=== PATIENT | male | born 1970 | race Caucasian/White ===

== ENCOUNTER → 2018-03-04 13:09 | Outpatient (CLI) | payer OTHER, SELFPAY ==
[2018-03-04 14:43] LABS: Add Manual Diff / Slide Review NO; Basophils Percent Auto 0.8 % (0-2); Hematocrit 41.4 % (41-53); Lymphocytes Percent Auto 27.1 % (25-40); Mean Corpuscular HGB Conc 33.9 % (30-36); Mean Corpuscular Hemoglobin 28.6 PG (26-34); Mean Corpuscular Volume 84.4 fL (80-100); Monocytes Percent Auto 8.4 % (3-14); Neutrophils Absolute Auto 2900 /uL (3000-5900); Neutrophils Percent Auto 60.7 % (50-75); Platelet Count 238 X10^3/uL (150-400); Red Cell Distribution Width 13.3 % (11.6-14.8); White Blood Cell Count 4.8 X10^3/uL (4.5-11.0)
[2018-03-04 15:41] LABS: Alanine Aminotransferase 42 IU/L (21-72); Albumin 4.4 g/dL (3.5-5.0); Albumin Globulin Ratio 1.5 (1.0-2.8); Alkaline Phosphatase 90 U/L (38-126); Aspartate Aminotransferase 34 IU/L (17-59); BUN Creatinine Ratio 15.6 (6-22); Bilirubin Total 0.7 mg/dL (0.2-1.3); Blood Urea Nitrogen 14 mg/dL (9-20); Calcium 9.1 mg/dL (8.4-10.2); Carbon Dioxide 25 mmol/L (22-32); Chloride 103 mmol/L (98-107); Cholesterol 178 mg/dL (140-199); Estimated Glomerular Filt Rate > 60.0 mL/min (>60); Glucose 93 mg/dL (70-100); HDL Cholesterol 31 mg/dL (40-60); HEMOLYSIS < 15 (0-50); LDL Cholesterol Calculated 112 mg/dL (<100); Potassium 4.1 mmol/L (3.4-5.1); Sodium 140 mmol/L (137-145); Total Protein 7.4 g/dL (6.3-8.2); Triglycerides 177 mg/dL (35-150)
== END ==
PROVIDERS: PCP Family Medicine; Visit Provider Family Medicine
DX: E78.5 Hyperlipidemia, unspecified (principal)
CPT/HCPCS: 80053; 80061; 85025

== ENCOUNTER → 2019-04-27 11:49 | Outpatient (CLI) | payer OTHER, SELFPAY ==
[2019-04-27 12:18] LABS: Appearance Urine UA CLEAR; Bilirubin Urine UA NEGATIVE (NEGATIVE); Color Urine UA YELLOW; Glucose Urine UA NEGATIVE (Negative); Ketones Urine UA NEGATIVE (NEGATIVE); Leukocyte Esterase Urine UA NEGATIVE (NEGATIVE); Nitrite Urine UA NEGATIVE (Negative); Occult Blood Urine UA NEGATIVE (Negative); Protein Urine UA NEGATIVE (Negative); Specific Gravity Urine UA 1.015 (1.000-1.035); Urobilinogen Urine UA 0.2 E.U./dL (0.2); pH Urine UA 6.5 (4.5-8.0)
[2019-04-27 12:19] LABS: Hematocrit 42.2 % (41-53); Hemoglobin 14.2 g/dL (13.5-17.5); Mean Corpuscular HGB Conc 33.6 % (30-36); Mean Corpuscular Hemoglobin 27.8 PG (26-34); Mean Corpuscular Volume 82.8 fL (80-100); Platelet Count 231 X10^3/uL (150-400); Red Blood Cell Count 5.09 X10^6/uL (4.5-5.9); Red Cell Distribution Width 13.6 % (11.6-14.8); White Blood Cell Count 4.7 X10^3/uL (4.5-11.0)
[2019-04-27 12:45] LABS: Erythrocyte Sedimentation Rate 18 MM/HR (0-15)
[2019-04-27 13:34] LABS: Alanine Aminotransferase 63 IU/L (21-72); Albumin 4.4 g/dL (3.5-5.0); Albumin Globulin Ratio 1.7 (1.0-2.8); Alkaline Phosphatase 108 U/L (38-126); Aspartate Aminotransferase 47 IU/L (17-59); BUN Creatinine Ratio 23.8 (6-22); Bilirubin Total 0.9 mg/dL (0.2-1.3); Blood Urea Nitrogen 19 mg/dL (9-20); Calcium 9.5 mg/dL (8.4-10.2); Carbon Dioxide 24 mmol/L (22-32); Chloride 103 mmol/L (98-107); Cholesterol 204 mg/dL (140-199); Estimated Glomerular Filt Rate > 60.0 mL/min (>60); Globulin 2.6 g/dL (1.7-4.1); Glucose 100 mg/dL (70-100); HDL Cholesterol 39 mg/dL (40-60); HEMOLYSIS 19 (0-50); LDL Cholesterol Calculated 116 mg/dL (<100); Potassium 4.8 mmol/L (3.4-5.1); Sodium 138 mmol/L (137-145); Triglycerides 243 mg/dL (35-150); Uric Acid 6.8 mg/dL (3.5-8.5)
[2019-04-27 13:35] LABS: Neutrophils Absolute Manual 3008 /uL (3000-5900); RBC Morphology Normal Morphology; Total Cells Counted 100
[2019-04-27 13:41] LABS: Rheumatoid Factor < 8.6 IU/mL (<12.0)
[2019-04-27 14:03] LABS: Prostate Specific Antigen Scrn 0.574 ng/mL (0.1-4.0)
[2019-04-27 14:05] LABS: Thyroid Stimulating Hormone 1.18 uIU/mL (0.47-4.68)
[2019-04-29 19:31] LABS: ANA Screen, IFA Negative (Negative)
== END ==
PROVIDERS: PCP Family Medicine; Visit Provider Family Medicine
DX: I10 Essential (primary) hypertension (principal); M19.90 Unspecified osteoarthritis, unspecified site; Z12.5 Encounter for screening for malignant neoplasm of prostate; Z13.220 Encounter for screening for lipoid disorders; Z51.81 Encounter for therapeutic drug level monitoring
CPT/HCPCS: 36415; 80053; 80061; 81003; 84443; 84550; 85025; 85651; 86038; 86430; G0103

== ENCOUNTER 2019-11-11 08:06 | Day surgery (SDC) | payer OTHER, SELFPAY ==
[2019-11-11] VITALS (7 sets, daily range): BP systolic 104–130; BP diastolic 62–79; PULSE 62–90; RESP 13–16; TEMP 36.1–36.8; O2SAT 92–95; BMI 36.6
--- NOTE | 2019-11-11 08:23 | P.HP_ITS ---
History of Present Illness History of Present Illness Date Patient Seen: 11/11/19 Time Patient Seen: 08:23 Chief complaint: [id number] SCREENING COLONOSCOPY Narrative: This is a 49-year-old man with history of obesity, BMI 37, high cholesterol, arthritis, constipation, psoriasis multiple orthopedic procedures is here for his 1st screening colonoscopy. He denies any history of melena, hematochezia, unexplained abdominal pain, unexplained weight loss. Is no high risk family history. He is otherwise in his normal state of health. Denies any recent concerning health problems, no history of heart attack or stroke. ROS Thirteen system review is otherwise negative other than as mentioned below and in HPI. PE: GENERAL: Well groomed and cooperative. Obese. Appears stated age. Answers questions promptly and appropriately. Vital signs noted. HENT: Normocephalic, atraumatic. Hearing intact. Oral mucosa is pink and moist. EYES: Conjunctiva pink, sclera white, no periorbital swelling. CARDIOVASCULAR: Regular rate. No pedal edema. RESPIRATORY: Non-tachypneic, breathing comfortably on room air. GASTROINTESTINAL: Abdomen soft and non-distended GENITALURINARY: No flank tenderness. MUSCULOSKELETAL: Equal tone and mass bilaterally. SKIN: Warm, dry, soft, appropriate color for ethnicity. No other lesions, rashes, or wounds. NEURO: Alert and Oriented X 3. No gross sensory deficits, or cognitive issues. PSYCH: Appropriate affect and mood. 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 Heart disease Essential hypertension Tobacco & Substance use: Smoking Status Never smoker alcohol intake current Meds Home Medications and Allergies Home Medications Medication Instructions Recorded Confirmed Type ibuprofen 200 mg PO #0 07/07/16 10/04/19 History mupirocin calcium 2 % topical cream 1 applictn TOP BID PRN #15 gram 04/13/19 10/04/19 Rx atorvastatin 10 mg tablet 20 mg PO HS #90 tab 05/18/19 10/04/19 Rx coenzyme Q10 75 mg capsule 150 mg PO DAILY 05/25/19 10/04/19 History docusate sodium 100 mg capsule 100 mg PO DAILY 05/25/19 10/04/19 History flaxseed oil 1,000 mg capsule 1,000 mg PO DAILY 05/25/19 10/04/19 History clotrimazole-betamethasone 1 1 applictn TOP BID PRN gram 10/04/19 History %-0.05 % topical cream triamcinolone acetonide 0.1 % 1 applictn TOP DAILY PRN gram 10/04/19 History topical cream Allergies Allergy/AdvReac Type Severity Reaction Status Date / Time amoxicillin [AMOXICILLIN] Allergy Severe Hives Verified 11/11/19 08:35 Sulfa (Sulfonamide Allergy Severe hives Verified 11/11/19 08:35 Antibiotics) [SULFA (SULFONAMIDE ANTIBIOTICS)] Assessment & Plan Assessment and plan (1) At average risk for colon cancer: Current visit: Yes Status: Acute Assessment & Plan narrative: Risks and benefits of screening colonoscopy and possible polypectomy were discussed with the patient including risk of bleeding, perforation, need for additional procedures, risks of anesthesia. The patient desires to proceed with the colonoscopy procedure. Time Spent With Patient Time with patient: 15-24 minutes Quality VTE Deep Vein Thrombosis/Pulmonary Embolism Present on Admission: No
[2019-11-11] MEDS: SODIUM CHLORIDE 0.9% 1,000 ML 200 ML IV (08:28)
--- NOTE | 2019-11-11 08:58 | PM.OP.ENDO ---
Operative Date/Time/Diagnoses Date of procedure: 11/11/19 Time of procedure: 08:58 Pre-op diagnosis: Average risk for colon cancer Post-op diagnosis: other (Normal colon, average risk for colon cancer) Procedure & Clinicians Study performed: Screening colonoscopy Same procedure as scheduled: Yes Indications: Average risk for colon cancer, never had a screening colonoscopy Surgeon: Rosa Maldonado Procedure Notes SCOAP/Timeout: Performed Procedure in detail: The patient was brought to the room and placed in left lateral decubitus position with all bony prominences padded. A time-out was performed and then the patient was given procedural sedation starting with 4 mg of Versed and 100 mcg of fentanyl. He received a total of 7 mg of Versed and 250 micro g of fentanyl for the entire procedure. Vitals were monitored throughout the procedure and remained stable. Once adequately sedated the procedure was begun. A rectal exam was performed revealing no abnormalities. The colonoscope was then introduced to the rectum and advanced to the cecum in the usual fashion. The cecum was identified by the appendiceal orifice, the mucosal tri-fold, and the ileocecal valve. The scope was then retracted while rotating side to side and examining each mucosal fold. At the conclusion of the procedure retroflexion was performed and small grade 1-2 internal hemorrhoids without stigmata of bleeding were seen. The scope was then withdrawn from the rectum the procedure was concluded. The patient tolerated the procedure well and was transferred to the PACU in stable condition. Scope withdrawal time: 11 Sedation minutes: 23 Specimen(s): none sent Complications: none Impression: Normal colon, no polyps or masses seen Post-procedure Recommendations: Colonscopy in 10 years Follow up: as needed Disposition: PACU
[2019-11-11] MEDS: fentaNYL 250 MCG/5 ML INJ IV (09:01)
[2019-11-11] MEDS: MIDAZOLAM 5 MG/5 ML VIAL IV ×2 (09:02→09:16)
== END 2019-11-11 10:20 | disposition home or self-care (01) ==
PROVIDERS: PCP Family Medicine; Referring Provider Family Medicine; Visit Provider Surgery
PROC: 0DJD8ZZ Inspection of Lower Intestinal Tract, Via Natural or Artificial Opening Endoscopic (ICD-10-PCS; CPT 45378; principal; 2019-11-11 09:15)
DX: Z12.11 Encounter for screening for malignant neoplasm of colon (principal); K64.0 First degree hemorrhoids
CPT/HCPCS: 45378; 99152; J2250; J3010

== ENCOUNTER → 2020-06-05 11:29 | Outpatient (CLI) | payer OTHER, SELFPAY ==
[2020-06-05 12:49] LABS: Alanine Aminotransferase 30 IU/L (<50); Albumin 4.4 g/dL (3.5-5.0); Albumin Globulin Ratio 1.5 (1.0-2.8); Alkaline Phosphatase 99 U/L (38-126); Aspartate Aminotransferase 37 IU/L (17-59); BUN Creatinine Ratio 17.4 (6-22); Bilirubin Total 0.7 mg/dL (0.2-1.3); Blood Urea Nitrogen 15 mg/dL (9-20); Calcium 9.2 mg/dL (8.4-10.2); Carbon Dioxide 27 mmol/L (22-32); Chloride 102 mmol/L (98-107); Cholesterol 196 mg/dL (140-199); Estimated Glomerular Filt Rate > 60.0 mL/min (>60); Globulin 2.9 g/dL (1.7-4.1); Glucose 112 mg/dL (70-100); HDL Cholesterol 33 mg/dL (40-60); HEMOLYSIS < 15 (0-50); LDL Cholesterol Calculated 100 mg/dL (<100); Potassium 4.2 mmol/L (3.4-5.1); Sodium 136 mmol/L (137-145); Total Protein 7.3 g/dL (6.3-8.2); Triglycerides 316 mg/dL (35-150)
== END ==
PROVIDERS: PCP Family Medicine; Referring Provider Family Medicine; Visit Provider Family Medicine
DX: Z00.01 Encounter for general adult medical examination with abnormal findings (principal); D22.9 Melanocytic nevi, unspecified; E78.00 Pure hypercholesterolemia, unspecified; R03.0 Elevated blood-pressure reading, without diagnosis of hypertension
CPT/HCPCS: 36415; 80053; 80061

== ENCOUNTER → 2020-08-13 12:51 | Outpatient (CLI) | payer OTHER, SELFPAY ==
--- NOTE | 2020-08-13 12:56 | DIET.PN ---
Dietary Progress Note Assessment: 50y M pt attending telehealth visit c RD to work on weight loss (BMI 38) and to address dietary management of psoriasis. Pt has been fairly weight stable for past 2y but is feeling pressure on joints and has high TGs. Works for [employer], currently in [place], usually walks cabin q15min. Psoriasis usually along hairline and in underarms, sometimes other places and for past 5y. Usual Day: wakes 10-11am breakfast 11-12: usually granola bar ([employer], pressed nuts) or breadfarm bread c butter c black coffee drives down to work (1hr commute-gets soy latte 8oz double- works 2pm to 10pm packs lunch: ham sandwich, dried fruits, chips, little snacks, string cheese sometimes stops for snacks on way home 11pm eats dinner (frozen pizza, quesadilla, nachos) goes to bed 3am usually has a beer or two or a couple shots of tequila not avoiding any particular foods does most of the shopping pretty much similar pattern during non-work days, sometimes will get take out, has stationary bike and sometimes will bike [place], [place] which hinders exercise. Pt not supplementing c Vit D, has never had levels checked. RD Impression: Pt has sedentary baseline activity level, this paired with reliance on convenience foods which are high in carbs and low in soluble fiber/F/V along with some emotional eating are contributing to BMI 38. Pts daily etoh consumption along with possible food triggers and stress are likely contributing to increased psoriatic flares. Plan is to reduce reliance on convenience foods, finding 2-4 alternates for emotional eating, initiate healthy meal planning 3d/w using balanced plate model, starting to count steps to decrease sedentary time, and intentional regular physical activity should be initiated to manage weight. HT: 5'10 WT: 200# (280# now, large body frame) BMI: 38 Labs: TG 316 H, HDL 33 L, ESR 18 H Nutrition Diagnosis: class 2 obesity r/t physical inactivity and nutrition related knowledge deficit aeb pt BMI 38, pt reports no intentional physical activity, pt reports regularly consuming frozen pizza, nachos, quesadillas for dinner and packing convenience foods for lunches. Interventions: 1. Discussed plate balance using handout. Pt instructed to problem solve all meals and snacks to fit formula of 1/4 pro, 1/4 cho, 1/2 f/non-starchy veggies. Pt will use this model to pack lunches for work. 2. Discussed meal planning. Pt will use plate balance to plan 3 healthy dinners per week with leftovers. 3. To investigate food triggers to psoriasis, pt will intentionally consume more and less dairy and eggs, and less etoh to test if these may be aggravating sx. Pt will do the same for other possible food triggers. Provided pt anti-inflammatory diet handout. 4. To address physical inactivity, pt will download step counter to identify current steps in a day. Pt will intentionally move his body more by doing more frequent cabin checks and sanitize stairwell handrails on each voyage. 5. To further address physical inactivity, pt will intentionally ride his stationary bike, regular bike, or walk for 30-60 minutes on non-work days. Monitoring/Evaluations: telehealth f/u in 6w to assess progress and problem solve barriers
== END ==
PROVIDERS: PCP Family Medicine; Referring Provider Family Medicine; Visit Provider Family Medicine
DX: E66.9 Obesity, unspecified (principal); L40.9 Psoriasis, unspecified; Z68.38 Body mass index [BMI] 38.0-38.9, adult; Z71.3 Dietary counseling and surveillance
CPT/HCPCS: 97802

== ENCOUNTER → 2020-09-27 13:27 | Outpatient (CLI) | payer OTHER, SELFPAY ==
--- NOTE | 2020-09-27 13:32 | DIET.PN ---
Dietary Progress Note 50y M attending telehealth f/u for help with weight loss and managing psoriasis. Pt works for the [employer] and has been doing car deck for a month, downloaded a step counter on his phone and step count was up to 15,000, average steps in normal position 8,000 steps. Pt will be going back to his normal schedule (which coincides c his wifes) and feels he will just need to actively try to get more steps. Pt has not been weighing himself but is noticing pants are fitting looser. Pt has been doing better with packing lunches, adding more fruits and veggies, still having difficulties c dinners,feels like he is having issues c portion control. While he does still do pizzas, nachos, etc, his has started making a few meals per week that are pro, starch, and veggies. Pt noticed a big outbreak of his psoriasis after eating eggs. He has been eating fewer eggs with good results since then. He might try just yolk or just whites to see if there is a difference. Interventions: 1. Pt will work with his to meal plan 3 dinners per week with a focus on easier to prepare and easy to heat items such as: one pot meals, crock pot meals, and sheet oliver meals while still focusing on plate balance. 2. Pt will continue to use step counter on phone to intentionally add steps to his day trying to get to 10k steps whenever possible. 3. Pt will start working on physical activity outside of work days which won't aggravate his knee. Consider a strength routine such as 7-minute workout on [employer] in addition to some walks on dirt paths ([employer] [place]). Walking to [facility] (not around) and back is about 1.5 miles and a nice, smooth, dirt path. f/u in 6w to assess progress and problem solve barriers.
== END ==
PROVIDERS: PCP Family Medicine; Referring Provider Family Medicine; Visit Provider Family Medicine
DX: L40.9 Psoriasis, unspecified (principal)
CPT/HCPCS: 97803

== ENCOUNTER → 2020-11-16 09:32 | Outpatient (CLI) | payer OTHER, SELFPAY ==
[2020-11-16] MEDS: COVID-19 VACC #1, MRNA(MOD) 100 MCG/0.5 ML VIAL IM (09:39)
== END ==
PROVIDERS: PCP Internal Medicine; Visit Provider Internal Medicine
DX: Z23 Encounter for immunization (principal)
CPT/HCPCS: 0011A; 91301

== ENCOUNTER → 2020-12-14 09:38 | Outpatient (CLI) | payer OTHER, SELFPAY ==
[2020-12-14] MEDS: COVID-19 VACC #2, MRNA(MOD) 100 MCG/0.5 ML VIAL IM (09:45)
== END ==
PROVIDERS: PCP Internal Medicine; Visit Provider Internal Medicine
DX: Z23 Encounter for immunization (principal)
CPT/HCPCS: 0012A; 91301

== ENCOUNTER → 2021-01-25 14:12 | Outpatient (CLI) | payer OTHER, SELFPAY ==
[2021-01-25 15:19] LABS: HEMOLYSIS < 15 (0-50); Potassium 4.6 mmol/L (3.4-5.1)
[2021-01-25 15:20] LABS: Alanine Aminotransferase 29 IU/L (<50); Albumin 4.4 g/dL (3.5-5.0); Albumin Globulin Ratio 1.6 (1.0-2.8); Alkaline Phosphatase 84 U/L (38-126); Aspartate Aminotransferase 43 IU/L (17-59); BUN Creatinine Ratio 18.7 (6-22); Bilirubin Total 0.5 mg/dL (0.2-1.3); Blood Urea Nitrogen 17 mg/dL (9-20); Calcium 9.5 mg/dL (8.4-10.2); Carbon Dioxide 26 mmol/L (22-32); Chloride 104 mmol/L (98-107); Estimated Glomerular Filt Rate > 60.0 mL/min (>60); Globulin 2.7 g/dL (1.7-4.1); Glucose 102 mg/dL (70-100); Sodium 138 mmol/L (137-145); Total Protein 7.1 g/dL (6.3-8.2)
[2021-01-25 15:31] LABS: Free T4, Direct Thyroxine 1.22 ng/dL (0.78-2.19)
[2021-01-25 15:45] LABS: Thyroid Stimulating Hormone 1.46 uIU/mL (0.47-4.68)
== END ==
PROVIDERS: PCP Internal Medicine; Referring Provider Internal Medicine; Visit Provider Internal Medicine
DX: R60.9 Edema, unspecified (principal)
CPT/HCPCS: 36415; 80053; 84439; 84443

== ENCOUNTER → 2021-02-19 15:52 | Outpatient (CLI) | payer OTHER, SELFPAY ==
--- NOTE | 2021-02-19 15:53 | DI.ECHO.S_ITS ---
[place] +---------+ [facility] +---------+ : : [address] : : : : [id number] : : : : Phone: [phone]---------+ Echocardiogram Report + + :Name: RODRICK DUFFY Study Date: 02/19/2021 Height: 70 in : :[facility] ReadingLocation: Weight: 275 lb : : Gender: Male BSA: 2.4 m2 : :: 1970 Age: 51 yrs BP: 148/84 mmHg: :Reason For Study: PERIPHERAL EDEMA : :Ordering Physician: HERMINIA MARTINEZ : :Lauren CAVAZOS Performed By: Lyndsey Davis : :Referring: HERMINIA MARTINEZ MD : + + Interpretation Summary The ejection fraction is estimated to be 60-65%. The left atrium is moderately dilated. There is no significant valvular heart disease. Procedure: A two-dimensional transthoracic echocardiogram with color flow and Doppler was performed. The study quality was technically adequate. There is no prior echocardiogram noted for this patient. The patient was in sinus rhythm with heart rates between 80-87 bpm during the exam. Left Ventricle: The left ventricle is normal in size and wall thickness. The ejection fraction is estimated to be 60-65%. Left ventricular wall motion is normal. Right Ventricle: The right ventricle is mildly dilated. The right ventricular systolic function is normal. Atria: The left atrium is moderately dilated. Right atrial size is normal. There is no Doppler evidence for an interatrial shunt. Mitral Valve: The mitral valve is normal in structure and function. There is mild mitral annular calcification. There is trace mitral regurgitation. Aortic Valve: The aortic valve is trileaflet. The aortic valve opens well. There is no aortic valve stenosis. No aortic regurgitation is present. Tricuspid Valve: The tricuspid valve is normal in structure and function. There is trace tricuspid regurgitation. Pulmonary artery pressures cannot be estimated because of the lack of a measurable TR jet velocity but the IVC suggests a CVP of around 3 mmHg. Pulmonic Valve: The pulmonic valve leaflets are thin and pliable; valve motion is normal. There is no pulmonic valvular regurgitation. Great Vessels: The aortic root is normal size. The dimensions of the ascending aorta are normal. The IVC is of normal diameter and collapses greater than 50% with a sniff. This suggests a low right atrial pressure of 3 mm Hg. Pericardium/ Pleura There is no pericardial effusion. There is no pleural effusion. MMode/2D Measurements & Calculations LVIDd: 5.1 cm LVOT diam: 2.4 cm LVIDs: 3.0 cm Ao root diam: 3.5 cm FS: 40.7 % asc Aorta Diam: 3.1 cm EPSS: 0.29 cm Ao Arch Diam (Prox Trans): 2.5 cm IVSd: 0.94 cm LVPWd: 0.99 cm LV rosales. diameter/BSA (cm/m^2): 2.1 LV sys. diameter/BSA (cm/m^2): 1.3 LA A2 area: 27.4 cm2 RA long axis: 5.5 cm LA A4 area: 27.0 cm2 RA area: 18.5 cm2 LA length (vol): 5.8 cm RA vol: 52.5 ml LA vol: 109.0 ml RA : 22.0 ml/m2 LA vol index: 45.6 ml/m2 IVC diam: 0.89 cm RVD1 (basal): 4.3 cm TAPSE: 2.6 cm Doppler Measurements & Calculations Ao V2 max: 154.7 cm/sec LVOT Max Philip: 133.1 cm/sec Ao V2 mean: 104.1 cm/sec LV V1 max P.1 mmHg Ao max P.6 mmHg LV V1 VTI: 25.4 cm Ao mean P.0 mmHg HERNANDO(I,D): 3.8 cm2 Ao V2 VTI: 29.7 cm HERNANDO(V,D): 3.8 cm2 sev ratio: 0.85 HERNANDO indexed to BSA (cm^2/m^2): 1.6 MV E max philip: 79.4 cm/sec PA pr(Accel): 20.8 mmHg MV A max philip: 72.2 cm/sec MV E/A: 1.1 Med Peak E' Philip: 8.1 cm/sec E/E' med: 9.8 Lat Peak E' Philip: 10.6 cm/sec E/E' lat: 7.5 E/e' average: 8.7 MV dec time: 0.24 sec SV(LVOT): 112.1 ml Reading Physician:10:03 AM
== END ==
PROVIDERS: PCP Internal Medicine; Referring Provider Internal Medicine; Visit Provider Internal Medicine
DX: R60.9 Edema, unspecified (principal)
CPT/HCPCS: 93306

== ENCOUNTER 2021-09-11 14:55 | Emergency (ER) | payer OTHER, SELFPAY ==
[2021-09-11] VITALS (23 sets, daily range): BP systolic 150–182; BP diastolic 71–94; PULSE 70–94; RESP 20; TEMP 36.5; O2SAT 92–98; BMI 38.0
[2021-09-11 15:48] LABS: Bacteria Urine None Seen; RBC Urine 30-100/HPF (0-5/HPF); WBC Urine 5-10/HPF (0-5/HPF)
--- NOTE | 2021-09-11 17:42 | DI.CT.S_ITS ---
PROCEDURE: CT KIDNEY URETER BLADDER (KUB) INDICATIONS: flank pain TECHNIQUE: Axial sections were acquired from the lung bases to the pubic symphysis. Coronal and sagittal reformats were performed. For radiation dose reduction, the following was used: automated exposure control, adjustment of mA and/or kV according to patient size. COMPARISON: None. FINDINGS: Image quality: Excellent. Lung bases: Small to moderate right pleural effusion with atelectasis. Heart: No cardiomegaly. Trace pericardial effusion/thickening. URINARY: Right Kidney: No nephrolithiasis. Moderate hydronephrosis. Right Ureter: Proximal hydroureter. The mid to distal portions of the ureter are obscured. Left Kidney: No nephrolithiasis. Mild to moderate hydronephrosis. Left Ureter: Proximal hydroureter. The mid to distal portions of the ureter are obscured. Bladder: Wall thickening, partially due to underdistention. ABDOMEN: Liver: Unremarkable. 1 cm hypoattenuating lesion in the right hepatic lobe, which may reflect a cyst. Gallbladder: Unremarkable. Biliary ducts: Unremarkable. Pancreas: Unremarkable. Spleen: Unremarkable. Adrenal Glands: Unremarkable. Stomach and Bowel: No evidence of intestinal obstruction or inflammatory change. The appendix appears normal. Peritoneum: No abnormal intraperitoneal fluid. No free air. Ventral Wall: Small fat containing periumbilical hernia with small amount of free fluid. Abdominal Nodes: A 12.1 x 11.5 x 6.2 cm mass is seen in the periaortic region, concerning for lymphoma. Vessels: The aorta and IVC are obscured by the aforementioned mass. PELVIS: Pelvic Organs: Unremarkable. Pelvic Nodes: Unremarkable. Miscellaneous: No inguinal hernias are seen. Asymmetric enlargement of the right psoas muscle, likely representing infiltration by the aforementioned retroperitoneal mass. Bones: Multifocal degenerative change. Heterogeneous attenuation of the spine, which is nonspecific. IMPRESSION: 1. Small to moderate right pleural effusion with atelectasis. 2. Bilateral hydronephrosis. 3. Retroperitoneal mass, measuring up to 12.1 cm, concerning for lymphoma. 4. Heterogeneous attenuation of the spine, which is nonspecific but concerning for metastatic disease. Dictated by: Galen Maloney M.D. on 09/11/2021 at 18:13 Approved by: Galen Maloney M.D. on 09/11/2021 at 18:29
--- NOTE | 2021-09-11 17:49 | ED.MALEGU ---
HPI - Male Genitourinary <Gabbie Cary [facility] - Last Filed: 09/12/21 19:19> General Chief complaint: Urogenital-Male Stated complaint: urinary issues Time Seen by Provider: 09/11/21 17:41 Source: patient Mode of arrival: Ambulatory History of Present Illness HPI Narrative: 51-year-old presents emergency department complaining of left flank pain which started this morning when he woke up with dysuria. He endorses that he took 1 of his hydrochlorothiazide it is which did not improve his dysuria symptoms. He went for a walk and his left flank pain became worse, he has been pacing most of the day try to tolerate the pain. He denies taking any medication for this. He denies any history of kidney stones, or bladder infections. Patient endorses that he is otherwise healthy, has a history of PENNIE and has a new CPAP machine which he reports makes his throat feel con a dry and scratchy. Patient denies any recent illness, fever. He recently had a low back injury at work and is currently off work for this injury. He endorses shortness of breath with exertion, he is COVID vaccinated x2, he also endorses an umbilical hernia which has been present for at least 2 months he says. He denies any changes to his stool, reports that it is painful doubt bowel movement sometimes. Related Data Home Medications Medication Instructions Recorded Confirmed coenzyme Q10 75 mg capsule (Ultra 150 mg PO DAILY 05/25/19 08/26/21 CoQ10) flaxseed oil 1,000 mg capsule 1,000 mg PO DAILY 05/25/19 08/26/21 acetaminophen 500 mg tablet 500 mg PO DAILY tab 06/08/20 08/26/21 (Tylenol Extra Strength) ibuprofen 200 mg tablet 600 mg PO DAILY #0 tab 06/08/20 08/26/21 Previous Rx's Medication Instructions Recorded clotrimazole-betamethasone 1 1 applic TOP BID PRN #45 g 10/10/20 %-0.05 % topical cream triamcinolone acetonide 0.1 % 1 applic TOP DAILY PRN #30 g 10/10/20 topical cream triamterene 37.5 1 tab PO DAILY #90 tab 01/25/21 mg-hydrochlorothiazide 25 mg tablet atorvastatin 10 mg tablet (Lipitor) 10 mg PO HS #90 tab 06/25/21 methocarbamol 500 mg tablet See Rx Instructions PO Q6-8H PRN 08/26/21 #20 tab Allergies Allergy/AdvReac Type Severity Reaction Status Date / Time amoxicillin [AMOXICILLIN] Allergy Severe Hives Verified 09/11/21 15:04 Sulfa (Sulfonamide Allergy Severe hives Verified 09/11/21 15:04 Antibiotics) [SULFA (SULFONAMIDE ANTIBIOTICS)] Review of Systems <EDWAR Vasquez - Last Filed: 09/12/21 19:19> Review of Systems Narrative: General: denies fever, chills Head/Neck: denies headache, neck pain Eyes: denies visual changes, eye pain Cardio: denies chest pain, palpitations Respiratory: Endorses shortness of breath with exertion, denies cough or wheezing GI: denies abdominal pain, nausea, vomiting, or diarrhea, endorses flank pain which started this morning : Endorses dysuria which started this morning denies any urinary retention MSK: denies joint pain, muscle weakness Skin: denies rash, itching Neuro: denies numbness, tingling Patient History <EDWAR Vasquez - Last Filed: 09/12/21 19:19> Medical History Arthritis Carpal tunnel syndrome of left wrist (06/23/16) Constipation Impaired vision Mixed hyperlipidemia Obesity (BMI 30-39.9) Obstructive sleep apnea of adult Peripheral edema Psoriasis (10/29/17) Venous stasis Surgical History H/O right wrist surgery History of carpal tunnel release Family History Father Age: 75 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 without complication, unspecified mcfp insulin use status Heart disease Essential hypertension Social History household members: spouse Smoking Status: Never smoker alcohol intake: current Smoking Status: Never smoker alcohol intake frequency: 0-2 drinks per day Substance Use Type: does not use Exam <EDWAR Vasquez - Last Filed: 09/12/21 19:19> Narrative Exam Narrative: Independently reviewed vitals signs and nursing notes. General: Awake, alert, nontoxic, no cardiorespiratory distress Head/Neck: Atraumatic, neck full range of motion Eyes: EOMI, conjunctiva normal Nose: nares patent, no rhinorrhea Mouth/Throat: moist mucus membranes, no oral lesions Cardio: Regular rate and rhythm, no peripheral edema Respiratory: respirations unlabored without wheezing, stridor, or rales. No retractions. Diminished breath sounds on the right GI: Abdomen soft, nontender MSK: Moves all extremities, neurovascularly intact Skin: Normal capillary refill, no rash Neuro: Normal speech and cognition, normal gait Initial Vital Signs Initial Vital Signs: Vital Signs Temperature 97.7 F 09/11/21 15:00 Pulse Rate 90 09/11/21 15:00 Respiratory Rate 20 09/11/21 15:00 Blood Pressure 169/87 H 09/11/21 15:00 Pulse Oximetry 98 09/11/21 15:00 <Steve Canales DO - Last Filed: 09/12/21 22:37> Initial Vital Signs Initial Vital Signs: Vital Signs Temperature 97.7 F 09/11/21 15:00 Pulse Rate 90 09/11/21 15:00 Respiratory Rate 20 09/11/21 15:00 Blood Pressure 169/87 H 09/11/21 15:00 Pulse Oximetry 98 09/11/21 15:00 <Oriana Chan DO - Last Filed: 09/13/21 07:26> Initial Vital Signs Initial Vital Signs: Vital Signs Temperature 97.7 F 09/11/21 15:00 Pulse Rate 90 09/11/21 15:00 Respiratory Rate 20 09/11/21 15:00 Blood Pressure 169/87 H 09/11/21 15:00 Pulse Oximetry 98 09/11/21 15:00 Course <EDWAR Vasquez - Last Filed: 09/12/21 19:19> Orders Ordered: Discontinued Medications Hydromorphone HCl (Hydromorphone 0.5 Mg Inj) 0.5 mg IV NOW ONE Stop: 09/11/21 20:41 Last Admin: 09/11/21 23:13 Dose: 0.5 mg Documented by: KAYLAH Hydromorphone HCl (Hydromorphone 0.5 Mg Inj) 0.5 mg IV Q1H PRN PRN Reason: pain Hydromorphone HCl (Hydromorphone 0.5 Mg Inj) 0.5 mg IV Q1HR PRN PRN Reason: Pain, Severe (7-10) Last Admin: 09/12/21 04:51 Dose: 0.5 mg Documented by: Admin: 09/12/21 02:52 Dose: 0.5 mg Documented by: KAYLAH Hydromorphone HCl (Hydromorphone 0.5 Mg Inj) 0.5 mg IV NOW ONE Stop: 09/12/21 07:28 Last Admin: 09/12/21 08:13 Dose: 0.5 mg Documented by: NAVA Sodium Chloride (Normal Saline 0.9%) 1,000 mls @ 84 mls/hr IV CONT TRAY Last Infusion: 09/12/21 19:00 Dose: 84 mls/hr Documented by: Admin: 09/12/21 08:53 Dose: 84 mls/hr Documented by: NAVA Ketorolac Tromethamine (Ketorolac 30 Mg/Ml Vial) 15 mg IV NOW ONE Stop: 09/11/21 17:49 Last Admin: 09/11/21 17:59 Dose: 15 mg Documented by: NAVA Ondansetron HCl (Ondansetron 4 Mg/2 Ml Inj) 4 mg IV NOW ONE Stop: 09/11/21 23:10 Last Admin: 09/11/21 23:13 Dose: 4 mg Documented by: KAYLAH Ondansetron HCl (Ondansetron 4 Mg/2 Ml Inj) 4 mg IV Q4H PRN PRN Reason: Nausea Ondansetron HCl (Ondansetron 4 Mg/2 Ml Inj) 4 mg IV Q2HR PRN PRN Reason: Nausea And Vomiting Oxycodone/Acetaminophen (Oxycodone/Acetaminophen 5/325 Tablet) 1 tab PO NOW ONE Stop: 09/11/21 17:50 Last Admin: 09/11/21 18:00 Dose: 1 tab Documented by: NAVA Phenazopyridine HCl (Phenazopyridine 100 Mg Tablet) 100 mg PO NOW ONE Stop: 09/11/21 17:49 Last Admin: 09/11/21 18:00 Dose: 100 mg Documented by: NAVA Tamsulosin HCl (Tamsulosin 0.4 Mg Capsule) 0.4 mg PO NOW ONE Stop: 09/11/21 17:49 Last Admin: 09/11/21 18:12 Dose: 0.4 mg Documented by: NAOMI Consultations Consultation #1: Consulted Dr. Vaz who is on for patient's provider Dr. Ferguson and discussed the results of patient's imaging. I have been unable to get a hold of Urology at this point button attempting to admit the patient for acute kidney injury with obstructive uropathy. Consultation #2: Consult with Dr. Britt from Urology to discuss patient's case, Dr. Britt recommends transferring patient to a center with Interventional Radiology as patient's mass is concerning for simple stent placement and he recommends interventional radiology as the best option for patient's outcome. Consultation #3: Called patient's to discuss the results of his scan and brought her back to patient's room so she can be with him. Additional Consultation(s): Health community support worker is phoning all facilities nearby with Interventional Radiology looking for beds for patient Vital Signs Vital signs: Vital Signs - 8 hr 09/12/21 15:00 09/12/21 15:30 09/12/21 16:00 Pulse Rate 59 L 60 58 L Blood Pressure 123/66 Pulse Oximetry 95 94 96 09/12/21 16:30 09/12/21 17:00 09/12/21 17:30 Pulse Rate 61 60 61 Blood Pressure Pulse Oximetry 94 94 95 09/12/21 18:00 09/12/21 18:30 09/12/21 19:00 Pulse Rate 61 61 64 Blood Pressure 127/65 Pulse Oximetry 96 95 96 09/12/21 19:30 09/12/21 19:44 Pulse Rate 65 65 Blood Pressure 126/59 L Pulse Oximetry 96 96 <Steve Canales, DO - Last Filed: 09/12/21 22:37> Orders Ordered: Discontinued Medications Hydromorphone HCl (Hydromorphone 0.5 Mg Inj) 0.5 mg IV NOW ONE Stop: 09/11/21 20:41 Last Admin: 09/11/21 23:13 Dose: 0.5 mg Documented by: KAYLAH Hydromorphone HCl (Hydromorphone 0.5 Mg Inj) 0.5 mg IV Q1H PRN PRN Reason: pain Hydromorphone HCl (Hydromorphone 0.5 Mg Inj) 0.5 mg IV Q1HR PRN PRN Reason: Pain, Severe (7-10) Last Admin: 09/12/21 04:51 Dose: 0.5 mg Documented by: Admin: 09/12/21 02:52 Dose: 0.5 mg Documented by: KAYLAH Hydromorphone HCl (Hydromorphone 0.5 Mg Inj) 0.5 mg IV NOW ONE Stop: 09/12/21 07:28 Last Admin: 09/12/21 08:13 Dose: 0.5 mg Documented by: NAVA Sodium Chloride (Normal Saline 0.9%) 1,000 mls @ 84 mls/hr IV CONT TRAY Last Infusion: 09/12/21 19:00 Dose: 84 mls/hr Documented by: Admin: 09/12/21 08:53 Dose: 84 mls/hr Documented by: NAVA Ketorolac Tromethamine (Ketorolac 30 Mg/Ml Vial) 15 mg IV NOW ONE Stop: 09/11/21 17:49 Last Admin: 09/11/21 17:59 Dose: 15 mg Documented by: NAVA Ondansetron HCl (Ondansetron 4 Mg/2 Ml Inj) 4 mg IV NOW ONE Stop: 09/11/21 23:10 Last Admin: 09/11/21 23:13 Dose: 4 mg Documented by: KAYLAH Ondansetron HCl (Ondansetron 4 Mg/2 Ml Inj) 4 mg IV Q4H PRN PRN Reason: Nausea Ondansetron HCl (Ondansetron 4 Mg/2 Ml Inj) 4 mg IV Q2HR PRN PRN Reason: Nausea And Vomiting Oxycodone/Acetaminophen (Oxycodone/Acetaminophen 5/325 Tablet) 1 tab PO NOW ONE Stop: 09/11/21 17:50 Last Admin: 09/11/21 18:00 Dose: 1 tab Documented by: NAVA Phenazopyridine HCl (Phenazopyridine 100 Mg Tablet) 100 mg PO NOW ONE Stop: 09/11/21 17:49 Last Admin: 09/11/21 18:00 Dose: 100 mg Documented by: NAVA Tamsulosin HCl (Tamsulosin 0.4 Mg Capsule) 0.4 mg PO NOW ONE Stop: 09/11/21 17:49 Last Admin: 09/11/21 18:12 Dose: 0.4 mg Documented by: NAOMI Vital Signs Vital signs: Vital Signs - 8 hr 09/12/21 15:00 09/12/21 15:30 09/12/21 16:00 Pulse Rate 59 L 60 58 L Blood Pressure 123/66 Pulse Oximetry 95 94 96 09/12/21 16:30 09/12/21 17:00 09/12/21 17:30 Pulse Rate 61 60 61 Blood Pressure Pulse Oximetry 94 94 95 09/12/21 18:00 09/12/21 18:30 09/12/21 19:00 Pulse Rate 61 61 64 Blood Pressure 127/65 Pulse Oximetry 96 95 96 09/12/21 19:30 09/12/21 19:44 Pulse Rate 65 65 Blood Pressure 126/59 L Pulse Oximetry 96 96 <Oriana Chan DO - Last Filed: 09/13/21 07:26> Orders Ordered: Discontinued Medications Hydromorphone HCl (Hydromorphone 0.5 Mg Inj) 0.5 mg IV NOW ONE Stop: 09/11/21 20:41 Last Admin: 09/11/21 23:13 Dose: 0.5 mg Documented by: KAYLAH Hydromorphone HCl (Hydromorphone 0.5 Mg Inj) 0.5 mg IV Q1H PRN PRN Reason: pain Hydromorphone HCl (Hydromorphone 0.5 Mg Inj) 0.5 mg IV Q1HR PRN PRN Reason: Pain, Severe (7-10) Last Admin: 09/12/21 04:51 Dose: 0.5 mg Documented by: Admin: 09/12/21 02:52 Dose: 0.5 mg Documented by: KAYLAH Hydromorphone HCl (Hydromorphone 0.5 Mg Inj) 0.5 mg IV NOW ONE Stop: 09/12/21 07:28 Last Admin: 09/12/21 08:13 Dose: 0.5 mg Documented by: NAVA Sodium Chloride (Normal Saline 0.9%) 1,000 mls @ 84 mls/hr IV CONT TRAY Last Infusion: 09/12/21 19:00 Dose: 84 mls/hr Documented by: Admin: 09/12/21 08:53 Dose: 84 mls/hr Documented by: NAVA Ketorolac Tromethamine (Ketorolac 30 Mg/Ml Vial) 15 mg IV NOW ONE Stop: 09/11/21 17:49 Last Admin: 09/11/21 17:59 Dose: 15 mg Documented by: NAVA Ondansetron HCl (Ondansetron 4 Mg/2 Ml Inj) 4 mg IV NOW ONE Stop: 09/11/21 23:10 Last Admin: 09/11/21 23:13 Dose: 4 mg Documented by: KAYLAH Ondansetron HCl (Ondansetron 4 Mg/2 Ml Inj) 4 mg IV Q4H PRN PRN Reason: Nausea Ondansetron HCl (Ondansetron 4 Mg/2 Ml Inj) 4 mg IV Q2HR PRN PRN Reason: Nausea And Vomiting Oxycodone/Acetaminophen (Oxycodone/Acetaminophen 5/325 Tablet) 1 tab PO NOW ONE Stop: 09/11/21 17:50 Last Admin: 09/11/21 18:00 Dose: 1 tab Documented by: NAVA Phenazopyridine HCl (Phenazopyridine 100 Mg Tablet) 100 mg PO NOW ONE Stop: 09/11/21 17:49 Last Admin: 09/11/21 18:00 Dose: 100 mg Documented by: ANVA Tamsulosin HCl (Tamsulosin 0.4 Mg Capsule) 0.4 mg PO NOW ONE Stop: 09/11/21 17:49 Last Admin: 09/11/21 18:12 Dose: 0.4 mg Documented by: NAOMI Reevaluation(s) Reevaluation #1: Patient signed out to myself by Dr. Canales. 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 Patient's creatinine is 3.09 from normal and did upwards overnight to 4.25 but potassium overnight. No signs of infection with hematuria but no nitrates and leuks. 5s and WBCs and 30-100 RBCs but no bacteria. Hemoglobin has been stable. Urology was consulted her patient likely needs bilateral nephrostomies which we do not have the ability here. We are currently seeking a bed there is no regional availability. Very judicious use of fluids secondary to lack of ability to dialysis and difficulty obtaining transfer if patient needed it. Patient is having pain particular on the left side but no other symptoms currently. Time: 07:50 Consultations Additional Consultation(s): Health community support worker is phoning all facilities nearby with Interventional Radiology looking for beds for patient Spoke with Dr. Sanchez, urology at [facility] ([place], [place]). Aspirin testicular exam but otherwise is happy to see the patient. Patient case and labs were all reviewed. She asked that we keep him NPO. And speak with the hospitalist service. SPoke with Dr. Murry, hospitalist at [facility] ([place], [place]). Reviewed patient's labs, findings today. At this time would likely be appropriate for [facility] bed and does not require tele. Plan to repeat BMP this afternoon as will likely not have a bed until later in the day or possibly tomorrow. But patient is accepted at [facility] ([place], [place]). Repeat BMP shows elevating creatinine. Potassium is 4.7. Vital Signs Vital signs: Vital Signs - 8 hr 09/12/21 15:00 09/12/21 15:30 09/12/21 16:00 Pulse Rate 59 L 60 58 L Blood Pressure 123/66 Pulse Oximetry 95 94 96 09/12/21 16:30 09/12/21 17:00 09/12/21 17:30 Pulse Rate 61 60 61 Blood Pressure Pulse Oximetry 94 94 95 09/12/21 18:00 09/12/21 18:30 09/12/21 19:00 Pulse Rate 61 61 64 Blood Pressure 127/65 Pulse Oximetry 96 95 96 09/12/21 19:30 09/12/21 19:44 Pulse Rate 65 65 Blood Pressure 126/59 L Pulse Oximetry 96 96 MDM - Male Genitourinary <EDWAR Vasquez - Last Filed: 09/12/21 19:19> Lab Data Result diagrams: 09/12/21 04:42 09/12/21 15:59 Labs: Lab Results 09/11/21 09/11/21 09/11/21 Range/Units 15:14 15:14 17:46 WBC 10.3 (4.5-11.0) X10^3/uL RBC 4.59 (4.5-5.9) X10^6/uL Hgb 12.0 L (13.5-17.5) g/dL Hct 35.8 L (41-53) % MCV 78.0 L (80-100) fL MCH 26.0 (26-34) PG MCHC 33.4 (30-36) % RDW 14.9 H (11.6-14.8) % Plt Count 283 (150-400) X10^3/uL Neut % (Auto) 88.6 H (50-75) % Lymph % (Auto) 4.9 L (25-40) % [place] % (Auto) 5.1 (3-14) % Eos % (Auto) 1.1 L (2-4) % Baso % (Auto) 0.3 (0-2) % Neut # (Auto) 9100 H (1651-7934) /uL Lymph # (Auto) 500 L (0507-3228) /uL [place] # (Auto) 500 (0-900) /uL Eos # (Auto) 100 (0-450) /uL Baso # (Auto) 0 (0-100) /uL Sodium (137-145) mmol/L Potassium (3.4-5.1) mmol/L Chloride (98-107) mmol/L Carbon Dioxide (22-32) mmol/L BUN (9-20) mg/dL Creatinine (0.66-1.25) mg/dL Estimated GFR (>60) mL/min BUN/Creatinine Ratio (6-22) Glucose (70-100) mg/dL Calcium (8.4-10.2) mg/dL Total Bilirubin (0.2-1.3) mg/dL AST (17-59) IU/L ALT (<50) IU/L Alkaline Phosphatase (38-126) U/L Total Protein (6.3-8.2) g/dL Albumin (3.5-5.0) g/dL Globulin (1.7-4.1) g/dL Albumin/Globulin Ratio (1.0-2.8) Urine RBC 30-100/hpf H (0-5/HPF) Urine WBC 5-10/hpf H (0-5/HPF) Urine Bacteria None seen (None) Ur Culture Indicated? Culture not indicate Ur Random Sodium 55 (30-90) mmol/L Urine Creatinine 22.7 mg/dL SARS-CoV-2 (PCR) (Negative) 09/11/21 09/11/21 09/12/21 Range/Units 17:46 20:30 04:42 WBC 8.4 (4.5-11.0) X10^3/uL RBC 4.28 L (4.5-5.9) X10^6/uL Hgb 11.1 L (13.5-17.5) g/dL Hct 33.3 L (41-53) % MCV 77.8 L (80-100) fL MCH 26.0 (26-34) PG MCHC 33.4 (30-36) % RDW 14.9 H (11.6-14.8) % Plt Count 254 (150-400) X10^3/uL Neut % (Auto) 80.7 H (50-75) % Lymph % (Auto) 5.7 L (25-40) % [place] % (Auto) 11.0 (3-14) % Eos % (Auto) 2.1 (2-4) % Baso % (Auto) 0.5 (0-2) % Neut # (Auto) 6700 (0825-0887) /uL Lymph # (Auto) 500 L (9147-7645) /uL [place] # (Auto) 900 (0-900) /uL Eos # (Auto) 200 (0-450) /uL Baso # (Auto) 0 (0-100) /uL Sodium 137 (137-145) mmol/L Potassium 4.1 (3.4-5.1) mmol/L Chloride 99 (98-107) mmol/L Carbon Dioxide 25 (22-32) mmol/L BUN 31 H (9-20) mg/dL Creatinine 3.09 H (0.66-1.25) mg/dL Estimated GFR 21.3 L (>60) mL/min BUN/Creatinine Ratio 10.0 (6-22) Glucose 119 H (70-100) mg/dL Calcium 12.0 H (8.4-10.2) mg/dL Total Bilirubin 0.6 (0.2-1.3) mg/dL AST 45 (17-59) IU/L ALT 38 (<50) IU/L Alkaline Phosphatase 105 (38-126) U/L Total Protein 7.6 (6.3-8.2) g/dL Albumin 4.7 (3.5-5.0) g/dL Globulin 2.9 (1.7-4.1) g/dL Albumin/Globulin Ratio 1.6 (1.0-2.8) Urine RBC (0-5/HPF) Urine WBC (0-5/HPF) Urine Bacteria (None) Ur Culture Indicated? Ur Random Sodium (30-90) mmol/L Urine Creatinine mg/dL SARS-CoV-2 (PCR) Negative (Negative) 09/12/21 09/12/21 Range/Units 04:42 15:59 WBC (4.5-11.0) X10^3/uL RBC (4.5-5.9) X10^6/uL Hgb (13.5-17.5) g/dL Hct (41-53) % MCV (80-100) fL MCH (26-34) PG MCHC (30-36) % RDW (11.6-14.8) % Plt Count (150-400) X10^3/uL Neut % (Auto) (50-75) % Lymph % (Auto) (25-40) % [place] % (Auto) (3-14) % Eos % (Auto) (2-4) % Baso % (Auto) (0-2) % Neut # (Auto) (8286-9941) /uL Lymph # (Auto) (9696-1303) /uL [place] # (Auto) (0-900) /uL Eos # (Auto) (0-450) /uL Baso # (Auto) (0-100) /uL Sodium 135 L 136 L (137-145) mmol/L Potassium 4.1 4.7 (3.4-5.1) mmol/L Chloride 101 101 (98-107) mmol/L Carbon Dioxide 24 25 (22-32) mmol/L BUN 39 H 46 H (9-20) mg/dL Creatinine 4.25 H 4.86 H (0.66-1.25) mg/dL Estimated GFR 14.8 L 12.7 L (>60) mL/min BUN/Creatinine Ratio 9.2 9.5 (6-22) Glucose 100 99 (70-100) mg/dL Calcium 11.5 H 11.4 H (8.4-10.2) mg/dL Total Bilirubin (0.2-1.3) mg/dL AST (17-59) IU/L ALT (<50) IU/L Alkaline Phosphatase (38-126) U/L Total Protein (6.3-8.2) g/dL Albumin (3.5-5.0) g/dL Globulin (1.7-4.1) g/dL Albumin/Globulin Ratio (1.0-2.8) Urine RBC (0-5/HPF) Urine WBC (0-5/HPF) Urine Bacteria (None) Ur Culture Indicated? Ur Random Sodium (30-90) mmol/L Urine Creatinine mg/dL SARS-CoV-2 (PCR) (Negative) Urine Dip Bedside Urine Glucose Negative Bedside Urine Bilirubin - Negative Bedside Urine Ketone - Negative Urine Specific [place] 1.010 Bedside Urine Occult Blood +++ Bedside Urine pH 7.5 Bedside Urine Protein +/- 15 Bedside Urine Urobilinogen - Negative Bedside Urine Nitrite - Negative Bedside Urine Leukocytes - Negative Esterase Imaging Data CT scan - abdomen/pelvis: Radiologist's Impression: PROCEDURE:? CT KIDNEY URETER BLADDER (KUB) ? INDICATIONS:? flank pain ? TECHNIQUE:? Axial sections were acquired from the lung bases to the pubic symphysis.? Coronal and sagittal reformats were performed.? For radiation dose reduction, the following was used: ?automated exposure control, adjustment of mA and/or kV according to patient size.? ? COMPARISON:? None. ? FINDINGS:? Image quality:? Excellent.? ? Lung bases:? Small to moderate right pleural effusion with atelectasis.? ? Heart:? No cardiomegaly.? Trace pericardial effusion/thickening. ? URINARY: Right Kidney:? No nephrolithiasis.? Moderate? hydronephrosis. Right Ureter:? Proximal hydroureter.? The mid to distal portions of the ureter are obscured. ? Left Kidney:? No nephrolithiasis.? Mild to moderate hydronephrosis. Left Ureter:? Proximal hydroureter.? The mid to distal portions of the ureter are obscured.? ? Bladder:? Wall thickening, partially due to underdistention. ? ? ? ABDOMEN: Liver:? Unremarkable.? 1 cm hypoattenuating lesion in the right hepatic lobe, which may reflect a cyst. ? Gallbladder:? Unremarkable.? ? Biliary ducts:? Unremarkable.? ? Pancreas:? Unremarkable.? ? Spleen:? Unremarkable.? ? Adrenal Glands:? Unremarkable.? ? ? Stomach and Bowel:? No evidence of intestinal obstruction or inflammatory change.? The appendix appears normal. Peritoneum:? No abnormal intraperitoneal fluid.? No free air.? ? Ventral Wall:? Small fat containing periumbilical hernia with small amount of free fluid. Abdominal Nodes:? A 12.1 x 11.5 x 6.2 cm mass is seen in the periaortic region, concerning for lymphoma. Vessels:? The aorta and IVC are obscured by the aforementioned mass. ? PELVIS: Pelvic Organs:? Unremarkable.? ? Pelvic Nodes: Unremarkable. Miscellaneous: No inguinal hernias are seen. ? ? Asymmetric enlargement of the right psoas muscle, likely representing infiltration by the aforementioned retroperitoneal mass. ? Bones:? Multifocal degenerative change.? Heterogeneous attenuation of the spine, which is nonspecific. ? IMPRESSION:? ? 1. Small to moderate right pleural effusion with atelectasis. 2. Bilateral hydronephrosis. 3. Retroperitoneal mass, measuring up to 12.1 cm, concerning for lymphoma.? 4. Heterogeneous attenuation of the spine, which is nonspecific but concerning for metastatic disease. ? Dictated by: Galen Maloney M.D. on 09/11/2021 at 18:13 ? ? Approved by: Galen Maloney M.D. on 09/11/2021 at 18:29 ? MDM Narrative Medical decision making narrative: 51-year-old male presents to the emergency department with complaint of left flank pain concerning for renal calculi. CT KUB indicated a large retroperitoneal mass measuring up to 12.1 cm is by 11.5 x 6.2 cm in the periaortic region concerning for lymphoma. Patient also has bilateral hydronephrosis with a creatinine bump from baseline of 0.91-3.09 today with a GFR of 21.3. Patient's last lab work was 01/25/2021. Patient is currently off work for low back injury which is pertinent as his CT showed a heterogeneous attenuation of the spine, it was nonspecific but concerning for metastatic disease. Patient also has a moderate right-sided pleural effusion with atelectasis. Consult with Dr. Britt from Urology who recommends interventional radiology for patient's obstructive uropathy. This facility does not have Interventional Radiology or the capacity to do that procedure. Phone calls are currently being made for other facilities. A noncontrast chest CT was obtained and results are pending. Patient's FENa score is 5.5% indicating ATN and most likely post renal obstruction. <Steve Canales, DO - Last Filed: 09/12/21 22:37> Lab Data Labs: Lab Results 09/11/21 09/11/21 09/11/21 Range/Units 15:14 15:14 17:46 WBC 10.3 (4.5-11.0) X10^3/uL RBC 4.59 (4.5-5.9) X10^6/uL Hgb 12.0 L (13.5-17.5) g/dL Hct 35.8 L (41-53) % MCV 78.0 L (80-100) fL MCH 26.0 (26-34) PG MCHC 33.4 (30-36) % RDW 14.9 H (11.6-14.8) % Plt Count 283 (150-400) X10^3/uL Neut % (Auto) 88.6 H (50-75) % Lymph % (Auto) 4.9 L (25-40) % [place] % (Auto) 5.1 (3-14) % Eos % (Auto) 1.1 L (2-4) % Baso % (Auto) 0.3 (0-2) % Neut # (Auto) 9100 H (3625-5692) /uL Lymph # (Auto) 500 L (0161-4761) /uL [place] # (Auto) 500 (0-900) /uL Eos # (Auto) 100 (0-450) /uL Baso # (Auto) 0 (0-100) /uL Sodium (137-145) mmol/L Potassium (3.4-5.1) mmol/L Chloride (98-107) mmol/L Carbon Dioxide (22-32) mmol/L BUN (9-20) mg/dL Creatinine (0.66-1.25) mg/dL Estimated GFR (>60) mL/min BUN/Creatinine Ratio (6-22) Glucose (70-100) mg/dL Calcium (8.4-10.2) mg/dL Total Bilirubin (0.2-1.3) mg/dL AST (17-59) IU/L ALT (<50) IU/L Alkaline Phosphatase (38-126) U/L Total Protein (6.3-8.2) g/dL Albumin (3.5-5.0) g/dL Globulin (1.7-4.1) g/dL Albumin/Globulin Ratio (1.0-2.8) Urine RBC 30-100/hpf H (0-5/HPF) Urine WBC 5-10/hpf H (0-5/HPF) Urine Bacteria None seen (None) Ur Culture Indicated? Culture not indicate Ur Random Sodium 55 (30-90) mmol/L Urine Creatinine 22.7 mg/dL SARS-CoV-2 (PCR) (Negative) 09/11/21 09/11/21 09/12/21 Range/Units 17:46 20:30 04:42 WBC 8.4 (4.5-11.0) X10^3/uL RBC 4.28 L (4.5-5.9) X10^6/uL Hgb 11.1 L (13.5-17.5) g/dL Hct 33.3 L (41-53) % MCV 77.8 L (80-100) fL MCH 26.0 (26-34) PG MCHC 33.4 (30-36) % RDW 14.9 H (11.6-14.8) % Plt Count 254 (150-400) X10^3/uL Neut % (Auto) 80.7 H (50-75) % Lymph % (Auto) 5.7 L (25-40) % [place] % (Auto) 11.0 (3-14) % Eos % (Auto) 2.1 (2-4) % Baso % (Auto) 0.5 (0-2) % Neut # (Auto) 6700 (9109-8342) /uL Lymph # (Auto) 500 L (5355-6668) /uL [place] # (Auto) 900 (0-900) /uL Eos # (Auto) 200 (0-450) /uL Baso # (Auto) 0 (0-100) /uL Sodium 137 (137-145) mmol/L Potassium 4.1 (3.4-5.1) mmol/L Chloride 99 (98-107) mmol/L Carbon Dioxide 25 (22-32) mmol/L BUN 31 H (9-20) mg/dL Creatinine 3.09 H (0.66-1.25) mg/dL Estimated GFR 21.3 L (>60) mL/min BUN/Creatinine Ratio 10.0 (6-22) Glucose 119 H (70-100) mg/dL Calcium 12.0 H (8.4-10.2) mg/dL Total Bilirubin 0.6 (0.2-1.3) mg/dL AST 45 (17-59) IU/L ALT 38 (<50) IU/L Alkaline Phosphatase 105 (38-126) U/L Total Protein 7.6 (6.3-8.2) g/dL Albumin 4.7 (3.5-5.0) g/dL Globulin 2.9 (1.7-4.1) g/dL Albumin/Globulin Ratio 1.6 (1.0-2.8) Urine RBC (0-5/HPF) Urine WBC (0-5/HPF) Urine Bacteria (None) Ur Culture Indicated? Ur Random Sodium (30-90) mmol/L Urine Creatinine mg/dL SARS-CoV-2 (PCR) Negative (Negative) 09/12/21 09/12/21 Range/Units 04:42 15:59 WBC (4.5-11.0) X10^3/uL RBC (4.5-5.9) X10^6/uL Hgb (13.5-17.5) g/dL Hct (41-53) % MCV (80-100) fL MCH (26-34) PG MCHC (30-36) % RDW (11.6-14.8) % Plt Count (150-400) X10^3/uL Neut % (Auto) (50-75) % Lymph % (Auto) (25-40) % [place] % (Auto) (3-14) % Eos % (Auto) (2-4) % Baso % (Auto) (0-2) % Neut # (Auto) (2767-6503) /uL Lymph # (Auto) (0022-4351) /uL [place] # (Auto) (0-900) /uL Eos # (Auto) (0-450) /uL Baso # (Auto) (0-100) /uL Sodium 135 L 136 L (137-145) mmol/L Potassium 4.1 4.7 (3.4-5.1) mmol/L Chloride 101 101 (98-107) mmol/L Carbon Dioxide 24 25 (22-32) mmol/L BUN 39 H 46 H (9-20) mg/dL Creatinine 4.25 H 4.86 H (0.66-1.25) mg/dL Estimated GFR 14.8 L 12.7 L (>60) mL/min BUN/Creatinine Ratio 9.2 9.5 (6-22) Glucose 100 99 (70-100) mg/dL Calcium 11.5 H 11.4 H (8.4-10.2) mg/dL Total Bilirubin (0.2-1.3) mg/dL AST (17-59) IU/L ALT (<50) IU/L Alkaline Phosphatase (38-126) U/L Total Protein (6.3-8.2) g/dL Albumin (3.5-5.0) g/dL Globulin (1.7-4.1) g/dL Albumin/Globulin Ratio (1.0-2.8) Urine RBC (0-5/HPF) Urine WBC (0-5/HPF) Urine Bacteria (None) Ur Culture Indicated? Ur Random Sodium (30-90) mmol/L Urine Creatinine mg/dL SARS-CoV-2 (PCR) (Negative) Urine Dip Bedside Urine Glucose Negative Bedside Urine Bilirubin - Negative Bedside Urine Ketone - Negative Urine Specific [place] 1.010 Bedside Urine Occult Blood +++ Bedside Urine pH 7.5 Bedside Urine Protein +/- 15 Bedside Urine Urobilinogen - Negative Bedside Urine Nitrite - Negative Bedside Urine Leukocytes - Negative Esterase <Oriana Chan, DO - Last Filed: 09/13/21 07:26> Lab Data Labs: Lab Results 09/11/21 09/11/21 09/11/21 Range/Units 15:14 15:14 17:46 WBC 10.3 (4.5-11.0) X10^3/uL RBC 4.59 (4.5-5.9) X10^6/uL Hgb 12.0 L (13.5-17.5) g/dL Hct 35.8 L (41-53) % MCV 78.0 L (80-100) fL MCH 26.0 (26-34) PG MCHC 33.4 (30-36) % RDW 14.9 H (11.6-14.8) % Plt Count 283 (150-400) X10^3/uL Neut % (Auto) 88.6 H (50-75) % Lymph % (Auto) 4.9 L (25-40) % [place] % (Auto) 5.1 (3-14) % Eos % (Auto) 1.1 L (2-4) % Baso % (Auto) 0.3 (0-2) % Neut # (Auto) 9100 H (1173-5969) /uL Lymph # (Auto) 500 L (5821-7745) /uL [place] # (Auto) 500 (0-900) /uL Eos # (Auto) 100 (0-450) /uL Baso # (Auto) 0 (0-100) /uL Sodium (137-145) mmol/L Potassium (3.4-5.1) mmol/L Chloride (98-107) mmol/L Carbon Dioxide (22-32) mmol/L BUN (9-20) mg/dL Creatinine (0.66-1.25) mg/dL Estimated GFR (>60) mL/min BUN/Creatinine Ratio (6-22) Glucose (70-100) mg/dL Calcium (8.4-10.2) mg/dL Total Bilirubin (0.2-1.3) mg/dL AST (17-59) IU/L ALT (<50) IU/L Alkaline Phosphatase (38-126) U/L Total Protein (6.3-8.2) g/dL Albumin (3.5-5.0) g/dL Globulin (1.7-4.1) g/dL Albumin/Globulin Ratio (1.0-2.8) Urine RBC 30-100/hpf H (0-5/HPF) Urine WBC 5-10/hpf H (0-5/HPF) Urine Bacteria None seen (None) Ur Culture Indicated? Culture not indicate Ur Random Sodium 55 (30-90) mmol/L Urine Creatinine 22.7 mg/dL SARS-CoV-2 (PCR) (Negative) 09/11/21 09/11/21 09/12/21 Range/Units 17:46 20:30 04:42 WBC 8.4 (4.5-11.0) X10^3/uL RBC 4.28 L (4.5-5.9) X10^6/uL Hgb 11.1 L (13.5-17.5) g/dL Hct 33.3 L (41-53) % MCV 77.8 L (80-100) fL MCH 26.0 (26-34) PG MCHC 33.4 (30-36) % RDW 14.9 H (11.6-14.8) % Plt Count 254 (150-400) X10^3/uL Neut % (Auto) 80.7 H (50-75) % Lymph % (Auto) 5.7 L (25-40) % [place] % (Auto) 11.0 (3-14) % Eos % (Auto) 2.1 (2-4) % Baso % (Auto) 0.5 (0-2) % Neut # (Auto) 6700 (6161-8216) /uL Lymph # (Auto) 500 L (9830-8225) /uL [place] # (Auto) 900 (0-900) /uL Eos # (Auto) 200 (0-450) /uL Baso # (Auto) 0 (0-100) /uL Sodium 137 (137-145) mmol/L Potassium 4.1 (3.4-5.1) mmol/L Chloride 99 (98-107) mmol/L Carbon Dioxide 25 (22-32) mmol/L BUN 31 H (9-20) mg/dL Creatinine 3.09 H (0.66-1.25) mg/dL Estimated GFR 21.3 L (>60) mL/min BUN/Creatinine Ratio 10.0 (6-22) Glucose 119 H (70-100) mg/dL Calcium 12.0 H (8.4-10.2) mg/dL Total Bilirubin 0.6 (0.2-1.3) mg/dL AST 45 (17-59) IU/L ALT 38 (<50) IU/L Alkaline Phosphatase 105 (38-126) U/L Total Protein 7.6 (6.3-8.2) g/dL Albumin 4.7 (3.5-5.0) g/dL Globulin 2.9 (1.7-4.1) g/dL Albumin/Globulin Ratio 1.6 (1.0-2.8) Urine RBC (0-5/HPF) Urine WBC (0-5/HPF) Urine Bacteria (None) Ur Culture Indicated? Ur Random Sodium (30-90) mmol/L Urine Creatinine mg/dL SARS-CoV-2 (PCR) Negative (Negative) 01/13/22 01/13/22 Range/Units 04:42 15:59 WBC (4.5-11.0) X10^3/uL RBC (4.5-5.9) X10^6/uL Hgb (13.5-17.5) g/dL Hct (41-53) % MCV (80-100) fL MCH (26-34) PG MCHC (30-36) % RDW (11.6-14.8) % Plt Count (150-400) X10^3/uL Neut % (Auto) (50-75) % Lymph % (Auto) (25-40) % [place] % (Auto) (3-14) % Eos % (Auto) (2-4) % Baso % (Auto) (0-2) % Neut # (Auto) (8164-3020) /uL Lymph # (Auto) (2209-9396) /uL [place] # (Auto) (0-900) /uL Eos # (Auto) (0-450) /uL Baso # (Auto) (0-100) /uL Sodium 135 L 136 L (137-145) mmol/L Potassium 4.1 4.7 (3.4-5.1) mmol/L Chloride 101 101 (98-107) mmol/L Carbon Dioxide 24 25 (22-32) mmol/L BUN 39 H 46 H (9-20) mg/dL Creatinine 4.25 H 4.86 H (0.66-1.25) mg/dL Estimated GFR 14.8 L 12.7 L (>60) mL/min BUN/Creatinine Ratio 9.2 9.5 (6-22) Glucose 100 99 (70-100) mg/dL Calcium 11.5 H 11.4 H (8.4-10.2) mg/dL Total Bilirubin (0.2-1.3) mg/dL AST (17-59) IU/L ALT (<50) IU/L Alkaline Phosphatase (38-126) U/L Total Protein (6.3-8.2) g/dL Albumin (3.5-5.0) g/dL Globulin (1.7-4.1) g/dL Albumin/Globulin Ratio (1.0-2.8) Urine RBC (0-5/HPF) Urine WBC (0-5/HPF) Urine Bacteria (None) Ur Culture Indicated? Ur Random Sodium (30-90) mmol/L Urine Creatinine mg/dL SARS-CoV-2 (PCR) (Negative) Urine Dip Bedside Urine Glucose Negative Bedside Urine Bilirubin - Negative Bedside Urine Ketone - Negative Urine Specific [place] 1.010 Bedside Urine Occult Blood +++ Bedside Urine pH 7.5 Bedside Urine Protein +/- 15 Bedside Urine Urobilinogen - Negative Bedside Urine Nitrite - Negative Bedside Urine Leukocytes - Negative Esterase MDM Narrative Medical decision making narrative: 51-year-old male presents to the emergency department with complaint of left flank pain concerning for renal calculi. CT KUB indicated a large retroperitoneal mass measuring up to 12.1 cm is by 11.5 x 6.2 cm in the periaortic region concerning for lymphoma. Patient also has bilateral hydronephrosis with a creatinine bump from baseline of 0.91-3.09 today with a GFR of 21.3. Patient's last lab work was 01/25/2021. Patient is currently off work for low back injury which is pertinent as his CT showed a heterogeneous attenuation of the spine, it was nonspecific but concerning for metastatic disease. Patient also has a moderate right-sided pleural effusion with atelectasis. Consult with Dr. Britt from Urology who recommends interventional radiology for patient's obstructive uropathy. This facility does not have Interventional Radiology or the capacity to do that procedure. Phone calls are currently being made for other facilities. A noncontrast chest CT was obtained and results are pending. Patient's FENa score is 5.5% indicating ATN and most likely post renal obstruction. Patient signed out to myself by Dr. Canales: Patient seen independently evaluated by myself. I spoke with urology as well as the hospitalist at [facility] ([place], [place]) who accepts. Repeat renal function was repeated is worsen but potassium is 4.7. Patient accepted for transfer there is a bed available now and plan for transport at 7:00 p.m. today. Patient is aware of the current plan. He has received pain medications. Some very very gentle hydration and has had continued urine output today. <Steve Canales, DO - Last Filed: 09/12/21 22:37> Critical Care Time Critical Care Time: Yes Total Critical Care Time: 60 Attestation: The high probability of a clinically significant, sudden or life threatening deterioration of the [CV] system(s) required my full and direct attention, intervention and personal management. The aggregate critical care time was [60] minutes. This time is in addition to time spent performing reported procedures but includes the following: [x] Data Review and interpretation [x] Patient assessment and monitoring of vital signs [x] Documentation [x] Medication orders and management Discharge Plan Departure Patient Disposition: [facility] Clinical Impression: Acute flank pain, Pleural effusion, Bilateral hydronephrosis, Retroperitoneal mass Hematuria Qualifiers: Hematuria type: unspecified type Qualified Code(s): R31.9 - Hematuria, unspecified Prescriptions: No Action methocarbamol 500 mg tablet See Rx Instructions PO Q6-8H PRN (Reason: muscle spasm) Qty: 20 0RF Rx Instructions: 1-2 tablets PO every 6-8 hours PRN; ibuprofen 200 mg tablet 600 mg PO DAILY Qty: 0 0RF Rx Instructions: Shoulder Pain clotrimazole-betamethasone 1-0.05 % cream 1 applic TOP BID PRN (Reason: yeast) Qty: 45 0RF Rx Instructions: Apply topically twice daily to affected areas on arms triamcinolone acetonide 0.1 % cream 1 applic TOP DAILY PRN (Reason: Rash) Qty: 30 0RF atorvastatin [Lipitor] 10 mg tablet 10 mg PO HS Qty: 90 2RF acetaminophen [Tylenol Extra Strength] 500 mg tablet 500 mg PO DAILY 0RF Rx Instructions: For shoulder pain flaxseed oil 1,000 mg capsule 1,000 mg PO DAILY 0RF Ultra CoQ10 75 mg capsule 150 mg PO DAILY 0RF triamterene-hydrochlorothiazid 37.5-25 mg tablet 1 tab PO DAILY Qty: 90 3RF Referrals: Calixto Ferguson MD [Primary Care Provider] -
[2021-09-11] MEDS: KETOROLAC 30 MG/ML VIAL 15 MG IV (17:59)
[2021-09-11] MEDS: PHENAZOPYRIDINE 100 MG TABLET PO (18:00)
[2021-09-11] MEDS: OXYCODONE/ACETAMINOPHEN 5/325 TABLET 1 TAB PO (18:00)
[2021-09-11] MEDS: TAMSULOSIN 0.4 MG CAPSULE PO (18:12)
[2021-09-11 19:25] LABS: Add Manual Diff / Slide Review NO; Basophils Absolute Auto 0 /uL (0-100); Basophils Percent Auto 0.3 % (0-2); Eosinophils Absolute Auto 100 /uL (0-450); Eosinophils Percent Auto 1.1 % (2-4); Hematocrit 35.8 % (41-53); Lymphocytes Absolute Auto 500 /uL (1100-4500); Lymphocytes Percent Auto 4.9 % (25-40); Mean Corpuscular HGB Conc 33.4 % (30-36); Monocytes Absolute Auto 500 /uL (0-900); Monocytes Percent Auto 5.1 % (3-14); Neutrophils Absolute Auto 9100 /uL (1500-7000); Neutrophils Percent Auto 88.6 % (50-75); Platelet Count 283 X10^3/uL (150-400); Red Blood Cell Count 4.59 X10^6/uL (4.5-5.9); Red Cell Distribution Width 14.9 % (11.6-14.8); White Blood Cell Count 10.3 X10^3/uL (4.5-11.0)
[2021-09-11 19:30] LABS: Alanine Aminotransferase 38 IU/L (<50); Albumin 4.7 g/dL (3.5-5.0); Albumin Globulin Ratio 1.6 (1.0-2.8); Alkaline Phosphatase 105 U/L (38-126); Aspartate Aminotransferase 45 IU/L (17-59); Bilirubin Total 0.6 mg/dL (0.2-1.3); Blood Urea Nitrogen 31 mg/dL (9-20); Carbon Dioxide 25 mmol/L (22-32); Chloride 99 mmol/L (98-107); Estimated Glomerular Filt Rate 21.3 mL/min (>60); Globulin 2.9 g/dL (1.7-4.1); Glucose 119 mg/dL (70-100); HEMOLYSIS < 15 (0-50); Potassium 4.1 mmol/L (3.4-5.1); Sodium 137 mmol/L (137-145); Total Protein 7.6 g/dL (6.3-8.2)
[2021-09-11 20:34] LABS: Creatinine Urine Random 22.7 mg/dL; Sodium Urine Random 55 mmol/L (30-90)
--- NOTE | 2021-09-11 20:40 | DI.CT.S_ITS ---
PROCEDURE: CT CHEST WO CON INDICATIONS: mass, rt pleural effusion TECHNIQUE: Noncontrast 5 mm thick sections acquired from the pulmonary apices to the posterior costophrenic angles. 1 mm lung window, 5 mm thick coronal and sagittal and 7 mm axial MIP reformats were then acquired. For radiation dose reduction, the following was used: automated exposure control, adjustment of mA and/or kV according to patient size. COMPARISON: Merged With [facility], CT, CT KIDNEY URETER BLADDER (KUB), 09/11/2021, 17:53. FINDINGS: Image quality: Excellent. Lungs and pleura: 2 mm subpleural right upper lobe nodule (image 89/series 2). No acute airspace opacities. Moderate sized right pleural effusion with associated compressive atelectasis. Remainder of the visualized lungs are otherwise clear. Central and peripheral airways are patent and normal in caliber. Mediastinum: Heart size is normal. No pericardial effusion. Mild scattered atherosclerotic calcifications of the coronary arteries. No hilar adenopathy by size criteria. A few scattered prominent mediastinal lymph nodes with mildly enlarged AP window lymph node measuring 1.5 cm in short axis dimension (image 12/series 3). Thoracic aorta and central pulmonary arteries are normal in size. Esophagus is normal in caliber. No hiatal hernia. Bones and chest wall: No suspicious bony lesions. No vertebral body compression fractures. No axillary or supraclavicular adenopathy by size criteria. Thyroid gland is unremarkable . Abdomen: Partially imaged bilateral hydronephrosis and superior margins of previously described retroperitoneal mass. Abdominal structures are better evaluated on dedicated CT of the abdomen and pelvis from earlier same day. Please see separate report for details. IMPRESSION: 1. Moderate right pleural effusion with associated compressive atelectasis. Otherwise, no suspicious pulmonary mass lesions. 2. A few prominent mediastinal lymph nodes with 1 enlarged AP window lymph node measuring up to 1.5 cm in short axis dimension. No confluent adenopathy identified in the chest. 3. Incidental note of subpleural 2 mm right upper lobe nodule. 4. Abdominal findings better evaluated on dedicated CT of the abdomen and pelvis from earlier same day. Please see separate report for details. Dictated by: Chuy Sheffield M.D. on 09/11/2021 at 21:36 Approved by: Chuy Sheffield M.D. on 09/11/2021 at 21:44
[2021-09-11 20:57] LABS: COVID19 -Nasal RAPID Negative (Negative)
[2021-09-11] MEDS: ONDANSETRON 4 MG/2 ML INJ IV (23:13)
[2021-09-11] MEDS: HYDROMORPHONE 0.5 MG INJ IV (23:13)
[2021-09-12] VITALS (44 sets, daily range): BP systolic 114–159; BP diastolic 59–87; PULSE 56–83; O2SAT 91–98
[2021-09-12] MEDS: HYDROMORPHONE 0.5 MG INJ IV ×3 (02:52→08:13)
[2021-09-12 05:21] LABS: Add Manual Diff / Slide Review NO; Basophils Absolute Auto 0 /uL (0-100); Basophils Percent Auto 0.5 % (0-2); Eosinophils Absolute Auto 200 /uL (0-450); Eosinophils Percent Auto 2.1 % (2-4); Hematocrit 33.3 % (41-53); Hemoglobin 11.1 g/dL (13.5-17.5); Lymphocytes Absolute Auto 500 /uL (1100-4500); Lymphocytes Percent Auto 5.7 % (25-40); Mean Corpuscular HGB Conc 33.4 % (30-36); Mean Corpuscular Volume 77.8 fL (80-100); Monocytes Absolute Auto 900 /uL (0-900); Neutrophils Absolute Auto 6700 /uL (1500-7000); Neutrophils Percent Auto 80.7 % (50-75); Platelet Count 254 X10^3/uL (150-400); Red Blood Cell Count 4.28 X10^6/uL (4.5-5.9); Red Cell Distribution Width 14.9 % (11.6-14.8); White Blood Cell Count 8.4 X10^3/uL (4.5-11.0)
[2021-09-12 05:26] LABS: BUN Creatinine Ratio 9.2 (6-22); Blood Urea Nitrogen 39 mg/dL (9-20); Calcium 11.5 mg/dL (8.4-10.2); Carbon Dioxide 24 mmol/L (22-32); Chloride 101 mmol/L (98-107); Estimated Glomerular Filt Rate 14.8 mL/min (>60); Glucose 100 mg/dL (70-100); HEMOLYSIS < 15 (0-50); Potassium 4.1 mmol/L (3.4-5.1); Sodium 135 mmol/L (137-145)
[2021-09-12] MEDS: SODIUM CHLORIDE 0.9% 1,000 ML 84 ML IV (08:53)
[2021-09-12 16:15] LABS: BUN Creatinine Ratio 9.5 (6-22); Blood Urea Nitrogen 46 mg/dL (9-20); Calcium 11.4 mg/dL (8.4-10.2); Carbon Dioxide 25 mmol/L (22-32); Chloride 101 mmol/L (98-107); Estimated Glomerular Filt Rate 12.7 mL/min (>60); Glucose 99 mg/dL (70-100); HEMOLYSIS 20 (0-50); Potassium 4.7 mmol/L (3.4-5.1); Sodium 136 mmol/L (137-145)
== END 2021-09-12 20:00 | disposition short-term general hospital (02) ==
PROVIDERS: Emergency Medicine; Nurse Practitioner Critical Care Medicine; Emergency Provider Emergency Medicine; PCP Internal Medicine
DX: R10.9 Unspecified abdominal pain (principal); J90 Pleural effusion, not elsewhere classified; N13.30 Unspecified hydronephrosis; R19.00 Intra-abdominal and pelvic swelling, mass and lump, unspecified site; R31.9 Hematuria, unspecified; Z88.0 Allergy status to penicillin; Z88.2 Allergy status to sulfonamides; Z20.822 Contact with and (suspected) exposure to COVID-19
CPT/HCPCS: 36415; 71250; 74176; 80048; 80053; 81003; 81015; 82570; 84300; 85025; 87086; 87635; 96361; 96374; 96375; 96376; 99284; 99291; C9803; J1170; J1885; J2405

== ENCOUNTER → 2021-10-08 14:55 | Outpatient (CLI) | payer OTHER, SELFPAY ==
--- NOTE | 2021-10-08 14:57 | DI.RAD.S_ITS ---
PROCEDURE: XR KUB INDICATIONS: nephrostomy tube placement TECHNIQUE: One view of the abdomen acquired. COMPARISON: None. FINDINGS: Surgical changes and devices: Double-J ureteral stents noted in good position. Bowel: Bowel gas pattern is normal. Moderate fecal debris present throughout the colon. Soft tissues: No suspicious abdominal calcifications. Visualized solid organ contours appear normal in size. Several phleboliths present in the pelvis Bones: No suspicious bony lesions. IMPRESSION: 1. Bilateral ureteral double-J stents in good position. 2. Moderate fecal debris throughout the colon without obstruction. Approved by: Newton Benton M.D. on 10/08/2021 at 17:39
== END ==
PROVIDERS: PCP Internal Medicine; Referring Provider Specialist; Visit Provider Specialist
DX: T83.9XXA Unspecified complication of genitourinary prosthetic device, implant and graft, initial encounter (principal)
CPT/HCPCS: 74018

== ENCOUNTER → 2021-12-03 09:34 | Outpatient (CLI) | payer OTHER, SELFPAY ==
--- NOTE | 2021-12-03 10:41 | DI.CT.S_ITS ---
PROCEDURE: CT CHEST ABD PEL WO CON INDICATIONS: staging Lymphoma TECHNIQUE: After the administration of oral contrast, 5 mm thick sections acquired from the lung apices to the symphysis pubis. 5 mm thick coronal and sagittal reformats acquired, with additional 7 mm coronal MIP reformats through the lungs. For radiation dose reduction, the following was used: automated exposure control, adjustment of mA and/or kV according to patient size. COMPARISON: Outside Facility, RG, CT ABDOMEN/PELVIS WITHOUT CONTRAST, 09/22/2021, 12:38. Outside Facility, RG, CT ANGIO ABDOMEN / PELVIS W, 09/23/2021, 7:25. FINDINGS: Image quality: Excellent. CHEST: Lungs and pleura: No acute pulmonary opacities. No pleural effusions or pneumothorax. Central and peripheral airways are patent are normal in caliber. Mediastinum: Heart size is normal. No pericardial effusion. Coronary artery calcification is seen. No mediastinal adenopathy by CT size criteria. Thoracic aorta and central pulmonary arteries are normal in size. A right kishore catheter is seen with tip in the SVC. Esophagus is normal in caliber. No hiatal hernia. Chest wall: No axillary or supraclavicular adenopathy by size criteria. Thyroid gland appears homogeneous. ABDOMEN: Solid organs: Liver is normal in size. 1 cm hypoattenuating lesion in the right hepatic lobe, which may reflect a cyst. Gallbladder is within normal limits. Pancreas is normal in contours. Spleen is normal in size. No adrenal nodules. Both kidneys are normal in size. No hydronephrosis, status post bilateral ureteral stent placement. Peritoneum and bowel: Small and large bowel loops are normal in caliber and wall thickness. No free fluid or air. Nodes and vessels: Redemonstrated right retroperitoneal lymphadenopathy (2-84), spanning approximately 14 x 13.4 x 6.2 cm; decreased compared to the prior study. Aorta and inferior vena cava are normal in size. An IVC filter is noted. Miscellaneous: Fat containing periumbilical hernia is again seen, measuring 2.1 x 2.6 cm. PELVIS: Genitourinary: Bladder wall thickness is normal. Miscellaneous: Small bilateral fat containing inguinal hernias. Bones: Faint sclerotic lesions throughout the spine, concerning for metastatic disease. No vertebral body compression fractures. IMPRESSION: 1. Decreased bulk of the patient's right retroperitoneal lymphadenopathy as detailed above. 2. Faint sclerotic foci throughout the spine, concerning for metastatic disease. Dictated by: Galen Maloney M.D. on 12/03/2021 at 12:12 Approved by: Galen Maloney M.D. on 12/03/2021 at 12:27
[2022-02-13 15:07] LABS: Add Manual Diff / Slide Review NO; Basophils Absolute Auto 0 /uL (0-100); Eosinophils Absolute Auto 100 /uL (0-450); Eosinophils Percent Auto 3.3 % (2-4); Hematocrit 34.8 % (41-53); Lymphocytes Absolute Auto 400 /uL (1100-4500); Lymphocytes Percent Auto 8.9 % (25-40); Mean Corpuscular HGB Conc 34.6 % (30-36); Mean Corpuscular Hemoglobin 28.9 PG (26-34); Mean Corpuscular Volume 83.5 fL (80-100); Monocytes Absolute Auto 700 /uL (0-900); Monocytes Percent Auto 16.4 % (3-14); Neutrophils Absolute Auto 2800 /uL (1500-7000); Neutrophils Percent Auto 70.4 % (50-75); Platelet Count 166 X10^3/uL (150-400); Red Blood Cell Count 4.17 X10^6/uL (4.5-5.9); Red Cell Distribution Width 16.7 % (11.6-14.8)
[2022-02-13 15:23] LABS: Alanine Aminotransferase 21 IU/L (<50); Albumin 4.7 g/dL (3.5-5.0); Albumin Globulin Ratio 1.7 (1.0-2.8); Alkaline Phosphatase 73 U/L (38-126); Aspartate Aminotransferase 36 IU/L (17-59); BUN Creatinine Ratio 14.8 (6-22); Bilirubin Total 0.5 mg/dL (0.2-1.3); Blood Urea Nitrogen 18 mg/dL (9-20); Calcium 9.1 mg/dL (8.4-10.2); Carbon Dioxide 26 mmol/L (22-32); Chloride 103 mmol/L (98-107); Estimated Glomerular Filt Rate > 60 mL/min (>60); Globulin 2.7 g/dL (1.7-4.1); Glucose 127 mg/dL (70-100); HEMOLYSIS < 15 (0-50); Potassium 4.1 mmol/L (3.4-5.1); Sodium 137 mmol/L (137-145); Total Protein 7.4 g/dL (6.3-8.2)
== END ==
PROVIDERS: PCP Internal Medicine; Referring Provider Internal Medicine Hematology & Oncology; Visit Provider Internal Medicine Hematology & Oncology
DX: C83.30 Diffuse large B-cell lymphoma, unspecified site (principal); M89.9 Disorder of bone, unspecified; K40.20 Bilateral inguinal hernia, without obstruction or gangrene, not specified as recurrent
CPT/HCPCS: 71250; 74176; 80053; 85025

== ENCOUNTER → 2022-01-20 12:19 | Outpatient (CLI) | payer OTHER, SELFPAY ==
--- NOTE | 2022-01-20 12:20 | DI.NM.S_ITS ---
PROCEDURE: NM RENAL FUNCTION W LASIX RADIOPHARMACEUTICAL: 9.7 mCi Tc-99m MAG3 IV and 40 mg furosemide IV. INDICATIONS: POssible metastatic CA TECHNIQUE: The patient was hydrated orally before the examination was begun. After intravenous administration of Tc-99m MAG3, posterior abdominal radionuclide angiogram and sequential (1 minute each frame) renal images were obtained. A time-activity curve for each kidney was generated and analyzed. To evaluate for obstruction, the patient was given 40 mg furosemide via slow intravenous injection after the start of the examination. Sequential images were obtained for up to an additional 20 minutes. COMPARISON: None. FINDINGS: Perfusion: There is normal vascular flow to both kidneys. Morphology: Both kidneys are normal in size and shape. No dilated collecting systems are seen. The ureters and bladder fill with tracer, and appear normal. Function: There is normal uptake of radiotracer activity for the left kidney with time to peak activity of 4 minutes. There is delayed cortical uptake of the right kidney, with time to peak activity of 6 minutes. The right kidney contributes 16 % of total renal function. The left kidney contributes 84 % of total renal function. Lasix stimulation: After diuretic administration, there is delayed clearance of tracer activity from the renal collecting systems from the le bilateral kidneys. The half-time of emptying of tracer activity from the right pelvicaliceal system is 17 minutes. The half-time of emptying from the left pelvicaliceal system is 13 minutes. Normal emptying half-times are less than 10 minutes; borderline ranges are from 10 to 20 minutes. IMPRESSION: 1. Delayed bilateral renal uptake and excretion as described above. 2. Significantly decreased function of right kidney. Dictated by: Jaxson Ortiz M.D. on 01/20/2022 at 14:34 Approved by: Jaxson Ortiz M.D. on 01/20/2022 at 16:53
== END ==
PROVIDERS: PCP Internal Medicine; Referring Provider Specialist; Visit Provider Specialist
DX: N13.5 Crossing vessel and stricture of ureter without hydronephrosis (principal); N13.9 Obstructive and reflux uropathy, unspecified
CPT/HCPCS: 78708; A9562

== ENCOUNTER → 2022-02-17 12:35 | Outpatient (CLI) | payer OTHER, SELFPAY | PROVIDERS: PCP Internal Medicine; Referring Provider Specialist; Visit Provider Specialist | DX: N13.5 Crossing vessel and stricture of ureter without hydronephrosis (principal); Z53.8 Procedure and treatment not carried out for other reasons ==

== ENCOUNTER → 2022-03-06 12:10 | Outpatient (CLI) | payer OTHER, SELFPAY ==
--- NOTE | 2022-03-06 | DI.CT.S_ITS ---
PROCEDURE: CT ABDOMEN PELVIS W CON INDICATIONS: Diffuse large B-cell lymphoma, intra-abdominal lymph nodes TECHNIQUE: After the administration of oral and intravenous contrast, axial sections were acquired from the lung bases to the pubic symphysis. Coronal and sagittal reformats were performed. For radiation dose reduction, the following was used: automated exposure control, adjustment of mA and/or kV according to patient size. COMPARISON:[facility], CT, CT CHEST ABD PEL WO CON, 12/03/2021, 10:28. FINDINGS: Image quality: Excellent. Images are denoted as (series #/image #). Lung bases: No pleural effusion. ABDOMEN: Liver: A few small hypodensities are present, too small to characterize, for example a 1 cm hypodensity in segment 4A (18). These are not significantly changed in the interval. No new liver lesion identified. Gallbladder: Unremarkable. Biliary ducts: Unremarkable. Pancreas: Unremarkable. Spleen: Unremarkable. Adrenal Glands: Unremarkable. Kidneys and Ureters: Ureteral stents are present bilaterally, proximal ends of the stents within the renal pelves, distal end within the urinary bladder. No hydroureteronephrosis. Stomach and Bowel: No evidence of mechanical bowel obstruction. Peritoneum: No substantial intraperitoneal fluid. No free air. Ventral Wall: Redemonstrated Fat containing periumbilical hernia. Abdominal Nodes: Redemonstrated confluent retroperitoneal soft tissue density, possible ramone conglomerate as described previously. Approximate dimensions of 7.9 x 2.9 cm (245), not substantially changed in the interval when remeasured on the prior study at a similar level at 7.7 x 3.1 cm. Vessels: No abdominal aortic aneurysm. IVC filter at the intrahepatic IVC as before. PELVIS: Pelvic Organs: Unremarkable. Bladder: Unremarkable. Pelvic Nodes: Another shared services representative lymph node at the right external iliac chain medial group: 3.5 x 1.8 cm () previously 3.4 x 1.9 cm. Bones: Multilevel degenerative change of the visualized spine. Similar subtle ill-defined faint sclerotic foci within the imaged skeleton. IMPRESSION: No significant interval change in abdominal and pelvic lymphadenopathy. Dictated by: Seun Garnica M.D. on 03/06/2022 at 17:42 Approved by: Seun Garnica M.D. on 03/06/2022 at 18:07
== END ==
PROVIDERS: PCP Internal Medicine; Referring Provider Internal Medicine Hematology & Oncology; Visit Provider Internal Medicine Hematology & Oncology
DX: C83.33 Diffuse large B-cell lymphoma, intra-abdominal lymph nodes (principal)
CPT/HCPCS: 74177; Q9967

== ENCOUNTER → 2022-03-20 13:44 | Outpatient (CLI) | payer OTHER, SELFPAY ==
--- NOTE | 2022-03-20 13:45 | DI.NM.S_ITS ---
PROCEDURE: NM RENAL FUNCTION W LASIX RADIOPHARMACEUTICAL: 10.5 mCi Tc-99m MAG3 IV and 40 mg furosemide IV. INDICATIONS: urteral obstruction TECHNIQUE: The patient was hydrated orally before the examination was begun. After intravenous administration of Tc-99m MAG3, posterior abdominal radionuclide angiogram and sequential (1 minute each frame) renal images were obtained. A time-activity curve for each kidney was generated and analyzed. To evaluate for obstruction, the patient was given 40 mg furosemide via slow intravenous injection after the start of the examination. Sequential images were obtained for up to an additional 20 minutes. COMPARISON: [facility], CT, CT CHEST ABD PEL WO CON, 12/03/2021, 10:28. Outside Facility, RG, US RENAL, 09/26/2021, 11:21. [facility], CT, CT ABDOMEN PELVIS W CON, 03/06/2022, 14:05. [facility], AR, AR RENAL FUNCTION W LASIX, 01/20/2022, 12:50. [facility], CR, XR KUB, 10/08/2021, 16:09. FINDINGS: Perfusion: There is normal vascular flow to both kidneys. Morphology: Right kidney has decreased in size compared to the left kidney. No dilated renal collecting systems are seen. The ureters and bladder fill with tracer, and appear normal. Function: Left kidney demonstrates normal cortical tracer uptake, with [id number] activity ranging from 3 to 5 minutes. Right kidney demonstrates significantly delayed and decreased cortical uptake and excretion. The right kidney contributes 18.0% of total renal function. The left kidney contributes 82.0% of total renal function. Previously, right kidney contributes 15.5% and left kidney 84.5% of total renal function on 01/20/2022. Lasix stimulation: After diuretic administration, there is prompt clearance of tracer activity from the left renal collecting system. The half-time of emptying of tracer activity from the left pelvicaliceal system is 11.7 minutes. The half-time of emptying from the right pelvicaliceal system is 18.4 minutes. Normal emptying half-times are less than 10 minutes; borderline ranges are from 10 to 20 minutes. IMPRESSION: 1. Right kidney is small and demonstrates significantly decreased renal function. 2. Split renal function: Right Kidney 18% and left kidney 82%. 3. The measured T1/2 for right Kidney is not accurate because of poor right renal function. 4. Normal left renal function. No left renal obstruction. Dictated by: Darren Akins M.D. on 03/20/2022 at 16:48 Approved by: Darren Akins M.D. on 03/21/2022 at 8:43
== END ==
PROVIDERS: PCP Internal Medicine; Referring Provider Specialist; Visit Provider Specialist
DX: N13.5 Crossing vessel and stricture of ureter without hydronephrosis (principal)
CPT/HCPCS: 78708; A9562

== ENCOUNTER → 2022-04-16 13:19 | Outpatient (CLI) | payer OTHER, SELFPAY ==
[2022-04-16 13:50] LABS: COVID19 -Nasal RAPID Negative (Negative)
== END ==
PROVIDERS: PCP Internal Medicine; Visit Provider Specialist
DX: Z20.822 Contact with and (suspected) exposure to COVID-19 (principal)
CPT/HCPCS: 87635; C9803

== ENCOUNTER 2022-04-18 08:12 | Day surgery (SDC) | payer OTHER, SELFPAY ==
[2022-04-10 14:35] VITALS: BMI 35.6
[2022-04-18] VITALS (9 sets, daily range): BP systolic 116–134; BP diastolic 68–80; PULSE 53–70; RESP 11–17; TEMP 36.1–36.8; O2SAT 94–100; BMI 35.6
--- NOTE | 2022-04-18 | DI.RAD.S_ITS ---
PROCEDURE: XR ABDOMEN 1V INDICATIONS: BILATERAL STENT PLACEMENT TECHNIQUE: 2 intraoperative fluoroscopic images obtained. COMPARISON: None. FINDINGS: Two intraoperative fluoroscopic images obtained demonstrating the upper portions of 2 stents. An IVC filter is present. IMPRESSION: Intraprocedural fluoroscopy was provided for guidance and anatomical localization. Please see the procedure report for further details. Dictated by: Seun Garnica M.D. on 04/18/2022 at 21:30 Approved by: Seun Garnica M.D. on 04/18/2022 at 21:34
[2022-04-18] MEDS: LACTATED RINGERS 1,000 ML 42 ML IV (09:16)
--- NOTE | 2022-04-18 09:21 | SUR.OPER ---
Lithotomy on padded OR bed, head on pillow, arms secured on padded arm boards at <90 degrees abduction. Legs secured in padded yellow fins stirrups.
--- NOTE | 2022-04-18 09:55 | PM.PREOP ---
Pre-operative Note COVID-19 Criteria for continued procedure: Expected advancement of disease process, Increased loss of function, Deterioration of the patient's condition or overall health, Delay expected to result in less-positive ultimate med/surg outcome and Non-surgical alternatives not available or appropriate per current SOC Interval Note History & Physical reviewed/Exam performed by Physician: Yes Changes to H&P: No
[2022-04-18] MEDS: CEFAZOLIN 2 GM/100 ML PREMIX 100 ML IV (10:30)
--- NOTE | 2022-04-18 11:20 | P.OP_ITS ---
Operative Date/Time/Diagnoses Date of procedure: 04/18/22 Time of procedure: 11:20 Pre-op diagnosis: 1. Bilateral ureteral obstruction Post-op diagnosis: same Procedure & Clinicians Procedure: 1. Cystoscopy/removal bilateral ureteral stents. 2. Cystoscopy/replacement bilateral ureteral stents (8 Guinean by 22-32 cm multi- length). Same procedure as scheduled: Yes Indications: 1. Bilateral ureteral obstruction. Surgeon: Daria Del Cid Click Yes if Unassisted: Yes Anesthesia Type: General Operative Notes Findings: 1. Urethra-normal caliber without annular stricture or lesion. 2. External sphincter-coapted with normal overlying urothelium. 3. Prostate-3.5 cm length with mild hyperplasia. 4. Bladder-trace trabeculation, and bilateral ureteral stents emanating from normally positioned in appearing ureteral orifices. Closure Type: not applicable Specimen(s): none sent Applied: other (Bilateral 8 Guinean by 22-32 cm multi-length.) Estimated Blood Loss (mL): 0 Blood products transfused: none Procedure in detail: Patient was positioned supine and was administered general anesthesia. He was then repositioned in semi lithotomy and the lower abdomen, genitalia, and groin were then prepped and draped in sterile fashion. Twenty-two Guinean panendoscope was then passed the lower urinary track with the findings as described above. Foreign body grasper was then used to engage the right ureteral stent near its distal extent and was then gently withdrawn to bring the distal tip of the stent just beyond the urethral meatus. A 0.35 hybrid guidewire was then passed and lumen of the stent and attempts to pass it proximally were unsuccessful due to intraluminal debris. The scope was then reintroduced into the urethra and advanced lower urinary track. Now the 0.35 hybrid guidewire was advanced adjacent to the indwelling, retained right ureteral stent was advanced proximally under direct and fluoroscopic guidance. With the wire in adequate position the existing stent was then manually removed the remainder way out of the urinary tract. Next, an 8 Guinean by 22-32 cm multi-length stent was selected this was then advanced over the 0.35 hybrid guidewire under direct and fluoroscopic guidance. NO RETRIEVAL LINE WAS LEFT ATTACHED. Foreign body grasper was was again advanced into the panendoscope and the left retained ureteral stent was engaged at its distal aspect and was withdrawn distally. As had been the case on the right side, the lumen of the stent was obstructed and encrusted preventing passage of the guidewire. Again, as on the right side same steps and maneuvers were performed to position a 8 Guinean by 22- 32 cm multi-length stent satisfactorily in the left collecting system. NO RETRIEVAL LINE WAS LEFT ATTACHED. The bladder was then drained completely and all instrumentation was removed. Th e patient was then repositioned in supine, was awakened, then was transferred to a [facility] awake stable condition for transfer to PACU. Complications: none Post-operative Condition: stable Disposition: PACU Plan for aftercare: Discharge home.
[2022-04-18] MEDS: HYDROCODONE/ACET 5/325 TABLET 1 TAB PO (11:38)
--- NOTE | 2022-04-18 11:48 | SUR.PHASEI ---
assumed care for pt from Janeth Kuhn RN.
[2022-04-18] MEDS: ONDANSETRON 4 MG/2 ML INJ IV (11:54)
== END 2022-04-18 12:44 | disposition home or self-care (01) ==
PROVIDERS: PCP Internal Medicine; Referring Provider Specialist; Visit Provider Specialist
PROC: (CPT 52332; principal; 2022-04-18 09:45)
DX: N40.1 Benign prostatic hyperplasia with lower urinary tract symptoms (principal); N13.8 Other obstructive and reflux uropathy; Z96.0 Presence of urogenital implants; C91.50 Adult T-cell lymphoma/leukemia (HTLV-1-associated) not having achieved remission
CPT/HCPCS: 52332; 74018; 76000; J0690; J2250; J2405; J3010

== ENCOUNTER → 2022-07-30 13:47 | Outpatient (CLI) | payer OTHER, SELFPAY ==
--- NOTE | 2022-07-30 13:50 | DI.RAD.S_ITS ---
PROCEDURE: XR KUB INDICATIONS: replacement bilateral ureteral stents TECHNIQUE: One view of the abdomen acquired. COMPARISON: [facility], CR, XR KUB, 10/08/2021, 16:09. FINDINGS: Surgical changes and devices: Bilateral double-J nephroureteral stents are in place, taking a similar course compared to the prior study. Partially imaged IVC filter is seen. Bowel: Bowel gas pattern is normal. Soft tissues: No suspicious abdominal calcifications. Pelvic phleboliths are present. Visualized solid organ contours appear normal in size. Bones: No suspicious bony lesions. IMPRESSION: 1. Bilateral nephroureteral stents are in expected location. Dictated by: Shaye Cintron M.D. on 07/30/2022 at 17:00 Approved by: Shaye Cintron M.D. on 07/30/2022 at 17:01
== END ==
PROVIDERS: Family Provider Internal Medicine; PCP Internal Medicine; Referring Provider Specialist; Visit Provider Specialist
DX: N13.5 Crossing vessel and stricture of ureter without hydronephrosis (principal); Z96.0 Presence of urogenital implants
CPT/HCPCS: 74018

== ENCOUNTER 2022-08-22 13:22 | Emergency (ER) | payer OTHER, SELFPAY ==
[2022-08-22 13:28] VITALS: BP 157/92; PULSE 85; RESP 16; TEMP 36.2; O2SAT 99; BMI 35.9
[2022-08-22] MEDS: ONDANSETRON 4 MG/2 ML INJ IV ×2 (14:14→21:53)
[2022-08-22 14:40] LABS: Add Manual Diff / Slide Review NO; Basophils Absolute Auto 0 /uL (0-100); Basophils Percent Auto 0.4 % (0-2); Eosinophils Absolute Auto 0 /uL (0-450); Eosinophils Percent Auto 0.5 % (2-4); Hematocrit 35.7 % (41-53); Hemoglobin 11.8 g/dL (13.5-17.5); Lymphocytes Absolute Auto 200 /uL (1100-4500); Lymphocytes Percent Auto 4.5 % (25-40); Mean Corpuscular HGB Conc 33.1 % (30-36); Mean Corpuscular Hemoglobin 27.4 PG (26-34); Mean Corpuscular Volume 82.8 fL (80-100); Monocytes Absolute Auto 400 /uL (0-900); Monocytes Percent Auto 8.8 % (3-14); Neutrophils Absolute Auto 4000 /uL (1500-7000); Neutrophils Percent Auto 85.8 % (50-75); Platelet Count 236 X10^3/uL (150-400); Red Blood Cell Count 4.31 X10^6/uL (4.5-5.9); Red Cell Distribution Width 19.8 % (11.6-14.8); White Blood Cell Count 4.7 X10^3/uL (4.5-11.0)
[2022-08-22 14:44] LABS: Alanine Aminotransferase 22 IU/L (<50); Albumin 4.4 g/dL (3.5-5.0); Albumin Globulin Ratio 1.5 (1.0-2.8); Alkaline Phosphatase 85 U/L (38-126); Aspartate Aminotransferase 31 IU/L (17-59); BUN Creatinine Ratio 11.5 (6-22); Bilirubin Total 0.6 mg/dL (0.2-1.3); Blood Urea Nitrogen 11 mg/dL (9-20); Calcium 8.7 mg/dL (8.4-10.2); Carbon Dioxide 27 mmol/L (22-32); Chloride 97 mmol/L (98-107); Estimated Glomerular Filt Rate > 60 mL/min (>60); Glucose 136 mg/dL (70-100); HEMOLYSIS < 15 (0-50); Lipase 1104 U/L (23-300); Potassium 3.7 mmol/L (3.4-5.1); Sodium 133 mmol/L (137-145); Total Protein 7.4 g/dL (6.3-8.2)
[2022-08-22 14:47] LABS: INR 1.4 (0.9-1.3); Prothrombin Time 16.1 SECONDS (10.1-12.7)
[2022-08-22 17:10] VITALS: BP 145/90; PULSE 71; O2SAT 99
[2022-08-22 18:01] VITALS: O2SAT 97
[2022-08-22 18:02] VITALS: BP 163/88; PULSE 75; O2SAT 99
--- NOTE | 2022-08-22 18:11 | ED_ITS ---
HPI - General Adult General Chief complaint: Recheck/Abnormal Lab/Rx Stated complaint: symptoms of pancreatitis Time Seen by Provider: 08/22/22 18:10 Source: patient Mode of arrival: Ambulatory History of Present Illness HPI narrative: 52-year-old gentleman with history of diffuse B-cell lymphoma followed by Dr. Salvador at [facility], currently receiving immune check point inhibitor therapy last infusion was on August 14. He has had an episode of colitis related to this infusion and recently was on large doses of prednisone, 110 mg for 3 weeks was weaned off and discontinued approximately [address] scan on the did not show significant pancreatic abnormalities. Since the he has been having upper abdominal pain. Two days ago he had lipase that was checked that was 1281. Continuing to have abdominal pain and his oncologist recommended coming to the emergency department to have blood work repeated. He denies fever, cough, palpitations, headaches, chest pain. He does have issues with chronic constipation and has a bowel program that seems to be moderately effective. No dysuria or flank pain symptoms at this time. Related Data Home Medications Medication Instructions Recorded Confirmed docusate sodium 250 mg capsule 250 mg PO BID 03/24/22 08/06/22 pembrolizumab 50 mg intravenous 200 mg IV Q3W 04/18/22 08/06/22 solution prednisone 50 mg tablet 50 mg PO DAILY 08/06/22 08/06/22 Previous Rx's Medication Instructions Recorded acyclovir 400 mg tablet 400 mg PO BID 30 days #60 tabs 02/24/22 lorazepam 0.5 mg tablet 0.5 mg PO TID PRN Nausea #30 tabs 03/13/22 tramadol 50 mg tablet 50 mg PO Q12H PRN cancer pain #60 03/13/22 tabs oxybutynin chloride 5 mg 10 mg PO DAILY #60 tabs 04/01/22 tablet,extended release 24 hr atorvastatin 10 mg tablet (Lipitor) 10 mg PO HS #90 tabs 04/21/22 apixaban 5 mg tablet (Eliquis) 5 mg PO BID 30 days #60 tabs 06/23/22 ondansetron 4 mg disintegrating 4 mg PO Q6H #30 tabs 06/23/22 tablet prochlorperazine maleate 10 mg 10 mg PO Q6H PRN Nausea #30 tabs 06/25/22 tablet ondansetron 4 mg disintegrating 4 mg PO Q8H PRN nausea and 08/22/22 tablet vomiting #30 tabs oxycodone-acetaminophen 5 mg-325 1 tab PO Q6H PRN pain #30 tabs 08/22/22 mg tablet Allergies Allergy/AdvReac Type Severity Reaction Status Date / Time amoxicillin [AMOXICILLIN] Allergy Severe Swelling Verified 08/22/22 13:27 of Lip/Tongue/Throat Sulfa (Sulfonamide Allergy Severe Swelling Verified 08/22/22 13:27 Antibiotics) of [SULFA (SULFONAMIDE Lip/Tongue/Throat ANTIBIOTICS)] Review of Systems Review of Systems Narrative: Remainder of complete review of systems is otherwise unremarkable except for that included in the HPI. Patient History Medical History (Updated 08/22/22 @ 21:48 by Jeannie Curry MD) Arthritis Bilateral ureteral obstruction Bilateral ureteral obstruction Carpal tunnel syndrome of left wrist (06/23/16) Constipation DVT (deep venous thrombosis) Impaired vision Lower urinary tract symptoms (LUTS) Mixed hyperlipidemia Obesity (BMI 30-39.9) Obstructive sleep apnea of adult Obstructive uropathy Peripheral edema Psoriasis (10/29/17) Retained ureteral stent Venous stasis Surgical History H/O right wrist surgery History of carpal tunnel release Family History Father Age: 76 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 without complication, 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 term care insulin use status Heart disease Essential hypertension Social History number of children: 0 household members: spouse Smoking Status: Never smoker alcohol intake: current Type(s) of exercise: walking frequency: 3-4 times per week Smoking Status: Never smoker alcohol intake frequency: holidays/special occasions only Substance Use Type: does not use Exam Initial Vital Signs Initial Vital Signs: Vital Signs Temperature 97.1 F L 08/22/22 13:28 Pulse Rate 85 08/22/22 13:28 Respiratory Rate 16 08/22/22 13:28 Blood Pressure 157/92 H 08/22/22 13:28 Pulse Oximetry 99 08/22/22 13:28 Oxygen Delivery Method 08/22/22 13:28 General: Healthy appearing, in no acute distress. Able to give a complete and coherent history. Well-nourished well-developed HEENT: Moist mucous membranes, normal sclera with reactive pupils, Neck: No JVD, supple Respiratory: Lungs are clear to auscultation, no wheezing no rales no rhonchi. Full and symmetrical air movement Cardiac: Regular rate and rhythm no murmurs no bruits Abdomen: Soft, mild upper abdominal tenderness with no rebound or guarding. good bowel tones, no flank pain Skin: Warm and dry, no rashes Neurologic: Grossly neurologically intact with no obvious asymmetries or abnormalities Extremities: No trauma, well perfused Psych: Cooperative, appropriate insight and affect Course Orders Ordered: ED Orders 08/22/22 18:24 Urinalysis and Microscopic Stat 08/22/22 18:30 Covid-19 + FLU A/B + RSV - PCR Stat Discontinued Medications Hydromorphone HCl (Hydromorphone 0.5 Mg Inj) 0.5 mg IV Q15MIN PRN PRN Reason: Pain, Sodium Chloride (Normal Saline 0.9%) 1,000 mls @ 1,000 mls/hr IV BOLUS ONE Stop: 08/22/22 22:21 Last Infusion: 08/22/22 22:44 Dose: 0 mls/hr Documented By: Admin: 08/22/22 21:43 Dose: 1,000 mls/hr Documented By: JANETTE Methylprednisolone (Methylprednisolone 125 Mg/2 Ml Vial) 125 mg IV NOW ONE Stop: 08/22/22 21:32 Last Admin: 08/22/22 21:44 Dose: 125 mg Documented By: JANETTE Ondansetron HCl (Ondansetron 4 Mg/2 Ml Inj) 4 mg IV NOW ONE Stop: 08/22/22 14:13 Last Admin: 08/22/22 14:14 Dose: 4 mg Documented By: JERRY Ondansetron HCl (Ondansetron 4 Mg/2 Ml Inj) 4 mg IV NOW ONE Stop: 08/22/22 21:49 Last Admin: 08/22/22 21:53 Dose: 4 mg Documented By: JANETTE Vital Signs Vital signs: Vital Signs - 8 hr 08/22/22 18:01 08/22/22 18:02 08/22/22 18:02 Pulse Rate 75 Respiratory Rate Blood Pressure 163/88 H Pulse Oximetry 97 99 Oxygen Delivery Method 08/22/22 22:50 Pulse Rate 86 Respiratory Rate 18 Blood Pressure 169/90 H Pulse Oximetry 98 Oxygen Delivery Method Room Air Medical Decision Making Lab Data Result diagrams: 08/22/22 14:10 08/22/22 13:30 Labs: Lab Results 08/22/22 08/22/22 08/22/22 Range/Units 13:30 14:10 14:10 WBC 4.7 (4.5-11.0) X10^3/uL RBC 4.31 L (4.5-5.9) X10^6/uL Hgb 11.8 L (13.5-17.5) g/dL Hct 35.7 L (41-53) % MCV 82.8 (80-100) fL MCH 27.4 (26-34) PG MCHC 33.1 (30-36) % RDW 19.8 H (11.6-14.8) % Plt Count 236 (150-400) X10^3/uL Neut % (Auto) 85.8 H (50-75) % Lymph % (Auto) 4.5 L (25-40) % [place] % (Auto) 8.8 (3-14) % Eos % (Auto) 0.5 L (2-4) % Baso % (Auto) 0.4 (0-2) % Neut # (Auto) 4000 (1058-3748) /uL Lymph # (Auto) 200 L (4093-2239) /uL [place] # (Auto) 400 (0-900) /uL Eos # (Auto) 0 (0-450) /uL Baso # (Auto) 0 (0-100) /uL PT 16.1 H (10.1-12.7) SECONDS INR 1.4 H (0.9-1.3) Sodium 133 L (137-145) mmol/L Potassium 3.7 (3.4-5.1) mmol/L Chloride 97 L (98-107) mmol/L Carbon Dioxide 27 (22-32) mmol/L BUN 11 (9-20) mg/dL Creatinine 0.96 (0.66-1.25) mg/dL Estimated GFR > 60 (>60) mL/min BUN/Creatinine Ratio 11.5 (6-22) Glucose 136 H (70-100) mg/dL Calcium 8.7 (8.4-10.2) mg/dL Total Bilirubin 0.6 (0.2-1.3) mg/dL AST 31 (17-59) IU/L ALT 22 (<50) IU/L Alkaline Phosphatase 85 (38-126) U/L Total Protein 7.4 (6.3-8.2) g/dL Albumin 4.4 (3.5-5.0) g/dL Globulin 3.0 (1.7-4.1) g/dL Albumin/Globulin Ratio 1.5 (1.0-2.8) Lipase 1104 H (23-300) U/L Urine Color Urine Appearance Urine pH (4.5-8.0) Ur Specific [place] (1.000-1.035) Urine Protein (Negative) Urine Glucose (UA) (Negative) g/dL Urine Ketones (NEGATIVE) Urine Occult Blood (Negative) Urine Nitrate (Negative) Urine Bilirubin (NEGATIVE) Urine Urobilinogen (0.2) E.U./dL Ur Leukocyte Esterase (NEGATIVE) Urine RBC (0-5/HPF) Urine WBC (0-5/HPF) Ur Squamous Epith Cells (0-5/HPF) Urine Bacteria (None) Ur Culture Indicated? SARS-CoV-2 (PCR) (Negative) Influenza A (RT-PCR) (NEGATIVE) Influenza B (RT-PCR) (NEGATIVE) RSV (PCR) (Negative) 08/22/22 08/22/22 Range/Units 18:24 18:30 WBC (4.5-11.0) X10^3/uL RBC (4.5-5.9) X10^6/uL Hgb (13.5-17.5) g/dL Hct (41-53) % MCV (80-100) fL MCH (26-34) PG MCHC (30-36) % RDW (11.6-14.8) % Plt Count (150-400) X10^3/uL Neut % (Auto) (50-75) % Lymph % (Auto) (25-40) % [place] % (Auto) (3-14) % Eos % (Auto) (2-4) % Baso % (Auto) (0-2) % Neut # (Auto) (3429-0941) /uL Lymph # (Auto) (0860-7125) /uL [place] # (Auto) (0-900) /uL Eos # (Auto) (0-450) /uL Baso # (Auto) (0-100) /uL PT (10.1-12.7) SECONDS INR (0.9-1.3) Sodium (137-145) mmol/L Potassium (3.4-5.1) mmol/L Chloride (98-107) mmol/L Carbon Dioxide (22-32) mmol/L BUN (9-20) mg/dL Creatinine (0.66-1.25) mg/dL Estimated GFR (>60) mL/min BUN/Creatinine Ratio (6-22) Glucose (70-100) mg/dL Calcium (8.4-10.2) mg/dL Total Bilirubin (0.2-1.3) mg/dL AST (17-59) IU/L ALT (<50) IU/L Alkaline Phosphatase (38-126) U/L Total Protein (6.3-8.2) g/dL Albumin (3.5-5.0) g/dL Globulin (1.7-4.1) g/dL Albumin/Globulin Ratio (1.0-2.8) Lipase (23-300) U/L Urine Color Yellow Urine Appearance Clear Urine pH 6.5 (4.5-8.0) Ur Specific [place] 1.010 (1.000-1.035) Urine Protein Trace H (Negative) Urine Glucose (UA) Negative (Negative) g/dL Urine Ketones Trace H (NEGATIVE) Urine Occult Blood 3+ H (Negative) Urine Nitrate Negative (Negative) Urine Bilirubin Negative (NEGATIVE) Urine Urobilinogen 0.2 (0.2) E.U./dL Ur Leukocyte Esterase Negative (NEGATIVE) Urine RBC 30-100/hpf H (0-5/HPF) Urine WBC 0-1/hpf (0-5/HPF) Ur Squamous Epith Cells 0-1 /hpf (0-5/HPF) Urine Bacteria None seen (None) Ur Culture Indicated? Cult not indicated SARS-CoV-2 (PCR) Negative (Negative) Influenza A (RT-PCR) Flu a negative (NEGATIVE) Influenza B (RT-PCR) Flu b negative (NEGATIVE) RSV (PCR) Negative (Negative) Urine Dip Bedside Urine Glucose Negative Bedside Urine Bilirubin - Negative Bedside Urine Ketone +/- 5 Urine Specific [place] 1.015 Bedside Urine Occult Blood +++ Bedside Urine pH 6.0 Bedside Urine Protein - Negative Bedside Urine Urobilinogen - Negative Bedside Urine Nitrite - Negative Bedside Urine Leukocytes + 70 Esterase Point of care testing: Urine Dip Bedside Urine Glucose Negative Bedside Urine Bilirubin - Negative Bedside Urine Ketone +/- 5 Urine Specific Loda 1.015 Bedside Urine Occult Blood +++ Bedside Urine pH 6.0 Bedside Urine Protein - Negative Bedside Urine Urobilinogen - Negative Bedside Urine Nitrite - Negative Bedside Urine Leukocytes + 70 Esterase MDM Narrative Medical decision making narrative: 52-year-old gentleman with B-cell lymphoma currently on Keytruda, immune check point inhibitor has had difficulties with autoimmune reactions in the form of colitis and just recently finished an extended dose of high-dose steroids. He is now complaining of upper abdominal pain with minimally elevated lipase. CT scan was done on August 11 with no obvious progression of disease or other significant abnormalities. Pain is in the upper abdomen it is mild to moderate and is worse with eating. Lipase is similarly elevated today. Two days ago was 1281 and today is 1104. Care is reviewed with the oncologist on-call, Dr. Navarro. Her recommendation was to restart low-dose steroid, 40 mg of prednisone daily for the next 5 days. Their office will recontact him in 4 days to see how he is doing. In the meantime will also give him an extra prescription for Percocet to help with pain control, Zofran to help with nausea. Has plenty of prednisone still available at home to complete the 5 day course is recommended. In the emergency department he is given 125 mg of IV Solu-Medrol and a L of fluid with moderate relief of the mild discomfort he is currently having. Findings are reviewed with patient who is amenable to recommendations. No evidence of obstruction, severe infection, dramatic pancreatitis that would require hospitalization. Safe for discharge home and will follow-up with his oncology team. 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 No other dramatic abnormalities were appreciated. Your care was reviewed with , oncologist on-call for Dr Salvador. Her recommendation was to restart steroids at 40 mg daily for the next 5 days. Their office will contact you on the . In the meantime, you did get a L of fluid as well as a 1st dose of IV steroids in the emergency department. You said you have plenty of prednisone available at home to do 40 mg daily for the next 5 days. I have also given you a small prescription for Percocet to use for severe pain. You are aware of the constip ation that can result and I would encourage you to use extra MiraLax if you do need to use the Percocet. I have also refilled your Zofran prescription to help with nausea. [facility] [place] If you find that you are getting worse or develop any new symptoms, please feel free to return to the emergency department for further evaluation. Prescriptions: New oxycodone-acetaminophen 5-325 mg tablet 1 tab PO Q6H PRN (Reason: pain) Qty: 30 0RF ondansetron 4 mg tablet,disintegrating 4 mg PO Q8H PRN (Reason: nausea and vomiting) Qty: 30 0RF No Action oxybutynin chloride 5 mg tablet extended release 24hr 10 mg PO DAILY Qty: 60 11RF Rx Instructions: Start with 1 tablet daily, if symptoms are not controlled, may increase to 2 tablets daily. atorvastatin [Lipitor] 10 mg tablet 10 mg PO HS Qty: 90 3RF docusate sodium 250 mg capsule 250 mg PO BID acyclovir 400 mg Tablet 400 mg PO BID 30 Days Qty: 60 5RF tramadol 50 mg Tablet 50 mg PO Q12H PRN (Reason: cancer pain) Qty: 60 0RF lorazepam 0.5 mg Tablet 0.5 mg PO TID PRN (Reason: Nausea) Qty: 30 0RF Eliquis 5 mg Tablet 5 mg PO BID 30 Days Qty: 60 0RF ondansetron 4 mg Tablet,Disintegrating 4 mg PO Q6H Qty: 30 3RF prochlorperazine maleate 10 mg tablet 10 mg PO Q6H PRN (Reason: Nausea) Qty: 30 1RF pembrolizumab 50 mg Recon Soln 200 mg IV Q3W Label Comments: first dose Sunday 04/15 Rx Instructions: administer over 30 mins prednisone 50 mg tablet 50 mg PO DAILY Referrals: Calixto Ferguson MD [Primary Care Provider] - Visit Report Forms: Patient Portal/API
[2022-08-22 18:49] LABS: Appearance Urine UA CLEAR; Bilirubin Urine UA NEGATIVE (NEGATIVE); Color Urine UA YELLOW; Glucose Urine UA NEGATIVE (Negative); Ketones Urine UA TRACE (NEGATIVE); Leukocyte Esterase Urine UA NEGATIVE (NEGATIVE); Nitrite Urine UA NEGATIVE (Negative); Occult Blood Urine UA 3+ (Negative); Protein Urine UA TRACE (Negative); Urobilinogen Urine UA 0.2 E.U./dL (0.2); pH Urine UA 6.5 (4.5-8.0)
[2022-08-22 18:57] LABS: RBC Urine 30-100/HPF (0-5/HPF)
[2022-08-22 18:58] LABS: Bacteria Urine None Seen; Culture Indicated Urine Cult Not Indicated; Squamous Epithelial Cell Urine 0-1 /HPF (0-5/HPF); WBC Urine 0-1/HPF (0-5/HPF)
[2022-08-22 19:16] LABS: Influenza A - CEPHEID Flu A NEGATIVE (NEGATIVE); Influenza B - CEPHEID Flu B NEGATIVE (NEGATIVE); Respiratory Syncytial Virus Negative (Negative)
[2022-08-22 19:18] LABS: COVID-19 CEPHEID 4-PLEX PCR Negative (Negative)
[2022-08-22] MEDS: SODIUM CHLORIDE 0.9% 1,000 ML 1000 ML IV (21:43)
[2022-08-22] MEDS: methylPREDNISolone 125 MG/2 ML VIAL IV (21:44)
[2022-08-22 22:50] VITALS: BP 169/90; PULSE 86; RESP 18; O2SAT 98
== END 2022-08-22 22:50 | disposition home or self-care (01) ==
PROVIDERS: Emergency Medicine; Emergency Provider Emergency Medicine; Family Provider Internal Medicine; PCP Internal Medicine
DX: K86.1 Other chronic pancreatitis (principal); C83.30 Diffuse large B-cell lymphoma, unspecified site; T50.905D Adverse effect of unspecified drugs, medicaments and biological substances, subsequent encounter; R11.0 Nausea; R10.10 Upper abdominal pain, unspecified; Z20.822 Contact with and (suspected) exposure to COVID-19
CPT/HCPCS: 0241U; 80053; 81001; 81003; 83690; 85025; 85610; 93005; 96361; 96374; 96375; 96376; 99283; 99284; J2405; J2930

== ENCOUNTER → 2022-09-25 13:58 | Outpatient (CLI) | payer OTHER, SELFPAY ==
[2022-09-25 14:59] LABS: COVID19 -Nasal RAPID Negative (Negative)
== END ==
PROVIDERS: Family Provider Internal Medicine; PCP Internal Medicine; Visit Provider Specialist
DX: Z20.822 Contact with and (suspected) exposure to COVID-19 (principal)
CPT/HCPCS: 87635; C9803

== ENCOUNTER 2022-09-26 09:50 | Day surgery (SDC) | payer OTHER, SELFPAY ==
--- NOTE | 2022-09-26 09:24 | PM.PREOP ---
Pre-operative Note COVID-19 Criteria for continued procedure: Continuing or worsening of significant or severe pain, Deterioration of the patient's condition or overall health, Delay expected to result in less-positive ultimate med/surg outcome and Non-surgical alternatives not available or appropriate per current SOC Interval Note History & Physical reviewed/Exam performed by Physician: Yes Changes to H&P: No
--- NOTE | 2022-09-26 09:52 | SUR.OPER ---
Lithotomy on padded OR bed, head on pillow, arms secured on padded arm boards at <90 degrees abduction. Legs secured in padded yellow fins stirrups.
[2022-09-26 10:16] VITALS: BP 145/90; PULSE 85; RESP 16; TEMP 36.2; O2SAT 97; BMI 37.3
[2022-09-26] MEDS: LACTATED RINGERS 1,000 ML 21 ML IV (10:16)
[2022-09-26] MEDS: VANCOMYCIN 1,000 MG/200 ML PIGGYBACK 200 MG IV (10:31)
[2022-09-26] MEDS: GENTAMICIN 450 MG in SODIUM CHLORIDE 0.9% 100 ML 111.25 MG IV (10:51)
--- NOTE | 2022-09-26 11:06 | P.OP_ITS ---
Operative Date/Time/Diagnoses Date of procedure: 09/26/22 Time of procedure: 11:06 Pre-op diagnosis: 1. History of bilateral ureteral obstruction. 2. Bilateral retained ureteral stents. Post-op diagnosis: same Procedure & Clinicians Procedure: 1. Cystoscopy/right ureteral stent exchange (8 [place] by 22-32 cm multi-length). 2. Cystoscopy/left ureteral stent removal. Same procedure as scheduled: Yes Indications: 1. History of bilateral ureteral obstruction. 2. Persistent/recurrent right hydronephrosis. 3. Bilateral retained ureteral stents. Surgeon: Daria Del Cid Click Yes if Unassisted: Yes Anesthesia Type: General Operative Notes Findings: 1. Urethra-normal caliber without annular stricture or lesion. 2. External sphincter coapted with normal overlying urothelium. 3. Prostate 3.5 cm length with mild lateral lobe hyperplasia. 4. Bladder-trace trabeculation. Normal position of ureteral orifices bilaterally with intact distal ureteral stent coil. Closure Type: not applicable Specimen(s): none sent Applied: other (Eight [place] by 22-32 cm right ureteral stent.) Estimated Blood Loss (mL): 0 Blood products transfused: none Procedure in detail: The patient was positioned supine has administered general anesthesia. He was then repositioned in semi lithotomy and the lower abdomen, genitalia, and groin were then prepped and draped in sterile fashion. The 22 [place] panendoscope was then passed the lower urinary tract with the findings as described above. A handheld grasper was then used to engage the distal end of the right ureteral stent and the scope the then with cream the distal end of the right ureteral stent just beyond the urethral meatus. A 0.35 hybrid guidewire was then passed through the lumen of the retained right ureteral stent advanced proximally under fluoroscopic guidance. The stent was then withdrawn off the hybrid guidewire and discarded. The hybrid guidewire was then front loaded into the 22 [place] panendoscope and the panendoscope was then advanced proximally to the level of the bladder and right ureteral orifice. Next, an 8 [place] by 22-32 cm double-J ureteral stent was selected and advanced over the hybrid guidewire under direct and fluoroscopic guidance. Positioning was satisfactory radiographically. NO RETRIEVAL LINE WAS LEFT ATTACHED. The bladder was then drained completely. The handheld grasper was then advanced through the working channel of the panendoscope and the distal end of the left ureteral stent was then engaged. The scope and engaged left ureteral stent or then withdrawn and the stent was removed without incident. The patient was then repositioned in supine, was awakened, [place] [facility] to recovery in stable condition. Complications: none Post-operative Condition: stable Disposition: PACU Plan for aftercare: Discharge home.
[2022-09-26 11:17] VITALS: BP 144/99; PULSE 99; RESP 17; TEMP 36.6; O2SAT 97
[2022-09-26 11:23] VITALS: BP 123/85; PULSE 71; PULSE 77; RESP 12; RESP 14; O2SAT 96; O2SAT 98
[2022-09-26] MEDS: CODEINE/ACETAMINOPHEN 30/300 TABLET 1 TAB PO (11:26)
[2022-09-26 11:29] VITALS: BP 126/69; PULSE 70; RESP 12; O2SAT 96
[2022-09-26 11:33] VITALS: BP 145/93; PULSE 74; RESP 12; TEMP 36.2; O2SAT 96
--- NOTE | 2022-09-30 | DI.RAD.S_ITS ---
PROCEDURE: XR ABDOMEN 1V INDICATIONS: RT STENT EXCHANGE TECHNIQUE: One view of the abdomen acquired. COMPARISON: [facility], CR, XR ABDOMEN 1V, 04/18/2022, 11:18. FINDINGS: Surgical changes and devices: None. Bowel: Bowel gas pattern is normal. Soft tissues: No suspicious abdominal calcifications. Visualized solid organ contours appear normal in size. Proximal course of right ureteral stent is in expected position. Bones: No suspicious bony lesions. IMPRESSION: Visualized right ureteral stent in expected position. Dictated by: Juhi Alaniz MD, PhD on 09/30/2022 at 15:57 Approved by: Juhi Alaniz MD, PhD on 09/30/2022 at 15:58
== END 2022-09-26 12:06 | disposition home or self-care (01) ==
PROVIDERS: Family Provider Internal Medicine; PCP Internal Medicine; Referring Provider Specialist; Visit Provider Specialist
PROC: (CPT 52332; principal; 2022-09-26 11:00)
DX: Z46.6 Encounter for fitting and adjustment of urinary device (principal); Z96.0 Presence of urogenital implants; N13.39 Other hydronephrosis; N40.0 Benign prostatic hyperplasia without lower urinary tract symptoms
CPT/HCPCS: 52332; 52310; 74018; 76000; J1100; J1885; J2405; J2704; J3010

== ENCOUNTER → 2022-10-28 09:57 | Outpatient (CLI) | payer OTHER, SELFPAY ==
[2022-10-28 10:58] LABS: Hematocrit 35.1 % (41-53); Hemoglobin 11.8 g/dL (13.5-17.5)
[2022-10-28 11:07] LABS: BUN Creatinine Ratio 14.1 (6-22); Blood Urea Nitrogen 19 mg/dL (9-20); Calcium 8.1 mg/dL (8.4-10.2); Carbon Dioxide 24 mmol/L (22-32); Chloride 103 mmol/L (98-107); Estimated Glomerular Filt Rate > 60 mL/min (>60); Glucose 114 mg/dL (70-100); HEMOLYSIS < 15 (0-50); Potassium 3.7 mmol/L (3.4-5.1); Sodium 136 mmol/L (137-145)
== END ==
PROVIDERS: Family Provider Internal Medicine; PCP Internal Medicine; Referring Provider Internal Medicine Nephrology; Visit Provider Internal Medicine Nephrology
DX: N17.9 Acute kidney failure, unspecified (principal)
CPT/HCPCS: 36415; 80048; 85014; 85018

== ENCOUNTER → 2022-10-30 12:21 | Outpatient (CLI) | payer OTHER, SELFPAY ==
--- NOTE | 2022-10-30 12:22 | DI.NM.S_ITS ---
PROCEDURE: NM RENAL FUNCTION W LASIX RADIOPHARMACEUTICAL: 10.7 mCi Tc-99m MAG3 IV and 40 mg furosemide IV. INDICATIONS: p/o left ureteral stent removal/right ureteral stent exchange TECHNIQUE: The patient was hydrated orally before the examination was begun. After intravenous administration of Tc-99m MAG3, posterior abdominal radionuclide angiogram and sequential (1 minute each frame) renal images were obtained. A time-activity curve for each kidney was generated and analyzed. To evaluate for obstruction, the patient was given 40 mg furosemide via slow intravenous injection after the start of the examination. Sequential images were obtained for up to an additional 20 minutes. COMPARISON: Outside Facility, , CT ABDOMEN/PELVIS WITH CONTRAST, 08/14/2022, 13:59. [facility], [place], [place] RENAL FUNCTION W LASIX, 03/20/2022, 13:58. FINDINGS: Perfusion: There is normal vascular flow to both kidneys. Morphology: Both kidneys are normal in size and shape. No dilated collecting systems are seen. The ureters and bladder fill with tracer, and appear normal. Function: Both kidneys demonstrate normal cortical tracer uptake, with [id number] activity ranging from 3 to 5 minutes. The right kidney contributes 17.4% of total renal function. The left kidney contributes 82.6% of total renal function. Lasix stimulation: After diuretic administration, there is prompt clearance of tracer activity from the renal collecting systems in both kidneys. The half-time of emptying of tracer activity from the right pelvicaliceal system is 21.8 minutes. The half-time of emptying from the left pelvicaliceal system is 10.4 minutes. Normal emptying half-times are less than 10 minutes; borderline ranges are from 10 to 20 minutes. IMPRESSION: Abnormal right kidney, with delayed excretion from the right kidney. Dictated by: Naseem Candelario M.D. on 10/30/2022 at 15:54 Approved by: Naseem Candelario M.D. on 10/30/2022 at 15:57
== END ==
PROVIDERS: Family Provider Internal Medicine; PCP Internal Medicine; Referring Provider Specialist; Visit Provider Specialist
DX: N13.5 Crossing vessel and stricture of ureter without hydronephrosis (principal); R94.4 Abnormal results of kidney function studies; Z96.0 Presence of urogenital implants
CPT/HCPCS: 78708; A9562

== ENCOUNTER 2022-12-24 10:30 | Outpatient (RCR) | payer OTHER, SELFPAY ==
--- NOTE | 2022-08-18 17:43 | PT.OIE ---
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) Pain in right knee (08/18/22) Pain in left knee (08/18/22) Other abnormalities of gait and mobility (08/18/22) Neoplastic (malignant) related fatigue (08/18/22) Other malaise (08/18/22) Adverse effect of antineoplastic and immunosuppressive drugs, initial encounter (08/18/22) Lack of physical exercise (08/18/22) Other reduced mobility (08/18/22) Past Medical History (Last Updated 08/06/22 @ 08:38 by Daria Del Cid MD) Arthritis Bilateral ureteral obstruction Bilateral ureteral obstruction Carpal tunnel syndrome of left wrist (06/23/16) Constipation DVT (deep venous thrombosis) Impaired vision Lower urinary tract symptoms (LUTS) Mixed hyperlipidemia Obesity (BMI 30-39.9) Obstructive sleep apnea of adult Obstructive uropathy Peripheral edema Psoriasis (10/29/17) Retained ureteral stent Venous stasis Past Surgical History (Last Reviewed 08/06/22 @ 08:37 by Daria Del Cid MD) H/O right wrist surgery History of carpal tunnel release Visit Care Team Role Provider Type Other Providers Specialty: Address: Phone: Fax: Email: Calixto Ferguson MD Family Provider Physician Primary Care Provider Specialty: Internal Medicine Address: [address] [place] [address], [address], [place], [facility] Email: [email or web address] Tavon Samuel MD Attending Provider Non-Staff Referring Provider Specialty: Physical Medicine and Rehab Address: [address] [place] [address] [address], [place], [place], [facility] Email: Physical Therapy Initial Evaluation PT-OP-A Visit Information Start: 08/14/22 17:59 Freq: Status: Active Protocol: Document 08/18/22 15:03 [facility] (Rec: 08/18/22 17:43 [facility] [id number]) Out-Patient Physical Therapy Visit Information Visit Information Visit Type Initial Evaluation Visit Start Time 15:05 Visit Stop Time 16:00 Total Visit Minutes 55 Visit Number 1 Number of SALVAGE INSPECTOR Visits 0 PT-OP-B Current Condition Start: 08/14/22 17:59 Freq: Status: Active Protocol: Document 08/18/22 15:03 [facility] (Rec: 08/18/22 17:43 [facility] [id number]) Current Condition History of Current Condition Current Complaints dec balance, B knee pain History of Current Condition Pt reports he is a cancer paitient. He works for [employer]. He has been experiencing back pain and made a [employer] claim after missing the first step and fell and landed on his feet. He went to hospital d/t not being able to pee d/t mass in abdomen. Evenutally got admitted to [facility] and had nephrology tubes place. Has done chemo therapy whcih did not resolve the lymphoma. He has started immunotherapy. He was on prednisone for a long time and is off the last dose. He has been dealing w/ neuropathy on the bottom of feet (numbness) that inc his dec balacne and pain and swelling in knees. Also, has ureter stents now. He does too vigoreous activity, he gets blood in his urine. Pt has been off work for about 1 year ago. He is hopeful to go back soon. 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 Pt had swollen calves and was told he has venous insufficiency and went on a diaretic. He ended up in the hospital d/t DVTs B. He has an IVC filter in vena cava and on eloquist. the heavy dose of steroids he was on, really improved his knee pain. Its coming back again. He has seen a it help desk associate and Xrays were done and they saw deterioration so he is being followed for this. Pt reports he walks daily about a couple miles at the most mostly on roads w/some minor hills. Knee pain started on first round of chemo and neuropathy started after first dose of chemo. Back pain is now resolved. he may have felt a twinge during yard work but that is it. Pt has history of pain in R knee [place] got better w/ice and rest. Treatment Goals Patient/Caregiver Goals Get back to work, inc stamina (can only do activity for a couple hours) PT-OP-C Subjective Start: 08/14/22 17:59 Freq: Status: Active Protocol: Document 08/18/22 15:03 [facility] (Rec: 08/18/22 17:43 [facility] [id number]) Patient Questionnaires ABC- Activity Specific Balance Confidence Scale ABC Score 89.9 Lower Extremity Functional Scale LEFS Score 50/80 OP-PT Pain Assessment Location knee pain Pain Location Details lat B deep in joint Description Aching,Sharp Frequency Intermittent Pain Duration subsides when rests Pain Aggravating Factors Stair Climbing,Bending,Lifting Other Pain Aggravating Factors too long walks; stairs w/load, squatting down Pain Alleviating Factors Inactivity PT-OP-D Balance Start: 08/14/22 17:59 Freq: Status: Active Protocol: Document 08/18/22 15:03 [facility] (Rec: 08/18/22 17:43 [facility] [id number]) Balance Tests Single Limb Standing Single Limb- Right 13 sec heavy arm use waving to keep balacne; lat shear over LE Single Limb- Left 15 sec heavy arm use waving to keep balacne; lat shear over LE PT-OP-E Functional Tests Start: 08/14/22 17:59 Freq: Status: Active Protocol: Document 08/18/22 15:03 [facility] (Rec: 08/18/22 17:43 [facility] [id number]) Functional Tests Functional Gait Assessment Score 24 PT-OP-F Manual Assessment Start: 08/14/22 17:59 Freq: Status: Active Protocol: Document 08/18/22 15:03 [facility] (Rec: 08/18/22 17:43 [facility] [id number]) Manual Assessments Soft Tissue Assessment Soft Tissue Mobility Assessment tightness B ITB and lat quad Joint Mobility Assessment Joint Mobility Assessment IR of tib and femur R w/knee bends and L ER; in standing tends to stand w/R Foto eR PT-OP-G Mobility & Gait Start: 08/14/22 17:59 Freq: Status: Active Protocol: Document 08/18/22 15:03 [facility] (Rec: 08/18/22 17:43 [facility] [id number]) OP Gait Assessment Comments Gait Comments dec overall push off B PT-OP-J Posture/Palpation/Skin Start: 08/14/22 17:59 Freq: Status: Active Protocol: Document 08/18/22 15:03 [facility] (Rec: 08/18/22 17:43 [facility] [id number]) Posture Evaluation [facility] Postural Classification System Lumbar Protective Mechanism Left AP 2 Lumbar Protective Mechanism Right AP 0 Lumbar Protective Mechanism Left PA 1 Lumbar Protective Mechanism Right PA 1 PT-OP-K Range of Motion Start: 08/14/22 17:59 Freq: Status: Active Protocol: Document 08/18/22 15:03 [facility] (Rec: 08/18/22 17:43 [facility] [id number]) Knee Goniometric Range of Motion Knee Right Flexion Active (degrees) 124 Extension Active (degrees) 4 Comments tight into flex Left Flexion Active (degrees) 127 Extension Active (degrees) 3 Comments tight w/flex PT-OP-L Special Tests Start: 08/14/22 17:59 Freq: Status: Active Protocol: Document 08/18/22 15:03 [facility] (Rec: 08/18/22 17:43 [facility] [id number]) Special Tests Knee Special Tests Fischer's Compression Test Results neg B Latosha's Test Test Results R> L tightness Straight Leg Raise Comments 68 deg L; 74 R HS stretch Sumanth Test Results mild TFL tightness B ligamentous testing Comments neg B Thessaly Test 5 Degrees Test Results neg B Apley's Compression Test Results neg PT-OP-M Strength Start: 08/14/22 17:59 Freq: Status: Active Protocol: Document 08/18/22 15:03 [facility] (Rec: 08/18/22 17:43 [facility] [id number]) Hip Strength Hip Manual Muscle Testing Right Flexion (L2) 3+ Fair+ Extension (S1) 3+ Fair+ Abduction 3+ Fair+ Adduction 3+ Fair+ External Rotation 3+ Fair+ Internal Rotation 4- Good- Left Flexion (L2) 3+ Fair+ Extension (S1) 3+ Fair+ Abduction 3+ Fair+ Adduction 3+ Fair+ External Rotation 4- Good- Internal Rotation 3+ Fair+ Knee Strength Knee Manual Muscle Testing Right Flexion (S2) 4+ Good+ Extension (L3) 4- Good- Left Flexion (S2) 4+ Good+ Extension (L3) 4- Good- Ankle/Foot Strength Ankle and Foot Manual Muscle Testing Right Dorsiflexion (L4) 4 Good Inversion 4+ Good+ Eversion (S1) 4- Good- Comments 20 heel raises (ankle pain) Left Dorsiflexion (L4) 4 Good Plantarflexion (S1) 5 Normal Inversion 4+ Good+ Eversion (S1) 4- Good- Comments 20 heel raises B (pain in foot )- very difficult PT-OP-Q Treatments Start: 08/14/22 17:59 Freq: Status: Active Protocol: Document 08/18/22 15:03 [facility] (Rec: 08/18/22 17:43 [facility] [id number]) Therapeutic Exercises Supine Exercises bridge Side bilateral Reps/Minutes 5 sec x8 Standing Exercises mini squat Standing Exercise Name hands on counter Side bilateral Reps/Minutes 12 Comments cues for sidestep Side bilateral Equipment Used L1 Reps/Minutes 2x12ft ea PT-OP-T Assessment and Plan Start: 08/14/22 17:59 Freq: Status: Active Protocol: Document 08/18/22 15:03 [facility] (Rec: 08/18/22 17:43 [facility] [id number]) Physical Therapy Assessment Rehab Potential Rehabilitation Potential Good Evaluation Complexity Number of Personal Factors/Comorbidities 3 or More Number of Body Systems Impaired 4 or More Clinical Presentation at Evaluation Unstable Impairments Impairments Activity Tolerance,Balance, Functional Activities, Functional Mobility,Gait,Pain, Posture,ROM,Soft Tissue Mobility,Strength Goals work Detention Goal (LTG) Pt will be able to return to full work job tasks w/o inc B knee pain or B foot pain LTG Duration 11/10 activities Short Term Goal (STG) Pt will be able to go up/down stairs w/o rail w/carrying objects w/o feeling of LOB or knee pain. STG Duration 10/01/22 Detention Goal (LTG) Pt will be able to squat low and lift objects w/o inc pain in B knees or LOB LTG Duration 11/10/22 balance Short Term Goal (STG) Pt will be able to do SLS for 10 sec B w/o use of UEs for balance STG Duration 10/01/22 Senior Architect/Design Manager Goal (LTG) Pt will be able to do SLS B 20 sec w/o lat shear or use of UEs for balance. LTG Duration 11/10 strength Short Term Goal (STG) Pt will be indep w/HEP STG Duration 2 Detention Goal (LTG) Pt will score at least 4+/5 on all MMT and at least 3/5 LPM to show improved stability in order for pt to be able to perform his job. LTG Duration 11/10 LEFS Impairment 50/80 Short Term Goal (STG) Pt iwll imrpove score to at least 60/80 to show improved functional ability. STG Duration 2/ Senior Architect/Design Manager Goal (LTG) Pt iwll imrpove score to at least 70/80 to show improved functional ability. LTG Duration 11/10 Assessment Summary Assessment Pt presents w/B knee pain that started during lymphoma treatment and B foot neuropathy along w/dec balance and activity tolerance that is since pt's treatment. he has been out of work for 1 year d/t this and would like to return to work soon as full duty. He has poor stamina at this time and works a job that requires himt o be on his feet and active throughout the day. His B knee pain has been better d/t long dose of prednisone treatment and now that is has tapered, he has started to feel more deep lat knee pain B. He is limited in abilityt o go up/down stairs especially while holding things and w/squatting. he would benefit from skilled PT to work on pt's activity tolerance, balance, gait, LE & core strength, dec pain and improve pt's ability to return to work. Physical Therapy Plan Frequency and Duration Frequency of Treatment 1-2x/wk Duration of treatment (weeks) 12 Plan of Care Start Date 08/18/22 Plan of Care End Date 11/10/22 Therapeutic Interventions Therapeutic Interventions Aquatic Therapy,Balance Training,Canalithic Repositioning,Gait Training, Home Exercise Program,Joint Mobilizations,Manual Therapy, Neuromuscular Re-education, Orthotic/Prosthetic Management ,Patient/Caregiver Education, Self-Care/Home Management,Soft Tissue Mobilization,Taping, Therapeutic Activities, Therapeutic Exercises Modalities Cold Pack/Ice Massage,Hot Packs Other Therapeutic Interventions no modalities d/t cancer diagnosis Next Visit Focus/Plan Next Note Type Treatment Note Next Visit Plan start at bike, review exercises, manual to ITB/quad, clam and reverse clamshells, balance board
--- NOTE | 2022-08-18 17:43 | PT.OPPOC ---
Physical, Occupational & Speech Therapy At [facility] 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) Pain in right knee (08/18/22) Pain in left knee (08/18/22) Other abnormalities of gait and mobility (08/18/22) Neoplastic (malignant) related fatigue (08/18/22) Other malaise (08/18/22) Adverse effect of antineoplastic and immunosuppressive drugs, initial encounter (08/18/22) Lack of physical exercise (08/18/22) Other reduced mobility (08/18/22) Visit Care Team Role Provider Type Other Providers Specialty: Address: Phone: Fax: Email: Calixto Ferguson MD Family Provider Physician Primary Care Provider Specialty: Internal Medicine Address: [address] [place] [address], [address], [facility] Email: [email or web address] Tavon Samuel MD Attending Provider Non-Staff Referring Provider Specialty: Physical Medicine and Rehab Address: [address] [place] [address] [address], [place], [address] Email: Plan Of Care PT-OP-T Assessment and Plan Start: 08/14/22 17:59 Freq: Status: Active Protocol: Document 08/18/22 15:03 [facility] (Rec: 08/18/22 17:43 [facility] [id number]) Physical Therapy Assessment Rehab Potential Rehabilitation Potential Good Evaluation Complexity Number of Personal Factors/Comorbidities 3 or More Number of Body Systems Impaired 4 or More Clinical Presentation at Evaluation Unstable Impairments Impairments Activity Tolerance,Balance, Functional Activities, Functional Mobility,Gait,Pain, Posture,ROM,Soft Tissue Mobility,Strength Goals work Usp Goal (LTG) Pt will be able to return to full work job tasks w/o inc B knee pain or B foot pain LTG Duration 11/10 activities Short Term Goal (STG) Pt will be able to go up/down stairs w/o rail w/carrying objects w/o feeling of LOB or knee pain. STG Duration 21/23 Contact Center Rep Goal (LTG) Pt will be able to squat low and lift objects w/o inc pain in B knees or LOB LTG Duration 11/10/22 balance Short Term Goal (STG) Pt will be able to do SLS for 10 sec B w/o use of UEs for balance STG Duration 10/01/22 Usp Goal (LTG) Pt will be able to do SLS B 20 sec w/o lat shear or use of UEs for balance. LTG Duration 11/10 strength Short Term Goal (STG) Pt will be indep w/HEP STG Duration 10/01 Usp Goal (LTG) Pt will score at least 4+/5 on all MMT and at least 3/5 LPM to show improved stability in order for pt to be able to perform his job. LTG Duration 11/10 LEFS Impairment 50/80 Short Term Goal (STG) Pt iwll imrpove score to at least 60/80 to show improved functional ability. STG Duration 10/01 Contact Center Rep Goal (LTG) Pt iwll imrpove score to at least 70/80 to show improved functional ability. LTG Duration 11/10 Assessment Summary Assessment Pt presents w/B knee pain that started during lymphoma treatment and B foot neuropathy along w/dec balance and activity tolerance that is since pt's treatment. he has been out of work for 1 year d/t this and would like to return to work soon as full duty. He has poor stamina at this time and works a job that requires himt o be on his feet and active throughout the day. His B knee pain has been better d/t long dose of prednisone treatment and now that is has tapered, he has started to feel more deep lat knee pain B. He is limited in abilityt o go up/down stairs especially while holding things and w/squatting. he would benefit from skilled PT to work on pt's activity tolerance, balance, gait, LE & core strength, dec pain and improve pt's ability to return to work. Physical Therapy Plan Frequency and Duration Frequency of Treatment 1-2x/wk Duration of treatment (weeks) 12 Plan of Care Start Date 08/18/22 Plan of Care End Date 11/10/22 Therapeutic Interventions Therapeutic Interventions Aquatic Therapy,Balance Training,Canalithic Repositioning,Gait Training, Home Exercise Program,Joint Mobilizations,Manual Therapy, Neuromuscular Re-education, Orthotic/Prosthetic Management ,Patient/Caregiver Education, Self-Care/Home Management,Soft Tissue Mobilization,Taping, Therapeutic Activities, Therapeutic Exercises Modalities Cold Pack/Ice Massage,Hot Packs Other Therapeutic Interventions no modalities d/t cancer diagnosis Next Visit Focus/Plan Next Note Type Treatment Note Next Visit Plan start at bike, review exercises, manual to ITB/quad, clam and reverse clamshells, balance board Plan of Care Dates Plan of Care Start Date 08/18/22 Plan of Care End Date 11/10/22 Electronically Signed by: Vianey Felix, PT 08/18/22 [id number] If you are in agreement with this Plan of Care, please return a signed and dated copy. I have reviewed this Plan of Care and certify that the skilled therapy services above are required to meet the patient?s needs. Physician Signature Date Printed Name and Credentials Clinical Instructor Signature Printed Name and Credentials
--- NOTE | 2022-08-26 16:01 | PT.OTN ---
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 (Rec: 08/26/22 16:01 [facility] [id number]) Out-Patient Physical Therapy Visit Information Visit Information Visit Type Treatment Note Visit Start Time 15:20 Visit Stop Time 16:00 Total Visit Minutes 40 Visit Number 2 Number of RIVET BUCKER Visits 0 PT-OP-B Current Condition Start: 08/14/22 17:59 Freq: Status: Active Protocol: Document 08/18/22 15:03 [facility] (Rec: 08/18/22 17:43 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 He works for [employer]. He has been experiencing back pain and made a Jasmeet's Act claim after missing the first step and fell and landed on his feet. He went to hospital d/t not being able to pee d/t mass in abdomen. Evenutally got admitted to [facility] and had nephrology tubes place. Has done chemo therapy whcih did not resolve the lymphoma. He has started immunotherapy. He was on prednisone for a long time and is off the last dose. He has been dealing w/ neuropathy on the bottom of feet (numbness) that inc his dec balacne and pain and swelling in knees. Also, has ureter stents now. He does too vigoreous activity, he gets blood in his urine. Pt has been off work for about 1 year ago. He is hopeful to go back soon. 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 Pt had swollen calves and was told he has venous insufficiency and went on a diaretic. He ended up in the hospital d/t DVTs B. He has an IVC filter in vena cava and on eloquist. the heavy dose of steroids he was on, really improved his knee pain. Its coming back again. He has seen a chemistry laboratory technician and Xrays were done and they saw deterioration so he is being followed for this. Pt reports he walks daily about a couple miles at the most mostly on roads w/some minor hills. Knee pain started on first round of chemo and neuropathy started after first dose of chemo. Back pain is now resolved. he may have felt a twinge during yard work but that is it. Pt has history of pain in R knee [place] got better w/ice and rest. Treatment Goals Patient/Caregiver Goals Get back to work, inc stamina (can only do activity for a couple hours) PT-OP-C Subjective Start: 08/14/22 17:59 Freq: Status: Active Protocol: Document 08/26/22 15:21 [facility] (Rec: 08/26/22 16:01 [facility] [id number]) OP-PT Subjective Patient Comments Patient Comments Pt went to the ER d/t abdomenal pain which they contributed to pancreatitis. He is restarted on steroids. Has only gotten exercises in 2x d/t this PT-OP-D Balance Start: 08/14/22 17:59 Freq: Status: Active Protocol: Document 08/18/22 15:03 [facility] (Rec: 08/18/22 17:43 [facility] [id number]) Balance Tests Single Limb Standing Single Limb- Right 13 sec heavy arm use waving to keep balacne; lat shear over LE Single Limb- Left 15 sec heavy arm use waving to keep balacne; lat shear over LE PT-OP-E Functional Tests Start: 08/14/22 17:59 Freq: Status: Active Protocol: Document 08/18/22 15:03 [facility] (Rec: 08/18/22 17:43 [facility] [id number]) Functional Tests Functional Gait Assessment Score 24 PT-OP-F Manual Assessment Start: 08/14/22 17:59 Freq: Status: Active Protocol: Document 08/18/22 15:03 [facility] (Rec: 08/18/22 17:43 [facility] [id number]) Manual Assessments Soft Tissue Assessment Soft Tissue Mobility Assessment tightness B ITB and lat quad Joint Mobility Assessment Joint Mobility Assessment IR of tib and femur R w/knee bends and L ER; in standing tends to stand w/R Foto eR PT-OP-G Mobility & Gait Start: 08/14/22 17:59 Freq: Status: Active Protocol: Document 08/18/22 15:03 [facility] (Rec: 08/18/22 17:43 [facility] [id number]) OP Gait Assessment Comments Gait Comments dec overall push off B PT-OP-J Posture/Palpation/Skin Start: 08/14/22 17:59 Freq: Status: Active Protocol: Document 08/18/22 15:03 [facility] (Rec: 08/18/22 17:43 [facility] [id number]) Posture Evaluation [facility] Postural Classification System Lumbar Protective Mechanism Left AP 2 Lumbar Protective Mechanism Right AP 0 Lumbar Protective Mechanism Left PA 1 Lumbar Protective Mechanism Right PA 1 PT-OP-K Range of Motion Start: 08/14/22 17:59 Freq: Status: Active Protocol: Document 08/18/22 15:03 [facility] (Rec: 08/18/22 17:43 [facility] [id number]) Knee Goniometric Range of Motion Knee Right Flexion Active (degrees) 124 Extension Active (degrees) 4 Comments tight into flex Left Flexion Active (degrees) 127 Extension Active (degrees) 3 Comments tight w/flex PT-OP-L Special Tests Start: 08/14/22 17:59 Freq: Status: Active Protocol: Document 08/18/22 15:03 [facility] (Rec: 08/18/22 17:43 [facility] [id number]) Special Tests Knee Special Tests Fischer's Compression Test Results neg B Latosha's Test Test Results R> L tightness Straight Leg Raise Comments 68 deg L; 74 R HS stretch Sumanth Test Results mild TFL tightness B ligamentous testing Comments neg B Thessaly Test 5 Degrees Test Results neg B Apley's Compression Test Results neg PT-OP-M Strength Start: 08/14/22 17:59 Freq: Status: Active Protocol: Document 08/18/22 15:03 [facility] (Rec: 08/18/22 17:43 [facility] [id number]) Hip Strength Hip Manual Muscle Testing Right Flexion (L2) 3+ Fair+ Extension (S1) 3+ Fair+ Abduction 3+ Fair+ Adduction 3+ Fair+ External Rotation 3+ Fair+ Internal Rotation 4- Good- Left Flexion (L2) 3+ Fair+ Extension (S1) 3+ Fair+ Abduction 3+ Fair+ Adduction 3+ Fair+ External Rotation 4- Good- Internal Rotation 3+ Fair+ Knee Strength Knee Manual Muscle Testing Right Flexion (S2) 4+ Good+ Extension (L3) 4- Good- Left Flexion (S2) 4+ Good+ Extension (L3) 4- Good- Ankle/Foot Strength Ankle and Foot Manual Muscle Testing Right Dorsiflexion (L4) 4 Good Inversion 4+ Good+ Eversion (S1) 4- Good- Comments 20 heel raises (ankle pain) Left Dorsiflexion (L4) 4 Good Plantarflexion (S1) 5 Normal Inversion 4+ Good+ Eversion (S1) 4- Good- Comments 20 heel raises B (pain in foot )- very difficult PT-OP-Q Treatments Start: 08/14/22 17:59 Freq: Status: Active Protocol: Document 08/26/22 15:21 [facility] (Rec: 08/26/22 16:01 [facility] [id number]) Cardio Equipment Bicycle (Upright) Duration (Minutes) 5 Resistance 6 Seat Position 8 Gym Equipment Shuttle Balance red clips Comments FWD & side: WBOS & NBOS fwd: staggered stance Therapeutic Exercises Supine Exercises bridge Side bilateral Reps/Minutes 5 sec x10 Sidelying Exercises reverse clamshells Side bilateral Reps/Minutes 15 clamshells Side bilateral Reps/Minutes 15 Standing Exercises mini squat Standing Exercise Name hands on counter Side bilateral Reps/Minutes 12 Comments cues for knees sidestep Side bilateral Equipment Used L1 Reps/Minutes 2x15ft ea Manual Therapy Treatment Soft Tissue Mobilization ITB Body Location B Mobilization Type Rolling,Strumming Intensity/Depth Moderate Body Position Hooklying Comments w/rotation Neuro Re-Education Treatment Balance Activities bosu Details step ups Reps/Duration 10 B PT-OP-T Assessment and Plan Start: 08/14/22 17:59 Freq: Status: Active Protocol: Document 08/26/22 15:21 [facility] (Rec: 08/26/22 16:01 [facility] [id number]) Physical Therapy Assessment Goals work Fdc Goal (LTG) Pt will be able to return to full work job tasks w/o inc B knee pain or B foot pain LTG Duration 11/10 activities Short Term Goal (STG) Pt will be able to go up/down stairs w/o rail w/carrying objects w/o feeling of LOB or knee pain. STG Duration 10/01/22 Fdc Goal (LTG) Pt will be able to squat low and lift objects w/o inc pain in B knees or LOB LTG Duration 11/10/22 balance Short Term Goal (STG) Pt will be able to do SLS for 10 sec B w/o use of UEs for balance STG Duration 10/01/22 Guard Lieutenant Goal (LTG) Pt will be able to do SLS B 20 sec w/o lat shear or use of UEs for balance. LTG Duration 11/10 strength Short Term Goal (STG) Pt will be indep w/HEP STG Duration 10/01 Fdc Goal (LTG) Pt will score at least 4+/5 on all MMT and at least 3/5 LPM to show improved stability in order for pt to be able to perform his job. LTG Duration 11/10 LEFS Impairment 50/80 Short Term Goal (STG) Pt iwll imrpove score to at least 60/80 to show improved functional ability. STG Duration 10/01 Guard Lieutenant Goal (LTG) Pt iwll imrpove score to at least 70/80 to show improved functional ability. LTG Duration 11/10 Assessment Summary Assessment Pt did well with exercsies with still some cueing needed. Balance exercises were a good challenge for pt overall. Pt did fatigue with exercises. Physical Therapy Plan Frequency and Duration Frequency of Treatment 1-2x/wk Duration of treatment (weeks) 12 Plan of Care Start Date 08/18/22 Plan of Care End Date 11/10/22 Next Visit Focus/Plan Next Note Type Treatment Note Next Visit Plan cont to wokr on LE strength/ endurance, work on balance & manual to help w/pain
--- NOTE | 2022-08-28 15:16 | PT.OTN ---
Current Diagnoses Diffuse large B-cell lymphoma, unspecified site (08/28/22) Other specified anxiety disorders (08/28/22) Drug-induced polyneuropathy (08/28/22) Pain in right knee (08/28/22) Pain in left knee (08/28/22) Other abnormalities of gait and mobility (08/28/22) Neoplastic (malignant) related fatigue (08/28/22) Other malaise (08/28/22) Adverse effect of antineoplastic and immunosuppressive drugs, initial encounter (08/28/22) Lack of physical exercise (08/28/22) Other reduced mobility (08/28/22) Physical Therapy Treatment Note PT-OP-A Visit Information Start: 08/14/22 17:59 Freq: Status: Active Protocol: Document 08/28/22 14:36 [facility] (Rec: 08/28/22 15:16 [facility] [id number]) Out-Patient Physical Therapy Visit Information Visit Information Visit Type Treatment Note Visit Start Time 14:36 Visit Stop Time 15:15 Total Visit Minutes 39 Visit Number 3 Number of FINANCIAL MANAGEMENT CONSULTANT Visits 0 PT-OP-B Current Condition Start: 08/14/22 17:59 Freq: Status: Active Protocol: Document 08/18/22 15:03 [facility] (Rec: 08/18/22 17:43 [facility] [id number]) Current Condition History of Current Condition Current Complaints dec balance, B knee pain History of Current Condition Pt reports he is a cancer paitient. He works for [employer]. He has been experiencing back pain and made a Jasmeet's Act claim after missing the first step and fell and landed on his feet. He went to hospital d/t not being able to pee d/t mass in abdomen. Evenutally got admitted to [facility] and had nephrology tubes place. Has done chemo therapy whcih did not resolve the lymphoma. He has started immunotherapy. He was on prednisone for a long time and is off the last dose. He has been dealing w/ neuropathy on the bottom of feet (numbness) that inc his dec balacne and pain and swelling in knees. Also, has ureter stents now. He does too vigoreous activity, he gets blood in his urine. Pt has been off work for about 1 year ago. He is hopeful to go back soon. 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 Pt had swollen calves and was told he has venous insufficiency and went on a diaretic. He ended up in the hospital d/t DVTs B. He has an IVC filter in vena cava and on eloquist. the heavy dose of steroids he was on, really improved his knee pain. Its coming back again. He has seen a tetryl blender operator and Xrays were done and they saw deterioration so he is being followed for this. Pt reports he walks daily about a couple miles at the most mostly on roads w/some minor hills. Knee pain started on first round of chemo and neuropathy started after first dose of chemo. Back pain is now resolved. he may have felt a twinge during yard work but that is it. Pt has history of pain in R knee after a fast squat for block on [place] but got better w/ice and rest. Treatment Goals Patient/Caregiver Goals Get back to work, inc stamina (can only do activity for a couple hours) PT-OP-C Subjective Start: 08/14/22 17:59 Freq: Status: Active Protocol: Document 08/28/22 14:36 [facility] (Rec: 08/28/22 15:16 [facility] [id number]) OP-PT Subjective Patient Comments Patient Comments Pt reports he irritated L ankle stepping off step ladder last week and it seems more irritated. He was walking around on [facility] yesterday and thinks that made it worse. PT-OP-D Balance Start: 08/14/22 17:59 Freq: Status: Active Protocol: Document 08/18/22 15:03 [facility] (Rec: 08/18/22 17:43 [facility] [id number]) Balance Tests Single Limb Standing Single Limb- Right 13 sec heavy arm use waving to keep balacne; lat shear over LE Single Limb- Left 15 sec heavy arm use waving to keep balacne; lat shear over LE PT-OP-E Functional Tests Start: 08/14/22 17:59 Freq: Status: Active Protocol: Document 08/18/22 15:03 [facility] (Rec: 08/18/22 17:43 [facility] [id number]) Functional Tests Functional Gait Assessment Score 24 PT-OP-F Manual Assessment Start: 08/14/22 17:59 Freq: Status: Active Protocol: Document 08/18/22 15:03 [facility] (Rec: 08/18/22 17:43 [facility] [id number]) Manual Assessments Soft Tissue Assessment Soft Tissue Mobility Assessment tightness B ITB and lat quad Joint Mobility Assessment Joint Mobility Assessment IR of tib and femur R w/knee bends and L ER; in standing tends to stand w/R Foto eR PT-OP-G Mobility & Gait Start: 08/14/22 17:59 Freq: Status: Active Protocol: Document 08/18/22 15:03 [facility] (Rec: 08/18/22 17:43 [facility] [id number]) OP Gait Assessment Comments Gait Comments dec overall push off B PT-OP-J Posture/Palpation/Skin Start: 08/14/22 17:59 Freq: Status: Active Protocol: Document 08/18/22 15:03 [facility] (Rec: 08/18/22 17:43 [facility] [id number]) Posture Evaluation [facility] Postural Classification System Lumbar Protective Mechanism Left AP 2 Lumbar Protective Mechanism Right AP 0 Lumbar Protective Mechanism Left PA 1 Lumbar Protective Mechanism Right PA 1 PT-OP-K Range of Motion Start: 08/14/22 17:59 Freq: Status: Active Protocol: Document 08/18/22 15:03 [facility] (Rec: 08/18/22 17:43 [facility] [id number]) Knee Goniometric Range of Motion Knee Right Flexion Active (degrees) 124 Extension Active (degrees) 4 Comments tight into flex Left Flexion Active (degrees) 127 Extension Active (degrees) 3 Comments tight w/flex PT-OP-L Special Tests Start: 08/14/22 17:59 Freq: Status: Active Protocol: Document 08/18/22 15:03 [facility] (Rec: 08/18/22 17:43 [facility] [id number]) Special Tests Knee Special Tests Fischer's Compression Test Results neg B Latosha's Test Test Results R> L tightness Straight Leg Raise Comments 68 deg L; 74 R HS stretch Sumanth Test Results mild TFL tightness B ligamentous testing Comments neg B Thessaly Test 5 Degrees Test Results neg B Apley's Compression Test Results neg PT-OP-M Strength Start: 12/15/22 17:59 Freq: Status: Active Protocol: Document 08/18/22 15:03 [facility] (Rec: 08/18/22 17:43 [facility] [id number]) Hip Strength Hip Manual Muscle Testing Right Flexion (L2) 3+ Fair+ Extension (S1) 3+ Fair+ Abduction 3+ Fair+ Adduction 3+ Fair+ External Rotation 3+ Fair+ Internal Rotation 4- Good- Left Flexion (L2) 3+ Fair+ Extension (S1) 3+ Fair+ Abduction 3+ Fair+ Adduction 3+ Fair+ External Rotation 4- Good- Internal Rotation 3+ Fair+ Knee Strength Knee Manual Muscle Testing Right Flexion (S2) 4+ Good+ Extension (L3) 4- Good- Left Flexion (S2) 4+ Good+ Extension (L3) 4- Good- Ankle/Foot Strength Ankle and Foot Manual Muscle Testing Right Dorsiflexion (L4) 4 Good Inversion 4+ Good+ Eversion (S1) 4- Good- Comments 20 heel raises (ankle pain) Left Dorsiflexion (L4) 4 Good Plantarflexion (S1) 5 Normal Inversion 4+ Good+ Eversion (S1) 4- Good- Comments 20 heel raises B (pain in foot )- very difficult PT-OP-Q Treatments Start: 08/14/22 17:59 Freq: Status: Active Protocol: Document 08/28/22 14:36 [facility] (Rec: 08/28/22 15:16 [facility] [id number]) Cardio Equipment Bicycle (Upright) Duration (Minutes) 5 Resistance 8 Seat Position 8 Gym Equipment Shuttle Balance red clips Comments FWD & side: WBOS & NBOS fwd: staggered stance Therapeutic Exercises Sidelying Exercises reverse clamshells Side bilateral Equipment Used lvl 2 Reps/Minutes 15 clamshells Side bilateral Equipment Used lvl 2 Reps/Minutes 15 Standing Exercises stretch Standing Exercise Name 1. calf B 2. HS Side bilateral Equipment Used on step Reps/Minutes 30 sec ea mini squat Standing Exercise Name chair behind Side bilateral Reps/Minutes 15 Comments cues for knees sidestep Side bilateral Equipment Used L1 Reps/Minutes 2x20ft ea Manual Therapy Treatment Joint Mobilizations tibfem Comments R IR FM B AP femur FM B PA femur FM Neuro Re-Education Treatment Balance Activities bosu Comments 1. step ups B x10 B 2. mini squat x10 blue side PT-OP-T Assessment and Plan Start: 08/14/22 17:59 Freq: Status: Active Protocol: Document 08/28/22 14:36 [facility] (Rec: 08/28/22 15:16 [facility] [id number]) Physical Therapy Assessment Goals work Detention Goal (LTG) Pt will be able to return to full work job tasks w/o inc B knee pain or B foot pain LTG Duration 11/10 activities Short Term Goal (STG) Pt will be able to go up/down stairs w/o rail w/carrying objects w/o feeling of LOB or knee pain. STG Duration 10/01/22 Detention Goal (LTG) Pt will be able to squat low and lift objects w/o inc pain in B knees or LOB LTG Duration 11/10/22 balance Short Term Goal (STG) Pt will be able to do SLS for 10 sec B w/o use of UEs for balance STG Duration 10/01/22 Reproduction Production Manager Goal (LTG) Pt will be able to do SLS B 20 sec w/o lat shear or use of UEs for balance. LTG Duration 11/10 strength Short Term Goal (STG) Pt will be indep w/HEP STG Duration 10/01 Reproduction Production Manager Goal (LTG) Pt will score at least 4+/5 on all MMT and at least 3/5 LPM to show improved stability in order for pt to be able to perform his job. LTG Duration 11/10 LEFS Impairment 50/80 Short Term Goal (STG) Pt iwll imrpove score to at least 60/80 to show improved functional ability. STG Duration 2 Detention Goal (LTG) Pt iwll imrpove score to at least 70/80 to show improved functional ability. LTG Duration 11/10 Assessment Summary Assessment Pt did better with balance activities today w/less difficulty on unstable surfaces. Less cues w/ exercises needed today. Physical Therapy Plan Frequency and Duration Frequency of Treatment 1-2x/wk Duration of treatment (weeks) 12 Plan of Care Start Date 08/18/22 Plan of Care End Date 11/10/22 Next Visit Focus/Plan Next Note Type Treatment Note Next Visit Plan cont to wokr on LE strength/ endurance, work on balance & manual to help w/pain
--- NOTE | 2022-09-02 16:05 | PT.OTN ---
Current Diagnoses Diffuse large B-cell lymphoma, unspecified site (09/02/22) Other specified anxiety disorders (09/02/22) Drug-induced polyneuropathy (09/02/22) Pain in right knee (09/02/22) Pain in left knee (09/02/22) Other abnormalities of gait and mobility (09/02/22) Neoplastic (malignant) related fatigue (09/02/22) Other malaise (09/02/22) Adverse effect of antineoplastic and immunosuppressive drugs, initial encounter (09/02/22) Lack of physical exercise (09/02/22) Other reduced mobility (09/02/22) Physical Therapy Treatment Note PT-OP-A Visit Information Start: 08/14/22 17:59 Freq: Status: Active Protocol: Document 09/02/22 15:24 [facility] (Rec: 09/02/22 16:05 [facility] [id number]) Out-Patient Physical Therapy Visit Information Visit Information Visit Type Treatment Note Visit Start Time 15:21 Visit Stop Time 16:00 Total Visit Minutes 39 Visit Number 4 Number of PHOTOGRAPHY PROFESSOR Visits 0 PT-OP-B Current Condition Start: 08/14/22 17:59 Freq: Status: Active Protocol: Document 08/18/22 15:03 [facility] (Rec: 08/18/22 17:43 [facility] [id number]) Current Condition History of Current Condition Current Complaints dec balance, B knee pain History of Current Condition Pt reports he is a cancer paitient. He works for [employer]. He has been experiencing back pain and made a Jasmeet's Act claim after missing the first step and fell and landed on his feet. He went to hospital d/t not being able to pee d/t mass in abdomen. Evenutally got admitted to [facility] and had nephrology tubes place. Has done chemo therapy whcih did not resolve the lymphoma. He has started immunotherapy. He was on prednisone for a long time and is off the last dose. He has been dealing w/ neuropathy on the bottom of feet (numbness) that inc his dec balacne and pain and swelling in knees. Also, has ureter stents now. He does too vigoreous activity, he gets blood in his urine. Pt has been off work for about 1 year ago. He is hopeful to go back soon. 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 Pt had swollen calves and was told he has venous insufficiency and went on a diaretic. He ended up in the hospital d/t DVTs B. He has an IVC filter in vena cava and on eloquist. the heavy dose of steroids he was on, really improved his knee pain. Its coming back again. He has seen a manager primary care and Xrays were done and they saw deterioration so he is being followed for this. Pt reports he walks daily about a couple miles at the most mostly on roads w/some minor hills. Knee pain started on first round of chemo and neuropathy started after first dose of chemo. Back pain is now resolved. he may have felt a twinge during yard work but that is it. Pt has history of pain in R knee [place] got better w/[place] and rest. Treatment Goals Patient/Caregiver Goals Get back to work, inc stamina (can only do activity for a couple hours) PT-OP-C Subjective Start: 08/14/22 17:59 Freq: Status: Active Protocol: Document 09/02/22 15:24 [facility] (Rec: 09/02/22 16:05 [facility] [id number]) OP-PT Subjective Patient Comments Patient Comments Pt reprots L ankle still bothering him some. PT-OP-D Balance Start: 08/14/22 17:59 Freq: Status: Active Protocol: Document 08/18/22 15:03 [facility] (Rec: 08/18/22 17:43 [facility] [id number]) Balance Tests Single Limb Standing Single Limb- Right 13 sec heavy arm use waving to keep balacne; lat shear over LE Single Limb- Left 15 sec heavy arm use waving to keep balacne; lat shear over LE PT-OP-E Functional Tests Start: 08/14/22 17:59 Freq: Status: Active Protocol: Document 08/18/22 15:03 [facility] (Rec: 08/18/22 17:43 [facility] [id number]) Functional Tests Functional Gait Assessment Score 24 PT-OP-F Manual Assessment Start: 08/14/22 17:59 Freq: Status: Active Protocol: Document 08/18/22 15:03 [facility] (Rec: 08/18/22 17:43 [facility] [id number]) Manual Assessments Soft Tissue Assessment Soft Tissue Mobility Assessment tightness B ITB and lat quad Joint Mobility Assessment Joint Mobility Assessment IR of tib and femur R w/knee bends and L ER; in standing tends to stand w/R Foto eR PT-OP-G Mobility & Gait Start: 08/14/22 17:59 Freq: Status: Active Protocol: Document 08/18/22 15:03 [facility] (Rec: 08/18/22 17:43 [facility] [id number]) OP Gait Assessment Comments Gait Comments dec overall push off B PT-OP-J Posture/Palpation/Skin Start: 08/14/22 17:59 Freq: Status: Active Protocol: Document 08/18/22 15:03 [facility] (Rec: 08/18/22 17:43 [facility] [id number]) Posture Evaluation [facility] Postural Classification System Lumbar Protective Mechanism Left AP 2 Lumbar Protective Mechanism Right AP 0 Lumbar Protective Mechanism Left PA 1 Lumbar Protective Mechanism Right PA 1 PT-OP-K Range of Motion Start: 08/14/22 17:59 Freq: Status: Active Protocol: Document 08/18/22 15:03 [facility] (Rec: 08/18/22 17:43 [facility] [id number]) Knee Goniometric Range of Motion Knee Right Flexion Active (degrees) 124 Extension Active (degrees) 4 Comments tight into flex Left Flexion Active (degrees) 127 Extension Active (degrees) 3 Comments tight w/flex PT-OP-L Special Tests Start: 08/14/22 17:59 Freq: Status: Active Protocol: Document 08/18/22 15:03 [facility] (Rec: 08/18/22 17:43 [facility] [id number]) Special Tests Knee Special Tests Fischer's Compression Test Results neg B Latosha's Test Test Results R> L tightness Straight Leg Raise Comments 68 deg L; 74 R HS stretch Sumanth Test Results mild TFL tightness B ligamentous testing Comments neg B Thessaly Test 5 Degrees Test Results neg B Apley's Compression Test Results neg PT-OP-M Strength Start: 08/14/22 17:59 Freq: Status: Active Protocol: Document 08/18/22 15:03 [facility] (Rec: 08/18/22 17:43 [facility] [id number]) Hip Strength Hip Manual Muscle Testing Right Flexion (L2) 3+ Fair+ Extension (S1) 3+ Fair+ Abduction 3+ Fair+ Adduction 3+ Fair+ External Rotation 3+ Fair+ Internal Rotation 4- Good- Left Flexion (L2) 3+ Fair+ Extension (S1) 3+ Fair+ Abduction 3+ Fair+ Adduction 3+ Fair+ External Rotation 4- Good- Internal Rotation 3+ Fair+ Knee Strength Knee Manual Muscle Testing Right Flexion (S2) 4+ Good+ Extension (L3) 4- Good- Left Flexion (S2) 4+ Good+ Extension (L3) 4- Good- Ankle/Foot Strength Ankle and Foot Manual Muscle Testing Right Dorsiflexion (L4) 4 Good Inversion 4+ Good+ Eversion (S1) 4- Good- Comments 20 heel raises (ankle pain) Left Dorsiflexion (L4) 4 Good Plantarflexion (S1) 5 Normal Inversion 4+ Good+ Eversion (S1) 4- Good- Comments 20 heel raises B (pain in foot )- very difficult PT-OP-Q Treatments Start: 08/14/22 17:59 Freq: Status: Active Protocol: Document 09/02/22 15:24 [facility] (Rec: 09/02/22 16:05 [facility] [id number]) Cardio Equipment Bicycle (Upright) Duration (Minutes) 6 Resistance 10 Seat Position 8 Gym Equipment Shuttle Balance red clips Comments FWD & side: WBOS & NBOS fwd: staggered stance Therapeutic Exercises Supine Exercises bridge Supine Exercise Name w/alt october Side bilateral Reps/Minutes 8 Standing Exercises heel raises Standing Exercise Name step DL Side bilateral Reps/Minutes 15 step ups Standing Exercise Name 8 in w/alt march Side bilateral Reps/Minutes 10 stretch Standing Exercise Name 1. calf B 2. HS Side bilateral Equipment Used on step Reps/Minutes 30 sec ea Manual Therapy Treatment Joint Mobilizations ankle Joint L Comments distraction & lat glide calcaneus AP talus & med glide FM tib fib Joint L Comments proximal AP FM distal AP tib FM PA fib FM tibfem Comments L IR FM Neuro Re-Education Treatment Balance Activities bosu Comments 1. step ups B x10 B 2. mini squat x10 blue side 3. SLS blue side B 4. mini lunge x8 B PT-OP-T Assessment and Plan Start: 08/14/22 17:59 Freq: Status: Active Protocol: Document 09/02/22 15:24 [facility] (Rec: 09/02/22 16:05 [facility] [id number]) Physical Therapy Assessment Goals work Nail Mill Worker Goal (LTG) Pt will be able to return to full work job tasks w/o inc B knee pain or B foot pain LTG Duration 11/10 activities Short Term Goal (STG) Pt will be able to go up/down stairs w/o rail w/carrying objects w/o feeling of LOB or knee pain. STG Duration 10/01/22 Half-Way Goal (LTG) Pt will be able to squat low and lift objects w/o inc pain in B knees or LOB LTG Duration 11/10/22 balance Short Term Goal (STG) Pt will be able to do SLS for 10 sec B w/o use of UEs for balance STG Duration 10/01/22 Half-Way Goal (LTG) Pt will be able to do SLS B 20 sec w/o lat shear or use of UEs for balance. LTG Duration 11/10 strength Short Term Goal (STG) Pt will be indep w/HEP STG Duration 10/01 Half-Way Goal (LTG) Pt will score at least 4+/5 on all MMT and at least 3/5 LPM to show improved stability in order for pt to be able to perform his job. LTG Duration 11/10 LEFS Impairment 50/80 Short Term Goal (STG) Pt iwll imrpove score to at least 60/80 to show improved functional ability. STG Duration 2 Nail Mill Worker Goal (LTG) Pt iwll imrpove score to at least 70/80 to show improved functional ability. LTG Duration 11/10 Assessment Summary Assessment Pt cont to improve w/balance and able to tolerate more strengthening activities well. No c/o knee pain w/activity. Physical Therapy Plan Frequency and Duration Frequency of Treatment 1-2x/wk Duration of treatment (weeks) 12 Plan of Care Start Date 08/18/22 Plan of Care End Date 11/10/22 Next Visit Focus/Plan Next Note Type Treatment Note Next Visit Plan cont to wokr on LE strength/ endurance, work on balance & manual to help w/pain
--- NOTE | 2022-09-04 16:01 | PT.OTN ---
Current Diagnoses Diffuse large B-cell lymphoma, unspecified site (09/04/22) Other specified anxiety disorders (09/04/22) Drug-induced polyneuropathy (09/04/22) Pain in right knee (09/04/22) Pain in left knee (09/04/22) Other abnormalities of gait and mobility (09/04/22) Neoplastic (malignant) related fatigue (09/04/22) Other malaise (09/04/22) Adverse effect of antineoplastic and immunosuppressive drugs, initial encounter (09/04/22) Lack of physical exercise (09/04/22) Other reduced mobility (09/04/22) Physical Therapy Treatment Note PT-OP-A Visit Information Start: 08/14/22 17:59 Freq: Status: Active Protocol: Document 09/04/22 15:23 [facility] (Rec: 09/04/22 16:01 [facility] [id number]) Out-Patient Physical Therapy Visit Information Visit Information Visit Type Treatment Note Visit Start Time 15:18 Visit Stop Time 15:59 Total Visit Minutes 41 Visit Number 5 Number of GEOTHERMAL POWERPLANT SUPERVISOR Visits 0 PT-OP-B Current Condition Start: 08/14/22 17:59 Freq: Status: Active Protocol: Document 08/18/22 15:03 [facility] (Rec: 08/18/22 17:43 [facility] [id number]) Current Condition History of Current Condition Current Complaints dec balance, B knee pain History of Current Condition Pt reports he is a cancer paitient. He works for [employer]. He has been experiencing back pain and made a Jasmeet's Act claim after missing the first step and fell and landed on his feet. He went to hospital d/t not being able to pee d/t mass in abdomen. Evenutally got admitted to [facility] and had nephrology tubes place. Has done chemo therapy whcih did not resolve the lymphoma. He has started immunotherapy. He was on prednisone for a long time and is off the last dose. He has been dealing w/ neuropathy on the bottom of feet (numbness) that inc his dec balacne and pain and swelling in knees. Also, has ureter stents now. He does too vigoreous activity, he gets blood in his urine. Pt has been off work for about 1 year ago. He is hopeful to go back soon. 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 Pt had swollen calves and was told he has venous insufficiency and went on a diaretic. He ended up in the hospital d/t DVTs B. He has an IVC filter in vena cava and on eloquist. the heavy dose of steroids he was on, really improved his knee pain. Its coming back again. He has seen a four slide machine operator and Xrays were done and they saw deterioration so he is being followed for this. Pt reports he walks daily about a couple miles at the most mostly on roads w/some minor hills. Knee pain started on first round of chemo and neuropathy started after first dose of chemo. Back pain is now resolved. he may have felt a twinge during yard work but that is it. Pt has history of pain in R [place] better w/[place] and rest. Treatment Goals Patient/Caregiver Goals Get back to work, inc stamina (can only do activity for a couple hours) PT-OP-C Subjective Start: 08/14/22 17:59 Freq: Status: Active Protocol: Document 09/04/22 15:23 [facility] (Rec: 09/04/22 16:01 [facility] [id number]) OP-PT Subjective Patient Comments Patient Comments Pt reports L ankle is doing a little better. Notes has done a lot on his feet today PT-OP-D Balance Start: 08/14/22 17:59 Freq: Status: Active Protocol: Document 08/18/22 15:03 [facility] (Rec: 08/18/22 17:43 [facility] [id number]) Balance Tests Single Limb Standing Single Limb- Right 13 sec heavy arm use waving to keep balacne; lat shear over LE Single Limb- Left 15 sec heavy arm use waving to keep balacne; lat shear over LE PT-OP-E Functional Tests Start: 08/14/22 17:59 Freq: Status: Active Protocol: Document 08/18/22 15:03 [facility] (Rec: 08/18/22 17:43 [facility] [id number]) Functional Tests Functional Gait Assessment Score 24 PT-OP-F Manual Assessment Start: 08/14/22 17:59 Freq: Status: Active Protocol: Document 08/18/22 15:03 [facility] (Rec: 08/18/22 17:43 [facility] [id number]) Manual Assessments Soft Tissue Assessment Soft Tissue Mobility Assessment tightness B ITB and lat quad Joint Mobility Assessment Joint Mobility Assessment IR of tib and femur R w/knee bends and L ER; in standing tends to stand w/R Foto eR PT-OP-G Mobility & Gait Start: 08/14/22 17:59 Freq: Status: Active Protocol: Document 08/18/22 15:03 [facility] (Rec: 08/18/22 17:43 [facility] [id number]) OP Gait Assessment Comments Gait Comments dec overall push off B PT-OP-J Posture/Palpation/Skin Start: 08/14/22 17:59 Freq: Status: Active Protocol: Document 08/18/22 15:03 [facility] (Rec: 08/18/22 17:43 [facility] [id number]) Posture Evaluation [facility] Postural Classification System Lumbar Protective Mechanism Left AP 2 Lumbar Protective Mechanism Right AP 0 Lumbar Protective Mechanism Left PA 1 Lumbar Protective Mechanism Right PA 1 PT-OP-K Range of Motion Start: 08/14/22 17:59 Freq: Status: Active Protocol: Document 08/18/22 15:03 [facility] (Rec: 08/18/22 17:43 [facility] [id number]) Knee Goniometric Range of Motion Knee Right Flexion Active (degrees) 124 Extension Active (degrees) 4 Comments tight into flex Left Flexion Active (degrees) 127 Extension Active (degrees) 3 Comments tight w/flex PT-OP-L Special Tests Start: 08/14/22 17:59 Freq: Status: Active Protocol: Document 08/18/22 15:03 [facility] (Rec: 08/18/22 17:43 [facility] [id number]) Special Tests Knee Special Tests Fischer's Compression Test Results neg B Latosha's Test Test Results R> L tightness Straight Leg Raise Comments 68 deg L; 74 R HS stretch Sumanth Test Results mild TFL tightness B ligamentous testing Comments neg B Thessaly Test 5 Degrees Test Results neg B Apley's Compression Test Results neg PT-OP-M Strength Start: 08/14/22 17:59 Freq: Status: Active Protocol: Document 08/18/22 15:03 [facility] (Rec: 08/18/22 17:43 [facility] [id number]) Hip Strength Hip Manual Muscle Testing Right Flexion (L2) 3+ Fair+ Extension (S1) 3+ Fair+ Abduction 3+ Fair+ Adduction 3+ Fair+ External Rotation 3+ Fair+ Internal Rotation 4- Good- Left Flexion (L2) 3+ Fair+ Extension (S1) 3+ Fair+ Abduction 3+ Fair+ Adduction 3+ Fair+ External Rotation 4- Good- Internal Rotation 3+ Fair+ Knee Strength Knee Manual Muscle Testing Right Flexion (S2) 4+ Good+ Extension (L3) 4- Good- Left Flexion (S2) 4+ Good+ Extension (L3) 4- Good- Ankle/Foot Strength Ankle and Foot Manual Muscle Testing Right Dorsiflexion (L4) 4 Good Inversion 4+ Good+ Eversion (S1) 4- Good- Comments 20 heel raises (ankle pain) Left Dorsiflexion (L4) 4 Good Plantarflexion (S1) 5 Normal Inversion 4+ Good+ Eversion (S1) 4- Good- Comments 20 heel raises B (pain in foot )- very difficult PT-OP-Q Treatments Start: 08/14/22 17:59 Freq: Status: Active Protocol: Document 09/04/22 15:23 [facility] (Rec: 09/04/22 16:01 [facility] [id number]) Cardio Equipment Bicycle (Upright) Duration (Minutes) 6 Resistance 10 Seat Position 8 Gym Equipment Shuttle Balance red clips Details w/head turns Comments FWD & side: WBOS & NBOS fwd: staggered stance Therapeutic Exercises Supine Exercises bridge Supine Exercise Name w/alt march Side bilateral Reps/Minutes 8 Standing Exercises heel raises Standing Exercise Name step DL Side bilateral Reps/Minutes 20 step ups Standing Exercise Name 8 in w/alt march Side bilateral Reps/Minutes 10 stretch Standing Exercise Name 1. calf B 2. HS Side bilateral Equipment Used on step Reps/Minutes 30 sec ea Manual Therapy Treatment Soft Tissue Mobilization ITB Body Location L Mobilization Type Rolling,Strumming Intensity/Depth Moderate Body Position Hooklying Comments w/rotation Joint Mobilizations ankle Comments AP talus FM L tib fib Joint L Comments distal AP tib FM Neuro Re-Education Treatment Balance Activities bosu Comments 1. step ups B x10 B 2. mini squat x10 blue side 3. SLS blue side B 4. mini lunge x10 B 5. lat step ups x10 B PT-OP-T Assessment and Plan Start: 08/14/22 17:59 Freq: Status: Active Protocol: Document 09/04/22 15:23 [facility] (Rec: 09/04/22 16:01 [facility] [id number]) Physical Therapy Assessment Goals work Shelter Goal (LTG) Pt will be able to return to full work job tasks w/o inc B knee pain or B foot pain LTG Duration 11/10 activities Short Term Goal (STG) Pt will be able to go up/down stairs w/o rail w/carrying objects w/o feeling of LOB or knee pain. STG Duration 10/01/22 Scorer Single Goal (LTG) Pt will be able to squat low and lift objects w/o inc pain in B knees or LOB LTG Duration 11/10/22 balance Short Term Goal (STG) Pt will be able to do SLS for 10 sec B w/o use of UEs for balance STG Duration 10/01/22 Scorer Single Goal (LTG) Pt will be able to do SLS B 20 sec w/o lat shear or use of UEs for balance. LTG Duration 11/10 strength Short Term Goal (STG) Pt will be indep w/HEP STG Duration 10/01 Shelter Goal (LTG) Pt will score at least 4+/5 on all MMT and at least 3/5 LPM to show improved stability in order for pt to be able to perform his job. LTG Duration 11/10 LEFS Impairment 50/80 Short Term Goal (STG) Pt iwll imrpove score to at least 60/80 to show improved functional ability. STG Duration 2 Scorer Single Goal (LTG) Pt iwll imrpove score to at least 70/80 to show improved functional ability. LTG Duration 11/10 Assessment Summary Assessment Pt did well with exercises today and is showing inc balance and stability on uneven surfaces. He shows more strength on RLE vs LLE Physical Therapy Plan Frequency and Duration Frequency of Treatment 1-2x/wk Duration of treatment (weeks) 12 Plan of Care Start Date 08/18/22 Plan of Care End Date 11/10/22 Next Visit Focus/Plan Next Note Type Treatment Note Next Visit Plan cont to wokr on LE strength/ endurance, work on balance & manual to help w/pain
--- NOTE | 2022-09-08 16:03 | PT.OTN ---
Current Diagnoses Diffuse large B-cell lymphoma, unspecified site (09/08/22) Other specified anxiety disorders (09/08/22) Drug-induced polyneuropathy (09/08/22) Pain in right knee (09/08/22) Pain in left knee (09/08/22) Other abnormalities of gait and mobility (09/08/22) Neoplastic (malignant) related fatigue (09/08/22) Other malaise (09/08/22) Adverse effect of antineoplastic and immunosuppressive drugs, initial encounter (09/08/22) Lack of physical exercise (09/08/22) Other reduced mobility (09/08/22) Physical Therapy Treatment Note PT-OP-A Visit Information Start: 08/14/22 17:59 Freq: Status: Active Protocol: Document 09/08/22 15:26 [facility] (Rec: 09/08/22 16:02 [facility] [id number]) Out-Patient Physical Therapy Visit Information Visit Information Visit Type Treatment Note Visit Start Time 15:19 Visit Stop Time 15:59 Total Visit Minutes 40 Visit Number 6 Number of CAGE MAKER Visits 0 PT-OP-B Current Condition Start: 08/14/22 17:59 Freq: Status: Active Protocol: Document 08/18/22 15:03 [facility] (Rec: 08/18/22 17:43 [facility] [id number]) Current Condition History of Current Condition Current Complaints dec balance, B knee pain History of Current Condition Pt reports he is a cancer paitient. He works for [employer]. He has been experiencing back pain and made a Jasmeet's Act claim after missing the first step and fell and landed on his feet. He went to hospital d/t not being able to pee d/t mass in abdomen. Evenutally got admitted to [facility] and had nephrology tubes place. Has done chemo therapy whcih did not resolve the lymphoma. He has started immunotherapy. He was on prednisone for a long time and is off the last dose. He has been dealing w/ neuropathy on the bottom of feet (numbness) that inc his dec balacne and pain and swelling in knees. Also, has ureter stents now. He does too vigoreous activity, he gets blood in his urine. Pt has been off work for about 1 year ago. He is hopeful to go back soon. 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 Pt had swollen calves and was told he has venous insufficiency and went on a diaretic. He ended up in the hospital d/t DVTs B. He has an IVC filter in vena cava and on eloquist. the heavy dose of steroids he was on, really improved his knee pain. Its coming back again. He has seen a dry mill operator and Xrays were done and they saw deterioration so he is being followed for this. Pt reports he walks daily about a couple miles at the most mostly on roads w/some minor hills. Knee pain started on first round of chemo and neuropathy started after first dose of chemo. Back pain is now resolved. he may have felt a twinge during yard work but that is it. Pt has history of pain in R knee [place] got better w/ice and rest. Treatment Goals Patient/Caregiver Goals Get back to work, inc stamina (can only do activity for a couple hours) PT-OP-C Subjective Start: 08/14/22 17:59 Freq: Status: Active Protocol: Document 09/08/22 15:26 [facility] (Rec: 09/08/22 16:02 [facility] [id number]) OP-PT Subjective Patient Comments Patient Comments Pt reports still on steroids and knees feeling okay. ANkle is still bothering him. PT-OP-D Balance Start: 08/14/22 17:59 Freq: Status: Active Protocol: Document 08/18/22 15:03 [facility] (Rec: 08/18/22 17:43 [facility] [id number]) Balance Tests Single Limb Standing Single Limb- Right 13 sec heavy arm use waving to keep balacne; lat shear over LE Single Limb- Left 15 sec heavy arm use waving to keep balacne; lat shear over LE PT-OP-E Functional Tests Start: 08/14/22 17:59 Freq: Status: Active Protocol: Document 08/18/22 15:03 [facility] (Rec: 08/18/22 17:43 [facility] [id number]) Functional Tests Functional Gait Assessment Score 24 PT-OP-F Manual Assessment Start: 08/14/22 17:59 Freq: Status: Active Protocol: Document 08/18/22 15:03 [facility] (Rec: 08/18/22 17:43 [facility] [id number]) Manual Assessments Soft Tissue Assessment Soft Tissue Mobility Assessment tightness B ITB and lat quad Joint Mobility Assessment Joint Mobility Assessment IR of tib and femur R w/knee bends and L ER; in standing tends to stand w/R Foto eR PT-OP-G Mobility & Gait Start: 08/14/22 17:59 Freq: Status: Active Protocol: Document 08/18/22 15:03 [facility] (Rec: 08/18/22 17:43 [facility] [id number]) OP Gait Assessment Comments Gait Comments dec overall push off B PT-OP-J Posture/Palpation/Skin Start: 08/14/22 17:59 Freq: Status: Active Protocol: Document 08/18/22 15:03 [facility] (Rec: 08/18/22 17:43 [facility] [id number]) Posture Evaluation [facility] Postural Classification System Lumbar Protective Mechanism Left AP 2 Lumbar Protective Mechanism Right AP 0 Lumbar Protective Mechanism Left PA 1 Lumbar Protective Mechanism Right PA 1 PT-OP-K Range of Motion Start: 08/14/22 17:59 Freq: Status: Active Protocol: Document 08/18/22 15:03 [facility] (Rec: 08/18/22 17:43 [facility] [id number]) Knee Goniometric Range of Motion Knee Right Flexion Active (degrees) 124 Extension Active (degrees) 4 Comments tight into flex Left Flexion Active (degrees) 127 Extension Active (degrees) 3 Comments tight w/flex PT-OP-L Special Tests Start: 08/14/22 17:59 Freq: Status: Active Protocol: Document 08/18/22 15:03 [facility] (Rec: 08/18/22 17:43 [facility] [id number]) Special Tests Knee Special Tests Fischer's Compression Test Results neg B Latosha's Test Test Results R> L tightness Straight Leg Raise Comments 68 deg L; 74 R HS stretch Sumanth Test Results mild TFL tightness B ligamentous testing Comments neg B Thessaly Test 5 Degrees Test Results neg B Apley's Compression Test Results neg PT-OP-M Strength Start: 08/14/22 17:59 Freq: Status: Active Protocol: Document 08/18/22 15:03 [facility] (Rec: 08/18/22 17:43 [facility] [id number]) Hip Strength Hip Manual Muscle Testing Right Flexion (L2) 3+ Fair+ Extension (S1) 3+ Fair+ Abduction 3+ Fair+ Adduction 3+ Fair+ External Rotation 3+ Fair+ Internal Rotation 4- Good- Left Flexion (L2) 3+ Fair+ Extension (S1) 3+ Fair+ Abduction 3+ Fair+ Adduction 3+ Fair+ External Rotation 4- Good- Internal Rotation 3+ Fair+ Knee Strength Knee Manual Muscle Testing Right Flexion (S2) 4+ Good+ Extension (L3) 4- Good- Left Flexion (S2) 4+ Good+ Extension (L3) 4- Good- Ankle/Foot Strength Ankle and Foot Manual Muscle Testing Right Dorsiflexion (L4) 4 Good Inversion 4+ Good+ Eversion (S1) 4- Good- Comments 20 heel raises (ankle pain) Left Dorsiflexion (L4) 4 Good Plantarflexion (S1) 5 Normal Inversion 4+ Good+ Eversion (S1) 4- Good- Comments 20 heel raises B (pain in foot )- very difficult PT-OP-Q Treatments Start: 08/14/22 17:59 Freq: Status: Active Protocol: Document 09/08/22 15:26 [facility] (Rec: 09/08/22 16:02 [facility] [id number]) Cardio Equipment Elliptical Duration (Minutes) 5 Resistance 4 Gym Equipment Shuttle Recovery Unilateral Squats Details B Resistance 62# Reps/Time 15 Shuttle Balance red clips Details w/head turns Comments FWD & side: WBOS & NBOS fwd: staggered stance Therapeutic Exercises Standing Exercises heel raises Standing Exercise Name step SL Side bilateral Reps/Minutes 10 Manual Therapy Treatment Joint Mobilizations ankle Comments distraction & lat glide calcaneus AP talus & med glide& distraction FM Neuro Re-Education Treatment Balance Activities bosu Comments 1. step ups B x10 B 2. mini squat x10 black side 3. SLS blue side B 4. mini lunge x10 B 5. lat step ups x15 B PT-OP-T Assessment and Plan Start: 08/14/22 17:59 Freq: Status: Active Protocol: Document 09/08/22 15:26 [facility] (Rec: 09/08/22 16:02 [facility] [id number]) Physical Therapy Assessment Goals work Residential Goal (LTG) Pt will be able to return to full work job tasks w/o inc B knee pain or B foot pain LTG Duration 11/10 activities Short Term Goal (STG) Pt will be able to go up/down stairs w/o rail w/carrying objects w/o feeling of LOB or knee pain. STG Duration 10/01/22 Residential Goal (LTG) Pt will be able to squat low and lift objects w/o inc pain in B knees or LOB LTG Duration 11/10/22 balance Short Term Goal (STG) Pt will be able to do SLS for 10 sec B w/o use of UEs for balance STG Duration 10/01/22 Residential Goal (LTG) Pt will be able to do SLS B 20 sec w/o lat shear or use of UEs for balance. LTG Duration 11/10 strength Short Term Goal (STG) Pt will be indep w/HEP STG Duration 10/01 Residential Goal (LTG) Pt will score at least 4+/5 on all MMT and at least 3/5 LPM to show improved stability in order for pt to be able to perform his job. LTG Duration 11/10 LEFS Impairment 50/80 Short Term Goal (STG) Pt iwll imrpove score to at least 60/80 to show improved functional ability. STG Duration 10/01 Residential Goal (LTG) Pt iwll imrpove score to at least 70/80 to show improved functional ability. LTG Duration 11/10 Assessment Summary Assessment Pt cont to do well with exercises and inc challenge w/ stability and strength. Some ankle pain noted in L ankle w/ activity. Physical Therapy Plan Frequency and Duration Frequency of Treatment 1-2x/wk Duration of treatment (weeks) 12 Plan of Care Start Date 08/18/22 Plan of Care End Date 11/10/22 Next Visit Focus/Plan Next Note Type Treatment Note Next Visit Plan cont to wokr on LE strength/ endurance, work on balance & manual to help w/pain
--- NOTE | 2022-09-15 15:57 | PT.OTN ---
Current Diagnoses Diffuse large B-cell lymphoma, unspecified site (09/15/22) Other specified anxiety disorders (09/15/22) Drug-induced polyneuropathy (09/15/22) Pain in right knee (09/15/22) Pain in left knee (09/15/22) Other abnormalities of gait and mobility (09/15/22) Neoplastic (malignant) related fatigue (09/15/22) Other malaise (09/15/22) Adverse effect of antineoplastic and immunosuppressive drugs, initial encounter (09/15/22) Lack of physical exercise (09/15/22) Other reduced mobility (09/15/22) Physical Therapy Treatment Note PT-OP-A Visit Information Start: 08/14/22 17:59 Freq: Status: Active Protocol: Document 09/15/22 15:09 [facility] (Rec: 09/15/22 15:57 [facility] [id number]) Out-Patient Physical Therapy Visit Information Visit Information Visit Type Treatment Note Visit Start Time 15:10 Visit Stop Time 15:55 Total Visit Minutes 45 Visit Number 7 Number of TRAFFIC CONTROL FLAGGER Visits 0 PT-OP-B Current Condition Start: 08/14/22 17:59 Freq: Status: Active Protocol: Document 08/18/22 15:03 [facility] (Rec: 08/18/22 17:43 [facility] [id number]) Current Condition History of Current Condition Current Complaints dec balance, B knee pain History of Current Condition Pt reports he is a cancer paitient. He works for [employer]. He has been experiencing back pain and made a Jasmeet's Act claim after missing the first step and fell and landed on his feet. He went to hospital d/t not being able to pee d/t mass in abdomen. Evenutally got admitted to [facility] and had nephrology tubes place. Has done chemo therapy whcih did not resolve the lymphoma. He has started immunotherapy. He was on prednisone for a long time and is off the last dose. He has been dealing w/ neuropathy on the bottom of feet (numbness) that inc his dec balacne and pain and swelling in knees. Also, has ureter stents now. He does too vigoreous activity, he gets blood in his urine. Pt has been off work for about 1 year ago. He is hopeful to go back soon. 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 Pt had swollen calves and was told he has venous insufficiency and went on a diaretic. He ended up in the hospital d/t DVTs B. He has an IVC filter in vena cava and on eloquist. the heavy dose of steroids he was on, really improved his knee pain. Its coming back again. He has seen a gill box tender and Xrays were done and they saw deterioration so he is being followed for this. Pt reports he walks daily about a couple miles at the most mostly on roads w/some minor hills. Knee pain started on first round of chemo and neuropathy started after first dose of chemo. Back pain is now resolved. he may have felt a twinge during yard work but that is it. Pt has history of pain in R knee [place] got better w/ice and rest. Treatment Goals Patient/Caregiver Goals Get back to work, inc stamina (can only do activity for a couple hours) PT-OP-C Subjective Start: 08/14/22 17:59 Freq: Status: Active Protocol: Document 09/15/22 15:09 [facility] (Rec: 09/15/22 15:57 [facility] [id number]) OP-PT Subjective Patient Comments Patient Comments Pt notes he was kicked out of his immunotherapy trial. He is awaiting a PET scan to look for tumor activity to figure out next plan. His knees and ankle have been doing okay. PT-OP-D Balance Start: 08/14/22 17:59 Freq: Status: Active Protocol: Document 08/18/22 15:03 [facility] (Rec: 08/18/22 17:43 [facility] [id number]) Balance Tests Single Limb Standing Single Limb- Right 13 sec heavy arm use waving to keep balacne; lat shear over LE Single Limb- Left 15 sec heavy arm use waving to keep balacne; lat shear over LE PT-OP-E Functional Tests Start: 08/14/22 17:59 Freq: Status: Active Protocol: Document 08/18/22 15:03 [facility] (Rec: 08/18/22 17:43 [facility] [id number]) Functional Tests Functional Gait Assessment Score 24 PT-OP-F Manual Assessment Start: 08/14/22 17:59 Freq: Status: Active Protocol: Document 08/18/22 15:03 [facility] (Rec: 08/18/22 17:43 [facility] [id number]) Manual Assessments Soft Tissue Assessment Soft Tissue Mobility Assessment tightness B ITB and lat quad Joint Mobility Assessment Joint Mobility Assessment IR of tib and femur R w/knee bends and L ER; in standing tends to stand w/R Foto eR PT-OP-G Mobility & Gait Start: 08/14/22 17:59 Freq: Status: Active Protocol: Document 08/18/22 15:03 [facility] (Rec: 08/18/22 17:43 [facility] [id number]) OP Gait Assessment Comments Gait Comments dec overall push off B PT-OP-J Posture/Palpation/Skin Start: 08/14/22 17:59 Freq: Status: Active Protocol: Document 08/18/22 15:03 [facility] (Rec: 08/18/22 17:43 [facility] [id number]) Posture Evaluation [facility] Postural Classification System Lumbar Protective Mechanism Left AP 2 Lumbar Protective Mechanism Right AP 0 Lumbar Protective Mechanism Left PA 1 Lumbar Protective Mechanism Right PA 1 PT-OP-K Range of Motion Start: 08/14/22 17:59 Freq: Status: Active Protocol: Document 08/18/22 15:03 [facility] (Rec: 08/18/22 17:43 [facility] [id number]) Knee Goniometric Range of Motion Knee Right Flexion Active (degrees) 124 Extension Active (degrees) 4 Comments tight into flex Left Flexion Active (degrees) 127 Extension Active (degrees) 3 Comments tight w/flex PT-OP-L Special Tests Start: 08/14/22 17:59 Freq: Status: Active Protocol: Document 08/18/22 15:03 [facility] (Rec: 08/18/22 17:43 [facility] [id number]) Special Tests Knee Special Tests Fischer's Compression Test Results neg B Latosha's Test Test Results R> L tightness Straight Leg Raise Comments 68 deg L; 74 R HS stretch Sumanth Test Results mild TFL tightness B ligamentous testing Comments neg B Thessaly Test 5 Degrees Test Results neg B Apley's Compression Test Results neg PT-OP-M Strength Start: 08/14/22 17:59 Freq: Status: Active Protocol: Document 08/18/22 15:03 [facility] (Rec: 08/18/22 17:43 [facility] [id number]) Hip Strength Hip Manual Muscle Testing Right Flexion (L2) 3+ Fair+ Extension (S1) 3+ Fair+ Abduction 3+ Fair+ Adduction 3+ Fair+ External Rotation 3+ Fair+ Internal Rotation 4- Good- Left Flexion (L2) 3+ Fair+ Extension (S1) 3+ Fair+ Abduction 3+ Fair+ Adduction 3+ Fair+ External Rotation 4- Good- Internal Rotation 3+ Fair+ Knee Strength Knee Manual Muscle Testing Right Flexion (S2) 4+ Good+ Extension (L3) 4- Good- Left Flexion (S2) 4+ Good+ Extension (L3) 4- Good- Ankle/Foot Strength Ankle and Foot Manual Muscle Testing Right Dorsiflexion (L4) 4 Good Inversion 4+ Good+ Eversion (S1) 4- Good- Comments 20 heel raises (ankle pain) Left Dorsiflexion (L4) 4 Good Plantarflexion (S1) 5 Normal Inversion 4+ Good+ Eversion (S1) 4- Good- Comments 20 heel raises B (pain in foot )- very difficult PT-OP-Q Treatments Start: 08/14/22 17:59 Freq: Status: Active Protocol: Document 09/15/22 15:09 [facility] (Rec: 09/15/22 15:57 [facility] [id number]) Cardio Equipment Elliptical Duration (Minutes) 5 Resistance 5 Gym Equipment Shuttle Balance red clips Details w/hitting balloon Comments FWD & side: WBOS & NBOS fwd: staggered stance Therapeutic Ball supine Ball Size/Color 75cm Body Position Supine Reps/Duration 10 ea Comments 1. bridge w/knees ext 2 bridge w/HS curl seated Ball Size/Color 75 cm Body Position Sitting Reps/Duration 12 ea Comments 1. seated marches 2. seated knee ext 3. seated sit backs w/cues for back position Therapeutic Exercises Standing Exercises heel raises Standing Exercise Name step SL Side bilateral Reps/Minutes 10 Manual Therapy Treatment Joint Mobilizations tib fib Comments R AP tib distal R PA fib proximal FM tibfem Joint PA FM B Neuro Re-Education Treatment Balance Activities bosu Comments 1. step ups w/alt march B x10 B 2. mini squat x10 black & blue side 3. SLS blue side B 4. fwd lunge x10 B 5. lat step ups x10 B 6. lat lunge x10 B PT-OP-T Assessment and Plan Start: 08/14/22 17:59 Freq: Status: Active Protocol: Document 09/15/22 15:09 [facility] (Rec: 09/15/22 15:57 [facility] [id number]) Physical Therapy Assessment Goals work Skilled Nursing Goal (LTG) Pt will be able to return to full work job tasks w/o inc B knee pain or B foot pain LTG Duration 11/10 activities Short Term Goal (STG) Pt will be able to go up/down stairs w/o rail w/carrying objects w/o feeling of LOB or knee pain. STG Duration 10/01/22 Facility Maintenance Supervisor Goal (LTG) Pt will be able to squat low and lift objects w/o inc pain in B knees or LOB LTG Duration 11/10/22 balance Short Term Goal (STG) Pt will be able to do SLS for 10 sec B w/o use of UEs for balance STG Duration 10/01/22 Skilled Nursing Goal (LTG) Pt will be able to do SLS B 20 sec w/o lat shear or use of UEs for balance. LTG Duration 11/10 strength Short Term Goal (STG) Pt will be indep w/HEP STG Duration 10/01 Skilled Nursing Goal (LTG) Pt will score at least 4+/5 on all MMT and at least 3/5 LPM to show improved stability in order for pt to be able to perform his job. LTG Duration 11/10 LEFS Impairment 50/80 Short Term Goal (STG) Pt iwll imrpove score to at least 60/80 to show improved functional ability. STG Duration 10/01 Facility Maintenance Supervisor Goal (LTG) Pt iwll imrpove score to at least 70/80 to show improved functional ability. LTG Duration 11/10 Assessment Summary Assessment Pt did well with exercises today showing more stability on uneven surfaces and deeper squats and lunges. Physical Therapy Plan Frequency and Duration Frequency of Treatment 1-2x/wk Duration of treatment (weeks) 12 Plan of Care Start Date 08/18/22 Plan of Care End Date 11/10/22 Next Visit Focus/Plan Next Note Type Treatment Note Next Visit Plan cont to wokr on LE strength/ endurance, work on balance & manual to help w/pain
--- NOTE | 2022-09-18 10:38 | PT.OTN ---
Current Diagnoses Diffuse large B-cell lymphoma, unspecified site (09/18/22) Other specified anxiety disorders (09/18/22) Drug-induced polyneuropathy (09/18/22) Pain in right knee (09/18/22) Pain in left knee (09/18/22) Other abnormalities of gait and mobility (09/18/22) Neoplastic (malignant) related fatigue (09/18/22) Other malaise (09/18/22) Adverse effect of antineoplastic and immunosuppressive drugs, initial encounter (09/18/22) Lack of physical exercise (09/18/22) Other reduced mobility (09/18/22) Physical Therapy Treatment Note PT-OP-A Visit Information Start: 08/14/22 17:59 Freq: Status: Active Protocol: Document 09/18/22 09:50 [facility] (Rec: 09/18/22 10:38 [facility] [id number]) Out-Patient Physical Therapy Visit Information Visit Information Visit Type Treatment Note Visit Start Time 09:48 Visit Stop Time 10:28 Total Visit Minutes 40 Visit Number 8 Number of DIGITAL CONTENT SPECIALIST Visits 0 PT-OP-B Current Condition Start: 08/14/22 17:59 Freq: Status: Active Protocol: Document 08/18/22 15:03 [facility] (Rec: 08/18/22 17:43 [facility] [id number]) Current Condition History of Current Condition Current Complaints dec balance, B knee pain History of Current Condition Pt reports he is a cancer paitient. He works for [employer]. He has been experiencing back pain and made a Jasmeet's Act claim after missing the first step and fell and landed on his feet. He went to hospital d/t not being able to pee d/t mass in abdomen. Evenutally got admitted to [facility] and had nephrology tubes place. Has done chemo therapy whcih did not resolve the lymphoma. He has started immunotherapy. He was on prednisone for a long time and is off the last dose. He has been dealing w/ neuropathy on the bottom of feet (numbness) that inc his dec balacne and pain and swelling in knees. Also, has ureter stents now. He does too vigoreous activity, he gets blood in his urine. Pt has been off work for about 1 year ago. He is hopeful to go back soon. 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 Pt had swollen calves and was told he has venous insufficiency and went on a diaretic. He ended up in the hospital d/t DVTs B. He has an IVC filter in vena cava and on eloquist. the heavy dose of steroids he was on, really improved his knee pain. Its coming back again. He has seen a rail engineer and Xrays were done and they saw deterioration so he is being followed for this. Pt reports he walks daily about a couple miles at the most mostly on roads w/some minor hills. Knee pain started on first round of chemo and neuropathy started after first dose of chemo. Back pain is now resolved. he may have felt a twinge during yard work but that is it. Pt has history of pain in R knee [place] got better w/[place] and rest. Treatment Goals Patient/Caregiver Goals Get back to work, inc stamina (can only do activity for a couple hours) PT-OP-C Subjective Start: 08/14/22 17:59 Freq: Status: Active Protocol: Document 09/18/22 09:50 [facility] (Rec: 09/18/22 10:38 [facility] [id number]) OP-PT Subjective Patient Comments Patient Comments Pt reports he spent some time on his exercise bike yesterday and did notice some discomfort then in ant knees R >L. Some L ankle stiffness PT-OP-D Balance Start: 08/14/22 17:59 Freq: Status: Active Protocol: Document 08/18/22 15:03 [facility] (Rec: 08/18/22 17:43 [facility] [id number]) Balance Tests Single Limb Standing Single Limb- Right 13 sec heavy arm use waving to keep balacne; lat shear over LE Single Limb- Left 15 sec heavy arm use waving to keep balacne; lat shear over LE PT-OP-E Functional Tests Start: 08/14/22 17:59 Freq: Status: Active Protocol: Document 08/18/22 15:03 [facility] (Rec: 08/18/22 17:43 [facility] [id number]) Functional Tests Functional Gait Assessment Score 24 PT-OP-F Manual Assessment Start: 08/14/22 17:59 Freq: Status: Active Protocol: Document 08/18/22 15:03 [facility] (Rec: 08/18/22 17:43 [facility] [id number]) Manual Assessments Soft Tissue Assessment Soft Tissue Mobility Assessment tightness B ITB and lat quad Joint Mobility Assessment Joint Mobility Assessment IR of tib and femur R w/knee bends and L ER; in standing tends to stand w/R Foto eR PT-OP-G Mobility & Gait Start: 08/14/22 17:59 Freq: Status: Active Protocol: Document 08/18/22 15:03 [facility] (Rec: 08/18/22 17:43 [facility] [id number]) OP Gait Assessment Comments Gait Comments dec overall push off B PT-OP-J Posture/Palpation/Skin Start: 08/14/22 17:59 Freq: Status: Active Protocol: Document 08/18/22 15:03 [facility] (Rec: 08/18/22 17:43 [facility] [id number]) Posture Evaluation [facility] Postural Classification System Lumbar Protective Mechanism Left AP 2 Lumbar Protective Mechanism Right AP 0 Lumbar Protective Mechanism Left PA 1 Lumbar Protective Mechanism Right PA 1 PT-OP-K Range of Motion Start: 08/14/22 17:59 Freq: Status: Active Protocol: Document 08/18/22 15:03 [facility] (Rec: 08/18/22 17:43 [facility] [id number]) Knee Goniometric Range of Motion Knee Right Flexion Active (degrees) 124 Extension Active (degrees) 4 Comments tight into flex Left Flexion Active (degrees) 127 Extension Active (degrees) 3 Comments tight w/flex PT-OP-L Special Tests Start: 08/14/22 17:59 Freq: Status: Active Protocol: Document 08/18/22 15:03 [facility] (Rec: 08/18/22 17:43 [facility] [id number]) Special Tests Knee Special Tests Fischer's Compression Test Results neg B Latosha's Test Test Results R> L tightness Straight Leg Raise Comments 68 deg L; 74 R HS stretch Sumanth Test Results mild TFL tightness B ligamentous testing Comments neg B Thessaly Test 5 Degrees Test Results neg B Apley's Compression Test Results neg PT-OP-M Strength Start: 08/14/22 17:59 Freq: Status: Active Protocol: Document 08/18/22 15:03 [facility] (Rec: 08/18/22 17:43 [facility] [id number]) Hip Strength Hip Manual Muscle Testing Right Flexion (L2) 3+ Fair+ Extension (S1) 3+ Fair+ Abduction 3+ Fair+ Adduction 3+ Fair+ External Rotation 3+ Fair+ Internal Rotation 4- Good- Left Flexion (L2) 3+ Fair+ Extension (S1) 3+ Fair+ Abduction 3+ Fair+ Adduction 3+ Fair+ External Rotation 4- Good- Internal Rotation 3+ Fair+ Knee Strength Knee Manual Muscle Testing Right Flexion (S2) 4+ Good+ Extension (L3) 4- Good- Left Flexion (S2) 4+ Good+ Extension (L3) 4- Good- Ankle/Foot Strength Ankle and Foot Manual Muscle Testing Right Dorsiflexion (L4) 4 Good Inversion 4+ Good+ Eversion (S1) 4- Good- Comments 20 heel raises (ankle pain) Left Dorsiflexion (L4) 4 Good Plantarflexion (S1) 5 Normal Inversion 4+ Good+ Eversion (S1) 4- Good- Comments 20 heel raises B (pain in foot )- very difficult PT-OP-Q Treatments Start: 08/14/22 17:59 Freq: Status: Active Protocol: Document 09/18/22 09:50 [facility] (Rec: 09/18/22 10:38 [facility] [id number]) Cardio Equipment Elliptical Duration (Minutes) 5 Resistance 5 Gym Equipment Shuttle Balance red clips Details w/head turns Comments FWD & side: WBOS & NBOS fwd: staggered stance Therapeutic Ball seated Ball Size/Color 75 cm Body Position Sitting Reps/Duration 12 ea Comments 1. seated marches 2# ankle wts 2. seated knee ext 2# ankle wts 3. seated sit backs w/cues for back position Manual Therapy Treatment Soft Tissue Mobilization patellar tendon Body Location B lat borders Mobilization Type Strumming Intensity/Depth Moderate Body Position Supine add Body Location B Mobilization Type Rolling,Strumming Intensity/Depth Moderate Body Position Supine ITB Body Location B Mobilization Type Rolling,Strumming Intensity/Depth Moderate Body Position Hooklying Comments w/rotation Joint Mobilizations Patellofemoral Joint B Direction sup Body Position Supine Neuro Re-Education Treatment Balance Activities bosu Comments 1. step ups fwd B x10 B 2. mini squat x10 black 3. SLS blue side B 4. fwd lunge x10 B 5. lat step ups w/alt october x10 B PT-OP-T Assessment and Plan Start: 08/14/22 17:59 Freq: Status: Active Protocol: Document 09/18/22 09:50 [facility] (Rec: 09/18/22 10:38 [facility] [id number]) Physical Therapy Assessment Goals work Surg Rn Goal (LTG) Pt will be able to return to full work job tasks w/o inc B knee pain or B foot pain LTG Duration 11/10 activities Short Term Goal (STG) Pt will be able to go up/down stairs w/o rail w/carrying objects w/o feeling of LOB or knee pain. STG Duration 10/01/22 Surg Rn Goal (LTG) Pt will be able to squat low and lift objects w/o inc pain in B knees or LOB LTG Duration 11/10/22 balance Short Term Goal (STG) Pt will be able to do SLS for 10 sec B w/o use of UEs for balance STG Duration 10/01/22 Skilled Nursing Goal (LTG) Pt will be able to do SLS B 20 sec w/o lat shear or use of UEs for balance. LTG Duration 11/10 strength Short Term Goal (STG) Pt will be indep w/HEP STG Duration 10/01 Skilled Nursing Goal (LTG) Pt will score at least 4+/5 on all MMT and at least 3/5 LPM to show improved stability in order for pt to be able to perform his job. LTG Duration 11/10 LEFS Impairment 50/80 Short Term Goal (STG) Pt iwll imrpove score to at least 60/80 to show improved functional ability. STG Duration 10/01 Skilled Nursing Goal (LTG) Pt iwll imrpove score to at least 70/80 to show improved functional ability. LTG Duration 11/10 Assessment Summary Assessment Pt had improved balance on bosu and required less cues when doing squat/lunge activities. He reported knee pain at 2-3/10 on elliptical but subsided by end of time on elliptical Physical Therapy Plan Frequency and Duration Frequency of Treatment 1-2x/wk Duration of treatment (weeks) 12 Plan of Care Start Date 08/18/22 Plan of Care End Date 11/10/22 Next Visit Focus/Plan Next Note Type Treatment Note Next Visit Plan cont to wokr on LE strength/ endurance, work on balance & manual to help w/pain
--- NOTE | 2022-09-22 15:58 | PT.OTN ---
Current Diagnoses Diffuse large B-cell lymphoma, unspecified site (09/22/22) Other specified anxiety disorders (09/22/22) Drug-induced polyneuropathy (09/22/22) Pain in right knee (09/22/22) Pain in left knee (09/22/22) Other abnormalities of gait and mobility (09/22/22) Neoplastic (malignant) related fatigue (09/22/22) Other malaise (09/22/22) Adverse effect of antineoplastic and immunosuppressive drugs, initial encounter (09/22/22) Lack of physical exercise (09/22/22) Other reduced mobility (09/22/22) Physical Therapy Treatment Note PT-OP-A Visit Information Start: 08/14/22 17:59 Freq: Status: Active Protocol: Document 09/22/22 15:13 [facility] (Rec: 09/22/22 15:58 [facility] [id number]) Out-Patient Physical Therapy Visit Information Visit Information Visit Type Treatment Note Visit Start Time 15:16 Visit Stop Time 15:57 Total Visit Minutes 41 Visit Number 9 Number of INSEMINATION WORKER Visits 0 PT-OP-B Current Condition Start: 08/14/22 17:59 Freq: Status: Active Protocol: Document 08/18/22 15:03 [facility] (Rec: 08/18/22 17:43 [facility] [id number]) Current Condition History of Current Condition Current Complaints dec balance, B knee pain History of Current Condition Pt reports he is a cancer paitient. He works for [employer]. He has been experiencing back pain and made a Jasmeet's Act claim after missing the first step and fell and landed on his feet. He went to hospital d/t not being able to pee d/t mass in abdomen. Evenutally got admitted to [facility] and had nephrology tubes place. Has done chemo therapy whcih did not resolve the lymphoma. He has started immunotherapy. He was on prednisone for a long time and is off the last dose. He has been dealing w/ neuropathy on the bottom of feet (numbness) that inc his dec balacne and pain and swelling in knees. Also, has ureter stents now. He does too vigoreous activity, he gets blood in his urine. Pt has been off work for about 1 year ago. He is hopeful to go back soon. 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 Pt had swollen calves and was told he has venous insufficiency and went on a diaretic. He ended up in the hospital d/t DVTs B. He has an IVC filter in vena cava and on eloquist. the heavy dose of steroids he was on, really improved his knee pain. Its coming back again. He has seen a tax lawyer and Xrays were done and they saw deterioration so he is being followed for this. Pt reports he walks daily about a couple miles at the most mostly on roads w/some minor hills. Knee pain started on first round of chemo and neuropathy started after first dose of chemo. Back pain is now resolved. he may have felt a twinge during yard work but that is it. Pt has history of pain in R knee [place] got better w/ice and rest. Treatment Goals Patient/Caregiver Goals Get back to work, inc stamina (can only do activity for a couple hours) PT-OP-C Subjective Start: 08/14/22 17:59 Freq: Status: Active Protocol: Document 09/22/22 15:13 [facility] (Rec: 09/22/22 15:58 [facility] [id number]) OP-PT Subjective Patient Comments Patient Comments Pt reports B knees are doing good, but L ankle is still stiff. PT-OP-D Balance Start: 08/14/22 17:59 Freq: Status: Active Protocol: Document 08/18/22 15:03 [facility] (Rec: 08/18/22 17:43 [facility] [id number]) Balance Tests Single Limb Standing Single Limb- Right 13 sec heavy arm use waving to keep balacne; lat shear over LE Single Limb- Left 15 sec heavy arm use waving to keep balacne; lat shear over LE PT-OP-E Functional Tests Start: 08/14/22 17:59 Freq: Status: Active Protocol: Document 08/18/22 15:03 [facility] (Rec: 08/18/22 17:43 [facility] [id number]) Functional Tests Functional Gait Assessment Score 24 PT-OP-F Manual Assessment Start: 08/14/22 17:59 Freq: Status: Active Protocol: Document 08/18/22 15:03 [facility] (Rec: 08/18/22 17:43 [facility] [id number]) Manual Assessments Soft Tissue Assessment Soft Tissue Mobility Assessment tightness B ITB and lat quad Joint Mobility Assessment Joint Mobility Assessment IR of tib and femur R w/knee bends and L ER; in standing tends to stand w/R Foto eR PT-OP-G Mobility & Gait Start: 08/14/22 17:59 Freq: Status: Active Protocol: Document 08/18/22 15:03 [facility] (Rec: 08/18/22 17:43 [facility] [id number]) OP Gait Assessment Comments Gait Comments dec overall push off B PT-OP-J Posture/Palpation/Skin Start: 08/14/22 17:59 Freq: Status: Active Protocol: Document 08/18/22 15:03 [facility] (Rec: 08/18/22 17:43 [facility] [id number]) Posture Evaluation [facility] Postural Classification System Lumbar Protective Mechanism Left AP 2 Lumbar Protective Mechanism Right AP 0 Lumbar Protective Mechanism Left PA 1 Lumbar Protective Mechanism Right PA 1 PT-OP-K Range of Motion Start: 08/14/22 17:59 Freq: Status: Active Protocol: Document 08/18/22 15:03 [facility] (Rec: 08/18/22 17:43 [facility] [id number]) Knee Goniometric Range of Motion Knee Right Flexion Active (degrees) 124 Extension Active (degrees) 4 Comments tight into flex Left Flexion Active (degrees) 127 Extension Active (degrees) 3 Comments tight w/flex PT-OP-L Special Tests Start: 08/14/22 17:59 Freq: Status: Active Protocol: Document 08/18/22 15:03 [facility] (Rec: 08/18/22 17:43 [facility] [id number]) Special Tests Knee Special Tests Fischer's Compression Test Results neg B Latosha's Test Test Results R> L tightness Straight Leg Raise Comments 68 deg L; 74 R HS stretch Sumanth Test Results mild TFL tightness B ligamentous testing Comments neg B Thessaly Test 5 Degrees Test Results neg B Apley's Compression Test Results neg PT-OP-M Strength Start: 08/14/22 17:59 Freq: Status: Active Protocol: Document 08/18/22 15:03 [facility] (Rec: 08/18/22 17:43 [facility] [id number]) Hip Strength Hip Manual Muscle Testing Right Flexion (L2) 3+ Fair+ Extension (S1) 3+ Fair+ Abduction 3+ Fair+ Adduction 3+ Fair+ External Rotation 3+ Fair+ Internal Rotation 4- Good- Left Flexion (L2) 3+ Fair+ Extension (S1) 3+ Fair+ Abduction 3+ Fair+ Adduction 3+ Fair+ External Rotation 4- Good- Internal Rotation 3+ Fair+ Knee Strength Knee Manual Muscle Testing Right Flexion (S2) 4+ Good+ Extension (L3) 4- Good- Left Flexion (S2) 4+ Good+ Extension (L3) 4- Good- Ankle/Foot Strength Ankle and Foot Manual Muscle Testing Right Dorsiflexion (L4) 4 Good Inversion 4+ Good+ Eversion (S1) 4- Good- Comments 20 heel raises (ankle pain) Left Dorsiflexion (L4) 4 Good Plantarflexion (S1) 5 Normal Inversion 4+ Good+ Eversion (S1) 4- Good- Comments 20 heel raises B (pain in foot )- very difficult PT-OP-Q Treatments Start: 08/14/22 17:59 Freq: Status: Active Protocol: Document 09/22/22 15:13 [facility] (Rec: 09/22/22 15:58 [facility] [id number]) Cardio Equipment Elliptical Duration (Minutes) 5 Resistance 5 Gym Equipment Shuttle Recovery Unilateral Squats Details B Resistance 62# Reps/Time 15 Shuttle Balance red clips Details w/hitting balloon Comments FWD & side: WBOS & NBOS fwd: staggered stance Therapeutic Ball supine Ball Size/Color 75cm Body Position Supine Reps/Duration 10 ea Comments 1. bridge w/knees ext 3 sec holds 2 bridge w/HS curl seated Ball Size/Color 75 cm Body Position Sitting Reps/Duration 10 ea Comments 1. seated marches 2# ankle wts 2. seated knee ext 2# ankle wts 3. seated sit backs w/cues for back position Sport Cord step up Exercise Details fwd & side Cord/Resistance red Reps/Duration 10 B Comments 8 in step Neuro Re-Education Treatment Balance Activities bosu Comments 1. step ups fwd w/alt march B x10 B 2. mini squat x10 black 3. SLS blue side B 4. fwd lunge x10 B 5. lat step ups w/alt october x10 B 6. lat lunge x10 B PT-OP-T Assessment and Plan Start: 08/14/22 17:59 Freq: Status: Active Protocol: Document 09/22/22 15:13 [facility] (Rec: 09/22/22 15:58 [facility] [id number]) Physical Therapy Assessment Goals work Fpc Goal (LTG) Pt will be able to return to full work job tasks w/o inc B knee pain or B foot pain LTG Duration 11/10 activities Short Term Goal (STG) Pt will be able to go up/down stairs w/o rail w/carrying objects w/o feeling of LOB or knee pain. STG Duration 10/01/22 Fpc Goal (LTG) Pt will be able to squat low and lift objects w/o inc pain in B knees or LOB LTG Duration 11/10/22 balance Short Term Goal (STG) Pt will be able to do SLS for 10 sec B w/o use of UEs for balance STG Duration 10/01/22 [employer]elgu[employer] Regenerator Operator Goal (LTG) Pt will be able to do SLS B 20 sec w/o lat shear or use of UEs for balance. LTG Duration 11/10 strength Short Term Goal (STG) Pt will be indep w/HEP STG Duration 10/01 Fpc Goal (LTG) Pt will score at least 4+/5 on all MMT and at least 3/5 LPM to show improved stability in order for pt to be able to perform his job. LTG Duration 11/10 LEFS Impairment 50/80 Short Term Goal (STG) Pt iwll imrpove score to at least 60/80 to show improved functional ability. STG Duration 2 Fpc Goal (LTG) Pt iwll imrpove score to at least 70/80 to show improved functional ability. LTG Duration 11/10 Assessment Summary Assessment Pt tolerated todays acitvity w /o c/o inc knee pain and was able do more resistance w/ exercises and required less cues. Physical Therapy Plan Frequency and Duration Frequency of Treatment 1-2x/wk Duration of treatment (weeks) 12 Plan of Care Start Date 08/18/22 Plan of Care End Date 11/10/22 Next Visit Focus/Plan Next Note Type Treatment Note Next Visit Plan cont to wokr on LE strength/ endurance, work on balance & manual to help w/pain
--- NOTE | 2022-09-25 15:12 | PT.OTN ---
Current Diagnoses Diffuse large B-cell lymphoma, unspecified site (09/25/22) Other specified anxiety disorders (09/25/22) Drug-induced polyneuropathy (09/25/22) Pain in right knee (09/25/22) Pain in left knee (09/25/22) Other abnormalities of gait and mobility (09/25/22) Neoplastic (malignant) related fatigue (09/25/22) Other malaise (09/25/22) Adverse effect of antineoplastic and immunosuppressive drugs, initial encounter (09/25/22) Lack of physical exercise (09/25/22) Other reduced mobility (09/25/22) Physical Therapy Treatment Note PT-OP-A Visit Information Start: 08/14/22 17:59 Freq: Status: Active Protocol: Document 09/25/22 14:17 [facility] (Rec: 09/25/22 15:12 [facility] [id number]) Out-Patient Physical Therapy Visit Information Visit Information Visit Type Treatment Note Visit Start Time 14:20 Visit Stop Time 15:05 Total Visit Minutes 45 Visit Number 10 Number of ROOM SERVICE ASSOCIATE Visits 0 PT-OP-B Current Condition Start: 08/14/22 17:59 Freq: Status: Active Protocol: Document 08/18/22 15:03 [facility] (Rec: 08/18/22 17:43 [facility] [id number]) Current Condition History of Current Condition Current Complaints dec balance, B knee pain History of Current Condition Pt reports he is a cancer paitient. He works for [employer]. He has been experiencing back pain and made a Jasmeet's Act claim after missing the first step and fell and landed on his feet. He went to hospital d/t not being able to pee d/t mass in abdomen. Evenutally got admitted to [facility] and had nephrology tubes place. Has done chemo therapy whcih did not resolve the lymphoma. He has started immunotherapy. He was on prednisone for a long time and is off the last dose. He has been dealing w/ neuropathy on the bottom of feet (numbness) that inc his dec balacne and pain and swelling in knees. Also, has ureter stents now. He does too vigoreous activity, he gets blood in his urine. Pt has been off work for about 1 year ago. He is hopeful to go back soon. 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 Pt had swollen calves and was told he has venous insufficiency and went on a diaretic. He ended up in the hospital d/t DVTs B. He has an IVC filter in vena cava and on eloquist. the heavy dose of steroids he was on, really improved his knee pain. Its coming back again. He has seen a flame gouger and Xrays were done and they saw deterioration so he is being followed for this. Pt reports he walks daily about a couple miles at the most mostly on roads w/some minor hills. Knee pain started on first round of chemo and neuropathy started after first dose of chemo. Back pain is now resolved. he may have felt a twinge during yard work but that is it. Pt has history of pain in R knee [place] got better w/ice and rest. Treatment Goals Patient/Caregiver Goals Get back to work, inc stamina (can only do activity for a couple hours) PT-OP-C Subjective Start: 08/14/22 17:59 Freq: Status: Active Protocol: Document 09/25/22 14:17 [facility] (Rec: 09/25/22 15:12 [facility] [id number]) OP-PT Subjective Patient Comments Patient Comments Pt reports he is doing a lot of kneeling in the bathroom and knees get a little stiff. PT-OP-D Balance Start: 08/14/22 17:59 Freq: Status: Active Protocol: Document 08/18/22 15:03 [facility] (Rec: 08/18/22 17:43 [facility] [id number]) Balance Tests Single Limb Standing Single Limb- Right 13 sec heavy arm use waving to keep balacne; lat shear over LE Single Limb- Left 15 sec heavy arm use waving to keep balacne; lat shear over LE PT-OP-E Functional Tests Start: 08/14/22 17:59 Freq: Status: Active Protocol: Document 08/18/22 15:03 [facility] (Rec: 08/18/22 17:43 [facility] [id number]) Functional Tests Functional Gait Assessment Score 24 PT-OP-F Manual Assessment Start: 08/14/22 17:59 Freq: Status: Active Protocol: Document 08/18/22 15:03 [facility] (Rec: 08/18/22 17:43 [facility] [id number]) Manual Assessments Soft Tissue Assessment Soft Tissue Mobility Assessment tightness B ITB and lat quad Joint Mobility Assessment Joint Mobility Assessment IR of tib and femur R w/knee bends and L ER; in standing tends to stand w/R Foto eR PT-OP-G Mobility & Gait Start: 08/14/22 17:59 Freq: Status: Active Protocol: Document 08/18/22 15:03 [facility] (Rec: 08/18/22 17:43 [facility] [id number]) OP Gait Assessment Comments Gait Comments dec overall push off B PT-OP-J Posture/Palpation/Skin Start: 08/14/22 17:59 Freq: Status: Active Protocol: Document 08/18/22 15:03 [facility] (Rec: 08/18/22 17:43 [facility] [id number]) Posture Evaluation [facility] Postural Classification System Lumbar Protective Mechanism Left AP 2 Lumbar Protective Mechanism Right AP 0 Lumbar Protective Mechanism Left PA 1 Lumbar Protective Mechanism Right PA 1 PT-OP-K Range of Motion Start: 08/14/22 17:59 Freq: Status: Active Protocol: Document 08/18/22 15:03 [facility] (Rec: 08/18/22 17:43 [facility] [id number]) Knee Goniometric Range of Motion Knee Right Flexion Active (degrees) 124 Extension Active (degrees) 4 Comments tight into flex Left Flexion Active (degrees) 127 Extension Active (degrees) 3 Comments tight w/flex PT-OP-L Special Tests Start: 08/14/22 17:59 Freq: Status: Active Protocol: Document 08/18/22 15:03 [facility] (Rec: 08/18/22 17:43 [facility] [id number]) Special Tests Knee Special Tests Fischer's Compression Test Results neg B Latosha's Test Test Results R> L tightness Straight Leg Raise Comments 68 deg L; 74 R HS stretch Sumanth Test Results mild TFL tightness B ligamentous testing Comments neg B Thessaly Test 5 Degrees Test Results neg B Apley's Compression Test Results neg PT-OP-M Strength Start: 08/14/22 17:59 Freq: Status: Active Protocol: Document 08/18/22 15:03 [facility] (Rec: 08/18/22 17:43 [facility] [id number]) Hip Strength Hip Manual Muscle Testing Right Flexion (L2) 3+ Fair+ Extension (S1) 3+ Fair+ Abduction 3+ Fair+ Adduction 3+ Fair+ External Rotation 3+ Fair+ Internal Rotation 4- Good- Left Flexion (L2) 3+ Fair+ Extension (S1) 3+ Fair+ Abduction 3+ Fair+ Adduction 3+ Fair+ External Rotation 4- Good- Internal Rotation 3+ Fair+ Knee Strength Knee Manual Muscle Testing Right Flexion (S2) 4+ Good+ Extension (L3) 4- Good- Left Flexion (S2) 4+ Good+ Extension (L3) 4- Good- Ankle/Foot Strength Ankle and Foot Manual Muscle Testing Right Dorsiflexion (L4) 4 Good Inversion 4+ Good+ Eversion (S1) 4- Good- Comments 20 heel raises (ankle pain) Left Dorsiflexion (L4) 4 Good Plantarflexion (S1) 5 Normal Inversion 4+ Good+ Eversion (S1) 4- Good- Comments 20 heel raises B (pain in foot )- very difficult PT-OP-Q Treatments Start: 08/14/22 17:59 Freq: Status: Active Protocol: Document 09/25/22 14:17 [facility] (Rec: 09/25/22 15:12 [facility] [id number]) Cardio Equipment Elliptical Duration (Minutes) 6 Resistance 5 Gym Equipment Shuttle Recovery Unilateral Squats Details B Resistance 75# Reps/Time 15 Shuttle Balance red clips Details w/hitting balloon Comments FWD & side: WBOS & NBOS fwd: staggered stance Sport Cord step up Exercise Details fwd & side w/alt october Cord/Resistance red Reps/Duration 10 B Comments 8 in step Therapeutic Exercises Standing Exercises sidestep Standing Exercise Name in mini squat Side bilateral Equipment Used L3 around knees Reps/Minutes 2x20ft ea Manual Therapy Treatment Joint Mobilizations tibfem Comments AP on femur B FM tibia IR FM B Neuro Re-Education Treatment Balance Activities bosu Comments 1. step ups fwd w/alt october B x10 B 2. mini squat x10 black 3. SLS blue side B 4. fwd lunge x10 B 5. lat step ups w/alt october x10 B 6. lat lunge x10 B PT-OP-T Assessment and Plan Start: 08/14/22 17:59 Freq: Status: Active Protocol: Document 09/25/22 14:17 [facility] (Rec: 09/25/22 15:12 [facility] [id number]) Physical Therapy Assessment Goals work Fpc Goal (LTG) Pt will be able to return to full work job tasks w/o inc B knee pain or B foot pain LTG Duration 11/10 activities Short Term Goal (STG) Pt will be able to go up/down stairs w/o rail w/carrying objects w/o feeling of LOB or knee pain. STG Duration 10/01/22 Torque Tester Goal (LTG) Pt will be able to squat low and lift objects w/o inc pain in B knees or LOB LTG Duration 11/10/22 balance Short Term Goal (STG) Pt will be able to do SLS for 10 sec B w/o use of UEs for balance STG Duration 10/01/22 Fpc Goal (LTG) Pt will be able to do SLS B 20 sec w/o lat shear or use of UEs for balance. LTG Duration 11/10 strength Short Term Goal (STG) Pt will be indep w/HEP STG Duration 10/01 Torque Tester Goal (LTG) Pt will score at least 4+/5 on all MMT and at least 3/5 LPM to show improved stability in order for pt to be able to perform his job. LTG Duration 11/10 LEFS Impairment 50/80 Short Term Goal (STG) Pt iwll imrpove score to at least 60/80 to show improved functional ability. STG Duration 10/01 Torque Tester Goal (LTG) Pt iwll imrpove score to at least 70/80 to show improved functional ability. LTG Duration 11/10 Assessment Summary Assessment Pt did well with exercises today showing cont improved stability w/balance activities . He can get deeper on squat on bosu now and was able to do october w/sport cord today. Physical Therapy Plan Frequency and Duration Frequency of Treatment 1-2x/wk Duration of treatment (weeks) 12 Plan of Care Start Date 08/18/22 Plan of Care End Date 11/10/22 Next Visit Focus/Plan Next Note Type Treatment Note Next Visit Plan cont to wokr on LE strength/ endurance, work on balance & manual to help w/pain
--- NOTE | 2022-10-30 11:20 | PT.OTN ---
Current Diagnoses Diffuse large B-cell lymphoma, unspecified site (10/30/22) Other specified anxiety disorders (10/30/22) Drug-induced polyneuropathy (10/30/22) Pain in right knee (10/30/22) Pain in left knee (10/30/22) Other abnormalities of gait and mobility (10/30/22) Neoplastic (malignant) related fatigue (10/30/22) Other malaise (10/30/22) Adverse effect of antineoplastic and immunosuppressive drugs, initial encounter (10/30/22) Lack of physical exercise (10/30/22) Other reduced mobility (10/30/22) Physical Therapy Treatment Note PT-OP-A Visit Information Start: 08/14/22 17:59 Freq: Status: Active Protocol: Document 10/30/22 10:36 [facility] (Rec: 10/30/22 11:20 [facility] [id number]) Out-Patient Physical Therapy Visit Information Visit Information Visit Type Progress Note Visit Start Time 10:35 Visit Stop Time 11:15 Total Visit Minutes 40 Visit Number 11 Number of SOFTWARE TECHNICIAN Visits 0 PT-OP-B Current Condition Start: 08/14/22 17:59 Freq: Status: Active Protocol: Document 08/18/22 15:03 [facility] (Rec: 08/18/22 17:43 [facility] [id number]) Current Condition History of Current Condition Current Complaints dec balance, B knee pain History of Current Condition Pt reports he is a cancer paitient. He works for [employer]. He has been experiencing back pain and made a Jasmeet's Act claim after missing the first step and fell and landed on his feet. He went to hospital d/t not being able to pee d/t mass in abdomen. Evenutally got admitted to [facility] and had nephrology tubes place. Has done chemo therapy whcih did not resolve the lymphoma. He has started immunotherapy. He was on prednisone for a long time and is off the last dose. He has been dealing w/ neuropathy on the bottom of feet (numbness) that inc his dec balacne and pain and swelling in knees. Also, has ureter stents now. He does too vigoreous activity, he gets blood in his urine. Pt has been off work for about 1 year ago. He is hopeful to go back soon. 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 Pt had swollen calves and was told he has venous insufficiency and went on a diaretic. He ended up in the hospital d/t DVTs B. He has an IVC filter in vena cava and on eloquist. the heavy dose of steroids he was on, really improved his knee pain. Its coming back again. He has seen a buffet attendant and Xrays were done and they saw deterioration so he is being followed for this. Pt reports he walks daily about a couple miles at the most mostly on roads w/some minor hills. Knee pain started on first round of chemo and neuropathy started after first dose of chemo. Back pain is now resolved. he may have felt a twinge during yard work but that is it. Pt has history of pain in R knee [place] got better w/ice and rest. Treatment Goals Patient/Caregiver Goals Get back to work, inc stamina (can only do activity for a couple hours) PT-OP-C Subjective Start: 08/14/22 17:59 Freq: Status: Active Protocol: Document 10/30/22 10:36 [facility] (Rec: 10/30/22 11:20 [facility] [id number]) OP-PT Subjective Patient Comments Patient Comments Pt had stents exchanged then had tapering of steroids had a bout of collitis. He has now gone up on steroids again and is getting injections for colon. He has another PET scan coming up soon. He in unsure what the next plan fro lymphoma is. Pt reports knees have been good especially with prednisone but does notice his walks, his legs feel heavy . He is also having issues w/ recent w/blood in urine w/ walks Patient Questionnaires Lower Extremity Functional Scale LEFS Score 58 PT-OP-D Balance Start: 08/14/22 17:59 Freq: Status: Active Protocol: Document 08/18/22 15:03 [facility] (Rec: 08/18/22 17:43 [facility] [id number]) Balance Tests Single Limb Standing Single Limb- Right 13 sec heavy arm use waving to keep balacne; lat shear over LE Single Limb- Left 15 sec heavy arm use waving to keep balacne; lat shear over LE PT-OP-E Functional Tests Start: 08/14/22 17:59 Freq: Status: Active Protocol: Document 08/18/22 15:03 [facility] (Rec: 08/18/22 17:43 [facility] [id number]) Functional Tests Functional Gait Assessment Score 24 PT-OP-F Manual Assessment Start: 08/14/22 17:59 Freq: Status: Active Protocol: Document 08/18/22 15:03 [facility] (Rec: 08/18/22 17:43 [facility] [id number]) Manual Assessments Soft Tissue Assessment Soft Tissue Mobility Assessment tightness B ITB and lat quad Joint Mobility Assessment Joint Mobility Assessment IR of tib and femur R w/knee bends and L ER; in standing tends to stand w/R Foto eR PT-OP-G Mobility & Gait Start: 08/14/22 17:59 Freq: Status: Active Protocol: Document 08/18/22 15:03 [facility] (Rec: 08/18/22 17:43 [facility] [id number]) OP Gait Assessment Comments Gait Comments dec overall push off B PT-OP-J Posture/Palpation/Skin Start: 08/14/22 17:59 Freq: Status: Active Protocol: Document 10/30/22 10:36 [facility] (Rec: 10/30/22 11:20 [facility] [id number]) Posture Evaluation [facility] Postural Classification System Lumbar Protective Mechanism Left AP 2 Lumbar Protective Mechanism Right AP 1 Lumbar Protective Mechanism Left PA 3 Lumbar Protective Mechanism Right PA 2 PT-OP-K Range of Motion Start: 08/14/22 17:59 Freq: Status: Active Protocol: Document 08/18/22 15:03 [facility] (Rec: 08/18/22 17:43 [facility] [id number]) Knee Goniometric Range of Motion Knee Right Flexion Active (degrees) 124 Extension Active (degrees) 4 Comments tight into flex Left Flexion Active (degrees) 127 Extension Active (degrees) 3 Comments tight w/flex PT-OP-L Special Tests Start: 08/14/22 17:59 Freq: Status: Active Protocol: Document 08/18/22 15:03 [facility] (Rec: 08/18/22 17:43 [facility] [id number]) Special Tests Knee Special Tests Fischer's Compression Test Results neg B Latosha's Test Test Results R> L tightness Straight Leg Raise Comments 68 deg L; 74 R HS stretch Sumanth Test Results mild TFL tightness B ligamentous testing Comments neg B Thessaly Test 5 Degrees Test Results neg B Apley's Compression Test Results neg PT-OP-M Strength Start: 08/14/22 17:59 Freq: Status: Active Protocol: Document 10/30/22 10:36 [facility] (Rec: 10/30/22 11:20 [facility] [id number]) Hip Strength Hip Manual Muscle Testing Right Flexion (L2) 5 Normal Extension (S1) 4- Good- Abduction 4 Good Adduction 4 Good External Rotation 5 Normal Internal Rotation 5 Normal Left Flexion (L2) 5 Normal Extension (S1) 4- Good- Abduction 4 Good Adduction 4 Good External Rotation 5 Normal Internal Rotation 5 Normal Knee Strength Knee Manual Muscle Testing Right Flexion (S2) 5 Normal Extension (L3) 5 Normal Left Flexion (S2) 5 Normal Extension (L3) 5 Normal Ankle/Foot Strength Ankle and Foot Manual Muscle Testing Right Dorsiflexion (L4) 5 Normal Plantarflexion (S1) 5 Normal Inversion 5 Normal Eversion (S1) 4- Good- Comments 20 heel raises Left Dorsiflexion (L4) 5 Normal Plantarflexion (S1) 5 Normal Inversion 5 Normal Eversion (S1) 4+ Good+ Comments 20 heel raises B very difficult B PT-OP-Q Treatments Start: 08/14/22 17:59 Freq: Status: Active Protocol: Document 10/30/22 10:36 [facility] (Rec: 10/30/22 11:20 [facility] [id number]) Gym Equipment Shuttle Recovery Unilateral Squats Details B Resistance 67# Reps/Time 15 ea Therapeutic Exercises Standing Exercises carry Standing Exercise Name carry 30lb wt in hand around clinic and up/down training and lobby stairs Reps/Minutes 5 min mini squat Standing Exercise Name full squat for crate Equipment Used crate w/20-30 lbs in it Reps/Minutes 3 ea Neuro Re-Education Treatment Balance Activities SLS Comments Y reach x3 B bosu Comments 1. step ups fwd w/alt october B x10 B 2. mini squat x15 ea black & blue side 3. SLS blue side B 4. fwd lunge x10 B 5. lat step ups w/alt october0 B 6. lat lunge x10 B PT-OP-T Assessment and Plan Start: 08/14/22 17:59 Freq: Status: Active Protocol: Document 10/30/22 10:36 [facility] (Rec: 10/30/22 11:20 [facility] [id number]) Physical Therapy Assessment Goals squat Halfway Goal (LTG) Pt will be able to repetitively squat as would be typically required of work LTG Duration 01/07 work Halfway Goal (LTG) Pt will be able to return to full work job tasks w/o inc B knee pain or B foot pain 3/2-pushed off until January 12 LTG Duration 12/31 activities Short Term Goal (STG) Pt will be able to go up/down stairs w/o rail w/carrying objects w/o feeling of LOB or knee pain. STG Duration achieved 3/2 Halfway Goal (LTG) Pt will be able to squat low and lift objects w/o inc pain in B knees or LOB LTG Duration achieved 3/2 balance Short Term Goal (STG) Pt will be able to do SLS for 10 sec B w/o use of UEs for balance STG Duration achieved Halfway Goal (LTG) Pt will be able to do SLS B 20 sec w/o lat shear or use of UEs for balance. 3/2-some shear still w/R but dec UE use-can hold total fo 30 sec w/shear B LTG Duration 01/17 strength Short Term Goal (STG) Pt will be indep w/HEP 3/2-was until recent bout of flare up STG Duration 11/27 Animal Nutritionist Goal (LTG) Pt will score at least 4+/5 on all MMT and at least 3/5 LPM to show improved stability in order for pt to be able to perform his job. 3/2-much improved LTG Duration 12/30 LEFS Impairment 50/80 Short Term Goal (STG) Pt iwll imrpove score to at least 60/80 to show improved functional ability. 3/2-improved to 58/80 STG Duration 12/10/22 Animal Nutritionist Goal (LTG) Pt iwll imrpove score to at least 70/80 to show improved functional ability. LTG Duration 01/07 Assessment Summary Assessment Pt is making excellent progress w/strength and goals but does still have dec glute strength. Pt's pain has been good but may be masked by high doses of steroids required for other comorbilities. He still requires PT to work on his strength, activity tolerance and stability for return to work in hopefully May. Pt encouraged to follow up w/urologist re: blood in urine. Physical Therapy Plan Frequency and Duration Frequency of Treatment 1-2x/wk Duration of treatment (weeks) 10 Plan of Care Start Date 10/30/22 Plan of Care End Date 01/08/23 Therapeutic Interventions Therapeutic Interventions Aquatic Therapy,Balance Training,Canalithic Repositioning,Gait Training, Home Exercise Program,Joint Mobilizations,Manual Therapy, Neuromuscular Re-education, Orthotic/Prosthetic Management ,Patient/Caregiver Education, Self-Care/Home Management,Soft Tissue Mobilization,Taping, Therapeutic Activities, Therapeutic Exercises Modalities Cold Pack/Ice Massage,Hot Packs Other Therapeutic Interventions no modalities d/t cancer diagnosis Next Visit Focus/Plan Next Note Type Treatment Note Next Visit Plan cont to wokr on LE strength/ endurance, work on balance & manual to help w/pain
--- NOTE | 2022-10-30 11:21 | PT.OPPOC ---
Physical, Occupational & Speech Therapy At [facility] Current Diagnoses Diffuse large B-cell lymphoma, unspecified site (10/30/22) Other specified anxiety disorders (10/30/22) Drug-induced polyneuropathy (10/30/22) Pain in right knee (10/30/22) Pain in left knee (10/30/22) Other abnormalities of gait and mobility (10/30/22) Neoplastic (malignant) related fatigue (10/30/22) Other malaise (10/30/22) Adverse effect of antineoplastic and immunosuppressive drugs, initial encounter (10/30/22) Lack of physical exercise (10/30/22) Other reduced mobility (10/30/22) Visit Care Team Role Provider Type Other Providers Specialty: Address: Phone: Fax: Email: Calixto Ferguson MD Family Provider Physician Primary Care Provider Specialty: Internal Medicine Address: [address] [place] [address], [address], [facility] Email: [email or web address] Tavon Samuel MD Attending Provider Non-Staff Referring Provider Specialty: Physical Medicine and Rehab Address: [address] [place] [address] [address], [place], [address] Email: Plan Of Care PT-OP-T Assessment and Plan Start: 08/14/22 17:59 Freq: Status: Active Protocol: Document 10/30/22 10:36 [facility] (Rec: 10/30/22 11:20 [facility] [id number]) Physical Therapy Assessment Goals squat Industrial Sales Engineer Goal (LTG) Pt will be able to repetitively squat as would be typically required of work LTG Duration 5/10 work Industrial Sales Engineer Goal (LTG) Pt will be able to return to full work job tasks w/o inc B knee pain or B foot pain 3/2-pushed off until January 12 LTG Duration 5/3 activities Short Term Goal (STG) Pt will be able to go up/down stairs w/o rail w/carrying objects w/o feeling of LOB or knee pain. STG Duration achieved 3/2 Industrial Sales Engineer Goal (LTG) Pt will be able to squat low and lift objects w/o inc pain in B knees or LOB LTG Duration achieved 10/30 balance Short Term Goal (STG) Pt will be able to do SLS for 10 sec B w/o use of UEs for balance STG Duration achieved Industrial Sales Engineer Goal (LTG) Pt will be able to do SLS B 20 sec w/o lat shear or use of UEs for balance. 3/2-some shear still w/R but dec UE use-can hold total fo 30 sec w/shear B LTG Duration 01/17 strength Short Term Goal (STG) Pt will be indep w/HEP 3/2-was until recent bout of flare up STG Duration 11/27 Group Home Goal (LTG) Pt will score at least 4+/5 on all MMT and at least 3/5 LPM to show improved stability in order for pt to be able to perform his job. 3/2-much improved LTG Duration 12/30 LEFS Impairment 50/80 Short Term Goal (STG) Pt iwll imrpove score to at least 60/80 to show improved functional ability. 3/2-improved to 58/80 STG Duration 12/10/22 Industrial Sales Engineer Goal (LTG) Pt iwll imrpove score to at least 70/80 to show improved functional ability. LTG Duration 01/07 Assessment Summary Assessment Pt is making excellent progress w/strength and goals but does still have dec glute strength. Pt's pain has been good but may be masked by high doses of steroids required for other comorbilities. He still requires PT to work on his strength, activity tolerance and stability for return to work in hopefully December. Pt encouraged to follow up w/urologist re: blood in urine. Physical Therapy Plan Frequency and Duration Frequency of Treatment 1-2x/wk Duration of treatment (weeks) 10 Plan of Care Start Date 10/30/22 Plan of Care End Date 01/08/23 Therapeutic Interventions Therapeutic Interventions Aquatic Therapy,Balance Training,Canalithic Repositioning,Gait Training, Home Exercise Program,Joint Mobilizations,Manual Therapy, Neuromuscular Re-education, Orthotic/Prosthetic Management ,Patient/Caregiver Education, Self-Care/Home Management,Soft Tissue Mobilization,Taping, Therapeutic Activities, Therapeutic Exercises Modalities Cold Pack/Ice Massage,Hot Packs Other Therapeutic Interventions no modalities d/t cancer diagnosis Next Visit Focus/Plan Next Note Type Treatment Note Next Visit Plan cont to salma on LE strength/ endurance, work on balance & manual to help w/pain Plan of Care Dates Plan of Care Start Date 10/30/22 Plan of Care End Date 01/08/23 Electronically Signed by: Vianey Felix, PT 10/30/22 1121 If you are in agreement with this Plan of Care, please return a signed and dated copy. I have reviewed this Plan of Care and certify that the skilled therapy services above are required to meet the patient?s needs. Physician Signature Date Printed Name and Credentials Clinical Instructor Signature Printed Name and Credentials
--- NOTE | 2022-11-05 11:16 | PT.OTN ---
Current Diagnoses Diffuse large B-cell lymphoma, unspecified site (11/05/22) Other specified anxiety disorders (11/05/22) Drug-induced polyneuropathy (11/05/22) Pain in right knee (11/05/22) Pain in left knee (11/05/22) Other abnormalities of gait and mobility (11/05/22) Neoplastic (malignant) related fatigue (11/05/22) Other malaise (11/05/22) Adverse effect of antineoplastic and immunosuppressive drugs, initial encounter (11/05/22) Lack of physical exercise (11/05/22) Other reduced mobility (11/05/22) Physical Therapy Treatment Note PT-OP-A Visit Information Start: 08/14/22 17:59 Freq: Status: Active Protocol: Document 11/05/22 10:40 [facility] (Rec: 11/05/22 11:13 [facility] [id number]) Out-Patient Physical Therapy Visit Information Visit Information Visit Type Treatment Note Visit Start Time 10:37 Visit Stop Time 11:15 Total Visit Minutes 38 Visit Number 12 Number of COSMETOLOGY EDUCATOR Visits 0 PT-OP-B Current Condition Start: 08/14/22 17:59 Freq: Status: Active Protocol: Document 08/18/22 15:03 [facility] (Rec: 08/18/22 17:43 [facility] [id number]) Current Condition History of Current Condition Current Complaints dec balance, B knee pain History of Current Condition Pt reports he is a cancer paitient. He works for [employer]. He has been experiencing back pain and made a Jasmeet's Act claim after missing the first step and fell and landed on his feet. He went to hospital d/t not being able to pee d/t mass in abdomen. Evenutally got admitted to [facility] and had nephrology tubes place. Has done chemo therapy whcih did not resolve the lymphoma. He has started immunotherapy. He was on prednisone for a long time and is off the last dose. He has been dealing w/ neuropathy on the bottom of feet (numbness) that inc his dec balacne and pain and swelling in knees. Also, has ureter stents now. He does too vigoreous activity, he gets blood in his urine. Pt has been off work for about 1 year ago. He is hopeful to go back soon. 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 Pt had swollen calves and was told he has venous insufficiency and went on a diaretic. He ended up in the hospital d/t DVTs B. He has an IVC filter in vena cava and on eloquist. the heavy dose of steroids he was on, really improved his knee pain. Its coming back again. He has seen a director emergency services and Xrays were done and they saw deterioration so he is being followed for this. Pt reports he walks daily about a couple miles at the most mostly on roads w/some minor hills. Knee pain started on first round of chemo and neuropathy started after first dose of chemo. Back pain is now resolved. he may have felt a twinge during yard work but that is it. Pt has history of pain in R [place] got better w/[place] and rest. Treatment Goals Patient/Caregiver Goals Get back to work, inc stamina (can only do activity for a couple hours) PT-OP-C Subjective Start: 08/14/22 17:59 Freq: Status: Active Protocol: Document 11/05/22 10:40 [facility] (Rec: 11/05/22 11:13 [facility] [id number]) OP-PT Subjective Patient Comments Patient Comments Pt reports he hasn't checked in w/his MD yet. PT-OP-D Balance Start: 08/14/22 17:59 Freq: Status: Active Protocol: Document 08/18/22 15:03 [facility] (Rec: 08/18/22 17:43 [facility] [id number]) Balance Tests Single Limb Standing Single Limb- Right 13 sec heavy arm use waving to keep balacne; lat shear over LE Single Limb- Left 15 sec heavy arm use waving to keep balacne; lat shear over LE PT-OP-E Functional Tests Start: 08/14/22 17:59 Freq: Status: Active Protocol: Document 08/18/22 15:03 [facility] (Rec: 08/18/22 17:43 [facility] [id number]) Functional Tests Functional Gait Assessment Score 24 PT-OP-F Manual Assessment Start: 08/14/22 17:59 Freq: Status: Active Protocol: Document 08/18/22 15:03 [facility] (Rec: 08/18/22 17:43 [facility] [id number]) Manual Assessments Soft Tissue Assessment Soft Tissue Mobility Assessment tightness B ITB and lat quad Joint Mobility Assessment Joint Mobility Assessment IR of tib and femur R w/knee bends and L ER; in standing tends to stand w/R Foto eR PT-OP-G Mobility & Gait Start: 08/14/22 17:59 Freq: Status: Active Protocol: Document 08/18/22 15:03 [facility] (Rec: 08/18/22 17:43 [facility] [id number]) OP Gait Assessment Comments Gait Comments dec overall push off B PT-OP-J Posture/Palpation/Skin Start: 08/14/22 17:59 Freq: Status: Active Protocol: Document 10/30/22 10:36 [facility] (Rec: 10/30/22 11:20 [facility] [id number]) Posture Evaluation [facility] Postural Classification System Lumbar Protective Mechanism Left AP 2 Lumbar Protective Mechanism Right AP 1 Lumbar Protective Mechanism Left PA 3 Lumbar Protective Mechanism Right PA 2 PT-OP-K Range of Motion Start: 08/14/22 17:59 Freq: Status: Active Protocol: Document 08/18/22 15:03 [facility] (Rec: 08/18/22 17:43 [facility] [id number]) Knee Goniometric Range of Motion Knee Right Flexion Active (degrees) 124 Extension Active (degrees) 4 Comments tight into flex Left Flexion Active (degrees) 127 Extension Active (degrees) 3 Comments tight w/flex PT-OP-L Special Tests Start: 08/14/22 17:59 Freq: Status: Active Protocol: Document 08/18/22 15:03 [facility] (Rec: 08/18/22 17:43 [facility] [id number]) Special Tests Knee Special Tests Fischer's Compression Test Results neg B Latosha's Test Test Results R> L tightness Straight Leg Raise Comments 68 deg L; 74 R HS stretch Sumanth Test Results mild TFL tightness B ligamentous testing Comments neg B Thessaly Test 5 Degrees Test Results neg B Apley's Compression Test Results neg PT-OP-M Strength Start: 08/14/22 17:59 Freq: Status: Active Protocol: Document 10/30/22 10:36 [facility] (Rec: 10/30/22 11:20 [facility] [id number]) Hip Strength Hip Manual Muscle Testing Right Flexion (L2) 5 Normal Extension (S1) 4- Good- Abduction 4 Good Adduction 4 Good External Rotation 5 Normal Internal Rotation 5 Normal Left Flexion (L2) 5 Normal Extension (S1) 4- Good- Abduction 4 Good Adduction 4 Good External Rotation 5 Normal Internal Rotation 5 Normal Knee Strength Knee Manual Muscle Testing Right Flexion (S2) 5 Normal Extension (L3) 5 Normal Left Flexion (S2) 5 Normal Extension (L3) 5 Normal Ankle/Foot Strength Ankle and Foot Manual Muscle Testing Right Dorsiflexion (L4) 5 Normal Plantarflexion (S1) 5 Normal Inversion 5 Normal Eversion (S1) 4- Good- Comments 20 heel raises Left Dorsiflexion (L4) 5 Normal Plantarflexion (S1) 5 Normal Inversion 5 Normal Eversion (S1) 4+ Good+ Comments 20 heel raises B very difficult B PT-OP-Q Treatments Start: 08/14/22 17:59 Freq: Status: Active Protocol: Document 11/05/22 10:40 [facility] (Rec: 11/05/22 11:13 [facility] [id number]) Cardio Equipment Elliptical Duration (Minutes) 6 Resistance 5 Gym Equipment Sport Cord resisted walk Exercise Details fwd, back, lat B Cord/Resistance red Reps/Duration 10 ea step up Exercise Details fwd & side w/alt october Cord/Resistance red Reps/Duration 10 B Comments 8 in step Therapeutic Exercises Standing Exercises step ups Standing Exercise Name 8 in w/alt october Side bilateral Equipment Used holding 20lb wt in hand Reps/Minutes 10 Neuro Re-Education Treatment Balance Activities [facility] Comments Y reach x3 B bosu Comments 1. step ups fwd w/alt october B x10 B 2. mini squat x15 ea black & blue side 3. SLS blue side B 4. fwd lunge x10 B 5. lat step ups w/alt october x10 B 6. lat lunge x10 B PT-OP-T Assessment and Plan Start: 08/14/22 17:59 Freq: Status: Active Protocol: Document 11/05/22 10:40 [facility] (Rec: 11/05/22 11:13 [facility] [id number]) Physical Therapy Assessment Goals squat Prison Goal (LTG) Pt will be able to repetitively squat as would be typically required of work LTG Duration 01/07 work Urogynaecologist Goal (LTG) Pt will be able to return to full work job tasks w/o inc B knee pain or B foot pain 3-pushed off until January 12 LTG Duration 12/31 activities Short Term Goal (STG) Pt will be able to go up/down stairs w/o rail w/carrying objects w/o feeling of LOB or knee pain. STG Duration achieved 10/30 Prison Goal (LTG) Pt will be able to squat low and lift objects w/o inc pain in B knees or LOB LTG Duration achieved 10/30 balance Short Term Goal (STG) Pt will be able to do SLS for 10 sec B w/o use of UEs for balance STG Duration achieved Urogynaecologist Goal (LTG) Pt will be able to do SLS B 20 sec w/o lat shear or use of UEs for balance. 3/2-some shear still w/R but dec UE use-can hold total fo 30 sec w/shear B LTG Duration 01/17 strength Short Term Goal (STG) Pt will be indep w/HEP 3/2-was until recent bout of flare up STG Duration 11/27 Urogynaecologist Goal (LTG) Pt will score at least 4+/5 on all MMT and at least 3/5 LPM to show improved stability in order for pt to be able to perform his job. 3/2-much improved LTG Duration 12/30 LEFS Impairment 50/80 Short Term Goal (STG) Pt iwll imrpove score to at least 60/80 to show improved functional ability. 3/2-improved to 58/80 STG Duration 12/10/22 Prison Goal (LTG) Pt iwll imrpove score to at least 70/80 to show improved functional ability. LTG Duration 01/07 Assessment Summary Assessment Pt was more out of breath w/ activity today but did well with all balance and strength training. He looks more steady and stable overall. Physical Therapy Plan Frequency and Duration Frequency of Treatment 1-2x/wk Duration of treatment (weeks) 10 Plan of Care Start Date 10/30/22 Plan of Care End Date 01/08/23 Next Visit Focus/Plan Next Note Type Treatment Note Next Visit Plan cont to wokr on LE strength/ endurance, work on balance & manual to help w/pain
--- NOTE | 2022-11-13 09:47 | PT.OTN ---
Current Diagnoses Diffuse large B-cell lymphoma, unspecified site (11/13/22) Other specified anxiety disorders (11/13/22) Drug-induced polyneuropathy (11/13/22) Pain in right knee (11/13/22) Pain in left knee (11/13/22) Other abnormalities of gait and mobility (11/13/22) Neoplastic (malignant) related fatigue (11/13/22) Other malaise (11/13/22) Adverse effect of antineoplastic and immunosuppressive drugs, initial encounter (11/13/22) Lack of physical exercise (11/13/22) Other reduced mobility (11/13/22) Physical Therapy Treatment Note PT-OP-A Visit Information Start: 08/14/22 17:59 Freq: Status: Active Protocol: Document 11/13/22 09:08 [facility] (Rec: 11/13/22 09:47 [facility] [id number]) Out-Patient Physical Therapy Visit Information Visit Information Visit Type Treatment Note Visit Start Time 09:06 Visit Stop Time 09:45 Total Visit Minutes 39 Visit Number 13 Number of SALES RECRUITING COORDINATOR Visits 0 PT-OP-B Current Condition Start: 08/14/22 17:59 Freq: Status: Active Protocol: Document 08/18/22 15:03 [facility] (Rec: 08/18/22 17:43 [facility] [id number]) Current Condition History of Current Condition Current Complaints dec balance, B knee pain History of Current Condition Pt reports he is a cancer paitient. He works for [employer]. He has been experiencing back pain and made a Jasmeet's Act claim after missing the first step and fell and landed on his feet. He went to hospital d/t not being able to pee d/t mass in abdomen. Evenutally got admitted to [facility] and had nephrology tubes place. Has done chemo therapy whcih did not resolve the lymphoma. He has started immunotherapy. He was on prednisone for a long time and is off the last dose. He has been dealing w/ neuropathy on the bottom of feet (numbness) that inc his dec balacne and pain and swelling in knees. Also, has ureter stents now. He does too vigoreous activity, he gets blood in his urine. Pt has been off work for about 1 year ago. He is hopeful to go back soon. 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 Pt had swollen calves and was told he has venous insufficiency and went on a diaretic. He ended up in the hospital d/t DVTs B. He has an IVC filter in vena cava and on eloquist. the heavy dose of steroids he was on, really improved his knee pain. Its coming back again. He has seen a supervisor lens generating and Xrays were done and they saw deterioration so he is being followed for this. Pt reports he walks daily about a couple miles at the most mostly on roads w/some minor hills. Knee pain started on first round of chemo and neuropathy started after first dose of chemo. Back pain is now resolved. he may have felt a twinge during yard work but that is it. Pt has history of pain in R [place] got better w/ice and rest. Treatment Goals Patient/Caregiver Goals Get back to work, inc stamina (can only do activity for a couple hours) PT-OP-C Subjective Start: 08/14/22 17:59 Freq: Status: Active Protocol: Document 11/13/22 09:08 [facility] (Rec: 11/13/22 09:47 [facility] [id number]) OP-PT Subjective Patient Comments Patient Comments Pt will get stent removed soon . Talked to urologist. His most recent PET scan showed no change so he is a monitoring phase. He is down 30 mg of prednisone and will go down to 20 mg this weekend. PT-OP-D Balance Start: 08/14/22 17:59 Freq: Status: Active Protocol: Document 08/18/22 15:03 [facility] (Rec: 08/18/22 17:43 [facility] [id number]) Balance Tests Single Limb Standing Single Limb- Right 13 sec heavy arm use waving to keep balacne; lat shear over LE Single Limb- Left 15 sec heavy arm use waving to keep balacne; lat shear over LE PT-OP-E Functional Tests Start: 08/14/22 17:59 Freq: Status: Active Protocol: Document 08/18/22 15:03 [facility] (Rec: 08/18/22 17:43 [facility] [id number]) Functional Tests Functional Gait Assessment Score 24 PT-OP-F Manual Assessment Start: 08/14/22 17:59 Freq: Status: Active Protocol: Document 08/18/22 15:03 [facility] (Rec: 08/18/22 17:43 [facility] [id number]) Manual Assessments Soft Tissue Assessment Soft Tissue Mobility Assessment tightness B ITB and lat quad Joint Mobility Assessment Joint Mobility Assessment IR of tib and femur R w/knee bends and L ER; in standing tends to stand w/R Foto eR PT-OP-G Mobility & Gait Start: 08/14/22 17:59 Freq: Status: Active Protocol: Document 08/18/22 15:03 [facility] (Rec: 08/18/22 17:43 [facility] [id number]) OP Gait Assessment Comments Gait Comments dec overall push off B PT-OP-J Posture/Palpation/Skin Start: 08/14/22 17:59 Freq: Status: Active Protocol: Document 10/30/22 10:36 [facility] (Rec: 10/30/22 11:20 [facility] [id number]) Posture Evaluation [facility] Postural Classification System Lumbar Protective Mechanism Left AP 2 Lumbar Protective Mechanism Right AP 1 Lumbar Protective Mechanism Left PA 3 Lumbar Protective Mechanism Right PA 2 PT-OP-K Range of Motion Start: 08/14/22 17:59 Freq: Status: Active Protocol: Document 08/18/22 15:03 [facility] (Rec: 08/18/22 17:43 [facility] [id number]) Knee Goniometric Range of Motion Knee Right Flexion Active (degrees) 124 Extension Active (degrees) 4 Comments tight into flex Left Flexion Active (degrees) 127 Extension Active (degrees) 3 Comments tight w/flex PT-OP-L Special Tests Start: 08/14/22 17:59 Freq: Status: Active Protocol: Document 08/18/22 15:03 [facility] (Rec: 08/18/22 17:43 [facility] [id number]) Special Tests Knee Special Tests Fischer's Compression Test Results neg B Latosha's Test Test Results R> L tightness Straight Leg Raise Comments 68 deg L; 74 R HS stretch Sumanth Test Results mild TFL tightness B ligamentous testing Comments neg B Thessaly Test 5 Degrees Test Results neg B Apley's Compression Test Results neg PT-OP-M Strength Start: 08/14/22 17:59 Freq: Status: Active Protocol: Document 10/30/22 10:36 [facility] (Rec: 10/30/22 11:20 [facility] [id number]) Hip Strength Hip Manual Muscle Testing Right Flexion (L2) 5 Normal Extension (S1) 4- Good- Abduction 4 Good Adduction 4 Good External Rotation 5 Normal Internal Rotation 5 Normal Left Flexion (L2) 5 Normal Extension (S1) 4- Good- Abduction 4 Good Adduction 4 Good External Rotation 5 Normal Internal Rotation 5 Normal Knee Strength Knee Manual Muscle Testing Right Flexion (S2) 5 Normal Extension (L3) 5 Normal Left Flexion (S2) 5 Normal Extension (L3) 5 Normal Ankle/Foot Strength Ankle and Foot Manual Muscle Testing Right Dorsiflexion (L4) 5 Normal Plantarflexion (S1) 5 Normal Inversion 5 Normal Eversion (S1) 4- Good- Comments 20 heel raises Left Dorsiflexion (L4) 5 Normal Plantarflexion (S1) 5 Normal Inversion 5 Normal Eversion (S1) 4+ Good+ Comments 20 heel raises B very difficult B PT-OP-Q Treatments Start: 08/14/22 17:59 Freq: Status: Active Protocol: Document 11/13/22 09:08 [facility] (Rec: 11/13/22 09:47 [facility] [id number]) Cardio Equipment Elliptical Duration (Minutes) 6 Resistance 6 Gym Equipment Shuttle Balance red clips Details w/hitting balloon Comments FWD & side: WBOS & NBOS fwd: staggered stance Sport Cord resisted walk Exercise Details fwd, back, lat B Cord/Resistance blue Reps/Duration 10 ea Neuro Re-Education Treatment Balance Activities SLS Comments Y reach x3 B bosu Comments 1. step ups fwd w/alt october B x10 B 2. mini squat x15 ea black & blue side 3. SLS blue side B 4. fwd lunge x10 B 5. lat step ups w/alt october x10 B 6. lat lunge x10 B PT-OP-T Assessment and Plan Start: 08/14/22 17:59 Freq: Status: Active Protocol: Document 11/13/22 09:08 [facility] (Rec: 11/13/22 09:47 [facility] [id number]) Physical Therapy Assessment Goals squat Snf Goal (LTG) Pt will be able to repetitively squat as would be typically required of work LTG Duration 01/07 work Snf Goal (LTG) Pt will be able to return to full work job tasks w/o inc B knee pain or B foot pain 3-pushed off until January 12 LTG Duration 12/31 activities Short Term Goal (STG) Pt will be able to go up/down stairs w/o rail w/carrying objects w/o feeling of LOB or knee pain. STG Duration achieved 10/30 Telephone Appointment Clerk Goal (LTG) Pt will be able to squat low and lift objects w/o inc pain in B knees or LOB LTG Duration achieved 10/30 balance Short Term Goal (STG) Pt will be able to do SLS for 10 sec B w/o use of UEs for balance STG Duration achieved Telephone Appointment Clerk Goal (LTG) Pt will be able to do SLS B 20 sec w/o lat shear or use of UEs for balance. 3/2-some shear still w/R but dec UE use-can hold total fo 30 sec w/shear B LTG Duration 01/17 strength Short Term Goal (STG) Pt will be indep w/HEP 3/2-was until recent bout of flare up STG Duration 11/27 Telephone Appointment Clerk Goal (LTG) Pt will score at least 4+/5 on all MMT and at least 3/5 LPM to show improved stability in order for pt to be able to perform his job. 3/2-much improved LTG Duration 12/30 LEFS Impairment 50/80 Short Term Goal (STG) Pt iwll imrpove score to at least 60/80 to show improved functional ability. 3/2-improved to 58/80 STG Duration 12/10/22 Snf Goal (LTG) Pt iwll imrpove score to at least 70/80 to show improved functional ability. LTG Duration 01/07 Assessment Summary Assessment Pt demonstrated improved stamina with activity today and showed more balance during unstable surface activities. SLS w/y reachw as still difficult for pt Physical Therapy Plan Frequency and Duration Frequency of Treatment 1-2x/wk Duration of treatment (weeks) 10 Plan of Care Start Date 10/30/22 Plan of Care End Date 01/08/23 Next Visit Focus/Plan Next Note Type Treatment Note Next Visit Plan cont to wokr on LE strength/ endurance, work on balance & manual to help w/pain
--- NOTE | 2022-11-20 09:48 | PT.OTN ---
Current Diagnoses Diffuse large B-cell lymphoma, unspecified site (11/20/22) Other specified anxiety disorders (11/20/22) Drug-induced polyneuropathy (11/20/22) Pain in right knee (11/20/22) Pain in left knee (11/20/22) Other abnormalities of gait and mobility (11/20/22) Neoplastic (malignant) related fatigue (11/20/22) Other malaise (11/20/22) Adverse effect of antineoplastic and immunosuppressive drugs, initial encounter (11/20/22) Lack of physical exercise (11/20/22) Other reduced mobility (11/20/22) Physical Therapy Treatment Note PT-OP-A Visit Information Start: 08/14/22 17:59 Freq: Status: Active Protocol: Document 11/20/22 09:12 [facility] (Rec: 11/20/22 09:48 [facility] [id number]) Out-Patient Physical Therapy Visit Information Visit Information Visit Type Treatment Note Visit Start Time 09:07 Visit Stop Time 09:47 Total Visit Minutes 40 Visit Number 14 Number of IRRIGATOR OVERHEAD Visits 0 PT-OP-B Current Condition Start: 08/14/22 17:59 Freq: Status: Active Protocol: Document 08/18/22 15:03 [facility] (Rec: 08/18/22 17:43 [facility] [id number]) Current Condition History of Current Condition Current Complaints dec balance, B knee pain History of Current Condition Pt reports he is a cancer paitient. He works for [employer]. He has been experiencing back pain and made a Jasmeet's Act claim after missing the first step and fell and landed on his feet. He went to hospital d/t not being able to pee d/t mass in abdomen. Evenutally got admitted to [facility] and had nephrology tubes place. Has done chemo therapy whcih did not resolve the lymphoma. He has started immunotherapy. He was on prednisone for a long time and is off the last dose. He has been dealing w/ neuropathy on the bottom of feet (numbness) that inc his dec balacne and pain and swelling in knees. Also, has ureter stents now. He does too vigoreous activity, he gets blood in his urine. Pt has been off work for about 1 year ago. He is hopeful to go back soon. 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 Pt had swollen calves and was told he has venous insufficiency and went on a diaretic. He ended up in the hospital d/t DVTs B. He has an IVC filter in vena cava and on eloquist. the heavy dose of steroids he was on, really improved his knee pain. Its coming back again. He has seen a women's swim coach and Xrays were done and they saw deterioration so he is being followed for this. Pt reports he walks daily about a couple miles at the most mostly on roads w/some minor hills. Knee pain started on first round of chemo and neuropathy started after first dose of chemo. Back pain is now resolved. he may have felt a twinge during yard work but that is it. Pt has history of pain in R [place] got better w/[place] and rest. Treatment Goals Patient/Caregiver Goals Get back to work, inc stamina (can only do activity for a couple hours) PT-OP-C Subjective Start: 08/14/22 17:59 Freq: Status: Active Protocol: Document 11/20/22 09:12 [facility] (Rec: 11/20/22 09:48 [facility] [id number]) OP-PT Subjective Patient Comments Patient Comments Pt reports down to 10mg of prednizone now. He has felt quick minor twinges in his knee but that is all. PT-OP-D Balance Start: 08/14/22 17:59 Freq: Status: Active Protocol: Document 08/18/22 15:03 [facility] (Rec: 08/18/22 17:43 [facility] [id number]) Balance Tests Single Limb Standing Single Limb- Right 13 sec heavy arm use waving to keep balacne; lat shear over LE Single Limb- Left 15 sec heavy arm use waving to keep balacne; lat shear over LE PT-OP-E Functional Tests Start: 08/14/22 17:59 Freq: Status: Active Protocol: Document 08/18/22 15:03 [facility] (Rec: 08/18/22 17:43 [facility] [id number]) Functional Tests Functional Gait Assessment Score 24 PT-OP-F Manual Assessment Start: 08/14/22 17:59 Freq: Status: Active Protocol: Document 08/18/22 15:03 [facility] (Rec: 08/18/22 17:43 [facility] [id number]) Manual Assessments Soft Tissue Assessment Soft Tissue Mobility Assessment tightness B ITB and lat quad Joint Mobility Assessment Joint Mobility Assessment IR of tib and femur R w/knee bends and L ER; in standing tends to stand w/R Foto eR PT-OP-G Mobility & Gait Start: 08/14/22 17:59 Freq: Status: Active Protocol: Document 08/18/22 15:03 [facility] (Rec: 08/18/22 17:43 [facility] [id number]) OP Gait Assessment Comments Gait Comments dec overall push off B PT-OP-J Posture/Palpation/Skin Start: 08/14/22 17:59 Freq: Status: Active Protocol: Document 10/30/22 10:36 [facility] (Rec: 10/30/22 11:20 [facility] [id number]) Posture Evaluation [facility] Postural Classification System Lumbar Protective Mechanism Left AP 2 Lumbar Protective Mechanism Right AP 1 Lumbar Protective Mechanism Left PA 3 Lumbar Protective Mechanism Right PA 2 PT-OP-K Range of Motion Start: 08/14/22 17:59 Freq: Status: Active Protocol: Document 08/18/22 15:03 [facility] (Rec: 08/18/22 17:43 [facility] [id number]) Knee Goniometric Range of Motion Knee Right Flexion Active (degrees) 124 Extension Active (degrees) 4 Comments tight into flex Left Flexion Active (degrees) 127 Extension Active (degrees) 3 Comments tight w/flex PT-OP-L Special Tests Start: 08/14/22 17:59 Freq: Status: Active Protocol: Document 08/18/22 15:03 [facility] (Rec: 08/18/22 17:43 [facility] [id number]) Special Tests Knee Special Tests Fischer's Compression Test Results neg B Latosha's Test Test Results R> L tightness Straight Leg Raise Comments 68 deg L; 74 R HS stretch Sumanth Test Results mild TFL tightness B ligamentous testing Comments neg B Thessaly Test 5 Degrees Test Results neg B Apley's Compression Test Results neg PT-OP-M Strength Start: 08/14/22 17:59 Freq: Status: Active Protocol: Document 10/30/22 10:36 [facility] (Rec: 10/30/22 11:20 [facility] [id number]) Hip Strength Hip Manual Muscle Testing Right Flexion (L2) 5 Normal Extension (S1) 4- Good- Abduction 4 Good Adduction 4 Good External Rotation 5 Normal Internal Rotation 5 Normal Left Flexion (L2) 5 Normal Extension (S1) 4- Good- Abduction 4 Good Adduction 4 Good External Rotation 5 Normal Internal Rotation 5 Normal Knee Strength Knee Manual Muscle Testing Right Flexion (S2) 5 Normal Extension (L3) 5 Normal Left Flexion (S2) 5 Normal Extension (L3) 5 Normal Ankle/Foot Strength Ankle and Foot Manual Muscle Testing Right Dorsiflexion (L4) 5 Normal Plantarflexion (S1) 5 Normal Inversion 5 Normal Eversion (S1) 4- Good- Comments 20 heel raises Left Dorsiflexion (L4) 5 Normal Plantarflexion (S1) 5 Normal Inversion 5 Normal Eversion (S1) 4+ Good+ Comments 20 heel raises B very difficult B PT-OP-Q Treatments Start: 08/14/22 17:59 Freq: Status: Active Protocol: Document 11/20/22 09:12 [facility] (Rec: 11/20/22 09:48 [facility] [id number]) Cardio Equipment Elliptical Duration (Minutes) 6 Resistance 6 Gym Equipment Therapeutic Ball supine Ball Size/Color 75cm Body Position Supine Reps/Duration 10 ea Comments 1. bridge w/knees ext 3 sec holds 2 bridge w/HS curl seated Ball Size/Color 75 cm Body Position Sitting Comments 1. seated marches 2# ankle wts x15 B 2. seated knee ext 2# ankle wts x15 B 3. seated sit backs w/cues for back position x10 4. surinamese twist w/lean back w /4.4 lb in hands B x10 Therapeutic Exercises Standing Exercises carry Standing Exercise Name carry 30lb wt in hand around clinic and up/down training and lobby stairs Reps/Minutes 3 min Neuro Re-Education Treatment Balance Activities SLS Comments Y reach x3 B bosu Comments 1. step ups fwd w/alt october x10 B 2. mini squat x15 ea black & blue side 3. SLS blue side B 4. fwd lunge x10 B 5. lat step ups w/alt october0 B 6. lat lunge x10 B PT-OP-T Assessment and Plan Start: 08/14/22 17:59 Freq: Status: Active Protocol: Document 11/20/22 09:12 [facility] (Rec: 11/20/22 09:48 [facility] [id number]) Physical Therapy Assessment Goals squat Termite Exterminator Goal (LTG) Pt will be able to repetitively squat as would be typically required of work LTG Duration 01/07 work Shelter Goal (LTG) Pt will be able to return to full work job tasks w/o inc B knee pain or B foot pain 3/2-pushed off until January 12 LTG Duration 12/31 activities Short Term Goal (STG) Pt will be able to go up/down stairs w/o rail w/carrying objects w/o feeling of LOB or knee pain. STG Duration achieved 3/2 Termite Exterminator Goal (LTG) Pt will be able to squat low and lift objects w/o inc pain in B knees or LOB LTG Duration achieved 3/2 balance Short Term Goal (STG) Pt will be able to do SLS for 10 sec B w/o use of UEs for balance STG Duration achieved Shelter Goal (LTG) Pt will be able to do SLS B 20 sec w/o lat shear or use of UEs for balance. 3/2-some shear still w/R but dec UE use-can hold total fo 30 sec w/shear B LTG Duration 01/17 strength Short Term Goal (STG) Pt will be indep w/HEP 3/2-was until recent bout of flare up STG Duration 11/27 Termite Exterminator Goal (LTG) Pt will score at least 4+/5 on all MMT and at least 3/5 LPM to show improved stability in order for pt to be able to perform his job. 3/2-much improved LTG Duration 12/30 LEFS Impairment 50/80 Short Term Goal (STG) Pt iwll imrpove score to at least 60/80 to show improved functional ability. 3/2-improved to 58/80 STG Duration 12/10/22 Termite Exterminator Goal (LTG) Pt iwll imrpove score to at least 70/80 to show improved functional ability. LTG Duration 01/07 Assessment Summary Assessment Pt cont to improve w/his stability and balacne along w/ stamina. He is tolerating exercises well w/o c/o pain. He appears stronger but does still show dec balance overall . Physical Therapy Plan Frequency and Duration Frequency of Treatment 1-2x/wk Duration of treatment (weeks) 10 Plan of Care Start Date 10/30/22 Plan of Care End Date 01/08/23 Next Visit Focus/Plan Next Note Type Treatment Note Next Visit Plan cont to wokr on LE strength/ endurance, work on balance & manual to help w/pain
--- NOTE | 2022-12-03 13:46 | PT.OTN ---
Current Diagnoses Diffuse large B-cell lymphoma, unspecified site (12/03/22) Other specified anxiety disorders (12/03/22) Drug-induced polyneuropathy (12/03/22) Pain in right knee (12/03/22) Pain in left knee (12/03/22) Other abnormalities of gait and mobility (12/03/22) Neoplastic (malignant) related fatigue (12/03/22) Other malaise (12/03/22) Adverse effect of antineoplastic and immunosuppressive drugs, initial encounter (12/03/22) Lack of physical exercise (12/03/22) Other reduced mobility (12/03/22) Physical Therapy Treatment Note PT-OP-A Visit Information Start: 08/14/22 17:59 Freq: Status: Active Protocol: Document 12/03/22 13:02 [facility] (Rec: 12/03/22 13:46 [facility] [id number]) Out-Patient Physical Therapy Visit Information Visit Information Visit Type Treatment Note Visit Start Time 13:03 Visit Stop Time 13:42 Total Visit Minutes 39 Visit Number 15 Number of QUALITY CONTROL OPERATOR Visits 0 PT-OP-B Current Condition Start: 08/14/22 17:59 Freq: Status: Active Protocol: Document 08/18/22 15:03 [facility] (Rec: 08/18/22 17:43 [facility] [id number]) Current Condition History of Current Condition Current Complaints dec balance, B knee pain History of Current Condition Pt reports he is a cancer paitient. He works for [employer]. He has been experiencing back pain and made a Jasmeet's Act claim after missing the first step and fell and landed on his feet. He went to hospital d/t not being able to pee d/t mass in abdomen. Evenutally got admitted to [facility] and had nephrology tubes place. Has done chemo therapy whcih did not resolve the lymphoma. He has started immunotherapy. He was on prednisone for a long time and is off the last dose. He has been dealing w/ neuropathy on the bottom of feet (numbness) that inc his dec balacne and pain and swelling in knees. Also, has ureter stents now. He does too vigoreous activity, he gets blood in his urine. Pt has been off work for about 1 year ago. He is hopeful to go back soon. 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 Pt had swollen calves and was told he has venous insufficiency and went on a diaretic. He ended up in the hospital d/t DVTs B. He has an IVC filter in vena cava and on eloquist. the heavy dose of steroids he was on, really improved his knee pain. Its coming back again. He has seen a waybill clerk and Xrays were done and they saw deterioration so he is being followed for this. Pt reports he walks daily about a couple miles at the most mostly on roads w/some minor hills. Knee pain started on first round of chemo and neuropathy started after first dose of chemo. Back pain is now resolved. he may have felt a twinge during yard work but that is it. Pt has history of pain in R [place] got better w/ice and rest. Treatment Goals Patient/Caregiver Goals Get back to work, inc stamina (can only do activity for a couple hours) PT-OP-C Subjective Start: 08/14/22 17:59 Freq: Status: Active Protocol: Document 12/03/22 13:02 [facility] (Rec: 12/03/22 13:46 [facility] [id number]) OP-PT Subjective Patient Comments Patient Comments Pt reports his stent is out now so has been able to do longer walks. overall been feeling good. Pt is down to 5 mg every other day of prednisone. No pain noted PT-OP-D Balance Start: 08/14/22 17:59 Freq: Status: Active Protocol: Document 08/18/22 15:03 [facility] (Rec: 08/18/22 17:43 [facility] [id number]) Balance Tests Single Limb Standing Single Limb- Right 13 sec heavy arm use waving to keep balacne; lat shear over LE Single Limb- Left 15 sec heavy arm use waving to keep balacne; lat shear over LE PT-OP-E Functional Tests Start: 08/14/22 17:59 Freq: Status: Active Protocol: Document 08/18/22 15:03 [facility] (Rec: 08/18/22 17:43 [facility] [id number]) Functional Tests Functional Gait Assessment Score 24 PT-OP-F Manual Assessment Start: 08/14/22 17:59 Freq: Status: Active Protocol: Document 08/18/22 15:03 [facility] (Rec: 08/18/22 17:43 [facility] [id number]) Manual Assessments Soft Tissue Assessment Soft Tissue Mobility Assessment tightness B ITB and lat quad Joint Mobility Assessment Joint Mobility Assessment IR of tib and femur R w/knee bends and L ER; in standing tends to stand w/R Foto eR PT-OP-G Mobility & Gait Start: 08/14/22 17:59 Freq: Status: Active Protocol: Document 08/18/22 15:03 [facility] (Rec: 08/18/22 17:43 [facility] [id number]) OP Gait Assessment Comments Gait Comments dec overall push off B PT-OP-J Posture/Palpation/Skin Start: 08/14/22 17:59 Freq: Status: Active Protocol: Document 10/30/22 10:36 [facility] (Rec: 10/30/22 11:20 [facility] [id number]) Posture Evaluation [facility] Postural Classification System Lumbar Protective Mechanism Left AP 2 Lumbar Protective Mechanism Right AP 1 Lumbar Protective Mechanism Left PA 3 Lumbar Protective Mechanism Right PA 2 PT-OP-K Range of Motion Start: 08/14/22 17:59 Freq: Status: Active Protocol: Document 08/18/22 15:03 [facility] (Rec: 08/18/22 17:43 [facility] [id number]) Knee Goniometric Range of Motion Knee Right Flexion Active (degrees) 124 Extension Active (degrees) 4 Comments tight into flex Left Flexion Active (degrees) 127 Extension Active (degrees) 3 Comments tight w/flex PT-OP-L Special Tests Start: 08/14/22 17:59 Freq: Status: Active Protocol: Document 08/18/22 15:03 [facility] (Rec: 08/18/22 17:43 [facility] [id number]) Special Tests Knee Special Tests Fischer's Compression Test Results neg B Latosha's Test Test Results R> L tightness Straight Leg Raise Comments 68 deg L; 74 R HS stretch Sumanth Test Results mild TFL tightness B ligamentous testing Comments neg B Thessaly Test 5 Degrees Test Results neg B Apley's Compression Test Results neg PT-OP-M Strength Start: 08/14/22 17:59 Freq: Status: Active Protocol: Document 10/30/22 10:36 [facility] (Rec: 10/30/22 11:20 [facility] [id number]) Hip Strength Hip Manual Muscle Testing Right Flexion (L2) 5 Normal Extension (S1) 4- Good- Abduction 4 Good Adduction 4 Good External Rotation 5 Normal Internal Rotation 5 Normal Left Flexion (L2) 5 Normal Extension (S1) 4- Good- Abduction 4 Good Adduction 4 Good External Rotation 5 Normal Internal Rotation 5 Normal Knee Strength Knee Manual Muscle Testing Right Flexion (S2) 5 Normal Extension (L3) 5 Normal Left Flexion (S2) 5 Normal Extension (L3) 5 Normal Ankle/Foot Strength Ankle and Foot Manual Muscle Testing Right Dorsiflexion (L4) 5 Normal Plantarflexion (S1) 5 Normal Inversion 5 Normal Eversion (S1) 4- Good- Comments 20 heel raises Left Dorsiflexion (L4) 5 Normal Plantarflexion (S1) 5 Normal Inversion 5 Normal Eversion (S1) 4+ Good+ Comments 20 heel raises B very difficult B PT-OP-Q Treatments Start: 08/14/22 17:59 Freq: Status: Active Protocol: Document 12/03/22 13:02 [facility] (Rec: 12/03/22 13:46 [facility] [id number]) Cardio Equipment Elliptical Duration (Minutes) 6 Resistance 6 Gym Equipment Shuttle Balance red clips Details w/hitting balloon Comments FWD & side: WBOS & NBOS fwd: staggered stance Therapeutic Ball supine Ball Size/Color 75cm Body Position Supine Reps/Duration 8 ea Comments 1. bridge w/knees ext 5 sec holds-cues no LE ER 2 bridge w/HS curl seated Ball Size/Color 75 cm Body Position Sitting Comments 1. seated marches 2# ankle wts x15 B 2. seated knee ext 2# ankle wts x15 B 3. seated sit backs w/cues for back position x15- PT holding feet 4. colombian twist w/lean back w /5.5 lb in hands B x10 Neuro Re-Education Treatment Balance Activities SLS Comments Y reach x3 B bosu Comments 1. step ups fwd w/alt march B x10 B 2. mini squat x15 ea black & blue side 3. SLS blue and black side B 4. fwd lunge x10 B 5. lat step ups w/alt october x10 B 6. lat lunge x10 B PT-OP-T Assessment and Plan Start: 08/14/22 17:59 Freq: Status: Active Protocol: Document 12/03/22 13:02 [facility] (Rec: 12/03/22 13:46 [facility] [id number]) Physical Therapy Assessment Goals squat Residential Goal (LTG) Pt will be able to repetitively squat as would be typically required of work LTG Duration 01/07 work Residential Goal (LTG) Pt will be able to return to full work job tasks w/o inc B knee pain or B foot pain 3/2-pushed off until January 12 LTG Duration 12/31 activities Short Term Goal (STG) Pt will be able to go up/down stairs w/o rail w/carrying objects w/o feeling of LOB or knee pain. STG Duration achieved 3/ Residential Goal (LTG) Pt will be able to squat low and lift objects w/o inc pain in B knees or LOB LTG Duration achieved 3/2 balance Short Term Goal (STG) Pt will be able to do SLS for 10 sec B w/o use of UEs for balance STG Duration achieved Residential Goal (LTG) Pt will be able to do SLS B 20 sec w/o lat shear or use of UEs for balance. 3/2-some shear still w/R but dec UE use-can hold total fo 30 sec w/shear B LTG Duration 01/17 strength Short Term Goal (STG) Pt will be indep w/HEP 3/2-was until recent bout of flare up STG Duration 11/27 Residential Goal (LTG) Pt will score at least 4+/5 on all MMT and at least 3/5 LPM to show improved stability in order for pt to be able to perform his job. 3/2-much improved LTG Duration 12/30 LEFS Impairment 50/80 Short Term Goal (STG) Pt iwll imrpove score to at least 60/80 to show improved functional ability. 3/2-improved to 58/80 STG Duration 12/10/22 Residential Goal (LTG) Pt iwll imrpove score to at least 70/80 to show improved functional ability. LTG Duration 01/07 Assessment Summary Assessment Pt did great w/exercises today and showed great balance w/ all unstable surfaces. He cont to do better w/activity tolerance and shows more stability needed for his return to work. Physical Therapy Plan Frequency and Duration Frequency of Treatment 1-2x/wk Duration of treatment (weeks) 10 Plan of Care Start Date 10/30/22 Plan of Care End Date 01/08/23 Next Visit Focus/Plan Next Note Type Treatment Note Next Visit Plan cont to wokr on LE strength/ endurance, work on balance & manual to help w/pain
--- NOTE | 2022-12-24 11:17 | PT.OTN ---
Current Diagnoses Diffuse large B-cell lymphoma, unspecified site (12/24/22) Other specified anxiety disorders (12/24/22) Drug-induced polyneuropathy (12/24/22) Pain in right knee (12/24/22) Pain in left knee (12/24/22) Other abnormalities of gait and mobility (12/24/22) Neoplastic (malignant) related fatigue (12/24/22) Other malaise (12/24/22) Adverse effect of antineoplastic and immunosuppressive drugs, initial encounter (12/24/22) Lack of physical exercise (12/24/22) Other reduced mobility (12/24/22) Physical Therapy Treatment Note PT-OP-A Visit Information Start: 08/14/22 17:59 Freq: Status: Active Protocol: Document 12/24/22 10:38 [facility] (Rec: 12/24/22 11:16 [facility] [id number]) Out-Patient Physical Therapy Visit Information Visit Information Visit Type Treatment Note Visit Start Time 10:36 Visit Stop Time 11:15 Total Visit Minutes 39 Visit Number 16 Number of PICKLE MAKER Visits 0 PT-OP-B Current Condition Start: 08/14/22 17:59 Freq: Status: Active Protocol: Document 08/18/22 15:03 [facility] (Rec: 08/18/22 17:43 [facility] [id number]) Current Condition History of Current Condition Current Complaints dec balance, B knee pain History of Current Condition Pt reports he is a cancer paitient. He works for [employer]. He has been experiencing back pain and made a Jasmeet's Act claim after missing the first step and fell and landed on his feet. He went to hospital d/t not being able to pee d/t mass in abdomen. Evenutally got admitted to [facility] and had nephrology tubes place. Has done chemo therapy whcih did not resolve the lymphoma. He has started immunotherapy. He was on prednisone for a long time and is off the last dose. He has been dealing w/ neuropathy on the bottom of feet (numbness) that inc his dec balacne and pain and swelling in knees. Also, has ureter stents now. He does too vigoreous activity, he gets blood in his urine. Pt has been off work for about 1 year ago. He is hopeful to go back soon. 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 Pt had swollen calves and was told he has venous insufficiency and went on a diaretic. He ended up in the hospital d/t DVTs B. He has an IVC filter in vena cava and on eloquist. the heavy dose of steroids he was on, really improved his knee pain. Its coming back again. He has seen a distributor cleaner and Xrays were done and they saw deterioration so he is being followed for this. Pt reports he walks daily about a couple miles at the most mostly on roads w/some minor hills. Knee pain started on first round of chemo and neuropathy started after first dose of chemo. Back pain is now resolved. he may have felt a twinge during yard work but that is it. Pt has history of pain in R knee [place] got better w/ice and rest. Treatment Goals Patient/Caregiver Goals Get back to work, inc stamina (can only do activity for a couple hours) PT-OP-C Subjective Start: 08/14/22 17:59 Freq: Status: Active Protocol: Document 12/24/22 10:38 [facility] (Rec: 12/24/22 11:16 [facility] [id number]) OP-PT Subjective Patient Comments Patient Comments Pt reports he has been going on walks and doing yard work. They tried to remove his IVC filter but will have to go to for this. PT-OP-D Balance Start: 08/14/22 17:59 Freq: Status: Active Protocol: Document 08/18/22 15:03 [facility] (Rec: 08/18/22 17:43 [facility] [id number]) Balance Tests Single Limb Standing Single Limb- Right 13 sec heavy arm use waving to keep balacne; lat shear over LE Single Limb- Left 15 sec heavy arm use waving to keep balacne; lat shear over LE PT-OP-E Functional Tests Start: 08/14/22 17:59 Freq: Status: Active Protocol: Document 08/18/22 15:03 [facility] (Rec: 08/18/22 17:43 [facility] [id number]) Functional Tests Functional Gait Assessment Score 24 PT-OP-F Manual Assessment Start: 08/14/22 17:59 Freq: Status: Active Protocol: Document 08/18/22 15:03 [facility] (Rec: 08/18/22 17:43 [facility] [id number]) Manual Assessments Soft Tissue Assessment Soft Tissue Mobility Assessment tightness B ITB and lat quad Joint Mobility Assessment Joint Mobility Assessment IR of tib and femur R w/knee bends and L ER; in standing tends to stand w/R Foto eR PT-OP-G Mobility & Gait Start: 08/14/22 17:59 Freq: Status: Active Protocol: Document 08/18/22 15:03 [facility] (Rec: 08/18/22 17:43 [facility] [id number]) OP Gait Assessment Comments Gait Comments dec overall push off B PT-OP-J Posture/Palpation/Skin Start: 08/14/22 17:59 Freq: Status: Active Protocol: Document 10/30/22 10:36 [facility] (Rec: 10/30/22 11:20 [facility] [id number]) Posture Evaluation [facility] Postural Classification System Lumbar Protective Mechanism Left AP 2 Lumbar Protective Mechanism Right AP 1 Lumbar Protective Mechanism Left PA 3 Lumbar Protective Mechanism Right PA 2 PT-OP-K Range of Motion Start: 08/14/22 17:59 Freq: Status: Active Protocol: Document 08/18/22 15:03 [facility] (Rec: 08/18/22 17:43 [facility] [id number]) Knee Goniometric Range of Motion Knee Right Flexion Active (degrees) 124 Extension Active (degrees) 4 Comments tight into flex Left Flexion Active (degrees) 127 Extension Active (degrees) 3 Comments tight w/flex PT-OP-L Special Tests Start: 08/14/22 17:59 Freq: Status: Active Protocol: Document 08/18/22 15:03 [facility] (Rec: 08/18/22 17:43 [facility] [id number]) Special Tests Knee Special Tests Fischer's Compression Test Results neg B Latosha's Test Test Results R> L tightness Straight Leg Raise Comments 68 deg L; 74 R HS stretch Sumanth Test Results mild TFL tightness B ligamentous testing Comments neg B Thessaly Test 5 Degrees Test Results neg B Apley's Compression Test Results neg PT-OP-M Strength Start: 08/14/22 17:59 Freq: Status: Active Protocol: Document 10/30/22 10:36 [facility] (Rec: 10/30/22 11:20 [facility] [id number]) Hip Strength Hip Manual Muscle Testing Right Flexion (L2) 5 Normal Extension (S1) 4- Good- Abduction 4 Good Adduction 4 Good External Rotation 5 Normal Internal Rotation 5 Normal Left Flexion (L2) 5 Normal Extension (S1) 4- Good- Abduction 4 Good Adduction 4 Good External Rotation 5 Normal Internal Rotation 5 Normal Knee Strength Knee Manual Muscle Testing Right Flexion (S2) 5 Normal Extension (L3) 5 Normal Left Flexion (S2) 5 Normal Extension (L3) 5 Normal Ankle/Foot Strength Ankle and Foot Manual Muscle Testing Right Dorsiflexion (L4) 5 Normal Plantarflexion (S1) 5 Normal Inversion 5 Normal Eversion (S1) 4- Good- Comments 20 heel raises Left Dorsiflexion (L4) 5 Normal Plantarflexion (S1) 5 Normal Inversion 5 Normal Eversion (S1) 4+ Good+ Comments 20 heel raises B very difficult B PT-OP-Q Treatments Start: 08/14/22 17:59 Freq: Status: Active Protocol: Document 12/24/22 10:38 [facility] (Rec: 12/24/22 11:16 [facility] [id number]) Cardio Equipment Elliptical Duration (Minutes) 6 Resistance 6 Gym Equipment Shuttle Balance red clips Details w/hitting balloon Comments FWD & side: WBOS & NBOS fwd: staggered stance Therapeutic Ball supine Ball Size/Color 75cm Body Position Supine Reps/Duration 8 ea Comments 1. bridge w/knees ext 5 sec holds-cues no LE ER seated Ball Size/Color 75 cm Body Position Sitting Comments 1. seated marches 2# ankle wts x15 B 2. seated knee ext 2# ankle wts x15 B 3. seated sit backs w/cues for back position x15- PT holding feet 4. beninese twist w/lean back w /5.5 lb in hands B x10 Therapeutic Exercises Standing Exercises carry Standing Exercise Name carry 30lb wt in hand around clinic and up/down training and lobby stairs Reps/Minutes 3 min Neuro Re-Education Treatment Balance Activities SLS Comments Y reach x3 B bosu Comments 1. step ups fwd w/alt march B x10 B 2. mini squat x12 ea black & blue side 3. SLS blue and black side B 4. fwd lunge x10 B 5. lat step ups w/alt october x10 B 6. lat lunge x10 B PT-OP-T Assessment and Plan Start: 08/14/22 17:59 Freq: Status: Active Protocol: Document 12/24/22 10:38 [facility] (Rec: 12/24/22 11:16 [facility] [id number]) Physical Therapy Assessment Goals squat Supervisor [employer]ir Goal (LTG) Pt will be able to repetitively squat as would be typically required of work LTG Duration 01/07 work Halfway Goal (LTG) Pt will be able to return to full work job tasks w/o inc B knee pain or B foot pain 3/2-pushed off until January 12 LTG Duration 12/31 activities Short Term Goal (STG) Pt will be able to go up/down stairs w/o rail w/carrying objects w/o feeling of LOB or knee pain. STG Duration achieved 3/2 Supervisor [employer]ir Goal (LTG) Pt will be able to squat low and lift objects w/o inc pain in B knees or LOB LTG Duration achieved 3/2 balance Short Term Goal (STG) Pt will be able to do SLS for 10 sec B w/o use of UEs for balance STG Duration achieved Halfway Goal (LTG) Pt will be able to do SLS B 20 sec w/o lat shear or use of UEs for balance. 3/2-some shear still w/R but dec UE use-can hold total fo 30 sec w/shear B LTG Duration 01/17 strength Short Term Goal (STG) Pt will be indep w/HEP 3/2-was until recent bout of flare up STG Duration 11/27 Halfway Goal (LTG) Pt will score at least 4+/5 on all MMT and at least 3/5 LPM to show improved stability in order for pt to be able to perform his job. 3/2-much improved LTG Duration 12/30 LEFS Impairment 50/80 Short Term Goal (STG) Pt iwll imrpove score to at least 60/80 to show improved functional ability. 3/2-improved to 58/80 STG Duration 12/10/22 Halfway Goal (LTG) Pt iwll imrpove score to at least 70/80 to show improved functional ability. LTG Duration 01/07 Assessment Summary Assessment Pt is showing much inc stability and balance. He appears at greater ease on all unstable surfaces. he is showing good activity tolerance and endurance w/ heavy work activities Physical Therapy Plan Frequency and Duration Frequency of Treatment 1-2x/wk Duration of treatment (weeks) 10 Plan of Care Start Date 10/30/22 Plan of Care End Date 01/08/23 Next Visit Focus/Plan Next Note Type Discharge Summary Next Visit Plan review HEP and discuss any pt concerns
--- NOTE | 2023-01-12 08:45 | PT.OPDS ---
Current Diagnoses Diffuse large B-cell lymphoma, unspecified site (12/24/22) Other specified anxiety disorders (12/24/22) Drug-induced polyneuropathy (12/24/22) Pain in right knee (12/24/22) Pain in left knee (12/24/22) Other abnormalities of gait and mobility (12/24/22) Neoplastic (malignant) related fatigue (12/24/22) Other malaise (12/24/22) Adverse effect of antineoplastic and immunosuppressive drugs, initial encounter (12/24/22) Lack of physical exercise (12/24/22) Other reduced mobility (12/24/22) Visit Care Team Role Provider Type Other Providers Specialty: Address: Phone: Fax: Email: Calixto Ferguson MD Family Provider Physician Primary Care Provider Specialty: Internal Medicine Address: [address] [place] [address], [address], [facility] Email: [email or web address] Tavon Samuel MD Attending Provider Non-Staff Referring Provider Specialty: Physical Medicine and Rehab Address: [address] [place] [address] [address], [place], [place], [facility] Email: Visit Number Visit Number 16 Discharge Summary PT-OP-B Current Condition Start: 08/14/22 17:59 Freq: Status: Active Protocol: Document 08/18/22 15:03 [facility] (Rec: 08/18/22 17:43 [facility] [id number]) Current Condition History of Current Condition Current Complaints dec balance, B knee pain History of Current Condition Pt reports he is a cancer paitient. He works for [employer]. He has been experiencing back pain and made a Jasmeet's Act claim after missing the first step and fell and landed on his feet. He went to hospital d/t not being able to pee d/t mass in abdomen. Evenutally got admitted to [facility] and had nephrology tubes place. Has done chemo therapy whcih did not resolve the lymphoma. He has started immunotherapy. He was on prednisone for a long time and is off the last dose. He has been dealing w/ neuropathy on the bottom of feet (numbness) that inc his dec balacne and pain and swelling in knees. Also, has ureter stents now. He does too vigoreous activity, he gets blood in his urine. Pt has been off work for about 1 year ago. He is hopeful to go back soon. 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 Pt had swollen calves and was told he has venous insufficiency and went on a diaretic. He ended up in the hospital d/t DVTs B. He has an IVC filter in vena cava and on eloquist. the heavy dose of steroids he was on, really improved his knee pain. Its coming back again. He has seen a public relations player and Xrays were done and they saw deterioration so he is being followed for this. Pt reports he walks daily about a couple miles at the most mostly on roads w/some minor hills. Knee pain started on first round of chemo and neuropathy started after first dose of chemo. Back pain is now resolved. he may have felt a twinge during yard work but that is it. Pt has history of pain in R knee [place] got better w/ice and rest. Treatment Goals Patient/Caregiver Goals Get back to work, inc stamina (can only do activity for a couple hours) PT-OP-C Subjective Start: 08/14/22 17:59 Freq: Status: Active Protocol: Document 12/24/22 10:38 [facility] (Rec: 12/24/22 11:16 [facility] [id number]) OP-PT Subjective Patient Comments Patient Comments Pt reports he has been going on walks and doing yard work. They tried to remove his IVC filter but will have to go to for this. PT-OP-D Balance Start: 08/14/22 17:59 Freq: Status: Active Protocol: Document 08/18/22 15:03 [facility] (Rec: 08/18/22 17:43 [facility] [id number]) Balance Tests Single Limb Standing Single Limb- Right 13 sec heavy arm use waving to keep balacne; lat shear over LE Single Limb- Left 15 sec heavy arm use waving to keep balacne; lat shear over LE PT-OP-E Functional Tests Start: 08/14/22 17:59 Freq: Status: Active Protocol: Document 08/18/22 15:03 [facility] (Rec: 08/18/22 17:43 [facility] [id number]) Functional Tests Functional Gait Assessment Score 24 PT-OP-F Manual Assessment Start: 08/14/22 17:59 Freq: Status: Active Protocol: Document 08/18/22 15:03 [facility] (Rec: 08/18/22 17:43 [facility] [id number]) Manual Assessments Soft Tissue Assessment Soft Tissue Mobility Assessment tightness B ITB and lat quad Joint Mobility Assessment Joint Mobility Assessment IR of tib and femur R w/knee bends and L ER; in standing tends to stand w/R Foto eR PT-OP-G Mobility & Gait Start: 08/14/22 17:59 Freq: Status: Active Protocol: Document 08/18/22 15:03 [facility] (Rec: 08/18/22 17:43 [facility] [id number]) OP Gait Assessment Comments Gait Comments dec overall push off B PT-OP-J Posture/Palpation/Skin Start: 08/14/22 17:59 Freq: Status: Active Protocol: Document 10/30/22 10:36 [facility] (Rec: 10/30/22 11:20 [facility] [id number]) Posture Evaluation [facility] Postural Classification System Lumbar Protective Mechanism Left AP 2 Lumbar Protective Mechanism Right AP 1 Lumbar Protective Mechanism Left PA 3 Lumbar Protective Mechanism Right PA 2 PT-OP-K Range of Motion Start: 08/14/22 17:59 Freq: Status: Active Protocol: Document 08/18/22 15:03 [facility] (Rec: 08/18/22 17:43 [facility] [id number]) Knee Goniometric Range of Motion Knee Right Flexion Active (degrees) 124 Extension Active (degrees) 4 Comments tight into flex Left Flexion Active (degrees) 127 Extension Active (degrees) 3 Comments tight w/flex PT-OP-L Special Tests Start: 08/14/22 17:59 Freq: Status: Active Protocol: Document 08/18/22 15:03 [facility] (Rec: 08/18/22 17:43 [facility] [id number]) Special Tests Knee Special Tests Fischer's Compression Test Results neg B Latosha's Test Test Results R> L tightness Straight Leg Raise Comments 68 deg L; 74 R HS stretch Sumanth Test Results mild TFL tightness B ligamentous testing Comments neg B Thessaly Test 5 Degrees Test Results neg B Apley's Compression Test Results neg PT-OP-M Strength Start: 08/14/22 17:59 Freq: Status: Active Protocol: Document 10/30/22 10:36 [facility] (Rec: 10/30/22 11:20 [facility] [id number]) Hip Strength Hip Manual Muscle Testing Right Flexion (L2) 5 Normal Extension (S1) 4- Good- Abduction 4 Good Adduction 4 Good External Rotation 5 Normal Internal Rotation 5 Normal Left Flexion (L2) 5 Normal Extension (S1) 4- Good- Abduction 4 Good Adduction 4 Good External Rotation 5 Normal Internal Rotation 5 Normal Knee Strength Knee Manual Muscle Testing Right Flexion (S2) 5 Normal Extension (L3) 5 Normal Left Flexion (S2) 5 Normal Extension (L3) 5 Normal Ankle/Foot Strength Ankle and Foot Manual Muscle Testing Right Dorsiflexion (L4) 5 Normal Plantarflexion (S1) 5 Normal Inversion 5 Normal Eversion (S1) 4- Good- Comments 20 heel raises Left Dorsiflexion (L4) 5 Normal Plantarflexion (S1) 5 Normal Inversion 5 Normal Eversion (S1) 4+ Good+ Comments 20 heel raises B very difficult B PT-OP-T Assessment and Plan Start: 08/14/22 17:59 Freq: Status: Active Protocol: Document 01/12/23 08:44 [facility] (Rec: 01/12/23 08:45 [facility] [id number]) Physical Therapy Assessment Goals squat 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 STG Duration achieved 3/2 Land Leasing Information Clerk Goal (LTG) Pt will be able to squat low and lift objects w/o inc pain in B knees or LOB LTG Duration achieved 3/2 balance Short Term Goal (STG) Pt will be able to do SLS for 10 sec B w/o use of UEs for balance STG Duration achieved Land Leasing Information Clerk Goal (LTG) Pt will be able to do SLS B 20 sec w/o lat shear or use of UEs for balance. 3/-some shear still w/R but dec UE use-can hold total fo 30 sec w/shear B LTG Duration 01/17 strength Short Term Goal (STG) Pt will be indep w/HEP 3/-was until recent bout of flare up STG Duration 11/27 Land Leasing Information Clerk Goal (LTG) Pt will score at least 4+/5 on all MMT and at least 3/5 LPM to show improved stability in order for pt to be able to perform his job. 3-much improved LTG Duration 12/30 LEFS Impairment 50/80 Short Term Goal (STG) Pt iwll imrpove score to at least 60/80 to show improved functional ability. 3-improved to 58/80 STG Duration 12/10/22 Land Leasing Information Clerk Goal (LTG) Pt iwll imrpove score to at least 70/80 to show improved functional ability. LTG Duration 01/07 Assessment Summary Assessment Patient LVM on 01/07/23 at 1153 to cancel final visit for 07/23. He asked for DC. DC was planned for that last visit. Pt was doign well with intensive PT sessions and was showing good strength and activity tolerance and was completing work at home, which inc likelihood pt will do fine w/return to work this month. DC at this time. Physical Therapy Plan Discharge Physical Therapy Discharge Reasons Patient Request Discharge Comments goals met
== END 2023-01-13 12:28 | disposition home or self-care (01) ==
LOC: PHYS 10:30
PROVIDERS: Family Provider Internal Medicine; PCP Internal Medicine; Referring Provider Student in an Organized Health Care Education/Training Program; Visit Provider Student in an Organized Health Care Education/Training Program
DX: Z74.09 Other reduced mobility (principal); C83.30 Diffuse large B-cell lymphoma, unspecified site; G62.0 Drug-induced polyneuropathy; T45.1X5A Adverse effect of antineoplastic and immunosuppressive drugs, initial encounter; Z72.3 Lack of physical exercise; R53.0 Neoplastic (malignant) related fatigue; R53.81 Other malaise; F41.8 Other specified anxiety disorders; R26.89 Other abnormalities of gait and mobility; M25.561 Pain in right knee; M25.562 Pain in left knee
CPT/HCPCS: 97110; 97112; 97140; 97163

== ENCOUNTER → 2023-01-06 08:31 | Outpatient (CLI) | payer OTHER, SELFPAY ==
--- NOTE | 2023-01-06 08:32 | DI.NM.S_ITS ---
PROCEDURE: [place] RENAL FUNCTION W LASIX RADIOPHARMACEUTICAL: 10.9 mCi Tc-99m MAG3 IV and 40 mg furosemide IV. INDICATIONS: Mag 3 Lasix Renogram TECHNIQUE: The patient was hydrated orally before the examination was begun. After intravenous administration of Tc-99m MAG3, posterior abdominal radionuclide angiogram and sequential (1 minute each frame) renal images were obtained. A time-activity curve for each kidney was generated and analyzed. To evaluate for obstruction, the patient was given 40 mg furosemide via slow intravenous injection after the start of the examination. Sequential images were obtained for up to an additional 20 minutes. COMPARISON: [place], [place] RENAL FUNCTION W LASIX, 03/20/2022, 13:58. [place] RENAL FUNCTION W LASIX, 01/20/2022, 12:50. [place] RENAL FUNCTION W LASIX, 10/30/2022, 12:33. FINDINGS: Perfusion: There is normal vascular flow to both kidneys. Morphology: Right Kidney is decreased in size compared to the left.. No dilated collecting systems are seen. The ureters and bladder fill with tracer, and appear normal. Function: Both kidneys demonstrate normal cortical tracer uptake, with [id number] activity ranging from 3 to 5 minutes. The right kidney contributes 17.2 % of total renal function. The left kidney contributes 82.8 % of total renal function. This is compared to 17.4% and 82.6% respectively. Lasix stimulation: After diuretic administration, there is prompt clearance of tracer activity from the renal collecting systems in both kidneys. The half-time of emptying of tracer activity from the right pelvicaliceal system is 16.3 minutes. The half-time of emptying from the left pelvicaliceal system is 9.1 minutes. This is compared to 21.8 minutes and 10.4 minutes. Normal emptying half-times are less than 10 minutes; borderline ranges are from 10 to 20 minutes. IMPRESSION: Split renal function measures 17.2% on the right and 82.8% on the left relatively stable compared to prior exam. T1/2 of the right kidney measures 16.3 minutes possibly demonstrating decreased accuracy because of poor renal function. It is noted to have measured 21.8 minutes on prior exam. Dictated by: Michelle Rodriguez M.D. on 01/06/2023 at 16:18 Approved by: Michelle Rodriguez M.D. on 01/06/2023 at 16:23
== END ==
PROVIDERS: Family Provider Internal Medicine; PCP Internal Medicine; Referring Provider Specialist; Visit Provider Specialist
DX: R39.9 Unspecified symptoms and signs involving the genitourinary system (principal)
CPT/HCPCS: 78708; A9562

== ENCOUNTER 2023-01-17 16:14 | Emergency (ER) | payer OTHER, SELFPAY ==
[2023-01-17] VITALS (17 sets, daily range): BP systolic 140–158; BP diastolic 76–86; PULSE 95–109; RESP 14–50; TEMP 36.8; O2SAT 91–96; BMI 37.3
--- NOTE | 2023-01-17 16:52 | PC.NURSE ---
pt states he is on eliquis for DVTs when he had lymphoma. He is currently in remission.
--- NOTE | 2023-01-17 16:53 | DI.RAD.S_ITS ---
PROCEDURE: XR CHEST 1V INDICATIONS: Shortness of breath TECHNIQUE: One view of the chest was acquired. COMPARISON: None. FINDINGS: Surgical changes and devices: Right chest wall port catheter, tip of which is in the lower SVC. Lungs and pleura: Moderate basilar predominant reticulonodular pulmonary opacity. No pleural effusions or pneumothorax. Mediastinum: Mediastinal contours appear normal. Heart size is normal. Bones and chest wall: No suspicious bony lesions. Overlying soft tissues appear unremarkable. IMPRESSION: Moderate atypical pneumonia. Dictated by: Jaxson Ortiz M.D. on 01/17/2023 at 16:28 Approved by: Jaxson Ortiz M.D. on 01/17/2023 at 16:28
--- NOTE | 2023-01-17 17:42 | ED.SOB ---
HPI - SOB/Dyspnea <Steve Canales DO - Last Filed: 01/18/23 12:28> General Chief Complaint: Shortness of Breath/Dyspnea Stated Complaint: SOB, O2 81 Time Seen by Provider: 01/17/23 17:42 Source: patient Mode of arrival: Ambulatory Limitations: no limitations History of Present Illness HPI Narrative: 53-year-old male nonsmoker with history of diffuse large B-cell lymphoma, most recently on immuno therapies about 1 month ago which was stopped due to colitis presents due to shortness of breath and cough over the day. He denies any fever or chills. He denies nausea or vomiting. He has had 3 episodes of diarrhea today and two yesterday. He denies recent antibiotics, bad food or exposure to other ill persons. Related Data Home Medications Medication Instructions Recorded Confirmed docusate sodium 250 mg capsule 250 mg PO BID 03/24/22 01/08/23 Previous Rx's Medication Instructions Recorded acyclovir 400 mg tablet 400 mg PO BID 30 days #60 tabs 02/24/22 atorvastatin 10 mg tablet (Lipitor) 10 mg PO HS #90 tabs 04/21/22 apixaban 5 mg tablet (Eliquis) 5 mg PO BID 30 days #60 tabs 06/23/22 prochlorperazine maleate 10 mg 10 mg PO Q6H PRN Nausea #30 tabs 06/25/22 tablet ondansetron 4 mg disintegrating 4 mg PO Q8H PRN nausea and 08/22/22 tablet vomiting #30 tabs levofloxacin 750 mg tablet 750 mg PO DAILY 4 days #4 tabs 01/17/23 Allergies Allergy/AdvReac Type Severity Reaction Status Date / Time amoxicillin [AMOXICILLIN] Allergy Severe Swelling Verified 01/08/23 10:36 of Lip/Tongue/Throat Sulfa (Sulfonamide Allergy Severe Swelling Verified 01/08/23 10:36 Antibiotics) of [SULFA (SULFONAMIDE Lip/Tongue/Throat ANTIBIOTICS)] Review of Systems <DO Jude Hayes Last Filed: 01/18/23 12:28> Review of Systems Narrative: GENERAL: See HPI HEENT: Denies sinus pain, ear pain, sore throat, difficulty swallowing, dizziness. RESPIRATORY: See HPI CARDIOVASCULAR: Denies chest pain, palpitations, orthopnea, edema, GASTROINTESTINAL: See HPI : Denies dysuria, frequency, incontinence, hematuria, urinary retention. MUSCULOSKELETAL: denies weakness, joint pain, or bony pain SKIN: Denies rash, skin lesions, or other NEUROLOGIC: Denies weakness, headache, numbness, change in speech, confusion, seizures, incoordination. PSYCHIATRIC: No concerning psychosocial issues. 12 point review of systems is negative except for those stated above Patient History <Steve Canales DO - Last Filed: 01/18/23 12:28> Medical History Arthritis Bilateral ureteral obstruction Bilateral ureteral obstruction Carpal tunnel syndrome of left wrist (06/23/16) Constipation Coronary artery calcification DVT (deep venous thrombosis) Hydronephrosis, right Impaired vision Lower urinary tract symptoms (LUTS) Mixed hyperlipidemia Obesity (BMI 30-39.9) Obstructive sleep apnea of adult Obstructive uropathy Peripheral edema Psoriasis (10/29/17) Retained ureteral stent Venous stasis Surgical History H/O right wrist surgery History of carpal tunnel release Hx of cystoscopy (04/18/22) Family History Father Age: 76 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 without complication, 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 Well-developed patient, in mild distress. HEAD: Atraumatic. Normocephalic. EYES: Pupils equal round and reactive. Extraocular motions intact. No scleral icterus. No injection or drainage. ENT: Nose without bleeding, purulent drainage. Throat without erythema, tonsillar hypertrophy or exudate. Airway patent. NECK: Trachea midline. Non tender CARDIOVASCULAR: Regular rate and rhythm without murmurs, gallops, or rubs. RESPIRATORY: Clear to auscultation. Breath sounds equal bilaterally. No wheezes, rales, or rhonchi. GASTROINTESTINAL: Abdomen soft, non-tender, nondistended. EXTREMITIES: No edema or joint tenderness. BACK: Nontender without deformity or crepitance. No flank tenderness. NEURO: AOx3. SKIN: No rash or erythema of visible areas Initial Vital Signs Initial Vital Signs: Vital Signs Pulse Rate 106 H 01/17/23 16:24 Pulse Oximetry 94 01/17/23 16:24 <Miya Herrera DO - Last Filed: 01/18/23 02:28> Initial Vital Signs Initial Vital Signs: Vital Signs Pulse Rate 106 H 01/17/23 16:24 Pulse Oximetry 94 01/17/23 16:24 Course <Steve Canales DO - Last Filed: 01/18/23 12:28> Orders Ordered: Discontinued Medications Heparin Sodium (Porcine) (Heparin Flush (Cl/Picc/Mid-Line) 50 Unit/5 Ml Syringe) 50 unit IV NOW ONE Stop: 01/17/23 21:36 Last Admin: 01/17/23 21:38 Dose: 50 unit Documented By: DOUG Sodium Chloride (Normal Saline 0.9%) 1,000 mls @ 1,000 mls/hr IV BOLUS ONE Stop: 01/17/23 19:02 Last Infusion: 01/17/23 20:51 Dose: 0 mls/hr Documented By: Admin: 01/17/23 18:38 Dose: 1,000 mls/hr Documented By: TORIE Azithromycin 500 mg/ Dextrose 250 mls @ 250 mls/hr IV NOW ONE Stop: 01/17/23 18:55 Last Infusion: 01/17/23 20:20 Dose: 0 mls/hr Documented By: Admin: 01/17/23 19:21 Dose: 250 mls/hr Documented By: KRISTYN Levofloxacin (Levofloxacin 250 Mg Tablet) 750 mg PO NOW ONE Stop: 01/17/23 21:15 Last Admin: 01/17/23 21:33 Dose: 750 mg Documented By: DOUG Vital Signs Vital signs: Vital Signs - 8 hr 01/17/23 18:30 01/17/23 18:40 01/17/23 18:40 Pulse Rate 99 H 101 H Respiratory Rate 28 H 22 Blood Pressure 140/86 Pulse Oximetry 91 94 Oxygen Delivery Method 01/17/23 19:00 01/17/23 19:00 01/17/23 19:30 Pulse Rate 100 H Respiratory Rate 24 Blood Pressure 152/83 H 158/84 H Pulse Oximetry 94 Oxygen Delivery Method 01/17/23 19:30 01/17/23 20:00 01/17/23 20:30 Pulse Rate 99 H 109 H 99 H Respiratory Rate 20 50 H 26 H Blood Pressure Pulse Oximetry 96 92 91 Oxygen Delivery Method 01/17/23 20:44 01/17/23 20:44 01/17/23 21:00 Pulse Rate 97 H Respiratory Rate 22 Blood Pressure 141/78 H 144/76 H Pulse Oximetry 93 Oxygen Delivery Method 01/17/23 21:00 01/17/23 21:30 Pulse Rate 96 H 99 H Respiratory Rate 18 19 Blood Pressure Pulse Oximetry 94 91 Oxygen Delivery Method Room Air <Miya Herrera DO - Last Filed: 01/18/23 02:28> Orders Ordered: Discontinued Medications Heparin Sodium (Porcine) (Heparin Flush (Cl/Picc/Mid-Line) 50 Unit/5 Ml Syringe) 50 unit IV NOW ONE Stop: 01/17/23 21:36 Last Admin: 01/17/23 21:38 Dose: 50 unit Documented By: DOUG Sodium Chloride (Normal Saline 0.9%) 1,000 mls @ 1,000 mls/hr IV BOLUS ONE Stop: 01/17/23 19:02 Last Infusion: 01/17/23 20:51 Dose: 0 mls/hr Documented By: Admin: 01/17/23 18:38 Dose: 1,000 mls/hr Documented By: TORIE Azithromycin 500 mg/ Dextrose 250 mls @ 250 mls/hr IV NOW ONE Stop: 01/17/23 18:55 Last Infusion: 01/17/23 20:20 Dose: 0 mls/hr Documented By: Admin: 01/17/23 19:21 Dose: 250 mls/hr Documented By: KRISTYN Levofloxacin (Levofloxacin 250 Mg Tablet) 750 mg PO NOW ONE Stop: 01/17/23 21:15 Last Admin: 01/17/23 21:33 Dose: 750 mg Documented By: DOUG Vital Signs Vital signs: Vital Signs - 8 hr 01/17/23 18:30 01/17/23 18:40 01/17/23 18:40 Pulse Rate 99 H 101 H Respiratory Rate 28 H 22 Blood Pressure 140/86 Pulse Oximetry 91 94 Oxygen Delivery Method 01/17/23 19:00 01/17/23 19:00 01/17/23 19:30 Pulse Rate 100 H Respiratory Rate 24 Blood Pressure 152/83 H 158/84 H Pulse Oximetry 94 Oxygen Delivery Method 01/17/23 19:30 01/17/23 20:00 01/17/23 20:30 Pulse Rate 99 H 109 H 99 H Respiratory Rate 20 50 H 26 H Blood Pressure Pulse Oximetry 96 92 91 Oxygen Delivery Method 01/17/23 20:44 01/17/23 20:44 01/17/23 21:00 Pulse Rate 97 H Respiratory Rate 22 Blood Pressure 141/78 H 144/76 H Pulse Oximetry 93 Oxygen Delivery Method 01/17/23 21:00 01/17/23 21:30 Pulse Rate 96 H 99 H Respiratory Rate 18 19 Blood Pressure Pulse Oximetry 94 91 Oxygen Delivery Method Room Air MDM - SOB/Dyspnea <Steve Canales DO - Last Filed: 01/18/23 12:28> Lab Data 01/17/23 17:39 01/17/23 17:39 Labs: Lab Results 01/17/23 01/17/23 01/17/23 Range/Units 17:16 17:39 17:39 WBC 9.9 (4.5-11.0) X10^3/uL RBC 4.58 (4.5-5.9) X10^6/uL Hgb 13.5 (13.5-17.5) g/dL Hct 38.9 L (41-53) % MCV 84.9 (80-100) fL MCH 29.4 (26-34) PG MCHC 34.7 (30-36) % RDW 14.2 (11.6-14.8) % Plt Count 253 (150-400) X10^3/uL Neut % (Auto) 81.5 H (50-75) % Lymph % (Auto) 6.9 L (25-40) % Edmons[place] % (Auto) 9.4 (3-14) % Eos % (Auto) 1.4 L (2-4) % Baso % (Auto) 0.8 (0-2) % Neut # (Auto) 8000 H (6290-8370) /uL Lymph # (Auto) 700 L (2122-7012) /uL [place] # (Auto) 900 (0-900) /uL Eos # (Auto) 100 (0-450) /uL Baso # (Auto) 100 (0-100) /uL Toxic Granulation Present H RBC Morphology Normal morphology PT 15.0 H (10.1-12.7) SECONDS INR 1.3 (0.9-1.3) Sodium (137-145) mmol/L Potassium (3.4-5.1) mmol/L Chloride (98-107) mmol/L Carbon Dioxide (22-32) mmol/L BUN (9-20) mg/dL Creatinine (0.66-1.25) mg/dL Estimated GFR (>60) mL/min BUN/Creatinine Ratio (6-22) Glucose (70-100) mg/dL Lactate (0.7-2.1) mmol/L Calcium (8.4-10.2) mg/dL Total Bilirubin (0.2-1.3) mg/dL AST (17-59) IU/L ALT (<50) IU/L Alkaline Phosphatase (38-126) U/L Troponin I (0.01-0.034) ng/mL NT-Pro-B Natriuret Pep (<125) pg/mL Total Protein (6.3-8.2) g/dL Albumin (3.5-5.0) g/dL Globulin (1.7-4.1) g/dL Albumin/Globulin Ratio (1.0-2.8) Chlamy pneumoniae PCR (Not Detect) Adenovirus (PCR) (Not Detect) B. pertussis DNA (PCR) (Not Detecte) B.parapertussis DNA PCR (Not Detecte) Coronavirus OC43 (PCR) (Not Detect) Coronavirus HKU1 (PCR) (Not Detect) Coronavirus 229E (PCR) (Not Detect) SARS-CoV-2 (PCR) Negative (Negative) Coronavirus NL63 (PCR) (Not Detect) Human Metapneumovir PCR (Not Detect) Influenza Type A (PCR) (Not Detect) Influenza Type B (PCR) (Not Detect) M. pneumoniae (PCR) (Not Detect) Parainfluenza 1 (PCR) (Not Detect) Parainfluenza 2 (PCR) (Not Detect) Parainfluenza 3 (PCR) (Not Detect) Parainfluenza 4 (PCR) (Not Detect) RSV (PCR) (Not Detect) Entero/Rhino (PCR) (Not Detect) 01/17/23 01/17/23 01/17/23 Range/Units 17:39 17:39 18:03 WBC (4.5-11.0) X10^3/uL RBC (4.5-5.9) X10^6/uL Hgb (13.5-17.5) g/dL Hct (41-53) % MCV (80-100) fL MCH (26-34) PG MCHC (30-36) % RDW (11.6-14.8) % Plt Count (150-400) X10^3/uL Neut % (Auto) (50-75) % Lymph % (Auto) (25-40) % Edmonson % (Auto) (3-14) % Eos % (Auto) (2-4) % Baso % (Auto) (0-2) % Neut # (Auto) (8402-4058) /uL Lymph # (Auto) (3060-6409) /uL Edmonson # (Auto) (0-900) /uL Eos # (Auto) (0-450) /uL Baso # (Auto) (0-100) /uL Toxic Granulation RBC Morphology PT (10.1-12.7) SECONDS INR (0.9-1.3) Sodium 136 L (137-145) mmol/L Potassium 3.8 (3.4-5.1) mmol/L Chloride 104 (98-107) mmol/L Carbon Dioxide 25 (22-32) mmol/L BUN 16 (9-20) mg/dL Creatinine 1.10 (0.66-1.25) mg/dL Estimated GFR > 60 (>60) mL/min BUN/Creatinine Ratio 14.5 (6-22) Glucose 87 (70-100) mg/dL Lactate 1.2 (0.7-2.1) mmol/L Calcium 9.0 (8.4-10.2) mg/dL Total Bilirubin 0.4 (0.2-1.3) mg/dL AST 48 (17-59) IU/L ALT 24 (<50) IU/L Alkaline Phosphatase 96 (38-126) U/L Troponin I < 0.012 (0.01-0.034) ng/mL NT-Pro-B Natriuret Pep 29 (<125) pg/mL Total Protein 6.9 (6.3-8.2) g/dL Albumin 4.2 (3.5-5.0) g/dL Globulin 2.7 (1.7-4.1) g/dL Albumin/Globulin Ratio 1.6 (1.0-2.8) Chlamy pneumoniae PCR Not detected (Not Detect) Adenovirus (PCR) Not detected (Not Detect) B. pertussis DNA (PCR) Not detected (Not Detecte) B.parapertussis DNA PCR Not detected (Not Detecte) Coronavirus OC43 (PCR) Not detected (Not Detect) Coronavirus HKU1 (PCR) Not detected (Not Detect) Coronavirus 229E (PCR) Not detected (Not Detect) SARS-CoV-2 (PCR) Not detected (Negative) Coronavirus NL63 (PCR) Not detected (Not Detect) Human Metapneumovir PCR Not detected (Not Detect) Influenza Type A (PCR) Not detected (Not Detect) Influenza Type B (PCR) Not detected (Not Detect) M. pneumoniae (PCR) Not detected (Not Detect) Parainfluenza 1 (PCR) Not detected (Not Detect) Parainfluenza 2 (PCR) Not detected (Not Detect) Parainfluenza 3 (PCR) Not detected (Not Detect) Parainfluenza 4 (PCR) Not detected (Not Detect) RSV (PCR) Not detected (Not Detect) Entero/Rhino (PCR) Not detected (Not Detect) MDM Narrative Medical decision making narrative: CC: 53-year-old male with cough, shortness of breath and diarrhea Complicating co-morbidities: Age greater than 50, B-cell lymphoma, anticoagulation, prior clot Data collected from: Patient Medical records reviewed: Prior notes reviewed in our EMR Differential considered, but not limited to: Viral upper respiratory infection, bacterial pneumonia, atypical pneumonia, dehydration, much less likely DVT or pulmonary embolism Exam documented above, pertinent findings include: No tachycardia or irregular heartbeat, no increased work of breathing or measured hypoxemia, perhaps faint crackles in bases Lab Test results independently reviewed as above. Pertinent findings: No leukocytosis or left shift, no anemia, normal electrolytes, renal function and cardiac enzymes Independently reviewed EKG as above Imaging studies independently reviewed: Scores Used: MIPS Elements: Consultations: Treatments: Re-evaluations: Discussion: Disposition: see below, along with detailed discharge instructions that have been reviewed with patient as well as indications for ED re-evaluation and additional outpatient follow up <Miya Herrera, - Last Filed: 01/18/23 02:28> Lab Data Labs: Lab Results 01/17/23 01/17/23 01/17/23 Range/Units 17:16 17:39 17:39 WBC 9.9 (4.5-11.0) X10^3/uL RBC 4.58 (4.5-5.9) X10^6/uL Hgb 13.5 (13.5-17.5) g/dL Hct 38.9 L (41-53) % MCV 84.9 (80-100) fL MCH 29.4 (26-34) PG MCHC 34.7 (30-36) % RDW 14.2 (11.6-14.8) % Plt Count 253 (150-400) X10^3/uL Neut % (Auto) 81.5 H (50-75) % Lymph % (Auto) 6.9 L (25-40) % Edmonson % (Auto) 9.4 (3-14) % Eos % (Auto) 1.4 L (2-4) % Baso % (Auto) 0.8 (0-2) % Neut # (Auto) 8000 H (2573-3943) /uL Lymph # (Auto) 700 L (1725-9975) /uL [place]monson # (Auto) 900 (0-900) /uL Eos # (Auto) 100 (0-450) /uL Baso # (Auto) 100 (0-100) /uL Toxic Granulation Present H RBC Morphology Normal morphology PT 15.0 H (10.1-12.7) SECONDS INR 1.3 (0.9-1.3) Sodium (137-145) mmol/L Potassium (3.4-5.1) mmol/L Chloride (98-107) mmol/L Carbon Dioxide (22-32) mmol/L BUN (9-20) mg/dL Creatinine (0.66-1.25) mg/dL Estimated GFR (>60) mL/min BUN/Creatinine Ratio (6-22) Glucose (70-100) mg/dL Lactate (0.7-2.1) mmol/L Calcium (8.4-10.2) mg/dL Total Bilirubin (0.2-1.3) mg/dL AST (17-59) IU/L ALT (<50) IU/L Alkaline Phosphatase (38-126) U/L Troponin I (0.01-0.034) ng/mL NT-Pro-B Natriuret Pep (<125) pg/mL Total Protein (6.3-8.2) g/dL Albumin (3.5-5.0) g/dL Globulin (1.7-4.1) g/dL Albumin/Globulin Ratio (1.0-2.8) Chlamy pneumoniae PCR (Not Detect) Adenovirus (PCR) (Not Detect) B. pertussis DNA (PCR) (Not Detecte) B.parapertussis DNA PCR (Not Detecte) Coronavirus OC43 (PCR) (Not Detect) Coronavirus HKU1 (PCR) (Not Detect) Coronavirus 229E (PCR) (Not Detect) SARS-CoV-2 (PCR) Negative (Negative) Coronavirus NL63 (PCR) (Not Detect) Human Metapneumovir PCR (Not Detect) Influenza Type A (PCR) (Not Detect) Influenza Type B (PCR) (Not Detect) M. pneumoniae (PCR) (Not Detect) Parainfluenza 1 (PCR) (Not Detect) Parainfluenza 2 (PCR) (Not Detect) Parainfluenza 3 (PCR) (Not Detect) Parainfluenza 4 (PCR) (Not Detect) RSV (PCR) (Not Detect) Entero/Rhino (PCR) (Not Detect) 01/17/23 01/17/23 01/17/23 Range/Units 17:39 17:39 18:03 WBC (4.5-11.0) X10^3/uL RBC (4.5-5.9) X10^6/uL Hgb (13.5-17.5) g/dL Hct (41-53) % MCV (80-100) fL MCH (26-34) PG MCHC (30-36) % RDW (11.6-14.8) % Plt Count (150-400) X10^3/uL Neut % (Auto) (50-75) % Lymph % (Auto) (25-40) % Edmonson % (Auto) (3-14) % Eos % (Auto) (2-4) % Baso % (Auto) (0-2) % Neut # (Auto) (1494-3330) /uL Lymph # (Auto) (1280-8487) /uL Edmonson # (Auto) (0-900) /uL Eos # (Auto) (0-450) /uL Baso # (Auto) (0-100) /uL Toxic Granulation RBC Morphology PT (10.1-12.7) SECONDS INR (0.9-1.3) Sodium 136 L (137-145) mmol/L Potassium 3.8 (3.4-5.1) mmol/L Chloride 104 (98-107) mmol/L Carbon Dioxide 25 (22-32) mmol/L BUN 16 (9-20) mg/dL Creatinine 1.10 (0.66-1.25) mg/dL Estimated GFR > 60 (>60) mL/min BUN/Creatinine Ratio 14.5 (6-22) Glucose 87 (70-100) mg/dL Lactate 1.2 (0.7-2.1) mmol/L Calcium 9.0 (8.4-10.2) mg/dL Total Bilirubin 0.4 (0.2-1.3) mg/dL AST 48 (17-59) IU/L ALT 24 (<50) IU/L Alkaline Phosphatase 96 (38-126) U/L Troponin I < 0.012 (0.01-0.034) ng/mL NT-Pro-B Natriuret Pep 29 (<125) pg/mL Total Protein 6.9 (6.3-8.2) g/dL Albumin 4.2 (3.5-5.0) g/dL Globulin 2.7 (1.7-4.1) g/dL Albumin/Globulin Ratio 1.6 (1.0-2.8) Chlamy pneumoniae PCR Not detected (Not Detect) Adenovirus (PCR) Not detected (Not Detect) B. pertussis DNA (PCR) Not detected (Not Detecte) B.parapertussis DNA PCR Not detected (Not Detecte) Coronavirus OC43 (PCR) Not detected (Not Detect) Coronavirus HKU1 (PCR) Not detected (Not Detect) Coronavirus 229E (PCR) Not detected (Not Detect) SARS-CoV-2 (PCR) Not detected (Negative) Coronavirus NL63 (PCR) Not detected (Not Detect) Human Metapneumovir PCR Not detected (Not Detect) Influenza Type A (PCR) Not detected (Not Detect) Influenza Type B (PCR) Not detected (Not Detect) M. pneumoniae (PCR) Not detected (Not Detect) Parainfluenza 1 (PCR) Not detected (Not Detect) Parainfluenza 2 (PCR) Not detected (Not Detect) Parainfluenza 3 (PCR) Not detected (Not Detect) Parainfluenza 4 (PCR) Not detected (Not Detect) RSV (PCR) Not detected (Not Detect) Entero/Rhino (PCR) Not detected (Not Detect) Imaging Data CT scan - chest: Radiologist's Impression: PROCEDURE:? CT CHEST ABD PEL W CON ? INDICATIONS:? lymphoma, pneumonia, diarrhea ? TECHNIQUE:? After the administration of intravenous contrast, 5 mm thick sections acquired from the lung apices to the symphysis.? 5 mm coronal and sagittal reformats were performed, with additional 7 mm MIP reformats through the lungs.? For radiation dose reduction, the following was used:? automated exposure control, adjustment of mA and/or kV according to patient size.? ? COMPARISON:? Outside Facility, RG, CT ABDOMEN/PELVIS WITH CONTRAST, 08/14/2022, 13:59. ? FINDINGS:? Image quality:? Excellent.? ? CHEST:? Lungs and pleura:? Prior CT from 08/14/22 had shown normal lung parenchyma.? The current study shows a patchy heterogeneous alveolar infiltration pattern consistent with atypical/viral pneumonia.? No pleural effusions or pneumothorax.? Central and peripheral airways appear patent and normal in caliber.? ? Mediastinum:? Heart size is normal.? No pericardial effusion.? No mediastinal or hilar adenopathy by size criteria.? Thoracic aorta and central pulmonary arteries are normal in size.? Esophagus is normal in caliber.? No hiatal hernia.? ? Chest wall:? No axillary or supraclavicular adenopathy by size criteria.? Thyroid gland appears normal where well seen.? Port-A-Cath from right-sided approach extends into the distal SVC. ? ? ABDOMEN:? Solid organs:? Liver is normal in size and enhancement.? Gallbladder appears normal .? Biliary system is non dilated.? Pancreas enhances normally.? Spleen is normal in size and enhancement.? No adrenal nodules.? Kidneys demonstrate normal size and enhancement, without hydronephrosis.? ? Peritoneum and bowel:? Bowel loops demonstrate normal wall thickness and caliber.? No free fluid or air.? ? Nodes and vessels:? There is residual scarring or residual minimal confluent adenopathy involving the retroperitoneal and mesenteric lymph nodes, with this pattern extending contiguously to a mild degree into the pelvis at the midline retroperitoneum.? Aorta and inferior vena cava are normal in size.? IVC filter in position just below the level of the liver, above the level of the renal veins. ? Miscellaneous:? There is a left-sided periumbilical ventral hernia, fat containing showing no sign of incarceration or strangulation of the involved portion of the omentum. ?This measures only 5.8 cm in maximal dimension..? ? ? PELVIS:? Genitourinary:? Bladder wall thickness is normal.? ? Miscellaneous:? No inguinal hernias or adenopathy.? ? Bones:? No suspicious bony lesions.? No vertebral body compression fractures.? ? IMPRESSION:? Pneumonia pattern, moderately severe, comprised of patchy alveolar infiltration in an area of the lung bases that also was included from prior CT 08/14/22 when that same area had appeared normal.? This extends through the upper, mid and lower lungs bilaterally. ? Within the chest, abdomen and pelvis no definite dominant abnormality is seen that would indicate active lymphomatous disease.? Within the retroperitoneum of the abdomen and pelvis there is confluent soft tissue prominence with an appearance suggestive of post-treatment scarring of areas of prior prominent adenopathy. ? Port-A-Cath in normal position, IVC filter just below the liver level incidentally noted with this filter the being higher than normal in position above the level of the renal veins. ? ? Dictated by: Kulwant Kerr M.D. on 01/17/2023 at 20:53 ? ? Approved by: Kulwant Kerr M.D. on 01/17/2023 at 21:00 ? MDM Narrative Medical decision making narrative: CC: 53-year-old male with cough, shortness of breath and diarrhea Complicating co-morbidities: Age greater than 50, B-cell lymphoma, anticoagulation, prior clot Data collected from: Patient Medical records reviewed: Prior notes reviewed in our EMR Differential considered, but not limited to: Viral upper respiratory infection, bacterial pneumonia, atypical pneumonia, dehydration, much less likely DVT or pulmonary embolism Exam documented above, pertinent findings include: No tachycardia or irregular heartbeat, no increased work of breathing or measured hypoxemia, perhaps faint crackles in bases Lab Test results independently reviewed as above. Pertinent findings: No leukocytosis or left shift, no anemia, normal electrolytes, renal function and cardiac enzymes Independently reviewed EKG as above Imaging studies independently reviewed: Scores Used: MIPS Elements: Consultations: Treatments: Re-evaluations: Discussion: Disposition: see below, along with detailed discharge instructions that have been reviewed with patient as well as indications for ED re-evaluation and additional outpatient follow up Patient signed out to me by Dr. Canales pending CT chest abdomen pelvis. CT confirms pneumonia like pattern. He has a class 3 pneumonia severity score. At this time he is not hypoxic no leukocytosis no sign of severe sepsis. Reasonable to be treated as an outpatient. He ambulated without any evidence of tachycardia or hypoxia. Given azithromycin and Levaquin here in the ED. PSI/PORT Score: Pneumonia Severity Index for CAP from [email or web address] on 01/17/2023 All calculations should be rechecked by clinician prior to use RESULT SUMMARY: 84 points Risk Class III, 0.9-2.8% mortality. Outpatient or inpatient treatment, depending on clinical judgment. INPUTS: Age ?> 53 years Sex ?> 0 = Male assisted resident ?> 0 = No Neoplastic disease ?> 30 = Yes Liver disease history ?> 0 = No CHF history ?> 0 = No Cerebrovascular disease history ?> 0 = No Renal disease history ?> 0 = No Altered mental status ?> 0 = No Respiratory rate &ge;30 breaths/min ?> 0 = No Systolic blood pressure <90 mmHg ?> 0 = No Temperature <35&deg;C (95&deg;F) or >39.9&deg;C (103.8&deg;F) ?> 0 = No Pulse &ge;125 beats/min ?> 0 = No pH <7.35 ?> 0 = No BUN &ge;30 mg/dL or &ge;11 mmol/L ?> 0 = No Sodium <130 mmol/L ?> 0 = No Glucose &ge;250 mg/dL or &ge;14 mmol/L ?> 0 = No Hematocrit <30% ?> 0 = No Partial pressure of oxygen <60 mmHg or <8 kPa ?> 0 = No Pleural effusion on x-ray ?> 0 = No Discharge Plan Departure Patient Disposition: Home Clinical Impression: Pneumonia Instructions: Atypical Pneumonia Activity Restrictions/Additional Instructions: *You have been diagnosed with pneumonia *What to do: At this time your CT looks like you have pneumonia. Please follow-up with your oncologist. Will put you on some antibiotics please start feeling better soon. Stay hydrated. *Continue to take medications as directed Levaquin 750 mg once a day for 5 days total--> SENT TO [facility] *Follow up with your primary care provider in 2-3 days or call [phone] Call your oncologist on Thursday to schedule follow-up appointment *Return to ER if you should have increasing shortness of breath chest pain fever body aches confusion or any new, worsening or concerning symptoms Prescriptions: New levofloxacin 750 mg tablet 750 mg PO DAILY 4 Days Qty: 4 0RF No Action atorvastatin [Lipitor] 10 mg tablet 10 mg PO HS Qty: 90 3RF docusate sodium 250 mg capsule 250 mg PO BID acyclovir 400 mg Tablet 400 mg PO BID 30 Days Qty: 60 5RF Eliquis 5 mg Tablet 5 mg PO BID 30 Days Qty: 60 0RF prochlorperazine maleate 10 mg tablet 10 mg PO Q6H PRN (Reason: Nausea) Qty: 30 1RF ondansetron 4 mg tablet,disintegrating 4 mg PO Q8H PRN (Reason: nausea and vomiting) Qty: 30 0RF Referrals: Calixto Ferguson MD [Primary Care Provider] - Stand Alone Forms: Patient Portal/API
[2023-01-17 17:53] LABS: COVID19 -Nasal RAPID Negative (Negative)
[2023-01-17 18:02] LABS: INR 1.3 (0.9-1.3)
[2023-01-17 18:08] LABS: Alanine Aminotransferase 24 IU/L (<50); Albumin 4.2 g/dL (3.5-5.0); Albumin Globulin Ratio 1.6 (1.0-2.8); Alkaline Phosphatase 96 U/L (38-126); Aspartate Aminotransferase 48 IU/L (17-59); BUN Creatinine Ratio 14.5 (6-22); Bilirubin Total 0.4 mg/dL (0.2-1.3); Blood Urea Nitrogen 16 mg/dL (9-20); Carbon Dioxide 25 mmol/L (22-32); Chloride 104 mmol/L (98-107); Estimated Glomerular Filt Rate > 60 mL/min (>60); Globulin 2.7 g/dL (1.7-4.1); Glucose 87 mg/dL (70-100); HEMOLYSIS < 15 (0-50); Lactate (Lactic Acid) 1.2 mmol/L (0.7-2.1); Potassium 3.8 mmol/L (3.4-5.1); Sodium 136 mmol/L (137-145); Total Protein 6.9 g/dL (6.3-8.2)
[2023-01-17 18:09] LABS: Add Manual Diff / Slide Review SLIDE REVIEW; Basophils Absolute Auto 100 /uL (0-100); Basophils Percent Auto 0.8 % (0-2); Eosinophils Absolute Auto 100 /uL (0-450); Eosinophils Percent Auto 1.4 % (2-4); Hematocrit 38.9 % (41-53); Hemoglobin 13.5 g/dL (13.5-17.5); Lymphocytes Absolute Auto 700 /uL (1100-4500); Lymphocytes Percent Auto 6.9 % (25-40); Mean Corpuscular HGB Conc 34.7 % (30-36); Mean Corpuscular Hemoglobin 29.4 PG (26-34); Mean Corpuscular Volume 84.9 fL (80-100); Monocytes Absolute Auto 900 /uL (0-900); Monocytes Percent Auto 9.4 % (3-14); Neutrophils Absolute Auto 8000 /uL (1500-7000); Neutrophils Percent Auto 81.5 % (50-75); Platelet Count 253 X10^3/uL (150-400); RBC Morphology Normal Morphology; Red Blood Cell Count 4.58 X10^6/uL (4.5-5.9); Red Cell Distribution Width 14.2 % (11.6-14.8); Toxic Granulation Present; White Blood Cell Count 9.9 X10^3/uL (4.5-11.0)
[2023-01-17 18:19] LABS: NT-proBNP (BNP-Adult 18+) 29 pg/mL (<125); Troponin I < 0.012 ng/mL (0.01-0.034)
[2023-01-17] MEDS: SODIUM CHLORIDE 0.9% 1,000 ML 1000 ML IV (18:38)
[2023-01-17 19:18] LABS: Adenovirus Not Detected (Not Detect); B. parapertussis Not Detected (Not Detecte); Bordetella pertussis Not Detected (Not Detecte); Chlamydophila pneumoniae Not Detected (Not Detect); Coronavirus 229E Not Detected (Not Detect); Coronavirus HKU1 Not Detected (Not Detect); Coronavirus NL 63 Not Detected (Not Detect); Coronavirus OC43 Not Detected (Not Detect); Human Metapneumovirus Not Detected (Not Detect); Human Rhinovirus/Enterovirus Not Detected (Not Detect); Influenza A Not Detected (Not Detect); Influenza B Not Detected (Not Detect); Mycoplasma pneumoniae Not Detected (Not Detect); Parainfluenza Virus 1 Not Detected (Not Detect); Parainfluenza Virus 2 Not Detected (Not Detect); Parainfluenza Virus 3 Not Detected (Not Detect); Parainfluenza Virus 4 Not Detected (Not Detect); Respiratory Syncytial Virus Not Detected (Not Detect); SARS- CoV-2 Not Detected (Not Detecte)
[2023-01-17] MEDS: AZITHROMYCIN 500 MG in DEXTROSE 5% IN WATER 250 ML 250 MG IV (19:21)
--- NOTE | 2023-01-17 19:36 | DI.CT.S_ITS ---
PROCEDURE: CT CHEST ABD PEL W CON INDICATIONS: lymphoma, pneumonia, diarrhea TECHNIQUE: After the administration of intravenous contrast, 5 mm thick sections acquired from the lung apices to the symphysis. 5 mm coronal and sagittal reformats were performed, with additional 7 mm MIP reformats through the lungs. For radiation dose reduction, the following was used: automated exposure control, adjustment of mA and/or kV according to patient size. COMPARISON: Outside Facility, , CT ABDOMEN/PELVIS WITH CONTRAST, 08/14/2022, 13:59. FINDINGS: Image quality: Excellent. CHEST: Lungs and pleura: Prior CT from 08/14/22 had shown normal lung parenchyma. The current study shows a patchy heterogeneous alveolar infiltration pattern consistent with atypical/viral pneumonia. No pleural effusions or pneumothorax. Central and peripheral airways appear patent and normal in caliber. Mediastinum: Heart size is normal. No pericardial effusion. No mediastinal or hilar adenopathy by size criteria. Thoracic aorta and central pulmonary arteries are normal in size. Esophagus is normal in caliber. No hiatal hernia. Chest wall: No axillary or supraclavicular adenopathy by size criteria. Thyroid gland appears normal where well seen. Port-A-Cath from right-sided approach extends into the distal SVC. ABDOMEN: Solid organs: Liver is normal in size and enhancement. Gallbladder appears normal . Biliary system is non dilated. Pancreas enhances normally. Spleen is normal in size and enhancement. No adrenal nodules. Kidneys demonstrate normal size and enhancement, without hydronephrosis. Peritoneum and bowel: Bowel loops demonstrate normal wall thickness and caliber. No free fluid or air. Nodes and vessels: There is residual scarring or residual minimal confluent adenopathy involving the retroperitoneal and mesenteric lymph nodes, with this pattern extending contiguously to a mild degree into the pelvis at the midline retroperitoneum. Aorta and inferior vena cava are normal in size. IVC filter in position just below the level of the liver, above the level of the renal veins. Miscellaneous: There is a left-sided periumbilical ventral hernia, fat containing showing no sign of incarceration or strangulation of the involved portion of the omentum. This measures only 5.8 cm in maximal dimension.. PELVIS: Genitourinary: Bladder wall thickness is normal. Miscellaneous: No inguinal hernias or adenopathy. Bones: No suspicious bony lesions. No vertebral body compression fractures. IMPRESSION: Pneumonia pattern, moderately severe, comprised of patchy alveolar infiltration in an area of the lung bases that also was included from prior CT 08/14/22 when that same area had appeared normal. This extends through the upper, mid and lower lungs bilaterally. Within the chest, abdomen and pelvis no definite dominant abnormality is seen that would indicate active lymphomatous disease. Within the retroperitoneum of the abdomen and pelvis there is confluent soft tissue prominence with an appearance suggestive of post-treatment scarring of areas of prior prominent adenopathy. Port-A-Cath in normal position, IVC filter just below the liver level incidentally noted with this filter the being higher than normal in position above the level of the renal veins. Dictated by: Kulwant Kerr M.D. on 01/17/2023 at 20:53 Approved by: Kulwant Kerr M.D. on 01/17/2023 at 21:00
[2023-01-17] MEDS: levoFLOXacin 250 MG TABLET 750 MG PO (21:33)
== END 2023-01-17 21:47 | disposition home or self-care (01) ==
PROVIDERS: Emergency Medicine; Emergency Provider Emergency Medicine; Family Provider Internal Medicine; PCP Internal Medicine
DX: J18.9 Pneumonia, unspecified organism (principal); R19.7 Diarrhea, unspecified; Z79.01 Long term (current) use of anticoagulants; Z79.899 Other long term (current) drug therapy; Z20.822 Contact with and (suspected) exposure to COVID-19
CPT/HCPCS: 36415; 71045; 71260; 74177; 80053; 83605; 83880; 84484; 85025; 85610; 87040; 87633; 87635; 93005; 96365; 99284; C9803; J1642; Q9967

== ENCOUNTER 2023-01-21 08:45 | Observation (INO) | payer OTHER, SELFPAY ==
[2023-01-21] VITALS (16 sets, daily range): BP systolic 106–131; BP diastolic 66–78; PULSE 83–96; RESP 15–24; TEMP 36.3–36.8; O2SAT 88–96; BMI 38.0; BMI 36.2
--- NOTE | 2023-01-21 08:59 | ED_ITS ---
HPI - SOB/Dyspnea General Chief Complaint: Shortness of Breath/Dyspnea Stated Complaint: ER on Sat; pneumonia, SOB Time Seen by Provider: 01/21/23 08:56 Source: patient, family, RN notes reviewed and old records reviewed Mode of arrival: Family Vehicle Limitations: no limitations History of Present Illness HPI Narrative: This is a 53-year-old male with history of diffuse large B-cell lymphoma who went through [facility], received Keytruda developed colitis and had 2 rounds but required steroids and was changed to infliximab and had 2 courses along with high-dose steroids, patient did have blood clots while he had lymphoma and is on Eliquis daily, atorvastatin and still has an IVC filter in place. Patient state s he completed treatment in October 2022. Patient has had shortness of breath and has been persistent. He was found to have an atypical pneumonia here and discharged home on Levaquin which he has completed this morning. Patient states his O2 sats starting last Thursday were low 81-88% after rest. He would had some tightness in his chest. He states that his breathing has not really gotten worse but today was found to have a low O2 sat 88% at home, went to the bathroom felt very lightheaded and laid down on the ground as he thought he might pass out. He states he is had no new chest pain or pressure. He is had persistent shortness of breath he does not notice 6 and crit improvement or worsening. Had mild cough but he states not productive. He denies objective fevers but has felt warm intermittently and clammy at times. He is not had any nausea or vomiting. He has had diarrhea for several days. He denies any black or bloody stools. No new swelling in his extremities. Patient states he has been checking his home O2 at home regularly. Patient states he continues to take Eliquis for blood clots he developed while having lymphoma. He is on acyclovir prophylactically, atorvastatin with just complaining his Levaquin as his only medications. He is an IVC filter in place they attempted to remove it but there were complications so is still present. He has a poor and had hardware in his forearm. Patient states he is allergic to amoxicillin he gets hives swelling, sulfa. No tobacco, alcohol or illicit. Dr. Ferguson is his primary care physician. Dr. Salvador is his oncologist at [facility]. Related Data Home Medications Medication Instructions Recorded Confirmed docusate sodium 250 mg capsule 250 mg PO BID 03/24/22 01/08/23 Previous Rx's Medication Instructions Recorded acyclovir 400 mg tablet 400 mg PO BID 30 days #60 tabs 02/24/22 atorvastatin 10 mg tablet (Lipitor) 10 mg PO HS #90 tabs 04/21/22 apixaban 5 mg tablet (Eliquis) 5 mg PO BID 30 days #60 tabs 06/23/22 prochlorperazine maleate 10 mg 10 mg PO Q6H PRN Nausea #30 tabs 06/25/22 tablet ondansetron 4 mg disintegrating 4 mg PO Q8H PRN nausea and 08/22/22 tablet vomiting #30 tabs Allergies Allergy/AdvReac Type Severity Reaction Status Date / Time amoxicillin [AMOXICILLIN] Allergy Severe Swelling Verified 01/08/23 10:36 of Lip/Tongue/Throat Sulfa (Sulfonamide Allergy Severe Swelling Verified 01/08/23 10:36 Antibiotics) of [SULFA (SULFONAMIDE Lip/Tongue/Throat ANTIBIOTICS)] Review of Systems Review of Systems ROS Unobtainable: All systems reviewed & are unremarkable except as noted in HPI and below Patient History Medical History Arthritis Bilateral ureteral obstruction Bilateral ureteral obstruction Carpal tunnel syndrome of left wrist (06/23/16) Constipation Coronary artery calcification DVT (deep venous thrombosis) Hydronephrosis, right Impaired vision Lower urinary tract symptoms (LUTS) Mixed hyperlipidemia Obesity (BMI 30-39.9) Obstructive sleep apnea of adult Obstructive uropathy Peripheral edema Psoriasis (10/29/17) Retained ureteral stent Venous stasis Surgical History H/O right wrist surgery History of carpal tunnel release Hx of cystoscopy (04/18/22) Family History Father Age: 76 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 without complication, unspecified terminal gauger insulin use status Heart disease Essential hypertension Social History number of children: 0 household members: spouse Smoking Status: Never smoker alcohol intake: former Type(s) of exercise: walking frequency: 3-4 times per week Smoking Status: Never smoker alcohol intake frequency: holidays/special occasions only Substance Use Type: marijuana Exam Narrative Exam Narrative: GENERAL: Alert and oriented x three, male in mild distress. HEENT: Head normocephalic, atraumatic, EOMI, pupils reactive, face symmetric, moist mucous membranes NECK: Supple, full range of motion CARDIOVASCULAR: Regular rate and rhythm without murmurs, rubs or gallops. No JVD. No swelling bilateral lower extremities. RESPIRATORY: Breath sounds equal bilaterally, no wheezes, no rhonchi. Patient has crackles in bases bilaterally. No tachypnea. No accessory muscle use. Patient's room air was 88% with good +. Comes up easily on 2 L nasal cannula. ABDOMEN: Soft, nontender. Nondistended. Normoactive bowel sounds all 4 quadrants. No guarding or rebound, rigidity, no mass : No CVA tenderness EXTREMITIES: Normal range of motion, no clubbing or edema. Neurovascularly intact NEUROLOGICAL: Cranial nerves II through XII grossly intact. Moving all extremities SKIN: Warm, dry, no petechiae, no rashes or lesions. Initial Vital Signs Initial Vital Signs: Vital Signs Pulse Rate 89 01/21/23 08:53 Pulse Oximetry 89 L 01/21/23 08:53 Oxygen Delivery Method Room Air 01/21/23 08:53 Course Orders Ordered: ED Orders 01/21/23 09:02 XR chest 1V Stat EKG-12 Lead Stat 01/21/23 09:25 BNP [NT-proBNP (BNP-Adult 18+)] Stat Complete Blood Count AUTO DIFF Stat Comprehensive Metabolic Panel Stat Lactate (Lactic Acid) Stat Lipase Stat PTT Partial Thromboplastin Julio Stat Procalcitonin Stat Prothrombin Time INR Stat Troponin I Stat 01/21/23 09:30 Respiratory Panel (Film Array) Stat 01/21/23 09:49 CT angio chest PE protocol Stat 01/21/23 09:59 Blood Culture Stat 01/21/23 12:09 Sputum Culture Stat 01/21/23 12:54 RT Consult Eval and Treat NOW Acetaminophen (Acetaminophen 325 Mg Tablet) 650 mg PO Q6H PRN PRN Reason: Fever/Mild Pain (1-3) Acyclovir (Acyclovir 400 Mg Tablet) 400 mg PO BID TRAY Apixaban (Apixaban 5 Mg Tablet) 5 mg PO BID TRAY Bisacodyl (Bisacodyl 5 Mg Tablet) 10 mg PO DAILY PRN PRN Reason: Constipation Sodium Chloride (Normal Saline 0.45%) 1,000 mls @ 100 mls/hr IV CONT TRAY Stop: 02/20/23 22:53 Azithromycin 500 mg/ Dextrose 250 mls @ 250 mls/hr IV Q24H TRAY Stop: 01/25/23 08:59 Magnesium Hydroxide (Magnesium Hydroxide 30 Ml Udc) 30 ml PO DAILY PRN PRN Reason: Constipation Naloxone HCl (Naloxone 0.4 Mg/Ml Vial) 0.2 mg IV Q2MIN PRN PRN Reason: Opiate Reversal Non-Formulary Medication (Atorvastatin [Lipitor]) 10 mg PO HS TRAY Ondansetron HCl (Ondansetron 4 Mg/2 Ml Inj) 4 mg IV Q8HR PRN PRN Reason: Nausea And Vomiting Vancomycin HCl (Vancomycin Per Pharmacy) 1 request MISC NOW ONE Stop: 01/21/23 12:55 Discontinued Medications Vancomycin HCl/Dextrose (Vancomycin) 2,000 mg in 400 mls @ 200 mls/hr IV NOW ONE Stop: 01/21/23 11:23 Last Infusion: 01/21/23 12:39 Dose: 200 mls/hr Documented By: Admin: 01/21/23 12:15 Dose: 200 mls/hr Documented By: TORIE Azithromycin 500 mg/ Dextrose 250 mls @ 250 mls/hr IV NOW ONE Stop: 01/21/23 09:24 Last Infusion: 01/21/23 12:00 Dose: 0 mls/hr Documented By: Admin: 01/21/23 10:23 Dose: 250 mls/hr Documented By: DONNY Ondansetron HCl (Ondansetron 4 Mg Odt) 4 mg SL NOW PRN PRN Reason: Nausea And Vomiting Ondansetron HCl (Ondansetron 4 Mg/2 Ml Inj) 4 mg IV NOW PRN PRN Reason: Nausea And Vomiting Vital Signs Vital signs: Vital Signs - 8 hr 01/21/23 08:57 01/21/23 08:53 01/21/23 09:00 Temperature 98.2 F Pulse Rate 90 89 89 Respiratory Rate 18 Blood Pressure 120/70 Pulse Oximetry 88 L 89 L 93 Oxygen Delivery Method Room Air Room Air Oxygen Flow Rate 01/21/23 09:03 01/21/23 09:03 01/21/23 09:30 Temperature Pulse Rate 86 Respiratory Rate 15 Blood Pressure 126/78 114/66 Pulse Oximetry 95 Oxygen Delivery Method Nasal Cannula Oxygen Flow Rate 2 01/21/23 09:30 01/21/23 09:51 01/21/23 09:51 Temperature Pulse Rate 83 85 Respiratory Rate 17 15 Blood Pressure 129/74 Pulse Oximetry 92 94 Oxygen Delivery Method Nasal Cannula Oxygen Flow Rate 4 01/21/23 10:00 01/21/23 10:00 01/21/23 10:30 Temperature Pulse Rate 84 Respiratory Rate 18 Blood Pressure 122/72 129/77 Pulse Oximetry 93 Oxygen Delivery Method Oxygen Flow Rate 01/21/23 10:30 01/21/23 11:00 01/21/23 11:00 Temperature Pulse Rate 89 85 Respiratory Rate 23 21 Blood Pressure 120/75 Pulse Oximetry 90 L 94 Oxygen Delivery Method Oxygen Flow Rate 01/21/23 11:30 01/21/23 11:30 Temperature Pulse Rate 85 Respiratory Rate 19 Blood Pressure 116/76 Pulse Oximetry 95 Oxygen Delivery Method Oxygen Flow Rate MDM - SOB/Dyspnea Lab Data 01/21/23 09:25 01/21/23 09:25 Labs: Lab Results 01/21/23 01/21/23 01/21/23 Range/Units 09:25 09:25 09:25 WBC 8.4 (4.5-11.0) X10^3/uL RBC 4.51 (4.5-5.9) X10^6/uL Hgb 13.3 L (13.5-17.5) g/dL Hct 38.4 L (41-53) % MCV 85.2 (80-100) fL MCH 29.4 (26-34) PG MCHC 34.6 (30-36) % RDW 14.3 (11.6-14.8) % Plt Count 282 (150-400) X10^3/uL Neut % (Auto) 83.2 H (50-75) % Lymph % (Auto) 5.2 L (25-40) % Hernando % (Auto) 8.1 (3-14) % Eos % (Auto) 2.4 (2-4) % Baso % (Auto) 1.1 (0-2) % Neut # (Auto) 7000 (5921-5572) /uL Lymph # (Auto) 400 L (5022-7739) /uL Hernando # (Auto) 700 (0-900) /uL Eos # (Auto) 200 (0-450) /uL Baso # (Auto) 100 (0-100) /uL PT 15.1 H (10.1-12.7) SECONDS INR 1.3 (0.9-1.3) APTT 39 H (26-36) SECONDS Sodium 136 L (137-145) mmol/L Potassium 4.0 (3.4-5.1) mmol/L Chloride 103 (98-107) mmol/L Carbon Dioxide 23 (22-32) mmol/L BUN 15 (9-20) mg/dL Creatinine 1.24 (0.66-1.25) mg/dL Estimated GFR > 60 (>60) mL/min BUN/Creatinine Ratio 12.1 (6-22) Glucose 106 H (70-100) mg/dL Lactate (0.7-2.1) mmol/L Calcium 8.9 (8.4-10.2) mg/dL Total Bilirubin 0.4 (0.2-1.3) mg/dL AST 47 (17-59) IU/L ALT 22 (<50) IU/L Alkaline Phosphatase 86 (38-126) U/L Troponin I (0.01-0.034) ng/mL NT-Pro-B Natriuret Pep (<125) pg/mL Total Protein 6.7 (6.3-8.2) g/dL Albumin 4.1 (3.5-5.0) g/dL Globulin 2.6 (1.7-4.1) g/dL Albumin/Globulin Ratio 1.6 (1.0-2.8) Lipase 68 (23-300) U/L Procalcitonin 0.09 (<0.5) ng/mL Chlamy pneumoniae PCR (Not Detect) Adenovirus (PCR) (Not Detect) B. pertussis DNA (PCR) (Not Detecte) B.parapertussis DNA PCR (Not Detecte) Coronavirus OC43 (PCR) (Not Detect) Coronavirus HKU1 (PCR) (Not Detect) Coronavirus 229E (PCR) (Not Detect) SARS-CoV-2 (PCR) (Not Detecte) Coronavirus NL63 (PCR) (Not Detect) Human Metapneumovir PCR (Not Detect) Influenza Type A (PCR) (Not Detect) Influenza Type B (PCR) (Not Detect) M. pneumoniae (PCR) (Not Detect) Parainfluenza 1 (PCR) (Not Detect) Parainfluenza 2 (PCR) (Not Detect) Parainfluenza 3 (PCR) (Not Detect) Parainfluenza 4 (PCR) (Not Detect) RSV (PCR) (Not Detect) Entero/Rhino (PCR) (Not Detect) 01/21/23 01/21/23 01/21/23 Range/Units 09:25 09:25 09:30 WBC (4.5-11.0) X10^3/uL RBC (4.5-5.9) X10^6/uL Hgb (13.5-17.5) g/dL Hct (41-53) % MCV (80-100) fL MCH (26-34) PG MCHC (30-36) % RDW (11.6-14.8) % Plt Count (150-400) X10^3/uL Neut % (Auto) (50-75) % Lymph % (Auto) (25-40) % Hernando % (Auto) (3-14) % Eos % (Auto) (2-4) % Baso % (Auto) (0-2) % Neut # (Auto) (2779-6636) /uL Lymph # (Auto) (3793-4454) /uL Hernando # (Auto) (0-900) /uL Eos # (Auto) (0-450) /uL Baso # (Auto) (0-100) /uL PT (10.1-12.7) SECONDS INR (0.9-1.3) APTT (26-36) SECONDS Sodium (137-145) mmol/L Potassium (3.4-5.1) mmol/L Chloride (98-107) mmol/L Carbon Dioxide (22-32) mmol/L BUN (9-20) mg/dL Creatinine (0.66-1.25) mg/dL Estimated GFR (>60) mL/min BUN/Creatinine Ratio (6-22) Glucose (70-100) mg/dL Lactate 2.1 (0.7-2.1) mmol/L Calcium (8.4-10.2) mg/dL Total Bilirubin (0.2-1.3) mg/dL AST (17-59) IU/L ALT (<50) IU/L Alkaline Phosphatase (38-126) U/L Troponin I < 0.012 (0.01-0.034) ng/mL NT-Pro-B Natriuret Pep 15 (<125) pg/mL Total Protein (6.3-8.2) g/dL Albumin (3.5-5.0) g/dL Globulin (1.7-4.1) g/dL Albumin/Globulin Ratio (1.0-2.8) Lipase (23-300) U/L Procalcitonin (<0.5) ng/mL Chlamy pneumoniae PCR Not detected (Not Detect) Adenovirus (PCR) Not detected (Not Detect) B. pertussis DNA (PCR) Not detected (Not Detecte) B.parapertussis DNA PCR Not detected (Not Detecte) Coronavirus OC43 (PCR) Not detected (Not Detect) Coronavirus HKU1 (PCR) Not detected (Not Detect) Coronavirus 229E (PCR) Not detected (Not Detect) SARS-CoV-2 (PCR) Not detected (Not Detecte) Coronavirus NL63 (PCR) Not detected (Not Detect) Human Metapneumovir PCR Not detected (Not Detect) Influenza Type A (PCR) Not detected (Not Detect) Influenza Type B (PCR) Not detected (Not Detect) M. pneumoniae (PCR) Not detected (Not Detect) Parainfluenza 1 (PCR) Not detected (Not Detect) Parainfluenza 2 (PCR) Not detected (Not Detect) Parainfluenza 3 (PCR) Not detected (Not Detect) Parainfluenza 4 (PCR) Not detected (Not Detect) RSV (PCR) Not detected (Not Detect) Entero/Rhino (PCR) Not detected (Not Detect) Imaging Data Chest x-ray: Radiologist's Impression: Basilar predominant airspace opacities, unchanged from prior. CT scan - chest: Radiologist's Impression: [address] [address] [address] Scan Report Signed Patient: Milan Holly MR#: [id number] : 1970 Acct:[id number] Age/Sex: 53 / M Date of Service: 01/21/23 Loc: ED Accession Number: [id number] ?? Procedure: CT angio chest PE protocol Ordering Provider: Oriana Chan D.O. PROCEDURE:? CT ANGIO CHEST PE PROTOCOL ? INDICATIONS:? known pna, hx b cell lymphoma, worsening o2 ? TECHNIQUE:? After the administration of intravenous contrast, 2 mm thick sections acquired from the pulmonary apices to the posterior costophrenic angles.? 3-dimensional maximum intensity projection (MIP) coronal and sagittal reformats were then acquired through the thorax.? For radiation dose reduction, the following was used:? automated exposure control, adjustment of mA and/or kV according to patient size.? ? COMPARISON:? [facility], CT, CT CHEST ABD PEL W CON, 01/17/2023, 19:44.? [facility], CR, XR CHEST 1V, 01/21/2023, 9:03. ? FINDINGS:? Image quality:? Excellent.? ? Pulmonary arteries:? Pulmonary arteries are normal in size, and demonstrate no intraluminal filling defects to suggest central pulmonary embolism.? ? Lungs and pleura:? Bilateral patchy consolidative opacities are again seen throughout both lungs in a similar distribution when compared to the CT from 01/17/2023.? Areas of mild septal line thickening are noted.? No pleural effusions or pneumothorax.? Central airways are patent.? ? Mediastinum:? A right chest port is seen with catheter tip in the right atrium.? Heart size is normal, without pericardial effusion.? [id number] coronary artery calcifications.? Mediastinal and hilar lymph nodes are not significant large by CT size criteria.? Thoracic aorta is normal in caliber and enhancement.? Esophagus is normal in caliber, without hiatal hernia.? ? Bones and chest wall:? No suspicious bony lesions.? No acute rib fracture.? Stable sclerosis in the right lateral 4th rib, which is most likely benign.? Mild degenerative changes are seen in the spine and at the sternomanubrial junction.? Thyroid is unremarkable.? No axillary or supraclavicular adenopathy.? ? Abdomen:? An IVC filter is noted within the upper inferior vena cava at the leve l of the liver.? Visualized upper abdominal solid organs appear normal in the early arterial phase of enhancement.? ? IMPRESSION:? 1. No acute pulmonary embolus. 2. Diffuse bilateral pulmonary opacities redemonstrated in a similar pattern when compared to the CT from 01/17/2023.? Findings again may represent a bilateral pneumonia including with atypical or viral agents, although drug reaction or lymphoma involvement are not entirely excluded in a patient with history of lymphoma. 3. No bulky lymphadenopathy. 4. Right chest Port-A-Cath is seen with catheter tip in the right atrium, which is lower when compared to the recent CT and may be related to arm positioning. 5. Inferior vena cava filter are again seen in the suprarenal IVC at the level of the liver as on prior exams. ? ? ? Approved by: Seun Hughes M.D. on 01/21/2023 at 10:33 ECG Data Attestation: I personally reviewed and interpreted this ECG as follows: Prior ECG tracings: available for review Interpretation: Sinus rhythm rate 88 MD 140 QRS of 98 QTC of 452. No acute ST elevation. Nonspecific change patient has small wave in lead 3 with inverted T-waves. S1 in lead 1. Patient prior EKG. Patient has prior from 01/17/2023 which appears similar with no acute or dynamic changes appreciated. MDM Narrative Medical decision making narrative: This is a 53-year-old male history of diffuse large B-cell lymphoma on immune therapy until about 2 months ago. Patient has had blood clots in the past he does have an IVC filter in place and is on Eliquis. Patient has completed a round of oral antibiotics and was found to have atypical pneumonia on CT scan on 01/17/2023. He noted that he has not had significantly worsening shortness of breath but feel very lightheaded and had low O2 sat at home today. Patient's O2 was 88% on room air. He is not normally on any home O2. Patient likely has some immune compromise secondary to his recent lymphoma treatment he is reported to be in remission. Patient was placed on oxygen, no wheezes so known DuoNeb. Repeat CBC, CMP, troponin, BNP, lactate, procalcitonin and blood cultures along with respiratory panel plan for repeat CT to evaluate for blood clots although less likely with Eliquis an IVC filter as well as further evaluation. Sputum culture was ordered. Patient had negative troponin and BNP, lactate and procalcitonin are not significantly elevated. Renal functions appropriate. CT PE does not show blood clots does show persistent atypical type pneumonia, possibility for medication reaction but seems less likely with 2 months off. Patient has allergy to amoxicillin/Augmentin and sulfa so was covered with vanco and azithromycin as he has been on Levaquin most recently. Discussed with Dr. Ferguson who accepts for inpatient. We noted that he was crying 2 L but was bumped up to 4 because was still 88% after some time at rest. Plan for inpatient. Sputum culture is ordered but patient has not provided a sample yet. Discharge Plan Departure Patient Disposition: Admitted As Inpatient Clinical Impression: Pneumonia, Acute respiratory failure with hypoxia Admit Date/Time: 01/21/23 11:34 Admit Provider: Calixto Ferguson
--- NOTE | 2023-01-21 09:02 | DI.RAD.S_ITS ---
PROCEDURE: XR CHEST 1V INDICATIONS: suspected sepsis TECHNIQUE: One view of the chest was acquired. COMPARISON: [facility], CR, XR CHEST 1V, 01/17/2023, 17:05. FINDINGS: Surgical changes and devices: Right chest wall port tip projects over the low SVC. Lungs and pleura: Basilar predominant airspace opacities, similar to prior. Mediastinum: Mediastinal contours appear normal. Heart size is normal. Bones and chest wall: No suspicious bony lesions. Overlying soft tissues appear unremarkable. IMPRESSION: Basilar predominant airspace opacities, unchanged from prior. Differential includes inflammatory pneumonitis, atypical infection, less likely pulmonary edema. Dictated by: Caleb Pizarro M.D. on 01/21/2023 at 8:15 Approved by: Caleb Pizarro M.D. on 01/21/2023 at 8:17
[2023-01-21 09:46] LABS: INR 1.3 (0.9-1.3); Prothrombin Time 15.1 SECONDS (10.1-12.7)
[2023-01-21 09:47] LABS: Add Manual Diff / Slide Review NO; Basophils Absolute Auto 100 /uL (0-100); Basophils Percent Auto 1.1 % (0-2); Eosinophils Absolute Auto 200 /uL (0-450); Eosinophils Percent Auto 2.4 % (2-4); Hematocrit 38.4 % (41-53); Hemoglobin 13.3 g/dL (13.5-17.5); Lymphocytes Absolute Auto 400 /uL (1100-4500); Lymphocytes Percent Auto 5.2 % (25-40); Mean Corpuscular HGB Conc 34.6 % (30-36); Mean Corpuscular Hemoglobin 29.4 PG (26-34); Mean Corpuscular Volume 85.2 fL (80-100); Monocytes Absolute Auto 700 /uL (0-900); Monocytes Percent Auto 8.1 % (3-14); Neutrophils Absolute Auto 7000 /uL (1500-7000); Neutrophils Percent Auto 83.2 % (50-75); Platelet Count 282 X10^3/uL (150-400); Red Blood Cell Count 4.51 X10^6/uL (4.5-5.9); Red Cell Distribution Width 14.3 % (11.6-14.8); White Blood Cell Count 8.4 X10^3/uL (4.5-11.0)
[2023-01-21 09:49] LABS: PTT Partial Thromboplastin Tim 39 SECONDS (26-36)
--- NOTE | 2023-01-21 09:49 | DI.CT.S_ITS ---
PROCEDURE: CT ANGIO CHEST PE PROTOCOL INDICATIONS: known pna, hx b cell lymphoma, worsening o2 TECHNIQUE: After the administration of intravenous contrast, 2 mm thick sections acquired from the pulmonary apices to the posterior costophrenic angles. 3-dimensional maximum intensity projection (MIP) coronal and sagittal reformats were then acquired through the thorax. For radiation dose reduction, the following was used: automated exposure control, adjustment of mA and/or kV according to patient size. COMPARISON: [facility], CT, CT CHEST ABD PEL W CON, 01/17/2023, 19:44. [facility], CR, XR CHEST 1V, 01/21/2023, 9:03. FINDINGS: Image quality: Excellent. Pulmonary arteries: Pulmonary arteries are normal in size, and demonstrate no intraluminal filling defects to suggest central pulmonary embolism. Lungs and pleura: Bilateral patchy consolidative opacities are again seen throughout both lungs in a similar distribution when compared to the CT from 01/17/2023. Areas of mild septal line thickening are noted. No pleural effusions or pneumothorax. Central airways are patent. Mediastinum: A right chest port is seen with catheter tip in the right atrium. Heart size is normal, without pericardial effusion. [id number]-[id number] coronary artery calcifications. Mediastinal and hilar lymph nodes are not significant large by CT size criteria. Thoracic aorta is normal in caliber and enhancement. Esophagus is normal in caliber, without hiatal hernia. Bones and chest wall: No suspicious bony lesions. No acute rib fracture. Stable sclerosis in the right lateral 4th rib, which is most likely benign. Mild degenerative changes are seen in the spine and at the sternomanubrial junction. Thyroid is unremarkable. No axillary or supraclavicular adenopathy. Abdomen: An IVC filter is noted within the upper inferior vena cava at the level of the liver. Visualized upper abdominal solid organs appear normal in the early arterial phase of enhancement. IMPRESSION: 1. No acute pulmonary embolus. 2. Diffuse bilateral pulmonary opacities redemonstrated in a similar pattern when compared to the CT from 01/17/2023. Findings again may represent a bilateral pneumonia including with atypical or viral agents, although drug reaction or lymphoma involvement are not entirely excluded in a patient with history of lymphoma. 3. No bulky lymphadenopathy. 4. Right chest Port-A-Cath is seen with catheter tip in the right atrium, which is lower when compared to the recent CT and may be related to arm positioning. 5. Inferior vena cava filter are again seen in the suprarenal IVC at the level of the liver as on prior exams. Approved by: Seun Hughes M.D. on 01/21/2023 at 10:33
[2023-01-21 09:51] LABS: Alanine Aminotransferase 22 IU/L (<50); Albumin 4.1 g/dL (3.5-5.0); Albumin Globulin Ratio 1.6 (1.0-2.8); Alkaline Phosphatase 86 U/L (38-126); Aspartate Aminotransferase 47 IU/L (17-59); BUN Creatinine Ratio 12.1 (6-22); Bilirubin Total 0.4 mg/dL (0.2-1.3); Blood Urea Nitrogen 15 mg/dL (9-20); Calcium 8.9 mg/dL (8.4-10.2); Carbon Dioxide 23 mmol/L (22-32); Chloride 103 mmol/L (98-107); Estimated Glomerular Filt Rate > 60 mL/min (>60); Globulin 2.6 g/dL (1.7-4.1); Glucose 106 mg/dL (70-100); HEMOLYSIS < 15 (0-50); Lipase 68 U/L (23-300); Sodium 136 mmol/L (137-145); Total Protein 6.7 g/dL (6.3-8.2)
[2023-01-21 09:52] LABS: Lactate (Lactic Acid) 2.1 mmol/L (0.7-2.1)
[2023-01-21 10:03] LABS: NT-proBNP (BNP-Adult 18+) 15 pg/mL (<125); Troponin I < 0.012 ng/mL (0.01-0.034)
[2023-01-21 10:08] LABS: Procalcitonin 0.09 ng/mL (<0.5)
[2023-01-21] MEDS: AZITHROMYCIN 500 MG in DEXTROSE 5% IN WATER 250 ML 250 MG IV (10:23)
[2023-01-21 11:21] LABS: Adenovirus Not Detected (Not Detect); B. parapertussis Not Detected (Not Detecte); Bordetella pertussis Not Detected (Not Detecte); Chlamydophila pneumoniae Not Detected (Not Detect); Coronavirus 229E Not Detected (Not Detect); Coronavirus HKU1 Not Detected (Not Detect); Coronavirus NL 63 Not Detected (Not Detect); Coronavirus OC43 Not Detected (Not Detect); Human Metapneumovirus Not Detected (Not Detect); Human Rhinovirus/Enterovirus Not Detected (Not Detect); Influenza A Not Detected (Not Detect); Influenza B Not Detected (Not Detect); Mycoplasma pneumoniae Not Detected (Not Detect); Parainfluenza Virus 1 Not Detected (Not Detect); Parainfluenza Virus 2 Not Detected (Not Detect); Parainfluenza Virus 3 Not Detected (Not Detect); Parainfluenza Virus 4 Not Detected (Not Detect); Respiratory Syncytial Virus Not Detected (Not Detect); SARS- CoV-2 Not Detected (Not Detecte)
[2023-01-21 11:29] LABS: Reflexed Lactate in 2 Hours Y
--- NOTE | 2023-01-21 11:35 | P.HP_ITS ---
History of Present Illness History of Present Illness Date Patient Seen: 01/21/23 Time Patient Seen: 11:35 Chief complaint: ER on Sat; pneumonia, SOB Narrative: 53-year-old male with B-cell lymphoma off treatment since October of this year as he was having some complications (primarily colitis) to treatment and seem to be stable with no evidence of progressive disease. He presented to the ER here at [facility] on the nth december with cough and shortness of breath that was present at that time for about 24 hours or so. Also had 2 episodes of diarrhea. Was found to have an atypical pneumonia based on chest x-ray and was given oral levofloxacin and discharged home. He was not hypoxic at the time (at least in the ER, reported some mild hypoxia at home) He completed his course of Levaquin as of this morning and has been intermittently hypoxic at home with a low oxygen saturation in the low 80s. He had an episode earlier today which prompted him to come to the ER where he felt like he was going to pass out he was more dyspneic than usual ER evaluation demonstrates the mild hypoxia requiring 2-4 L via nasal cannula to achieve a more normal oxygen saturation. Further evaluation in the ER is essentially unremarkable. He persists with evidence of bilateral atypical pneumonia pattern both on plain film imaging as well as CT angiography. No evidence of any pulmonary emboli. Respiratory panel is negative for viral source of pneumonia. White blood cell count is normal. He did have abdominal and pelvic CT performed during his previous admission to the ER which failed to demonstrate any evidence of recurrent lymphoma etcetera o r any other abnormality frankly besides the pneumonia Patient is admitted for his atypical pneumonia Patient diagnosed with B-cell lymphoma presenting with acute renal failure secondary to obstructive nephropathy back in August 2021. At that time had evidence DVT and require placement of an IVC given evidence of bleeding when started on anticoagulation. He has a persistent IVC filter in place which has been difficult to remove all of this has been attempted. His treatment most recently has been sick cycles completed in July 2022 of Pembrolizumab, which was interrupted due to diarrhea which required prednisone to resolve. Prior to that had received RCHOP x6 cycles ending in December 2021. It has been receiving his treatment at [facility] in [place]. [facility] Medical History Arthritis Bilateral ureteral obstruction Bilateral ureteral obstruction Carpal tunnel syndrome of left wrist (06/23/16) Constipation Coronary artery calcification DVT (deep venous thrombosis) Hydronephrosis, right Impaired vision Lower urinary tract symptoms (LUTS) Mixed hyperlipidemia Obesity (BMI 30-39.9) Obstructive sleep apnea of adult Obstructive uropathy Peripheral edema Psoriasis (10/29/17) Retained ureteral stent Venous stasis Surgical History H/O right wrist surgery History of carpal tunnel release Hx of cystoscopy (04/18/22) Family History Father Age: 76 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 without complication, 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 Heart disease Essential hypertension Social History number of children: 0 household members: spouse Smoking Status: Never smoker alcohol intake: former Type(s) of exercise: walking frequency: 3-4 times per week Meds Home Medications and Allergies Home Medications Medication Instructions Recorded Confirmed Type acyclovir 400 mg tablet 400 mg PO BID 30 days #60 tabs 02/24/22 01/21/23 Rx atorvastatin 10 mg tablet (Lipitor) 10 mg PO HS #90 tabs 04/21/22 01/21/23 Rx apixaban 5 mg tablet (Eliquis) 5 mg PO BID 30 days #60 tabs 06/23/22 01/21/23 Rx Allergies Allergy/AdvReac Type Severity Reaction Status Date / Time amoxicillin [AMOXICILLIN] Allergy Severe Swelling Verified 01/08/23 10:36 of Lip/Tongue/Throat Sulfa (Sulfonamide Allergy Severe Swelling Verified 01/08/23 10:36 Antibiotics) of [SULFA (SULFONAMIDE Lip/Tongue/Throat ANTIBIOTICS)] Review of Systems Review of Systems ROS: Yes All systems reviewed with the patient and are negative except as otherwise documented Exam Vital Signs (past 8 hours): - 01/21/23 08:57 01/21/23 08:53 01/21/23 09:00 Temperature 98.2 F Pulse Rate 90 89 89 Respiratory Rate 18 Blood Pressure 120/70 Pulse Oximetry 88 L 89 L 93 Oxygen Delivery Method Room Air Room Air Oxygen Flow Rate 01/21/23 09:03 01/21/23 09:03 01/21/23 09:30 Temperature Pulse Rate 86 Respiratory Rate 15 Blood Pressure 126/78 114/66 Pulse Oximetry 95 Oxygen Delivery Method Nasal Cannula Oxygen Flow Rate 2 01/21/23 09:30 Temperature Pulse Rate 83 Respiratory Rate 17 Blood Pressure Pulse Oximetry 92 Oxygen Delivery Method Oxygen Flow Rate Oxygen Delivery Method Nasal Cannula Oxygen Flow Rate 2 Narrative Exam Narrative: Middle-aged male in no obvious distress lying on a gurney in the emergency dep artment HEENT-unremarkable Lungs-surprisingly clear no wheezes no crackles good air movement Heart-regular rate and rhythm no murmur normal S1-S2 Abdomen-positive bowel tones soft nontender nondistended Extremities-no cyanosis clubbing or edema Objective Labs 01/21/23 09:25 01/21/23 09:25 Labs: Laboratory Results - last 24 hr 01/21/23 01/21/23 01/21/23 09:25 09:25 09:25 WBC 8.4 RBC 4.51 Hgb 13.3 L Hct 38.4 L MCV 85.2 MCH 29.4 MCHC 34.6 RDW 14.3 Plt Count 282 Neut % (Auto) 83.2 H Lymph % (Auto) 5.2 L [place] % (Auto) 8.1 Eos % (Auto) 2.4 Baso % (Auto) 1.1 Neut # (Auto) 7000 Lymph # (Auto) 400 L [place] # (Auto) 700 Eos # (Auto) 200 Baso # (Auto) 100 PT 15.1 H INR 1.3 APTT 39 H Sodium 136 L Potassium 4.0 Chloride 103 Carbon Dioxide 23 BUN 15 Creatinine 1.24 Estimated GFR > 60 BUN/Creatinine Ratio 12.1 Glucose 106 H Lactate Calcium 8.9 Total Bilirubin 0.4 AST 47 ALT 22 Alkaline Phosphatase 86 Troponin I NT-Pro-B Natriuret Pep Total Protein 6.7 Albumin 4.1 Globulin 2.6 Albumin/Globulin Ratio 1.6 Lipase 68 Procalcitonin 0.09 Chlamy pneumoniae PCR Adenovirus (PCR) B. pertussis DNA (PCR) B.parapertussis DNA PCR Coronavirus OC43 (PCR) Coronavirus HKU1 (PCR) Coronavirus 229E (PCR) SARS-CoV-2 (PCR) Coronavirus NL63 (PCR) Human Metapneumovir PCR Influenza Type A (PCR) Influenza Type B (PCR) M. pneumoniae (PCR) Parainfluenza 1 (PCR) Parainfluenza 2 (PCR) Parainfluenza 3 (PCR) Parainfluenza 4 (PCR) RSV (PCR) Entero/Rhino (PCR) 01/21/23 01/21/23 01/21/23 09:25 09:25 09:30 WBC RBC Hgb Hct MCV MCH MCHC RDW Plt Count Neut % (Auto) Lymph % (Auto) [place] % (Auto) Eos % (Auto) Baso % (Auto) Neut # (Auto) Lymph # (Auto) [place] # (Auto) Eos # (Auto) Baso # (Auto) PT INR APTT Sodium Potassium Chloride Carbon Dioxide BUN Creatinine Estimated GFR BUN/Creatinine Ratio Glucose Lactate 2.1 Calcium Total Bilirubin AST ALT Alkaline Phosphatase Troponin I < 0.012 NT-Pro-B Natriuret Pep 15 Total Protein Albumin Globulin Albumin/Globulin Ratio Lipase Procalcitonin Chlamy pneumoniae PCR Not detected Adenovirus (PCR) Not detected B. pertussis DNA (PCR) Not detected B.parapertussis DNA PCR Not detected Coronavirus OC43 (PCR) Not detected Coronavirus HKU1 (PCR) Not detected Coronavirus 229E (PCR) Not detected SARS-CoV-2 (PCR) Not detected Coronavirus NL63 (PCR) Not detected Human Metapneumovir PCR Not detected Influenza Type A (PCR) Not detected Influenza Type B (PCR) Not detected M. pneumoniae (PCR) Not detected Parainfluenza 1 (PCR) Not detected Parainfluenza 2 (PCR) Not detected Parainfluenza 3 (PCR) Not detected Parainfluenza 4 (PCR) Not detected RSV (PCR) Not detected Entero/Rhino (PCR) Not detected Assessment & Plan Assessment & Plan narrative: 1. Atypical pneumonia with acute hypoxic respiratory failure, presumed infectious-patient has failed an outpatient course of oral Levaquin. Looks like an atypical pneumonia without evidence of viral infection based on serology. This point I think he needs parental antibiotics and I would continue him on antibiotics directed at atypical organisms despite his failure with the levofloxacin. I will put him on azithromycin. However I think we should treat with a broader spectrum as well so vancomycin has been added in addition. This could be a very late response to the Keytruda as well I suppose, but his last dose appears to be in July of 2022 so that is an awfully extended time frame to think about that is sort of reaction. Also makes it harder for me to believe that he may have some sort of opportunistic infection such as Pneumocystis etcetera which I am not aware is associated with checkpoint inhibitors such as Keytruda (unless required glucocorticoid therapy for an extended time due to adverse event or reaction). Patient did receive prednisone and a dose of infliximab for treatment of his colitis although again that was months ago hard to believe that he would have an opportunistic infection appear at this point. However probably would have a low threshold to initiate glucocorticoid therapy in effort to reverse any sort of reaction to the Keytruda. Patient's reaction to sulfa in the past makes it problematic to treat PCP in other opportunistic infections as well. 2. Lymphoma-patient appears to be stable from a lymphoma standpoint without evidence of progression of disease based on recent imaging done of chest abdomen and pelvis. Also felt to be stable based on Oncology evaluation in [place] earlier this year within the last couple months since he had his therapy discontinued. 3. History DVT-continue patient's Eliquis. Does still have IVC filter in place. No evidence of pulmonary embolism at this time which was appropriately evaluated with CT angiography of the chest COVID-19 COVID-19 status: Negative Result date/Date tested (Pos, Neg/Pending): 01/21/23
[2023-01-21] MEDS: VANCOMYCIN 2,000 MG/400 ML PIGGYBACK 200 MG IV (12:15)
[2023-01-21 12:27] LABS: Lactate 2HR (Lactic Acid Rflx) 1.6 mmol/L (0.7-2.1)
[2023-01-21] MEDS: SODIUM CHLORIDE 0.45% 1,000 ML 100 ML IV (13:06)
[2023-01-21] MEDS: APIXABAN 5 MG TABLET PO (20:51)
[2023-01-21] MEDS: ATORVASTATIN 20 MG TABLET 10 MG PO (20:52)
[2023-01-21] MEDS: ACYCLOVIR 400 MG TABLET PO (20:52)
[2023-01-22] VITALS (7 sets, daily range): BP systolic 116–132; BP diastolic 69–81; PULSE 77–98; RESP 18–23; TEMP 36.2–36.8; O2SAT 93–96
[2023-01-22] MEDS: SODIUM CHLORIDE 0.45% 1,000 ML 100 ML IV (00:26)
[2023-01-22] MEDS: AZITHROMYCIN 500 MG in DEXTROSE 5% IN WATER 250 ML 250 MG IV (08:03)
--- NOTE | 2023-01-22 08:04 | P.PN_ITS ---
Subjective Subjective Date Patient Seen: 01/22/23 Time Patient Seen: 08:00 Interval history: Patient says he basically feels about the same. Not worse not necessarily any better. Was able to get some sleep overnight On his 2 L of fluid and continues on 2-4 L via nasal cannula oxygen replacement therapy No new symptoms. Vital signs have been stable no fever etcetera Exam Vital Signs (past 8 hours): - 01/22/23 07:31 01/22/23 07:46 01/22/23 07:00 Temperature 97.1 F L Pulse Rate 77 Respiratory Rate 18 Blood Pressure 116/69 Pulse Oximetry 94 95 95 Oxygen Delivery Method Nasal Cannula Nasal Cannula Oxygen Flow Rate 2.5 2 3 Fraction of Inspired Oxygen 29 Fraction of Inspired Oxygen 29 SaO2/FiO2 Ratio 324 Oxygen Delivery Method Nasal Cannula Oxygen Flow Rate 2 Objective Labs 01/21/23 09:25 01/21/23 09:25 Labs: Laboratory Results - last 24 hr 01/21/23 01/21/23 01/21/23 09:25 09:25 09:25 WBC 8.4 RBC 4.51 Hgb 13.3 L Hct 38.4 L MCV 85.2 MCH 29.4 MCHC 34.6 RDW 14.3 Plt Count 282 Neut % (Auto) 83.2 H Lymph % (Auto) 5.2 L [place] % (Auto) 8.1 Eos % (Auto) 2.4 Baso % (Auto) 1.1 Neut # (Auto) 7000 Lymph # (Auto) 400 L [place] # (Auto) 700 Eos # (Auto) 200 Baso # (Auto) 100 PT 15.1 H INR 1.3 APTT 39 H Sodium 136 L Potassium 4.0 Chloride 103 Carbon Dioxide 23 BUN 15 Creatinine 1.24 Estimated GFR > 60 BUN/Creatinine Ratio 12.1 Glucose 106 H Lactate Calcium 8.9 Total Bilirubin 0.4 AST 47 ALT 22 Alkaline Phosphatase 86 Troponin I NT-Pro-B Natriuret Pep Total Protein 6.7 Albumin 4.1 Globulin 2.6 Albumin/Globulin Ratio 1.6 Lipase 68 Procalcitonin 0.09 Chlamy pneumoniae PCR Adenovirus (PCR) B. pertussis DNA (PCR) B.parapertussis DNA PCR Coronavirus OC43 (PCR) Coronavirus HKU1 (PCR) Coronavirus 229E (PCR) SARS-CoV-2 (PCR) Coronavirus NL63 (PCR) Human Metapneumovir PCR Influenza Type A (PCR) Influenza Type B (PCR) M. pneumoniae (PCR) Parainfluenza 1 (PCR) Parainfluenza 2 (PCR) Parainfluenza 3 (PCR) Parainfluenza 4 (PCR) RSV (PCR) Entero/Rhino (PCR) 01/21/23 01/21/23 01/21/23 09:25 09:25 09:30 WBC RBC Hgb Hct MCV MCH MCHC RDW Plt Count Neut % (Auto) Lymph % (Auto) [place] % (Auto) Eos % (Auto) Baso % (Auto) Neut # (Auto) Lymph # (Auto) [place] # (Auto) Eos # (Auto) Baso # (Auto) PT INR APTT Sodium Potassium Chloride Carbon Dioxide BUN Creatinine Estimated GFR BUN/Creatinine Ratio Glucose Lactate 2.1 Calcium Total Bilirubin AST ALT Alkaline Phosphatase Troponin I < 0.012 NT-Pro-B Natriuret Pep 15 Total Protein Albumin Globulin Albumin/Globulin Ratio Lipase Procalcitonin Chlamy pneumoniae PCR Not detected Adenovirus (PCR) Not detected B. pertussis DNA (PCR) Not detected B.parapertussis DNA PCR Not detected Coronavirus OC43 (PCR) Not detected Coronavirus HKU1 (PCR) Not detected Coronavirus 229E (PCR) Not detected SARS-CoV-2 (PCR) Not detected Coronavirus NL63 (PCR) Not detected Human Metapneumovir PCR Not detected Influenza Type A (PCR) Not detected Influenza Type B (PCR) Not detected M. pneumoniae (PCR) Not detected Parainfluenza 1 (PCR) Not detected Parainfluenza 2 (PCR) Not detected Parainfluenza 3 (PCR) Not detected Parainfluenza 4 (PCR) Not detected RSV (PCR) Not detected Entero/Rhino (PCR) Not detected 01/21/23 12:09 WBC RBC Hgb Hct MCV MCH MCHC RDW Plt Count Neut % (Auto) Lymph % (Auto) [place] % (Auto) Eos % (Auto) Baso % (Auto) Neut # (Auto) Lymph # (Auto) [place] # (Auto) Eos # (Auto) Baso # (Auto) PT INR APTT Sodium Potassium Chloride Carbon Dioxide BUN Creatinine Estimated GFR BUN/Creatinine Ratio Glucose Lactate 1.6 Calcium Total Bilirubin AST ALT Alkaline Phosphatase Troponin I NT-Pro-B Natriuret Pep Total Protein Albumin Globulin Albumin/Globulin Ratio Lipase Procalcitonin Chlamy pneumoniae PCR Adenovirus (PCR) B. pertussis DNA (PCR) B.parapertussis DNA PCR Coronavirus OC43 (PCR) Coronavirus HKU1 (PCR) Coronavirus 229E (PCR) SARS-CoV-2 (PCR) Coronavirus NL63 (PCR) Human Metapneumovir PCR Influenza Type A (PCR) Influenza Type B (PCR) M. pneumoniae (PCR) Parainfluenza 1 (PCR) Parainfluenza 2 (PCR) Parainfluenza 3 (PCR) Parainfluenza 4 (PCR) RSV (PCR) Entero/Rhino (PCR) [facility] Medical History Arthritis Bilateral ureteral obstruction Bilateral ureteral obstruction Carpal tunnel syndrome of left wrist (06/23/16) Constipation Coronary artery calcification DVT (deep venous thrombosis) Hydronephrosis, right Impaired vision Lower urinary tract symptoms (LUTS) Mixed hyperlipidemia Obesity (BMI 30-39.9) Obstructive sleep apnea of adult Obstructive uropathy Peripheral edema Psoriasis (10/29/17) Retained ureteral stent Venous stasis Surgical History H/O right wrist surgery History of carpal tunnel release Hx of cystoscopy (04/18/22) Family History Father Age: 76 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 Pneumonia-continue with oxygen for his acute hypoxic respiratory failure. Continue with current IV antibiotics. If not improving after another 48-72 hours consider treatment for possible inflammatory reaction due to Keytruda verses consultation with ID verses thoughts about infectious sources up to and including consideration of transfer for bronchoscopy etcetera If patient worsens as evidenced by either increasing oxygen requirement developing fevers etcetera than consider re-evaluation sooner than that 48-72 hour window However I expect patient will improve with parental antibiotics although likely to be slow. Patient after consultation with family and spouse requests a C-reactive protein and sed rate be obtained. I am not sure what information this will give us that we do not already have I fully expect them to be abnormal as we know patient has bilateral pneumonia either on the basis of an infection or some sort of inflammation also in the background of a B-cell lymphoma which does not appear to be active but is felt to be still present. All of these things will likely cause sed rate and C-reactive protein to be elevated. However I will acknowledge patient's request in order this this morning. Quality VTE Deep Vein Thrombosis/Pulmonary Embolism Present on Admission: No
[2023-01-22] MEDS: ACYCLOVIR 400 MG TABLET PO ×2 (08:05→20:48)
[2023-01-22] MEDS: APIXABAN 5 MG TABLET PO ×2 (08:05→20:48)
[2023-01-22 09:10] LABS: Hematocrit 38.5 % (41-53); Hemoglobin 13.3 g/dL (13.5-17.5); Mean Corpuscular HGB Conc 34.6 % (30-36); Mean Corpuscular Hemoglobin 29.3 PG (26-34); Mean Corpuscular Volume 84.7 fL (80-100); Platelet Count 302 X10^3/uL (150-400); Red Blood Cell Count 4.54 X10^6/uL (4.5-5.9); Red Cell Distribution Width 14.3 % (11.6-14.8); White Blood Cell Count 7.3 X10^3/uL (4.5-11.0)
[2023-01-22 09:25] LABS: BUN Creatinine Ratio 13.3 (6-22); Blood Urea Nitrogen 16 mg/dL (9-20); C-Reactive Protein Quant 4.5 mg/dL (<1.0); Calcium 8.9 mg/dL (8.4-10.2); Carbon Dioxide 24 mmol/L (22-32); Chloride 101 mmol/L (98-107); Estimated Glomerular Filt Rate > 60 mL/min (>60); Glucose 141 mg/dL (70-100); HEMOLYSIS < 15 (0-50); Potassium 3.8 mmol/L (3.4-5.1); Sodium 135 mmol/L (137-145)
[2023-01-22 10:10] LABS: Erythrocyte Sedimentation Rate 61 MM/HR (0-15)
[2023-01-22 11:46] LABS: Neutrophils Absolute Manual 5986 /uL (3000-5900); Total Cells Counted 100
[2023-01-22 11:47] LABS: RBC Morphology Normal Morphology
[2023-01-22] MEDS: VANCOMYCIN 2,000 MG/400 ML PIGGYBACK 200 MG IV (12:00)
--- NOTE | 2023-01-22 12:33 | CM.DANOTE ---
Initial DCP Assessment Note Patient is a 53 yo with B-cell lymphoma off treatment since October, found to have pneumonia upon a visit to the ER January 17 given oral levofloxacin and discharged home. Returns w/low oxygen saturation, SOB admitted for further work up and management w/IV abx PCP Calixto Reed [facility] Patient indp and active at baseline, works for [employer]. Patient remains on O2 and IV abx, labs being followed closely No needs anticipated from this CM team however will plan to follow closely as medical POC unfolds, in case any DC needs or concerns arise YRN Melchor Discharge Planning/Care Management CM Discharge Assessment Start: 01/22/23 12:27 Freq: Status: Active Protocol: Document 01/22/23 12:27 KARL (Rec: 01/22/23 12:33 KARL [email or web address]) Discharge Planning Assessment Assigned Manager Client Service YRN Lawler DPOA/Assigned Designee Name Jessica Holly, spouse Contact Information [phone] Advance Directives? No History Provided By Patient,Medical Record Prior Living Arrangements House Household Members spouse Type of transporation used prior to Drives own vehicle admit Independent with ADL's Yes Is patient alert and oriented? Yes Barriers to Discharge No Discharge Plan Home Transportation Arrangement Spouse Referrals Initiated None needed
--- NOTE | 2023-01-22 14:17 | PC.NURSE ---
Addendum entered by Doris Graves R.N. 01/22/23 18:02: pt ambulated in hallways with oxygen on. Addendum entered by Doris Gravse R.N. 01/22/23 15:30: chlorhexidine wipes provided. Original Note: afebrile, still sob with exertion, 2.5L 94%. pt laying in recliner and comfortable. at bedside.
[2023-01-22] MEDS: ATORVASTATIN 20 MG TABLET 10 MG PO (20:48)
--- NOTE | 2023-01-22 22:46 | PC.NURSE ---
Pt arrived from the ER to room #229 at 2200. Able to transfer to ICU bed independently. Alert and oriented x4. IV ABX and NS at 100cc/hr running. Patent right PIV and left chest port. Vitals stable. consulted via mobile cart. Maya You notified and at bedside. Platelets started in ICU at 2245, tolerating well. x2 RN blood product sign off with CODEY Naranjo. 1 unit of RBS's ordered for am if hgb <7. Neutropenic precautions initiated. Patient provided warm blankets and water. No c/o pain and is resting comfortably in bed. All personal belongings in room.
[2023-01-23 02:00] VITALS: BP 136/76; PULSE 102; RESP 22; TEMP 36.9; O2SAT 92
--- NOTE | 2023-01-23 08:15 | P.PN_ITS ---
Subjective Subjective Date Patient Seen: 01/23/23 Time Patient Seen: 08:15 Interval history: Patient basically unchanged. Was up walking in the halls yesterday but drops his oxygen saturation. When I came to see him he was getting dressed after having been in the shower and once he completed that and sat back down in the chair and put his pulse oximeter back on his finger his O2 saturation was 81%. He had been on oxygen the whole time I watched him get dressed. He took about 3 minutes to recover back to 90+% He is had some persistent diarrhea as well has he tells me that is kind of been part of this whole thing. Makes him wonder about the colitis he had from the [facility] and whether that is part of what is going on with his lungs Exam Vital Signs (past 8 hours): - 01/23/23 02:00 Temperature 98.5 F Pulse Rate 102 H Respiratory Rate 22 Blood Pressure 136/76 Pulse Oximetry 92 Oxygen Flow Rate 2.5 Fraction of Inspired Oxygen 29 SaO2/FiO2 Ratio 324 Oxygen Delivery Method Oximask Oxygen Flow Rate 2.5 Objective Labs 01/22/23 08:50 01/22/23 08:50 Labs: Laboratory Results - last 24 hr 01/22/23 01/22/23 08:50 08:50 WBC 7.3 RBC 4.54 Hgb 13.3 L Hct 38.5 L MCV 84.7 MCH 29.3 MCHC 34.6 RDW 14.3 Plt Count 302 Total Counted 100 Seg Neutrophils % 81.0 H Band Neutrophils % 1.0 L Lymphocytes % (Manual) 7.0 L Monocytes % (Manual) 7.0 Eosinophils % (Manual) 3.0 Myelocytes % 1.0 H Neutrophils # (Manual) 5986 H RBC Morphology Normal morphology ESR 61 H Sodium 135 L Potassium 3.8 Chloride 101 Carbon Dioxide 24 BUN 16 Creatinine 1.20 Estimated GFR > 60 BUN/Creatinine Ratio 13.3 Glucose 141 H Calcium 8.9 C-Reactive Protein 4.5 H PFSH Medical History Arthritis Bilateral ureteral obstruction Bilateral ureteral obstruction Carpal tunnel syndrome of left wrist (06/23/16) Constipation Coronary artery calcification DVT (deep venous thrombosis) Hydronephrosis, right Impaired vision Lower urinary tract symptoms (LUTS) Mixed hyperlipidemia Obesity (BMI 30-39.9) Obstructive sleep apnea of adult Obstructive uropathy Peripheral edema Psoriasis (10/29/17) Retained ureteral stent Venous stasis Surgical History H/O right wrist surgery History of carpal tunnel release Hx of cystoscopy (04/18/22) Family History Father Age: 76 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 without complication, unspecified half-way insulin use status Heart disease Essential hypertension Social History number of children: 0 household members: spouse Smoking Status: Never smoker alcohol intake: former Type(s) of exercise: walking frequency: 3-4 times per week Assessment & Plan Assessment & Plan narrative: 1. Pneumonia-continue with oxygen for his acute hypoxic respiratory failure. Continue with current IV antibiotics. Patient not improving at this point but not worse either. I am beginning to think more this is a possible reaction to the Keytruda. Still do not have good evidence that this is an opportunistic infection etcetera. I think talking with his oncology team in [place] (Dr. Jarad Salvador at [facility]) makes sense. I am so mewhat inclined to probably start corticosteroids and see what gets better in regards to the diarrhea and his pulmonary status If patient worsens as evidenced by either increasing oxygen requirement developing fevers etcetera than I think he would benefit from transfer probably to [facility] if we can arrange that for the availability of heme Onc as well as Infectious Disease and Pulmonary Medicine as he likely will need a bronchoscopy etcetera Patient did have sed rate and C-reactive protein drawn as requested. Numbers are elevated not unexpectedly. Not sure that provides any additional info rmation or helps with the differential diagnosis etcetera Quality VTE Deep Vein Thrombosis/Pulmonary Embolism Present on Admission: No
[2023-01-23 08:39] VITALS: BP 116/73; PULSE 108; RESP 20; TEMP 36.5; O2SAT 91
[2023-01-23] MEDS: APIXABAN 5 MG TABLET PO ×2 (09:10→21:32)
[2023-01-23] MEDS: AZITHROMYCIN 500 MG in DEXTROSE 5% IN WATER 250 ML 250 MG IV (09:10)
[2023-01-23] MEDS: ACYCLOVIR 400 MG TABLET PO ×2 (09:10→21:32)
[2023-01-23 09:24] VITALS: O2SAT 93
--- NOTE | 2023-01-23 09:28 | PC.NURSE ---
Addendum entered by Leanne Burnett R.N. 01/23/23 14:41: Patient ambulating in the halls well, he is on 2.5l of oxygen and sats between 88-93%. Patient is a bit anxious and looks at the pulse oximeter monitor several times an hour. He denies pain. Original Note: Patients lung sounds are decreased in the r.upper and lower lobes. He is on oxygen and sats are 93%. He denies pain and is up ad waqas. Ate well at breakfast and is sitting up in his recliner.
[2023-01-23 09:53] VITALS: O2SAT 90
--- NOTE | 2023-01-23 11:22 | CM.DPNOTE ---
DCP Note Chart reviewed. Patient remains admitted for medical management of acute hypoxic resp failure Patient seen walking the hallway this morning w/O2 on CM team following; anticipate patient will discharge home when medically cleared vs transfer to higher level of care if resp failure does not improve and/or worsens JW
[2023-01-23 13:53] VITALS: BP 113/70; PULSE 100; RESP 19; TEMP 36.8; O2SAT 95
[2023-01-23] MEDS: VANCOMYCIN 2,000 MG/400 ML PIGGYBACK 200 MG IV (13:55)
[2023-01-23 19:00] VITALS: O2SAT 84
[2023-01-23] MEDS: ATORVASTATIN 20 MG TABLET 10 MG PO (21:32)
[2023-01-24] VITALS (8 sets, daily range): BP systolic 112–136; BP diastolic 69–80; PULSE 91–106; RESP 18–20; TEMP 36.4–36.8; O2SAT 91–96
[2023-01-24] MEDS: ACETAMINOPHEN 325 MG TABLET 650 MG PO ×2 (00:22→22:23)
--- NOTE | 2023-01-24 08:26 | PM.PN.1 ---
Subjective Subjective Date Patient Seen: 01/24/23 Time Patient Seen: 08:26 Interval history: Patient seen and evaluated this morning at bedside nurse was with me. Patient states he thinks he feels better this morning he sitting up in a chair eating his breakfast. The day nurse says that he required a little bit more oxygen last night. Currently his O2 sats are 96%. He is good appetite. Normal bowel movement. We discussed about his current diagnosis. Mentions that he thinks he is has some colitis psoriasis and after discussion with Dr. Ferguson may have pneumonitis due to his Keytruda. We discussed his current medications. We discussed the importance of ambulation and time. Reviewed that it may take a number of days for steroids to start working. If no significant improvement or decline may need transfer to tertiary care center. Exam Vital Signs (past 8 hours): - 01/24/23 06:00 Temperature 98.2 F Pulse Rate 91 H Respiratory Rate 18 Blood Pressure 114/69 Pulse Oximetry 96 Oxygen Flow Rate 3 Fraction of Inspired Oxygen 29 SaO2/FiO2 Ratio 324 Oxygen Delivery Method Nasal Cannula Oxygen Flow Rate 3 Narrative Exam Narrative: Gen.: Alert and oriented x3 no apparent distress. HEENT: NCAT PERRLA tympanic membranes are clear nares are patent oral mucosa is moist no tonsillar hypertrophy neck is supple without lymphadenopathy no thyroid enlargement. Cardio: S1-S2 regular rate and rhythm no murmurs appreciated. Respiratory: Normal respiratory effort some crackles at lung bases Abdomen: Soft nontender no rebound or guarding no liver spleen enlargement no appreciable hernias Extremities: Full range of motion no appreciable weakness no cyanosis or edema. Neurologic: Grossly intact. Objective Labs 01/22/23 08:50 01/22/23 08:50 [facility] Medical History Arthritis Bilateral ureteral obstruction Bilateral ureteral obstruction Carpal tunnel syndrome of left wrist (06/23/16) Constipation Coronary artery calcification DVT (deep venous thrombosis) Hydronephrosis, right Impaired vision Lower urinary tract symptoms (LUTS) Mixed hyperlipidemia Obesity (BMI 30-39.9) Obstructive sleep apnea of adult Obstructive uropathy Peripheral edema Psoriasis (10/29/17) Retained ureteral stent Venous stasis Surgical History H/O right wrist surgery History of carpal tunnel release Hx of cystoscopy (04/18/22) Family History Father Age: 76 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 without complication, 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 Current plan is to continue with IV antibiotics with azithromycin and vancomycin. Previously on Levaquin. Started IV steroid yesterday after consultation with oncologist 40 mg IV. He thinks he is feeling better today. We will see how he responds to this over the next 24-48 hours still oxygen dependent. B-cell lymphoma. Stable without evidence of disease progression patient's immune therapy and chemotherapy has been stopped within the last few months followed with Oncology. Venous thromboembolism. Patient's on anticoagulation. Has an IVC filter in place Hyperlipidemia patient is on atorvastatin DVT prophylaxis with Eliquis Disposition and plan continue with IV steroids IV oxygen IV antibiotics for respiratory failure. Continue can course of treatment over the next 24-48 hours if significant decline will need transfer is stable and improving discharge home would be a possibility. Quality VTE Deep Vein Thrombosis/Pulmonary Embolism Present on Admission: No
[2023-01-24] MEDS: ACYCLOVIR 400 MG TABLET PO ×2 (09:23→19:55)
[2023-01-24] MEDS: AZITHROMYCIN 500 MG in DEXTROSE 5% IN WATER 250 ML 250 MG IV (09:23)
[2023-01-24] MEDS: APIXABAN 5 MG TABLET PO ×2 (09:23→19:55)
[2023-01-24] MEDS: VANCOMYCIN 2,000 MG/400 ML PIGGYBACK 200 MG IV (15:19)
--- NOTE | 2023-01-24 18:05 | PC.NURSE ---
pain well controlled today with one [place] this afternoon. Diet advanced from clears to full liquid to general diet for dinner with no complaints of nausea or vomiting. spouse assisted patient with shower.
[2023-01-24] MEDS: ATORVASTATIN 20 MG TABLET 10 MG PO (19:55)
[2023-01-25] VITALS (9 sets, daily range): BP systolic 121–145; BP diastolic 70–84; PULSE 79–111; RESP 18–19; TEMP 36.1–36.5; O2SAT 89–97
[2023-01-25] MEDS: VANCOMYCIN 2,000 MG/400 ML PIGGYBACK 200 MG IV ×2 (03:06→14:33)
[2023-01-25 05:47] LABS: Hematocrit 35.6 % (41-53); Hemoglobin 11.9 g/dL (13.5-17.5); Mean Corpuscular HGB Conc 33.3 % (30-36); Mean Corpuscular Hemoglobin 28.6 PG (26-34); Mean Corpuscular Volume 85.7 fL (80-100); Platelet Count 347 X10^3/uL (150-400); Red Blood Cell Count 4.16 X10^6/uL (4.5-5.9); Red Cell Distribution Width 14.2 % (11.6-14.8); White Blood Cell Count 16.7 X10^3/uL (4.5-11.0)
[2023-01-25 05:48] LABS: Alanine Aminotransferase 24 IU/L (<50); Albumin 3.8 g/dL (3.5-5.0); Albumin Globulin Ratio 1.5 (1.0-2.8); Alkaline Phosphatase 88 U/L (38-126); Aspartate Aminotransferase 32 IU/L (17-59); BUN Creatinine Ratio 23.5 (6-22); Bilirubin Total 0.1 mg/dL (0.2-1.3); Blood Urea Nitrogen 28 mg/dL (9-20); Calcium 8.7 mg/dL (8.4-10.2); Carbon Dioxide 21 mmol/L (22-32); Chloride 104 mmol/L (98-107); Estimated Glomerular Filt Rate > 60 mL/min (>60); Globulin 2.5 g/dL (1.7-4.1); Glucose 165 mg/dL (70-100); HEMOLYSIS < 15 (0-50); Sodium 136 mmol/L (137-145); Total Protein 6.3 g/dL (6.3-8.2)
[2023-01-25 05:50] LABS: Add Manual Diff / Slide Review YES
[2023-01-25 06:30] LABS: Neutrophils Absolute Manual 15531 /uL (3000-5900); Total Cells Counted 100
[2023-01-25 06:31] LABS: RBC Morphology Normal Morphology
[2023-01-25] MEDS: ACYCLOVIR 400 MG TABLET PO (08:13)
[2023-01-25] MEDS: APIXABAN 5 MG TABLET PO (08:14)
--- NOTE | 2023-01-25 08:43 | P.PN_ITS ---
Subjective Subjective Date Patient Seen: 01/25/23 Time Patient Seen: 08:43 Interval history: Patient seen this morning states he is feeling much better good appetite he has been up walking around. He is on 2 L of oxygen O2 sats are 94-96%. No fevers or chills or deterioration of symptoms white blood cell count is elevated I am assuming due to his prednisone. Kidney function and electrolytes are normal. Blood glucose is a little elevated as well. Continued on antibiotics. Exam Vital Signs (past 8 hours): - 01/25/23 02:00 01/25/23 07:31 01/25/23 07:33 Temperature 97.0 F L 97.2 F L Pulse Rate 90 79 Respiratory Rate 19 18 Blood Pressure 121/70 145/84 H Pulse Oximetry 97 93 Oxygen Delivery Method Oxygen Flow Rate 2 2 01/25/23 08:38 Temperature Pulse Rate Respiratory Rate Blood Pressure Pulse Oximetry 94 Oxygen Delivery Method Nasal Cannula Oxygen Flow Rate 2 Fraction of Inspired Oxygen 29 SaO2/FiO2 Ratio 324 Oxygen Delivery Method Nasal Cannula Oxygen Flow Rate 2 Narrative Exam Narrative: Gen.: Alert and oriented x3 no apparent distress. HEENT: NCAT PERRLA tympanic membranes are clear nares are patent oral mucosa is moist no tonsillar hypertrophy neck is supple without lymphadenopathy no thyroid enlargement. Cardio: S1-S2 regular rate and rhythm no murmurs appreciated. Respiratory: Lungs are clear to auscultation no wheezes or crackles normal respiratory effort. Abdomen: Soft nontender no rebound or guarding no liver spleen enlargement no appreciable hernias Extremities: Full range of motion no appreciable weakness no cyanosis or edema. Neurologic: Grossly intact. Objective Labs 01/25/23 05:30 01/25/23 05:30 Labs: Laboratory Results - last 24 hr 01/24/23 01/25/23 01/25/23 14:10 05:30 05:30 WBC 16.7 H RBC 4.16 L Hgb 11.9 L Hct 35.6 L MCV 85.7 MCH 28.6 MCHC 33.3 RDW 14.2 Plt Count 347 Neut % (Auto) Not Reportable Lymph % (Auto) Not Reportable Benzie % (Auto) Not Reportable Eos % (Auto) Not Reportable Baso % (Auto) Not Reportable Lymph # (Auto) Not Reportable Benzie # (Auto) Not Reportable Baso # (Auto) Not Reportable Total Counted 100 Seg Neutrophils % 89.0 H Band Neutrophils % 4.0 Lymphocytes % (Manual) 5.0 L Monocytes % (Manual) 1.0 L Metamyelocytes % 1.0 H Neutrophils # (Manual) 80413 H RBC Morphology Normal morphology Sodium 136 L Potassium 4.0 Chloride 104 Carbon Dioxide 21 L BUN 28 H Creatinine 1.19 Estimated GFR > 60 BUN/Creatinine Ratio 23.5 H Glucose 165 H Calcium 8.7 Total Bilirubin 0.1 L AST 32 ALT 24 Alkaline Phosphatase 88 Total Protein 6.3 Albumin 3.8 Globulin 2.5 Albumin/Globulin Ratio 1.5 Vancomycin Trough 7.0 L PFSH Medical History Arthritis Bilateral ureteral obstruction Bilateral ureteral obstruction Carpal tunnel syndrome of left wrist (06/23/16) Constipation Coronary artery calcification DVT (deep venous thrombosis) Hydronephrosis, right Impaired vision Lower urinary tract symptoms (LUTS) Mixed hyperlipidemia Obesity (BMI 30-39.9) Obstructive sleep apnea of adult Obstructive uropathy Peripheral edema Psoriasis (10/29/17) Retained ureteral stent Venous stasis Surgical History H/O right wrist surgery History of carpal tunnel release Hx of cystoscopy (04/18/22) Family History Father Age: 76 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 without complication, 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 Patient is certainly feeling better. Partly due to the steroids. His oxygen level has decreased a little bit certainly has not increased. No symptoms of fever elevated white blood cell count this morning I think this is more due to steroids. Been on steroids before due to his t reatment of his lymphoma. Oxygen level has decreased not worsened. This is a good sign. Continue with 24 more hours of IV steroids had that point if he is improving we may be able to discharge him home on oral steroids and close monitoring as an outpatient B-cell lymphoma.? Stable without evidence of disease progression patient's immune therapy and chemotherapy has been stopped within the last few months followed with Oncology. Patient doing well at this point. Colitis. Patient previously on steroids for Néstor iris it was resistant. He did have a infusion of infliximab. He has some maybe mild symptoms but not significant at this point. Venous thromboembolism.? Patient's on anticoagulation.? Has an IVC filter in place Hyperlipidemia patient is on atorvastatin DVT prophylaxis with Eliquis Disposition and plan continue with IV steroids IV oxygen IV antibiotics for respiratory failure.? Patient improving mildly clinically. Continue with 24 more hours. If able will discharge tomorrow if no decline in respiratory function. Quality VTE Deep Vein Thrombosis/Pulmonary Embolism Present on Admission: No
--- NOTE | 2023-01-26 08:00 | PM.DS.1 ---
History of Present Illness History of Present Illness Chief complaint: ER on Sat; pneumonia, SOB Discharge Providers Provider Date of admission: 01/21/23 11:34 Discharge Date: 01/25/23 Primary care physician: Calixto Ferguson MD Discharge provider: Julien Whelan MD Summary Hospital Course Discharge Diagnosis: Acute respiratory failure Pneumonitis due to presumed allergic reaction to Keytruda B-cell lymphoma in remission Colitis due to allergic reaction to Keytruda Venous thromboembolism with IVC filter in place on chronic anticoagulation Hypertension Hospital Course: Patient was admitted to the hospital after outpatient treatment for presumed pneumonia or atypical pneumonia. Patient was found to be quite hypoxic and in respiratory failure. Patient was placed on appropriate antibiotics. Over the ensuing 48 hours symptoms did not improve at all. Patient is on Keytruda for B-cell lymphoma which is in remission. Patient had a significant reaction to Keytruda with a colitis. Presumed Keytruda reaction was considered as a diagnosis of his pneumonia or pneumonitis. Patient was started on IV steroids. Within 48 hours of starting IV steroids patient began to feel better. Oxygen saturations went back to baseline. Patient was stable for discharge and was discharged from the hospital without oxygen. Patient was discharged on his same medication. He was started on 60 mg of oral prednisone for 7 days and tapering doses every 7 days over the next month and a half patient will have a follow-up appointment with Dr. Ferguson. Exam Vital Signs (past 8 hours): Fraction of Inspired Oxygen 29 SaO2/FiO2 Ratio 324 Oxygen Delivery Method Room Air Oxygen Flow Rate 0 Objective Labs 01/25/23 05:30 01/25/23 05:30 [facility] Medical History Arthritis Bilateral ureteral obstruction Bilateral ureteral obstruction Carpal tunnel syndrome of left wrist (06/23/16) Constipation Coronary artery calcification DVT (deep venous thrombosis) Hydronephrosis, right Impaired vision Lower urinary tract symptoms (LUTS) Mixed hyperlipidemia Obesity (BMI 30-39.9) Obstructive sleep apnea of adult Obstructive uropathy Peripheral edema Psoriasis (10/29/17) Retained ureteral stent Venous stasis Surgical History H/O right wrist surgery History of carpal tunnel release Hx of cystoscopy (04/18/22) Family History Father Age: 76 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 Ferguson in 7 days Discharge orders & Medications Prescriptions: New prednisone 20 mg tablet 60 mg PO DAILY Qty: 60 0RF Continued atorvastatin [Lipitor] 10 mg tablet 10 mg PO HS Qty: 90 3RF acyclovir 400 mg Tablet 400 mg PO BID 30 Days Qty: 60 5RF Eliquis 5 mg Tablet 5 mg PO BID 30 Days Qty: 60 0RF Follow up/Referrals: Calixto Ferguson MD [Primary Care Provider] - Visit Report/Discharge Packet Stand Alone Forms: Patient Portal/API, Stroke Signs & Symptoms Discharge Data Primary Care Provider: Calixto Ferguson Discharges patient from system. Discharge Date/Time: 01/25/23 17:54 Quality VTE Deep Vein Thrombosis/Pulmonary Embolism Present on Admission: No
== END 2023-01-25 17:54 | disposition home or self-care (01) | DRG 205 ==
LOC: ED 11:32 → AC 12:25
PROVIDERS: Family Medicine; Admitting Provider Internal Medicine; Emergency Provider Emergency Medicine; Family Provider Internal Medicine; PCP Internal Medicine; Referring Provider Emergency Medicine; Visit Provider Internal Medicine
DX: J70.4 Drug-induced interstitial lung disorders, unspecified (principal); J96.01 Acute respiratory failure with hypoxia; C85.10 Unspecified B-cell lymphoma, unspecified site; E78.5 Hyperlipidemia, unspecified; K52.9 Noninfective gastroenteritis and colitis, unspecified; T50.995A Adverse effect of other drugs, medicaments and biological substances, initial encounter; Z86.718 Personal history of other venous thrombosis and embolism; Z79.01 Long term (current) use of anticoagulants
CPT/HCPCS: 36415; 71045; 71275; 80048; 80053; 80202; 83605; 83690; 83880; 84145; 84484; 85007; 85025; 85610; 85651; 85730; 86140; 87040; 87070; 87205; 87633; 93005; 93010; 94760; 96365; 99223; 99232; 99233; 99238; 99285; G0378; J1642; J2920; J7050

== ENCOUNTER → 2023-02-02 11:05 | Outpatient (CLI) | payer OTHER, SELFPAY ==
[2023-01-21 12:57] VITALS: BMI 36.2
--- NOTE | 2023-02-02 11:06 | DI.RAD.S_ITS ---
PROCEDURE: XR CHEST 2V INDICATIONS: acute resp failure TECHNIQUE: 2 views of the chest were acquired. COMPARISON: [facility], CR, XR CHEST 1V, 01/21/2023, 9:03. FINDINGS: Surgical changes and devices: Right IJ MediPort. IVC filter. Lungs and pleura: Perihilar and infrahilar patchy and strand-like alveolar opacities present bilaterally. No pleural effusion. No pneumothorax. Mediastinum: Mediastinal contours are normal. Heart size is normal. Bones and chest wall: No suspicious bony abnormalities. Soft tissues appear unremarkable. IMPRESSION: 1. No significant change in perihilar and infrahilar alveolar opacities seen previously with sparing of the bases and no pleural effusion. Consider infectious, inflammatory, or drug toxicity. Dictated by: Shaye Cintron M.D. on 02/02/2023 at 15:27 Approved by: Shaye Cintron M.D. on 02/02/2023 at 15:30
[2023-02-02 12:51] LABS: Add Manual Diff / Slide Review NO; Basophils Absolute Auto 0 /uL (0-100); Basophils Percent Auto 0.2 % (0-2); Eosinophils Absolute Auto 100 /uL (0-450); Eosinophils Percent Auto 0.4 % (2-4); Hematocrit 41.3 % (41-53); Hemoglobin 13.9 g/dL (13.5-17.5); Lymphocytes Absolute Auto 400 /uL (1100-4500); Lymphocytes Percent Auto 2.4 % (25-40); Mean Corpuscular HGB Conc 33.6 % (30-36); Mean Corpuscular Hemoglobin 28.5 PG (26-34); Monocytes Absolute Auto 700 /uL (0-900); Monocytes Percent Auto 3.9 % (3-14); Neutrophils Absolute Auto 16800 /uL (1500-7000); Neutrophils Percent Auto 93.1 % (50-75); Platelet Count 287 X10^3/uL (150-400); Red Blood Cell Count 4.86 X10^6/uL (4.5-5.9); Red Cell Distribution Width 14.7 % (11.6-14.8)
[2023-02-02 13:22] LABS: Alanine Aminotransferase 24 IU/L (<50); Albumin 4.1 g/dL (3.5-5.0); Alkaline Phosphatase 97 U/L (38-126); Aspartate Aminotransferase 30 IU/L (17-59); BUN Creatinine Ratio 23.3 (6-22); Bilirubin Total 0.5 mg/dL (0.2-1.3); Blood Urea Nitrogen 28 mg/dL (9-20); Calcium 8.8 mg/dL (8.4-10.2); Carbon Dioxide 21 mmol/L (22-32); Chloride 103 mmol/L (98-107); Estimated Glomerular Filt Rate > 60 mL/min (>60); Globulin 2.1 g/dL (1.7-4.1); Glucose 97 mg/dL (70-100); HEMOLYSIS < 15 (0-50); Potassium 3.7 mmol/L (3.4-5.1); Sodium 136 mmol/L (137-145); Total Protein 6.2 g/dL (6.3-8.2)
== END ==
PROVIDERS: Family Provider Internal Medicine; PCP Internal Medicine; Referring Provider Internal Medicine; Visit Provider Internal Medicine
DX: C83.30 Diffuse large B-cell lymphoma, unspecified site (principal); J96.01 Acute respiratory failure with hypoxia; Z79.899 Other long term (current) drug therapy
CPT/HCPCS: 36415; 71046; 80053; 85025

== ENCOUNTER → 2023-03-04 13:11 | Outpatient (CLI) | payer OTHER, SELFPAY ==
[2023-01-21 12:57] VITALS: BMI 36.2
[2023-03-04 14:53] LABS: Add Manual Diff / Slide Review NO; Basophils Absolute Auto 0 /uL (0-100); Basophils Percent Auto 0.1 % (0-2); Eosinophils Absolute Auto 0 /uL (0-450); Hemoglobin 11.7 g/dL (13.5-17.5); Lymphocytes Absolute Auto 200 /uL (1100-4500); Lymphocytes Percent Auto 1.4 % (25-40); Mean Corpuscular HGB Conc 33.4 % (30-36); Mean Corpuscular Hemoglobin 29.1 PG (26-34); Mean Corpuscular Volume 87.1 fL (80-100); Monocytes Absolute Auto 400 /uL (0-900); Monocytes Percent Auto 3.1 % (3-14); Neutrophils Absolute Auto 11700 /uL (1500-7000); Neutrophils Percent Auto 95.4 % (50-75); Platelet Count 142 X10^3/uL (150-400); Red Blood Cell Count 4.02 X10^6/uL (4.5-5.9); Red Cell Distribution Width 16.9 % (11.6-14.8); White Blood Cell Count 12.3 X10^3/uL (4.5-11.0)
[2023-03-04 15:24] LABS: Alanine Aminotransferase 32 IU/L (<50); Albumin 3.6 g/dL (3.5-5.0); Albumin Globulin Ratio 1.4 (1.0-2.8); Alkaline Phosphatase 91 U/L (38-126); Aspartate Aminotransferase 27 IU/L (17-59); Bilirubin Total 0.6 mg/dL (0.2-1.3); Blood Urea Nitrogen 29 mg/dL (9-20); Calcium 7.9 mg/dL (8.4-10.2); Carbon Dioxide 22 mmol/L (22-32); Chloride 101 mmol/L (98-107); Estimated Glomerular Filt Rate > 60 mL/min (>60); Globulin 2.6 g/dL (1.7-4.1); Glucose 159 mg/dL (70-100); Lactate Dehydrogenase 382 U/L (120-246); Sodium 132 mmol/L (137-145); Total Protein 6.2 g/dL (6.3-8.2)
[2023-03-04 15:26] LABS: HEMOLYSIS 53 (0-50)
== END ==
PROVIDERS: Family Provider Internal Medicine; PCP Internal Medicine; Referring Provider Internal Medicine Hematology & Oncology; Visit Provider Internal Medicine Hematology & Oncology
DX: C83.30 Diffuse large B-cell lymphoma, unspecified site (principal)
CPT/HCPCS: 36415; 80053; 83615; 85025

== ENCOUNTER 2023-03-08 00:23 | Emergency (ER) | payer OTHER, SELFPAY ==
[2023-01-21 12:57] VITALS: BMI 36.2
[2023-03-08] VITALS (8 sets, daily range): BP systolic 127–144; BP diastolic 77–84; PULSE 74–83; RESP 22–25; TEMP 36.6; O2SAT 88–97; BMI 38.2
--- NOTE | 2023-03-08 00:36 | DI.RAD.S_ITS ---
PROCEDURE: XR CHEST 1V INDICATIONS: flu-like symptoms TECHNIQUE: One view of the chest was acquired. COMPARISON: [facility], CR, XR CHEST 2V, 02/02/2023, 11:05. FINDINGS: Surgical changes and devices: Right Port-A-Cath is unchanged. Lungs and pleura: Persistent appearance bilateral pulmonary opacities slightly less prominent. Mediastinum: Mediastinal contours appear normal. Heart size is enlarged. Bones and chest wall: No suspicious bony lesions. Overlying soft tissues appear unremarkable. IMPRESSION: Persistent appearance of bilateral pulmonary opacities slightly less prominent when compared to prior exam. As previously identified, appearance can be related to infection/inflammation or potential drug toxicity. Dictated by: Michelle Rodriguez M.D. on 03/08/2023 at 1:02 Approved by: Michelle Rodriguez M.D. on 03/08/2023 at 1:03
--- NOTE | 2023-03-08 00:51 | ED.GENADULT ---
HPI - General Adult General Chief complaint: Shortness of Breath/Dyspnea Stated complaint: SOB, Dyspnea Time Seen by Provider: 03/08/23 00:32 Source: patient and family Mode of arrival: Ambulatory History of Present Illness HPI narrative: Patient is a 53-year-old male. Has a history of lymphoma. Is being followed by Oncology at [facility]. Over the past couple months has had respiratory issues. Was admitted here at this facility for a pneumonitis. Was subsequently discharged home. After that spent time at [facility] for similar symptoms. Had a bronchoscopy. Was diagnosed with COVID. Completed treatment for this. Is on prophylactic antibiotics for prevention of pneumonia. He is on oxygen at home. At baseline he uses 2 L. Sometimes he is able to come off of the oxygen. He is not having any chest pain. Over the past couple days and specifically over the past 24 hours he has had an increase in shortness of breath. He also feels like he is retaining fluid is he has swelling in his lower legs. Has also gained weight since he was discharged from the hospital. No fevers. No cough. He is not on diuretics. No diagnosis of heart failure. He also decreased his prednisone from 80 mg a day to 60 mg a day (30 mg in the morning and 30 mg at night). That was done yesterday. He also has a history of a DVT. Is on anticoagulation. Related Data Previous Rx's Medication Instructions Recorded acyclovir 400 mg tablet 400 mg PO BID 30 days #60 tabs 02/24/22 atorvastatin 10 mg tablet (Lipitor) 10 mg PO HS #90 tabs 04/21/22 apixaban 5 mg tablet (Eliquis) 5 mg PO BID 30 days #60 tabs 06/23/22 prednisone 20 mg tablet 60 mg PO DAILY #60 tabs 01/25/23 furosemide 20 mg tablet (Lasix) 20 mg PO DAILY #30 tabs 03/08/23 Allergies Allergy/AdvReac Type Severity Reaction Status Date / Time amoxicillin [AMOXICILLIN] Allergy Severe Swelling Verified 02/02/23 10:24 of Lip/Tongue/Throat Sulfa (Sulfonamide Allergy Severe Swelling Verified 02/02/23 10:24 Antibiotics) of [SULFA (SULFONAMIDE Lip/Tongue/Throat ANTIBIOTICS)] Review of Systems Review of Systems ROS Unobtainable: All systems reviewed & are unremarkable except as noted in HPI and below Patient History Medical History Arthritis Bilateral ureteral obstruction Bilateral ureteral obstruction Carpal tunnel syndrome of left wrist (06/23/16) Constipation Coronary artery calcification DVT (deep venous thrombosis) Hydronephrosis, right Impaired vision Lower urinary tract symptoms (LUTS) Mixed hyperlipidemia Obesity (BMI 30-39.9) Obstructive sleep apnea of adult Obstructive uropathy Peripheral edema Psoriasis (10/29/17) Retained ureteral stent Venous stasis Surgical History H/O right wrist surgery History of carpal tunnel release Hx of cystoscopy (04/18/22) Family History Father Age: 76 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 without complication, 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 Heart disease Essential hypertension Social History number of children: 0 household members: spouse Smoking Status: Never smoker alcohol intake: former Type(s) of exercise: walking frequency: 3-4 times per week Smoking Status: Never smoker alcohol intake frequency: holidays/special occasions only Substance Use Type: marijuana Exam Initial Vital Signs Initial Vital Signs: Vital Signs Pulse Rate 80 03/08/23 00:29 Const General: cooperative and No ill appearing HENMT Head: normal to inspection and normocephalic Resp Effort & Inspection: not labored and tachypneic Auscultation: clear to auscultation bilaterally Cardio Rate: regular rate Rhythm: regular rhythm GI Inspection: normal to inspection and non-distended Skin General: no rashes or lesions noted Neuro General: patient alert, patient awake and moves all extremities Extrem General: edema Course Orders Ordered: ED Orders 03/08/23 00:36 XR chest 1V Stat EKG-12 Lead Stat 03/08/23 00:40 Complete Blood Count AUTO DIFF Stat Comprehensive Metabolic Panel Stat NT-proBNP (BNP-Adult 18+) Stat Procalcitonin Stat Troponin & CK Cardiac Panel Stat 03/08/23 01:00 Respiratory Panel (Film Array) Stat Vital Signs Vital signs: Vital Signs - 8 hr 03/08/23 00:30 03/08/23 00:34 03/08/23 00:29 Temperature 97.9 F Pulse Rate 80 80 Respiratory Rate 25 H Blood Pressure 144/79 H Pulse Oximetry 88 L 94 Oxygen Delivery Method Nasal Cannula Nasal Cannula Oxygen Flow Rate 3 4 03/08/23 00:30 03/08/23 00:45 03/08/23 00:45 Temperature Pulse Rate 83 83 Respiratory Rate Blood Pressure 135/84 Pulse Oximetry 93 96 Oxygen Delivery Method Nasal Cannula Oxygen Flow Rate 4 03/08/23 00:51 03/08/23 01:00 03/08/23 01:00 Temperature Pulse Rate 76 Respiratory Rate 24 Blood Pressure 133/79 Pulse Oximetry 95 95 Oxygen Delivery Method Nasal Cannula Oxygen Flow Rate 2 2 03/08/23 01:30 03/08/23 01:30 03/08/23 02:00 Temperature Pulse Rate 74 Respiratory Rate 22 Blood Pressure 127/77 139/82 Pulse Oximetry 96 Oxygen Delivery Method Oxygen Flow Rate 03/08/23 02:00 Temperature Pulse Rate 74 Respiratory Rate 22 Blood Pressure Pulse Oximetry 97 Oxygen Delivery Method Nasal Cannula Oxygen Flow Rate 2 Medical Decision Making Medical Records Medical records reviewed: Yes I reviewed the patient's medical records. Lab Data Lab results reviewed: Yes I reviewed the patient's lab results. 03/08/23 00:40 03/08/23 00:40 Labs: Lab Results 03/08/23 03/08/23 03/08/23 Range/Units 00:40 00:40 01:00 WBC 11.2 H (4.5-11.0) X10^3/uL RBC 4.05 L (4.5-5.9) X10^6/uL Hgb 11.7 L (13.5-17.5) g/dL Hct 34.9 L (41-53) % MCV 86.3 (80-100) fL MCH 28.8 (26-34) PG MCHC 33.4 (30-36) % RDW 16.9 H (11.6-14.8) % Plt Count 120 L (150-400) X10^3/uL Neut % (Auto) 94.5 H (50-75) % Lymph % (Auto) 1.8 L (25-40) % Sherman % (Auto) 3.3 (3-14) % Eos % (Auto) 0.2 L (2-4) % Baso % (Auto) 0.2 (0-2) % Neut # (Auto) 63520 H (3987-6036) /uL Lymph # (Auto) 200 L (1090-4101) /uL Sherman # (Auto) 400 (0-900) /uL Eos # (Auto) 0 (0-450) /uL Baso # (Auto) 0 (0-100) /uL Sodium 131 L (137-145) mmol/L Potassium 4.2 (3.4-5.1) mmol/L Chloride 99 (98-107) mmol/L Carbon Dioxide 26 (22-32) mmol/L BUN 27 H (9-20) mg/dL Creatinine 1.04 (0.66-1.25) mg/dL Estimated GFR > 60 (>60) mL/min BUN/Creatinine Ratio 26.0 H (6-22) Glucose 136 H (70-100) mg/dL Calcium 8.3 L (8.4-10.2) mg/dL Total Bilirubin 0.6 (0.2-1.3) mg/dL AST 25 (17-59) IU/L ALT 33 (<50) IU/L Alkaline Phosphatase 92 (38-126) U/L Total Creatine Kinase 24 L (55-170) U/L Troponin I < 0.012 (0.01-0.034) ng/mL NT-Pro-B Natriuret Pep 109 (<125) pg/mL Total Protein 6.4 (6.3-8.2) g/dL Albumin 3.5 (3.5-5.0) g/dL Globulin 2.9 (1.7-4.1) g/dL Albumin/Globulin Ratio 1.2 (1.0-2.8) Procalcitonin 0.08 (<0.5) ng/mL Chlamy pneumoniae PCR Not detected (Not Detect) Adenovirus (PCR) Not detected (Not Detect) B. pertussis DNA (PCR) Not detected (Not Detecte) B.parapertussis DNA PCR Not detected (Not Detecte) Coronavirus OC43 (PCR) Not detected (Not Detect) Coronavirus HKU1 (PCR) Not detected (Not Detect) Coronavirus 229E (PCR) Not detected (Not Detect) SARS-CoV-2 (PCR) Detected H (Not Detecte) Coronavirus NL63 (PCR) Not detected (Not Detect) Human Metapneumovir PCR Not detected (Not Detect) Influenza Type A (PCR) Not detected (Not Detect) Influenza Type B (PCR) Not detected (Not Detect) M. pneumoniae (PCR) Not detected (Not Detect) Parainfluenza 1 (PCR) Not detected (Not Detect) Parainfluenza 2 (PCR) Not detected (Not Detect) Parainfluenza 3 (PCR) Not detected (Not Detect) Parainfluenza 4 (PCR) Not detected (Not Detect) RSV (PCR) Not detected (Not Detect) Entero/Rhino (PCR) Not detected (Not Detect) Imaging Data Chest x-ray: Radiologist's Impression: PROCEDURE:? XR CHEST 1V ? INDICATIONS:? flu-like symptoms ? TECHNIQUE:? One view of the chest was acquired.? ? COMPARISON:? [facility], CR, XR CHEST 2V, 02/02/2023, 11:05. ? FINDINGS:? ? Surgical changes and devices:? Right Port-A-Cath is unchanged. ? Lungs and pleura:? Persistent appearance bilateral pulmonary opacities slightly less prominent. ? Mediastinum:? Mediastinal contours appear normal.? Heart size is enlarged. ? Bones and chest wall:? No suspicious bony lesions.? Overlying soft tissues appear unremarkable.? ? IMPRESSION:? Persistent appearance of bilateral pulmonary opacities slightly less prominent when compared to prior exam.? As previously identified, appearance can be related to infection/inflammation or potential drug toxicity. ECG Data Attestation: I personally reviewed and interpreted this ECG as follows: Interpretation: Sinus rhythm Ventricular rate of 82 Normal axis Normal QRS Normal No ST wave MDM Narrative Medical decision making narrative: Shortly after arrival we were able to wean the patient down to 2 L of oxygen by nasal cannula which is his baseline and he was able to maintain his oxygen saturations greater than 95%. He was not having chest pain. His chest x-ray today is actually improved from prior chest x-rays. He is not having a productive cough. Is not febrile. He is COVID positive however he was COVID positive during his last admission to the hospital which was confirmed by bronchoscopy. He stated that he completed a course of medication for this and did not have a test that showed that he was negative. Patient states he feels like he is retaining fluid. He does have some lower extremity edema. He was on Lasix when he was in the hospital but does not currently on Lasix. Patient states he is feeling better during his time here in the ER. Is oxygen is back at baseline. Plan will be is to discharge patient home. Will have him continue to follow the current plan for weaning off of his steroids. He is on day 2 of 7 of the 60 mg a day down from 80 mg a day. We did talk that potentially decreasing his steroids could have caused his symptoms that brought him in today however I am not completely convinced this and he will continue with the tapering process and if his symptoms worsen he may need to go back up on the steroids. 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 We will put him on Lasix for the next couple days as well just given his presentation. We discuss how he uses this at home. There is no indication for antibiotics today. Patient is comfortable going home. Was given return precautions. He expressed understanding and agreement. Discharge Plan Departure Patient Disposition: Home Clinical Impression: Pneumonitis, Shortness of breath Instructions: How to Manage Shortness of Breath Activity Restrictions/Additional Instructions: I do recommend that you continue to take all of your medications as directed. Also advised that you start taking the Lasix like we discussed. You can take it if you are starting to feel like you are retaining fluid. Keep your scheduled appointment that you have next week. Return to the emergency department for new or worsening symptoms. Prescriptions: New furosemide [Lasix] 20 mg tablet 20 mg PO DAILY Qty: 30 0RF No Action atorvastatin [Lipitor] 10 mg tablet 10 mg PO HS Qty: 90 3RF acyclovir 400 mg Tablet 400 mg PO BID 30 Days Qty: 60 5RF Eliquis 5 mg Tablet 5 mg PO BID 30 Days Qty: 60 0RF prednisone 20 mg tablet 60 mg PO DAILY Qty: 60 0RF Referrals: Calixto Ferguson MD [Primary Care Provider] - Stand Alone Forms: Patient Portal/API
[2023-03-08 00:57] LABS: Add Manual Diff / Slide Review NO; Basophils Absolute Auto 0 /uL (0-100); Basophils Percent Auto 0.2 % (0-2); Eosinophils Absolute Auto 0 /uL (0-450); Eosinophils Percent Auto 0.2 % (2-4); Hematocrit 34.9 % (41-53); Hemoglobin 11.7 g/dL (13.5-17.5); Lymphocytes Absolute Auto 200 /uL (1100-4500); Lymphocytes Percent Auto 1.8 % (25-40); Mean Corpuscular HGB Conc 33.4 % (30-36); Mean Corpuscular Hemoglobin 28.8 PG (26-34); Mean Corpuscular Volume 86.3 fL (80-100); Monocytes Absolute Auto 400 /uL (0-900); Monocytes Percent Auto 3.3 % (3-14); Neutrophils Absolute Auto 10600 /uL (1500-7000); Neutrophils Percent Auto 94.5 % (50-75); Platelet Count 120 X10^3/uL (150-400); Red Blood Cell Count 4.05 X10^6/uL (4.5-5.9); Red Cell Distribution Width 16.9 % (11.6-14.8); White Blood Cell Count 11.2 X10^3/uL (4.5-11.0)
[2023-03-08 01:00] LABS: Alanine Aminotransferase 33 IU/L (<50); Albumin 3.5 g/dL (3.5-5.0); Albumin Globulin Ratio 1.2 (1.0-2.8); Alkaline Phosphatase 92 U/L (38-126); Aspartate Aminotransferase 25 IU/L (17-59); Bilirubin Total 0.6 mg/dL (0.2-1.3); Blood Urea Nitrogen 27 mg/dL (9-20); Calcium 8.3 mg/dL (8.4-10.2); Carbon Dioxide 26 mmol/L (22-32); Chloride 99 mmol/L (98-107); Creatine Kinase 24 U/L (55-170); Estimated Glomerular Filt Rate > 60 mL/min (>60); Globulin 2.9 g/dL (1.7-4.1); Glucose 136 mg/dL (70-100); HEMOLYSIS < 15 (0-50); Potassium 4.2 mmol/L (3.4-5.1); Sodium 131 mmol/L (137-145); Total Protein 6.4 g/dL (6.3-8.2)
[2023-03-08 01:12] LABS: NT-proBNP (BNP-Adult 18+) 109 pg/mL (<125); Troponin I < 0.012 ng/mL (0.01-0.034)
[2023-03-08 01:16] LABS: Procalcitonin 0.08 ng/mL (<0.5)
[2023-03-08 01:55] LABS: Adenovirus Not Detected (Not Detect); B. parapertussis Not Detected (Not Detecte); Bordetella pertussis Not Detected (Not Detecte); Chlamydophila pneumoniae Not Detected (Not Detect); Coronavirus 229E Not Detected (Not Detect); Coronavirus HKU1 Not Detected (Not Detect); Coronavirus NL 63 Not Detected (Not Detect); Coronavirus OC43 Not Detected (Not Detect); Human Metapneumovirus Not Detected (Not Detect); Human Rhinovirus/Enterovirus Not Detected (Not Detect); Influenza A Not Detected (Not Detect); Influenza B Not Detected (Not Detect); Mycoplasma pneumoniae Not Detected (Not Detect); Parainfluenza Virus 1 Not Detected (Not Detect); Parainfluenza Virus 2 Not Detected (Not Detect); Parainfluenza Virus 3 Not Detected (Not Detect); Parainfluenza Virus 4 Not Detected (Not Detect); Respiratory Syncytial Virus Not Detected (Not Detect)
[2023-03-08 01:56] LABS: SARS- CoV-2 Detected (Not Detecte)
== END 2023-03-08 02:25 | disposition home or self-care (01) ==
PROVIDERS: Emergency Provider Emergency Medicine; Family Provider Internal Medicine; PCP Internal Medicine
DX: U07.1 COVID-19 (principal); J18.9 Pneumonia, unspecified organism; R06.02 Shortness of breath
CPT/HCPCS: 36415; 71045; 80053; 82550; 83880; 84145; 84484; 85025; 87633; 93005; 99284; 99285

== ENCOUNTER → 2023-05-11 10:09 | Outpatient (CLI) | payer OTHER, SELFPAY ==
[2023-01-21 12:57] VITALS: BMI 36.2
[2023-05-11 10:59] LABS: Add Manual Diff / Slide Review NO; Basophils Absolute Auto 0 /uL (0-100); Basophils Percent Auto 0.6 % (0-2); Eosinophils Absolute Auto 100 /uL (0-450); Eosinophils Percent Auto 1.7 % (2-4); Hematocrit 35.4 % (41-53); Hemoglobin 12.1 g/dL (13.5-17.5); Lymphocytes Absolute Auto 500 /uL (1100-4500); Mean Corpuscular HGB Conc 34.1 % (30-36); Mean Corpuscular Hemoglobin 30.3 PG (26-34); Mean Corpuscular Volume 88.9 fL (80-100); Monocytes Absolute Auto 500 /uL (0-900); Monocytes Percent Auto 8.4 % (3-14); Neutrophils Absolute Auto 5100 /uL (1500-7000); Neutrophils Percent Auto 81.3 % (50-75); Platelet Count 220 X10^3/uL (150-400); Red Blood Cell Count 3.98 X10^6/uL (4.5-5.9); Red Cell Distribution Width 17.2 % (11.6-14.8); White Blood Cell Count 6.2 X10^3/uL (4.5-11.0)
[2023-05-11 11:20] LABS: Alanine Aminotransferase 28 IU/L (<50); Albumin 4.2 g/dL (3.5-5.0); Albumin Globulin Ratio 2.3 (1.0-2.8); Alkaline Phosphatase 64 U/L (38-126); Aspartate Aminotransferase 28 IU/L (17-59); BUN Creatinine Ratio 16.5 (6-22); Bilirubin Total 0.4 mg/dL (0.2-1.3); Blood Urea Nitrogen 19 mg/dL (9-20); Calcium 9.1 mg/dL (8.4-10.2); Carbon Dioxide 25 mmol/L (22-32); Chloride 102 mmol/L (98-107); Estimated Glomerular Filt Rate > 60 mL/min (>60); Globulin 1.8 g/dL (1.7-4.1); Glucose 128 mg/dL (70-100); HEMOLYSIS < 15 (0-50); Lactate Dehydrogenase 244 U/L (120-246); Potassium 3.4 mmol/L (3.4-5.1); Sodium 136 mmol/L (137-145)
== END ==
PROVIDERS: Family Provider Internal Medicine; PCP Internal Medicine; Referring Provider Internal Medicine Nephrology; Visit Provider Internal Medicine Hematology & Oncology
DX: C83.30 Diffuse large B-cell lymphoma, unspecified site (principal)
CPT/HCPCS: 36415; 80053; 83615; 85025

== ENCOUNTER 2023-08-01 19:13 | Emergency (ER) | payer OTHER, SELFPAY ==
[2023-01-21 12:57] VITALS: BMI 36.2
[2023-08-01] VITALS (11 sets, daily range): BP systolic 104–134; BP diastolic 51–72; PULSE 81–102; RESP 17–27; TEMP 37.4–39.6; O2SAT 94–99; BMI 42.3
--- NOTE | 2023-08-01 19:27 | DI.RAD.S_ITS ---
PROCEDURE: XR CHEST 2V INDICATIONS: fever TECHNIQUE: 2 views of the chest were acquired. COMPARISON: [facility], CR, XR CHEST 1V, 03/08/2023, 0:34. FINDINGS: Surgical changes and devices: Tunneled right port device is in place. Lungs and pleura: Redemonstration of diffuse bilateral pulmonary opacities which appears slightly less prominent compared to the prior study. No new focal airspace disease. Diffuse interstitial prominence not significantly changed. No substantial pleural effusion or pneumothorax. Mediastinum: Mediastinal contours are normal. Heart size is enlarged. Bones and chest wall: No suspicious bony abnormalities. Soft tissues appear unremarkable. IMPRESSION: Persistent but decreased conspicuity of diffusely scattered bilateral airspace opacities and mild interstitial prominence. No new focal airspace disease identified. As before, etiologies include infectious or inflammatory etiology, pulmonary edema, or possible drug toxicity. Dictated by: Chuy Sheffield M.D. on 08/01/2023 at 20:02 Approved by: Chuy Sheffield M.D. on 08/01/2023 at 20:07
--- NOTE | 2023-08-01 20:26 | ED_ITS ---
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 Currently has fever of 101.3. He took Tylenol 1000 mg at 6:00 p.m. he reports that he is having headache no neck pain no cough or increasing shortness of breath. He reports he is actually been doing oxygen holidays but has not really last 24 hours due to not feeling well. He is no abdominal pain no painful frequent urination. He took 2 COVID tests at home are negative. 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 so he is not taken ibuprofen Related Data Previous Rx's Medication Instructions Recorded acyclovir 400 mg tablet 400 mg PO BID 30 days #60 tabs 02/24/22 apixaban 5 mg tablet (Eliquis) 5 mg PO BID 30 days #60 tabs 06/23/22 lorazepam 0.5 mg tablet 0.5 mg PO BEDTIME PRN sleep #30 03/16/23 tabs furosemide 20 mg tablet (Lasix) 20 mg PO DAILY #90 tabs 03/24/23 hydralazine 25 mg tablet 25 mg PO TID #270 tabs 03/24/23 metoprolol succinate 50 mg 50 mg PO DAILY #90 tabs 03/24/23 tablet,extended release 24 hr prednisone 20 mg tablet 20 mg PO DAILY #60 tabs 03/24/23 trazodone 100 mg tablet 100 mg PO BEDTIME #90 tabs 03/24/23 atorvastatin 10 mg tablet (Lipitor) 10 mg PO HS #90 tabs 03/30/23 isosorbide dinitrate 10 mg tablet 10 mg PO TID #90 tabs 03/30/23 ondansetron 4 mg disintegrating 4 mg PO Q8H PRN nausea and 07/06/23 tablet vomiting #30 tabs Allergies Allergy/AdvReac Type Severity Reaction Status Date / Time amoxicillin [AMOXICILLIN] Allergy Severe Swelling Verified 08/01/23 19:20 of Lip/Tongue/Throat Sulfa (Sulfonamide Allergy Severe Swelling Verified 08/01/23 19:20 Antibiotics) of [SULFA (SULFONAMIDE Lip/Tongue/Throat ANTIBIOTICS)] Patient History Medical History Coronary artery calcification Hydronephrosis, right Lower urinary tract symptoms (LUTS) DVT (deep venous thrombosis) Retained ureteral stent Bilateral ureteral obstruction Bilateral ureteral obstruction Obstructive uropathy Obesity (BMI 30-39.9) Peripheral edema Venous stasis Obstructive sleep apnea of adult Mixed hyperlipidemia Impaired vision Constipation Arthritis Psoriasis (10/29/17) Carpal tunnel syndrome of left wrist (06/23/16) Surgical History Hx of cystoscopy (04/18/22) H/O right wrist surgery History of carpal tunnel release Family History Father Age: 77 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 without complication, 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 Heart disease Essential hypertension Social History number of children: 0 household members: spouse Smoking Status: Never smoker alcohol intake: former Type(s) of exercise: walking frequency: 3-4 times per week Smoking Status: Never smoker alcohol intake frequency: holidays/special occasions only Substance Use Type: marijuana Exam Initial Vital Signs Initial Vital Signs: Vital Signs Temperature 101.3 F H 08/01/23 19:23 Pulse Rate 94 H 08/01/23 19:23 Respiratory Rate 17 08/01/23 19:23 Blood Pressure 134/72 08/01/23 19:23 Pulse Oximetry 97 08/01/23 19:23 Oxygen Delivery Method Room Air 08/01/23 19:23 GENERAL: Alert 53-year-old male no acute distress HEENT: Head atraumatic,EOMI, pupils reactive, face symmetric, moist mucous membranes, no meningeal signs neck is supple CARDIOVASCULAR: Regular rate and rhythm without murmurs, rubs or gallops. RESPIRATORY: Breath sounds equal bilaterally, no wheezes rales or rhonchi. ABDOMEN: Soft, nontender. Normoactive bowel sounds all 4 quadrants. No guarding or rebound. Umbilical hernia present EXTREMITIES: Normal range of motion, no clubbing or edema. Neurovascularly intact NEUROLOGICAL: Alert and oriented x4.Normal gait and speech. Cranial nerves II through XII grossly intact. SKIN: Warm, dry, no laceration, no petechiae, no rashes or lesions. Course Orders Ordered: ED Orders 08/01/23 19:27 Chest [XR chest 2V] Stat 08/01/23 19:30 Respiratory Panel (Film Array) Stat 08/01/23 19:37 EKG-12 Lead Stat RT Consult Eval and Treat NOW 08/01/23 20:16 Blood Culture Stat Complete Blood Count AUTO DIFF Stat Comprehensive Metabolic Panel Stat Lactate (Lactic Acid) Stat Lipase Stat PTT Partial Thromboplastin Julio Stat Procalcitonin Stat Prothrombin Time INR Stat 08/01/23 22:40 Urinalysis and Microscopic Stat Heparin Sodium (Porcine) (Heparin 500 Unit/5 Ml Port Flush) 500 unit IV PRN PRN PRN Reason: Flush Last Admin: 08/01/23 23:56 Dose: 500 unit Documented By: VEE Ondansetron HCl (Ondansetron 4 Mg Odt) 4 mg SL NOW PRN PRN Reason: Nausea And Vomiting Discontinued Medications Sodium Chloride (Normal Saline 0.9%) 1,000 mls @ 1,000 mls/hr IV BOLUS ONE Stop: 08/01/23 20:36 Last Infusion: 08/01/23 21:27 Dose: Infused Documented By: Admin: 08/01/23 20:28 Dose: 1,000 mls/hr Documented By: VEE Acetaminophen (Ofirmev) 1,000 mg in 100 mls @ 400 mls/hr IV NOW ONE Stop: 08/01/23 22:26 Last Infusion: 08/01/23 22:54 Dose: Infused Documented By: Admin: 08/01/23 22:24 Dose: 400 mls/hr Documented By: VEE Sodium Chloride (Normal Saline 0.9%) 1,000 mls @ 1,000 mls/hr IV BOLUS ONE Stop: 08/01/23 23:11 Last Infusion: 08/01/23 23:47 Dose: Infused Documented By: Admin: 08/01/23 22:24 Dose: 1,000 mls/hr Documented By: VEE Ketorolac Tromethamine (Ketorolac 30 Mg/Ml Vial) 15 mg IV NOW ONE Stop: 08/01/23 22:02 Last Admin: 08/01/23 22:05 Dose: 15 mg Documented By: VEE Ondansetron HCl (Ondansetron 4 Mg/2 Ml Inj) 4 mg IV NOW PRN PRN Reason: Nausea And Vomiting Last Admin: 08/01/23 20:29 Dose: 4 mg Documented By: VEE Vital Signs Vital signs: Vital Signs - 8 hr 08/01/23 19:23 08/01/23 20:30 08/01/23 20:30 Temperature 101.3 F H Pulse Rate 94 H 81 Respiratory Rate 17 Blood Pressure 134/72 128/64 Pulse Oximetry 97 98 Oxygen Delivery Method Room Air 08/01/23 21:00 08/01/23 21:00 08/01/23 21:30 Temperature Pulse Rate 94 H 102 H Respiratory Rate 19 27 H Blood Pressure 123/64 Pulse Oximetry 99 98 Oxygen Delivery Method 08/01/23 21:30 08/01/23 22:00 08/01/23 22:00 Temperature 103.2 F H Pulse Rate 99 H Respiratory Rate 22 Blood Pressure 131/72 131/70 Pulse Oximetry 98 Oxygen Delivery Method Room Air 08/01/23 22:05 08/01/23 22:29 08/01/23 22:30 Temperature 103.2 F H Pulse Rate 100 H Respiratory Rate 26 H Blood Pressure 113/60 Pulse Oximetry 94 Oxygen Delivery Method 08/01/23 22:31 08/01/23 23:00 08/01/23 23:00 Temperature Pulse Rate 99 H 100 H Respiratory Rate 27 H 24 Blood Pressure 111/53 L Pulse Oximetry 95 96 Oxygen Delivery Method 08/01/23 23:30 Temperature 99.3 F Pulse Rate 95 H Respiratory Rate 20 Blood Pressure Pulse Oximetry 95 Oxygen Delivery Method Room Air MDM - Headache Lab Data 08/01/23 20:16 08/01/23 20:16 Labs: Lab Results 08/01/23 08/01/23 08/01/23 Range/Units 19:30 19:30 19:30 WBC (4.5-11.0) X10^3/uL RBC (4.5-5.9) X10^6/uL Hgb (13.5-17.5) g/dL Hct (41-53) % MCV (80-100) fL MCH (26-34) PG MCHC (30-36) % RDW (11.6-14.8) % Plt Count (150-400) X10^3/uL Neut % (Auto) (50-75) % Lymph % (Auto) (25-40) % [place] % (Auto) (3-14) % Eos % (Auto) (2-4) % Baso % (Auto) (0-2) % Neut # (Auto) (1528-5300) /uL Lymph # (Auto) (5791-2480) /uL [place] # (Auto) (0-900) /uL Eos # (Auto) (0-450) /uL Baso # (Auto) (0-100) /uL PT (9.4-12.5) SECONDS INR (0.9-1.3) APTT (25.1-36.5) SECONDS Sodium (137-145) mmol/L Potassium (3.4-5.1) mmol/L Chloride (98-107) mmol/L Carbon Dioxide (22-32) mmol/L BUN (9-20) mg/dL Creatinine (0.66-1.25) mg/dL Estimated GFR (>60) mL/min BUN/Creatinine Ratio (6-22) Glucose (70-100) mg/dL Lactate (0.7-2.1) mmol/L Calcium (8.4-10.2) mg/dL Total Bilirubin (0.2-1.3) mg/dL AST (17-59) IU/L ALT (<50) IU/L Alkaline Phosphatase (38-126) U/L Total Protein (6.3-8.2) g/dL Albumin (3.5-5.0) g/dL Globulin (1.7-4.1) g/dL Albumin/Globulin Ratio (1.0-2.8) Lipase (23-300) U/L Procalcitonin (<0.5) ng/mL Urine Color Urine Appearance Urine pH (4.5-8.0) Ur Specific [place] (1.000-1.035) Urine Protein (Negative) Urine Glucose (UA) (Negative) g/dL Urine Ketones (NEGATIVE) Urine Occult Blood (Negative) Urine Nitrate (Negative) Urine Bilirubin (NEGATIVE) Urine Urobilinogen (0.2) E.U./dL Ur Leukocyte Esterase (NEGATIVE) Urine RBC (0-5/HPF) Urine WBC (0-5/HPF) Ur Squamous Epith Cells (0-5/HPF) Urine Bacteria (None) Ur Culture Indicated? Chlamy pneumoniae PCR Not detected (Not Detect) Adenovirus (PCR) Not detected (Not Detect) B.parapertussis DNA PCR Not detected (Not Detecte) Coronavirus OC43 (PCR) Not detected (Not Detect) Coronavirus HKU1 (PCR) Not detected (Not Detect) Coronavirus 229E (PCR) Not detected (Not Detect) SARS-CoV-2 (PCR) Cancelled Not detected Coronavirus NL63 (PCR) Not detected (Not Detect) Human Metapneumovir PCR Not detected (Not Detect) Influenza A (RT-PCR) Cancelled Influenza Type A (PCR) Not detected (Not Detect) Influenza B (RT-PCR) Cancelled Influenza Type B (PCR) Not detected (Not Detect) M. pneumoniae (PCR) Not detected (Not Detect) Parainfluenza 1 (PCR) Not detected (Not Detect) Parainfluenza 2 (PCR) Not detected (Not Detect) Parainfluenza 3 (PCR) Not detected (Not Detect) Parainfluenza 4 (PCR) Not detected (Not Detect) RSV (PCR) Cancelled Not detected Entero/Rhino (PCR) Not detected (Not Detect) 08/01/23 08/01/23 Range/Units 20:16 22:40 WBC 14.4 H (4.5-11.0) X10^3/uL RBC 3.68 L (4.5-5.9) X10^6/uL Hgb 11.1 L (13.5-17.5) g/dL Hct 32.6 L (41-53) % MCV 88.7 (80-100) fL MCH 30.1 (26-34) PG MCHC 33.9 (30-36) % RDW 14.0 (11.6-14.8) % Plt Count 163 (150-400) X10^3/uL Neut % (Auto) 88.3 H (50-75) % Lymph % (Auto) 2.6 L (25-40) % [place] % (Auto) 8.8 (3-14) % Eos % (Auto) 0.1 L (2-4) % Baso % (Auto) 0.2 (0-2) % Neut # (Auto) 79877 H (1284-2923) /uL Lymph # (Auto) 400 L (9815-3154) /uL [place] # (Auto) 1300 H (0-900) /uL Eos # (Auto) 0 (0-450) /uL Baso # (Auto) 0 (0-100) /uL PT 13.7 H (9.4-12.5) SECONDS INR 1.2 (0.9-1.3) APTT 33 (25.1-36.5) SECONDS Sodium 131 L (137-145) mmol/L Potassium 3.1 L (3.4-5.1) mmol/L Chloride 94 L (98-107) mmol/L Carbon Dioxide 26 (22-32) mmol/L BUN 15 (9-20) mg/dL Creatinine 1.35 H (0.66-1.25) mg/dL Estimated GFR > 60 (>60) mL/min BUN/Creatinine Ratio 11.1 (6-22) Glucose 118 H (70-100) mg/dL Lactate 1.5 (0.7-2.1) mmol/L Calcium 8.5 (8.4-10.2) mg/dL Total Bilirubin 0.7 (0.2-1.3) mg/dL AST 27 (17-59) IU/L ALT 27 (<50) IU/L Alkaline Phosphatase 74 (38-126) U/L Total Protein 6.4 (6.3-8.2) g/dL Albumin 4.1 (3.5-5.0) g/dL Globulin 2.3 (1.7-4.1) g/dL Albumin/Globulin Ratio 1.8 (1.0-2.8) Lipase 77 (23-300) U/L Procalcitonin 0.32 (<0.5) ng/mL Urine Color Yellow Urine Appearance Clear Urine pH 6.5 (4.5-8.0) Ur Specific [place] 1.010 (1.000-1.035) Urine Protein Trace H (Negative) Urine Glucose (UA) Negative (Negative) g/dL Urine Ketones Negative (NEGATIVE) Urine Occult Blood Negative (Negative) Urine Nitrate Negative (Negative) Urine Bilirubin Negative (NEGATIVE) Urine Urobilinogen 0.2 (0.2) E.U./dL Ur Leukocyte Esterase Negative (NEGATIVE) Urine RBC 0-1/hpf D (0-5/HPF) Urine WBC None seen (0-5/HPF) Ur Squamous Epith Cells None seen (0-5/HPF) Urine Bacteria None seen (None) Ur Culture Indicated? Cult not indicated Chlamy pneumoniae PCR (Not Detect) Adenovirus (PCR) (Not Detect) B.parapertussis DNA PCR (Not Detecte) Coronavirus OC43 (PCR) (Not Detect) Coronavirus HKU1 (PCR) (Not Detect) Coronavirus 229E (PCR) (Not Detect) SARS-CoV-2 (PCR) Coronavirus NL63 (PCR) (Not Detect) Human Metapneumovir PCR (Not Detect) Influenza A (RT-PCR) Influenza Type A (PCR) (Not Detect) Influenza B (RT-PCR) Influenza Type B (PCR) (Not Detect) M. pneumoniae (PCR) (Not Detect) Parainfluenza 1 (PCR) (Not Detect) Parainfluenza 2 (PCR) (Not Detect) Parainfluenza 3 (PCR) (Not Detect) Parainfluenza 4 (PCR) (Not Detect) RSV (PCR) Entero/Rhino (PCR) (Not Detect) Imaging Data Chest x-ray: Radiologist's Impression: PROCEDURE: XR CHEST 2V INDICATIONS: fever TECHNIQUE: 2 views of the chest were acquired. COMPARISON: [facility], , XR CHEST 1V, 03/08/2023, 0:34. FINDINGS: Surgical changes and devices: Tunneled right port device is in place. Lungs and pleura: Redemonstration of diffuse bilateral pulmonary opacities which appears slightly less prominent compared to the prior study. No new focal airspace disease. Diffuse interstitial prominence not significantly changed. No substantial pleural effusion or pneumothorax. Mediastinum: Mediastinal contours are normal. Heart size is enlarged. Bones and chest wall: No suspicious bony abnormalities. Soft tissues appear unremarkable. IMPRESSION: Persistent but decreased conspicuity of diffusely scattered bilateral airspace opacities and mild interstitial prominence. No new focal airspace disease identified. As before, etiologies include infectious or inflammatory etiology, pulmonary edema, or possible drug toxicity. Dictated by: Chuy Sheffield M.D. on 08/01/2023 at 20:02 ECG Data Interpretation: Normal sinus rhythm rate 94 VT interval 152 QRS [address] changes T-wave inversions MDM Narrative Medical decision making narrative: Patient 53-year-old male history of pneumonitis previous lymphoma presents today with fever and headache. He is febrile here in the ED with a temperature of 101? that actually goes up to 103. He is given IV Tylenol and Toradol both of which resolved his fever and helped his headache. No evidence of sepsis not tachycardic hypotensive or worsening hypoxia. He has no sign of respiratory distress he is not having a cough. Workup in the ED included blood work. He does have leukocytosis of 14 but lactate of 1.5 procalcitonin 0.32 are negative your analysis negative respiratory panel. Chest x-ray has been reviewed. No obvious changes or consolidations to suggest a pneumonia. Patient really not having cough or congestion no abdominal pain painful frequent urination or any symptoms. Headache resolved with Tylenol Motrin but no neck pain. We discussed possible viral syndrome versus meningitis. We discussed at this time no lumbar puncture which seems reasonable his neck is very supple and headache improved. At this time no need for antibiotics unclear what we would be treating. He is not having signs and symptoms of a pneumonia respiratory illness. Urinalysis was negative. At this time I recommend supportive care and return as needed. Discharge Plan Departure Patient Disposition: Home Clinical Impression: Fever, Acute viral syndrome Instructions: DI for Fever (Symptom) -- Adult Activity Restrictions/Additional Instructions: *You have been diagnosed with viral syndrome, fever *What to do: At this time stay hydrated treat fever. Viral panel was negative urinalysis negative *Continue to take medications as directed Tylenol 1000 mg every 6 hours for [id number] pain or fever Ibuprofen 600 mg every 8 hours only if needed for fever *Follow up with your primary care provider in 2-3 days or call [phone] *Return to ER if you should have increased weakness difficulty breathing or any new, worsening or concerning symptoms Prescriptions: No Action lorazepam 0.5 mg tablet 0.5 mg PO BEDTIME PRN (Reason: sleep) Qty: 30 1RF furosemide [Lasix] 20 mg tablet 20 mg PO DAILY Qty: 90 3RF trazodone 100 mg tablet 100 mg PO BEDTIME Qty: 90 3RF hydralazine 25 mg tablet 25 mg PO TID Qty: 270 3RF metoprolol succinate 50 mg tablet extended release 24 hr 50 mg PO DAILY Qty: 90 3RF prednisone 20 mg tablet 20 mg PO DAILY Qty: 60 0RF atorvastatin [Lipitor] 10 mg tablet 10 mg PO HS Qty: 90 3RF isosorbide dinitrate 10 mg tablet 10 mg PO TID Qty: 90 0RF ondansetron 4 mg tablet,disintegrating 4 mg PO Q8H PRN (Reason: nausea and vomiting) Qty: 30 1RF acyclovir 400 mg Tablet 400 mg PO BID 30 Days Qty: 60 5RF Eliquis 5 mg Tablet 5 mg PO BID 30 Days Qty: 60 0RF Referrals: Calixto Ferguson MD [Primary Care Provider] - Stand Alone Forms: Patient Portal/API
[2023-08-01 20:28] LABS: Add Manual Diff / Slide Review NO; Basophils Absolute Auto 0 /uL (0-100); Basophils Percent Auto 0.2 % (0-2); Eosinophils Absolute Auto 0 /uL (0-450); Eosinophils Percent Auto 0.1 % (2-4); Hematocrit 32.6 % (41-53); Hemoglobin 11.1 g/dL (13.5-17.5); Lymphocytes Absolute Auto 400 /uL (1100-4500); Lymphocytes Percent Auto 2.6 % (25-40); Mean Corpuscular HGB Conc 33.9 % (30-36); Mean Corpuscular Hemoglobin 30.1 PG (26-34); Mean Corpuscular Volume 88.7 fL (80-100); Monocytes Absolute Auto 1300 /uL (0-900); Monocytes Percent Auto 8.8 % (3-14); Neutrophils Absolute Auto 12800 /uL (1500-7000); Neutrophils Percent Auto 88.3 % (50-75); Platelet Count 163 X10^3/uL (150-400); Red Blood Cell Count 3.68 X10^6/uL (4.5-5.9); White Blood Cell Count 14.4 X10^3/uL (4.5-11.0)
[2023-08-01] MEDS: SODIUM CHLORIDE 0.9% 1,000 ML 1000 ML IV ×2 (20:28→22:24)
[2023-08-01] MEDS: ONDANSETRON 4 MG/2 ML INJ IV (20:29)
[2023-08-01 20:31] LABS: Adenovirus Not Detected (Not Detect); B. parapertussis Not Detected (Not Detecte); Bordetella pertussis Not Detected (Not Detect); Chlamydophila pneumoniae Not Detected (Not Detect); Coronavirus 229E Not Detected (Not Detect); Coronavirus HKU1 Not Detected (Not Detect); Coronavirus NL 63 Not Detected (Not Detect); Coronavirus OC43 Not Detected (Not Detect); Human Metapneumovirus Not Detected (Not Detect); Human Rhinovirus/Enterovirus Not Detected (Not Detect); Influenza A Not Detected (Not Detect); Influenza B Not Detected (Not Detect); Mycoplasma pneumoniae Not Detected (Not Detect); Parainfluenza Virus 1 Not Detected (Not Detect); Parainfluenza Virus 2 Not Detected (Not Detect); Parainfluenza Virus 3 Not Detected (Not Detect); Parainfluenza Virus 4 Not Detected (Not Detect); Respiratory Syncytial Virus Not Detected (Not Detect); SARS- CoV-2 Not Detected (Not Detecte)
[2023-08-01 20:34] LABS: INR 1.2 (0.9-1.3); Prothrombin Time 13.7 SECONDS (9.4-12.5)
[2023-08-01 20:37] LABS: PTT Partial Thromboplastin Tim 33 SECONDS (25.1-36.5)
[2023-08-01 20:40] LABS: Alanine Aminotransferase 27 IU/L (<50); Albumin 4.1 g/dL (3.5-5.0); Albumin Globulin Ratio 1.8 (1.0-2.8); Alkaline Phosphatase 74 U/L (38-126); Aspartate Aminotransferase 27 IU/L (17-59); BUN Creatinine Ratio 11.1 (6-22); Bilirubin Total 0.7 mg/dL (0.2-1.3); Blood Urea Nitrogen 15 mg/dL (9-20); Calcium 8.5 mg/dL (8.4-10.2); Carbon Dioxide 26 mmol/L (22-32); Chloride 94 mmol/L (98-107); Estimated Glomerular Filt Rate > 60 mL/min (>60); Globulin 2.3 g/dL (1.7-4.1); Glucose 118 mg/dL (70-100); HEMOLYSIS < 15 (0-50); Lactate (Lactic Acid) 1.5 mmol/L (0.7-2.1); Lipase 77 U/L (23-300); Potassium 3.1 mmol/L (3.4-5.1); Sodium 131 mmol/L (137-145); Total Protein 6.4 g/dL (6.3-8.2)
[2023-08-01 20:56] LABS: Procalcitonin 0.32 ng/mL (<0.5)
[2023-08-01] MEDS: KETOROLAC 30 MG/ML VIAL 15 MG IV (22:05)
[2023-08-01] MEDS: ACETAMINOPHEN IV 1,000 MG/100 ML VIAL 400 MG IV (22:24)
[2023-08-01 22:45] LABS: Appearance Urine UA CLEAR; Bilirubin Urine UA NEGATIVE (NEGATIVE); Color Urine UA YELLOW; Glucose Urine UA NEGATIVE (Negative); Ketones Urine UA NEGATIVE (NEGATIVE); Leukocyte Esterase Urine UA NEGATIVE (NEGATIVE); Nitrite Urine UA NEGATIVE (Negative); Occult Blood Urine UA NEGATIVE (Negative); Protein Urine UA TRACE (Negative); Urobilinogen Urine UA 0.2 E.U./dL (0.2); pH Urine UA 6.5 (4.5-8.0)
[2023-08-01 22:54] LABS: Bacteria Urine None Seen; Culture Indicated Urine Cult Not Indicated; RBC Urine 0-1/HPF (0-5/HPF); Squamous Epithelial Cell Urine None Seen (0-5/HPF); WBC Urine None Seen (0-5/HPF)
[2023-08-02] VITALS: PULSE 95; RESP 16; O2SAT 97
== END 2023-08-02 00:06 | disposition home or self-care (01) ==
PROVIDERS: Emergency Provider Emergency Medicine; Family Provider Internal Medicine; PCP Internal Medicine
DX: B34.9 Viral infection, unspecified (principal); R00.0 Tachycardia, unspecified; R50.9 Fever, unspecified; R78.81 Bacteremia
CPT/HCPCS: 36415; 71046; 80053; 81001; 83605; 83690; 84145; 85025; 85610; 85730; 87040; 87077; 87633; 93005; 96365; 96375; 99284; J0131; J1642; J1885; J2405

== ENCOUNTER → 2023-09-04 11:07 | Outpatient (CLI) | payer OTHER, SELFPAY ==
[2023-01-21 12:57] VITALS: BMI 36.2
[2023-09-04 13:01] LABS: Add Manual Diff / Slide Review NO; Basophils Absolute Auto 0 /uL (0-100); Basophils Percent Auto 0.5 % (0-2); Eosinophils Absolute Auto 400 /uL (0-450); Eosinophils Percent Auto 4.4 % (2-4); Hematocrit 34.9 % (41-53); Hemoglobin 12.1 g/dL (13.5-17.5); Lymphocytes Absolute Auto 2300 /uL (1100-4500); Mean Corpuscular HGB Conc 34.6 % (30-36); Mean Corpuscular Hemoglobin 30.7 PG (26-34); Mean Corpuscular Volume 88.7 fL (80-100); Monocytes Absolute Auto 700 /uL (0-900); Monocytes Percent Auto 8.2 % (3-14); Neutrophils Absolute Auto 5100 /uL (1500-7000); Neutrophils Percent Auto 59.9 % (50-75); Platelet Count 220 X10^3/uL (150-400); Red Blood Cell Count 3.93 X10^6/uL (4.5-5.9); White Blood Cell Count 8.5 X10^3/uL (4.5-11.0)
[2023-09-04 13:29] LABS: Alanine Aminotransferase 40 IU/L (<50); Albumin 4.4 g/dL (3.5-5.0); Albumin Globulin Ratio 1.7 (1.0-2.8); Alkaline Phosphatase 92 U/L (38-126); Aspartate Aminotransferase 33 IU/L (17-59); BUN Creatinine Ratio 20.4 (6-22); Bilirubin Total 0.7 mg/dL (0.2-1.3); Blood Urea Nitrogen 30 mg/dL (9-20); Calcium 9.6 mg/dL (8.4-10.2); Carbon Dioxide 28 mmol/L (22-32); Chloride 94 mmol/L (98-107); Estimated Glomerular Filt Rate 56 mL/min (>60); Globulin 2.6 g/dL (1.7-4.1); Glucose 153 mg/dL (70-100); HEMOLYSIS < 15 (0-50); Potassium 2.9 mmol/L (3.4-5.1); Sodium 134 mmol/L (137-145)
== END ==
PROVIDERS: Family Provider Internal Medicine; PCP Internal Medicine; Referring Provider Internal Medicine; Visit Provider Internal Medicine
DX: C83.30 Diffuse large B-cell lymphoma, unspecified site (principal); E78.2 Mixed hyperlipidemia; E66.9 Obesity, unspecified; R60.9 Edema, unspecified
CPT/HCPCS: 36415; 80053; 85025

== ENCOUNTER → 2023-10-28 06:43 | Outpatient (CLI) | payer OTHER, SELFPAY ==
[2023-01-21 12:57] VITALS: BMI 36.2
--- NOTE | 2023-10-28 06:45 | DI.US.S_ITS ---
PROCEDURE: US PERIPH VENOUS LOW EXTREM LT INDICATIONS: EDEMA TECHNIQUE: Real-time imaging, as well as color and pulse Doppler interrogation, were performed of the lower extremity deep veins from the inguinal ligament to the popliteal fossa, with documentation of the visualized calf veins. COMPARISON: None. FINDINGS: Peroneal vein and proximal to mid posterior tibial veins were not visualized secondary to edema.Otherwise the common femoral, femoral, popliteal, and the visualized calf veins are normally compressible, and free of intraluminal thrombus. Color and pulse Doppler demonstrate normal phasic intraluminal flow. There is normal augmentation response to distal compression maneuver. IMPRESSION: Somewhat limited study due to edema with no findings of LEFT lower extremity deep venous thrombosis. Dictated by: Jose Armando Nj M.D. on 10/28/2023 at 11:55 Approved by: Jose Armando Nj M.D. on 10/28/2023 at 11:57
== END ==
LOC: US 06:44
PROVIDERS: Family Provider Internal Medicine; PCP Internal Medicine; Referring Provider Internal Medicine; Visit Provider Internal Medicine
DX: R60.9 Edema, unspecified (principal); I82.409 Acute embolism and thrombosis of unspecified deep veins of unspecified lower extremity
CPT/HCPCS: 93971

== ENCOUNTER → 2023-11-03 13:50 | Outpatient (CLI) | payer OTHER, SELFPAY ==
[2023-01-21 12:57] VITALS: BMI 36.2
[2023-11-03 15:02] LABS: BUN Creatinine Ratio 18.4 (6-22); Blood Urea Nitrogen 25 mg/dL (9-20); Calcium 9.3 mg/dL (8.4-10.2); Carbon Dioxide 30 mmol/L (22-32); Chloride 92 mmol/L (98-107); Estimated Glomerular Filt Rate > 60 mL/min (>60); Glucose 232 mg/dL (70-100); HEMOLYSIS < 15 (0-50); Magnesium 1.9 mg/dL (1.6-2.3); Sodium 133 mmol/L (137-145)
== END ==
PROVIDERS: Family Provider Internal Medicine; PCP Internal Medicine; Referring Provider Internal Medicine; Visit Provider Internal Medicine
DX: R60.9 Edema, unspecified (principal)
CPT/HCPCS: 36415; 80048; 83735

== ENCOUNTER → 2023-12-08 11:11 | Outpatient (CLI) | payer OTHER, SELFPAY ==
[2023-01-21 12:57] VITALS: BMI 36.2
[2023-12-08 12:42] LABS: BUN Creatinine Ratio 15.2 (6-22); Blood Urea Nitrogen 19 mg/dL (9-20); Calcium 9.2 mg/dL (8.4-10.2); Carbon Dioxide 23 mmol/L (22-32); Chloride 105 mmol/L (98-107); Estimated Glomerular Filt Rate > 60 mL/min (>60); Glucose 171 mg/dL (70-100); HEMOLYSIS < 15 (0-50); Magnesium 2.1 mg/dL (1.6-2.3); Potassium 3.7 mmol/L (3.4-5.1); Sodium 139 mmol/L (137-145)
[2023-12-08 19:40] LABS: Hemoglobin A1C% w Est Avg Glu 5.9 % (4.0-6.0)
== END ==
LOC: LAB 11:11
PROVIDERS: Family Provider Internal Medicine; PCP Internal Medicine; Referring Provider Internal Medicine; Visit Provider Internal Medicine
DX: R60.9 Edema, unspecified (principal); I87.8 Other specified disorders of veins; R73.9 Hyperglycemia, unspecified
CPT/HCPCS: 36415; 80048; 83036; 83735

== ENCOUNTER → 2024-01-29 11:39 | Outpatient (CLI) | payer OTHER, SELFPAY ==
[2023-01-21 12:57] VITALS: BMI 36.2
== END ==
PROVIDERS: Family Provider Internal Medicine; PCP Internal Medicine; Referring Provider Internal Medicine; Visit Provider Internal Medicine
DX: R19.7 Diarrhea, unspecified (principal)
CPT/HCPCS: 87045

== ENCOUNTER → 2024-02-10 11:08 | Outpatient (CLI) | payer OTHER, SELFPAY ==
[2023-01-21 12:57] VITALS: BMI 36.2
[2024-02-10 12:38] LABS: Cholesterol 75 mg/dL (140-199); HDL Cholesterol 30 mg/dL (40-60); LDL Cholesterol Calculated 16 mg/dL (<100); Triglycerides 146 mg/dL (35-150)
== END ==
LOC: LAB 11:09
PROVIDERS: Family Provider Internal Medicine; PCP Internal Medicine; Referring Provider Nurse Practitioner Acute Care; Visit Provider Nurse Practitioner Acute Care
DX: I25.10 Atherosclerotic heart disease of native coronary artery without angina pectoris (principal)
CPT/HCPCS: 36415; 80061